=== PATIENT | male | born 1960 | race Caucasian/White ===

== ENCOUNTER 2018-04-10 01:23 | Outpatient (RCR) | payer MEDICAID, SELFPAY ==
[2018-04-10] MEDS: Heparin 500 UNITS/5 ML SYRINGE IV (12:33)
[2018-04-10] MEDS: Normal Saline Flush 10 ML SYR IVP (12:33)
[2018-04-10 12:54] LABS: Abs Immature Grans 0.03 k/cumm (0.0-0.09); Absolute Basophil Count 0.03 k/cumm (0.0-0.2); Absolute Lymphocyte Count 0.92 k/cumm (1.2-3.4); Absolute Monocyte Count 0.49 k/cumm (0.11-0.7); Absolute Neutrophil Count 5.11 k/cumm (1.2-6.7); Basophils % 0.4; Eosinophils % 4.4; HCT 47.3 % (40.0-50.0); HGB 15.9 g/dL (13.5-17.5); Immature Grans % 0.4; Lymphocytes % 13.4; Mean Corp. HGB Concentration 33.6 g/dL (32.0-36.0); Mean Corpuscular Hemoglobin 29.7 pg (27.0-33.0); Mean Corpuscular Volume 88.4 fL (80-95); Mean Platelet Volume 9.2 fL (8.0-11.0); Monocytes % 7.1; Neutrophils % 74.3; Platelet Count 246 x1000/uL (130-400); RBC 5.35 m/cumm (4.50-6.00); RBC Distribution Width 14.2 % (11.8-14.1); White Blood Cell Count 6.88 k/cumm (4.4-10.8)
[2018-04-10 13:03] LABS: ALT 24 U/L (12-78); AST 14 U/L (15-37); Albumin 3.7 g/dL (3.4-5.0); Alkaline Phosphatase 82 U/L (46-116); Anion Gap 8.8 mmol/L (3-11); BUN 8 mg/dL (7-18); Bilirubin, Total 0.5 mg/dL (0.2-1.0); CO2 27.2 mmol/L (21.0-32.0); CREATININE 0.94 mg/dL (0.70-1.30); Calcium 8.9 mg/dL (8.5-10.1); Chloride 103 mmol/L (98-107); Glucose 98 mg/dL (70-100); Potassium 3.9 mmol/L (3.5-5.1); Sodium 139 mmol/L (136-145); Total Protein 7.2 g/dL (6.4-8.2)
[2018-04-13 10:35] LABS: CEA 1.7 ng/ml
== END 2018-05-01 ==
LOC: INF 01:23
PROVIDERS: PCP Internal Medicine; Visit Provider Internal Medicine Hematology & Oncology
DX: C20 Malignant neoplasm of rectum (principal); Z45.2 Encounter for adjustment and management of vascular access device
CPT/HCPCS: 36591; 80053; 82378; 85025

== ENCOUNTER 2018-06-18 10:44 | Outpatient (REF) | payer MEDICAID, SELFPAY ==
[2018-06-22 02:17] LABS: 6-monoacetylmorphine Not Detected ng/mL (Cutoff: 25); Amphetamines Negative ng/mL (Cutoff: 500); Barbiturates Negative ng/mL (Cutoff: 200); Benzodiazepines Negative ng/mL (Cutoff: 100); Buprenorphine Not Detected ng/mL (Cutoff: 5); Cocaine Negative ng/mL (Cutoff: 150); Codeine Not Detected ng/mL (Cutoff: 25); Comment Normal; Creatinine, U 71.9 mg/dL; Dihydrocodeine Not Detected ng/mL (Cutoff: 25); EDDP Not Detected ng/mL (Cutoff: 25); Fentanyl Not Detected ng/mL (Cutoff: 2); Hydrocodone Not Detected ng/mL (Cutoff: 25); Hydromorphone Not Detected ng/mL (Cutoff: 25); Hydromorphone-3-beta-glucuroni Not Detected ng/mL (Cutoff: 100); Meperidine Not Detected ng/mL (Cutoff: 25); Methadone Not Detected ng/mL (Cutoff: 25); Morphine Not Detected ng/mL (Cutoff: 25); N-desmethyltapentadol Not Detected ng/mL (Cutoff: 50); Naloxone Not Detected ng/mL (Cutoff: 25); Norbuprenorphine Not Detected ng/mL (Cutoff: 5); Norfentanyl Not Detected ng/mL (Cutoff: 2); Norhydrocodone Not Detected ng/mL (Cutoff: 25); Normeperidine Not Detected ng/mL (Cutoff: 25); Noroxycodone Not Detected ng/mL (Cutoff: 25); Noroxymorphone Not Detected ng/mL (Cutoff: 25); O-desmethyltramadol Not Detected ng/mL (Cutoff: 25); Phencyclidine Negative ng/mL (Cutoff: 25); Propoxyphene Not Detected ng/mL (Cutoff: 25); Tapentadol Not Detected ng/mL (Cutoff: 25); Tetrahydrocannabinol Presumptive Positive ng/mL (Cutoff: 50); Tramadol Not Detected ng/mL (Cutoff: 25); pH 7.6
== END 2018-06-18 11:04 ==
LOC: LBN 10:44
PROVIDERS: PCP Internal Medicine; Visit Provider Nurse Practitioner Family
DX: Z79.891 Long term (current) use of opiate analgesic (principal); G89.29 Other chronic pain
CPT/HCPCS: 80307; 80364

== ENCOUNTER 2018-10-30 00:40 | Outpatient (RCR) | payer MEDICAID, SELFPAY ==
[2018-10-30] MEDS: Normal Saline Flush 10 ML SYR IVP (13:32)
[2018-10-30] MEDS: Heparin 500 UNITS/5 ML SYRINGE IV (13:32)
[2018-10-30 13:50] LABS: Abs Immature Grans 0.01 k/cumm (0.0-0.09); Absolute Basophil Count 0.03 k/cumm (0.0-0.2); Absolute Eosinophil Count 0.26 k/cumm (0.0-0.7); Absolute Lymphocyte Count 1.06 k/cumm (1.2-3.4); Absolute Monocyte Count 0.58 k/cumm (0.11-0.7); Absolute Neutrophil Count 6.73 k/cumm (1.2-6.7); Basophils % 0.3; HCT 47.8 % (40.0-50.0); HGB 16.1 g/dL (13.5-17.5); Immature Grans % 0.1; Lymphocytes % 12.2; Mean Corp. HGB Concentration 33.7 g/dL (32.0-36.0); Mean Corpuscular Hemoglobin 29.6 pg (27.0-33.0); Mean Corpuscular Volume 87.9 fL (80-95); Mean Platelet Volume 10.4 fL (8.0-11.0); Monocytes % 6.7; Neutrophils % 77.7; Platelet Count 253 x1000/uL (130-400); RBC 5.44 m/cumm (4.50-6.00); RBC Distribution Width 14.4 % (11.8-14.1); White Blood Cell Count 8.67 k/cumm (4.4-10.8)
[2018-10-30 14:02] LABS: ALT 24 U/L (12-78); AST 17 U/L (15-37); Albumin 3.8 g/dL (3.4-5.0); Alkaline Phosphatase 87 U/L (46-116); Anion Gap 5.5 mmol/L (3-11); BUN 13 mg/dL (7-18); Bilirubin, Total 0.4 mg/dL (0.2-1.0); CO2 31.5 mmol/L (21.0-32.0); CREATININE 0.93 mg/dL (0.70-1.30); Calcium 9.5 mg/dL (8.5-10.1); Chloride 102 mmol/L (98-107); Glucose 142 mg/dL (70-100); Potassium 3.9 mmol/L (3.5-5.1); Sodium 139 mmol/L (136-145); Total Protein 7.6 g/dL (6.4-8.2)
[2018-11-02 12:09] LABS: Lyme Ab w Rflx to Lyme Confirm Negative
[2018-11-02 12:14] LABS: CEA 1.6 ng/ml
== END 2018-11-29 23:59 | disposition home or self-care (01) ==
LOC: INF 00:40
PROVIDERS: PCP Internal Medicine; Visit Provider Internal Medicine Hematology & Oncology
DX: C20 Malignant neoplasm of rectum (principal); Z45.2 Encounter for adjustment and management of vascular access device
CPT/HCPCS: 36591; 80053; 82378; 85025; 86618

== ENCOUNTER 2019-01-11 09:36 | Outpatient (CLI) | payer MEDICAID, SELFPAY ==
--- NOTE | 2019-01-11 09:35 | DI.RAD_ITS ---
SYMPTOM/DIAGNOSIS: LT CHEST PAIN, COUGH, R00.2, R07.9 PA AND LATERAL CHEST: Comparison is made with 01/03/17. A Port is now seen over the right upper chest with the tip in the SVC. The cardiac and mediastinal contours have a normal appearance. The lungs appear clear. There are old right lower rib fractures. There is no evidence of pneumothorax, infiltrate or effusion. IMPRESSION: No acute abnormality.
[2019-01-11 11:18] LABS: TSH (W/Ref FT4) 2.39 uIU/mL (0.358-3.74)
[2019-01-12 12:43] LABS: Lyme Ab w Rflx to Lyme Confirm Negative
== END 2019-01-11 09:56 ==
PROVIDERS: PCP Internal Medicine; Visit Provider Internal Medicine
DX: R00.2 Palpitations (principal); R07.9 Chest pain, unspecified; S40.862A Insect bite (nonvenomous) of left upper arm, initial encounter; W57.XXXA Bitten or stung by nonvenomous insect and other nonvenomous arthropods, initial encounter; T14.8XXA Other injury of unspecified body region, initial encounter; R05 Cough
CPT/HCPCS: 36415; 71046; 84443; 86618

== ENCOUNTER 2019-02-25 09:39 | Outpatient (REF) | payer MEDICAID, SELFPAY ==
[2019-03-01 18:06] LABS: 6-monoacetylmorphine Not Detected ng/mL (Cutoff: 25); Amphetamines Negative ng/mL (Cutoff: 500); Barbiturates Negative ng/mL (Cutoff: 200); Benzodiazepines Negative ng/mL (Cutoff: 100); Buprenorphine Not Detected ng/mL (Cutoff: 5); Cocaine Negative ng/mL (Cutoff: 150); Codeine Not Detected ng/mL (Cutoff: 25); Comment Normal; Creatinine, U 120.1 mg/dL; Dihydrocodeine Not Detected ng/mL (Cutoff: 25); EDDP Not Detected ng/mL (Cutoff: 25); Fentanyl Not Detected ng/mL (Cutoff: 2); Hydrocodone Not Detected ng/mL (Cutoff: 25); Hydromorphone Not Detected ng/mL (Cutoff: 25); Hydromorphone-3-beta-glucuroni Not Detected ng/mL (Cutoff: 100); Meperidine Not Detected ng/mL (Cutoff: 25); Methadone Not Detected ng/mL (Cutoff: 25); Morphine Not Detected ng/mL (Cutoff: 25); N-desmethyltapentadol Not Detected ng/mL (Cutoff: 50); Naloxone Not Detected ng/mL (Cutoff: 25); Norbuprenorphine Not Detected ng/mL (Cutoff: 5); Norfentanyl Not Detected ng/mL (Cutoff: 2); Norhydrocodone Not Detected ng/mL (Cutoff: 25); Normeperidine Not Detected ng/mL (Cutoff: 25); Noroxycodone Present ng/mL (Cutoff: 25); Noroxymorphone Present ng/mL (Cutoff: 25); O-desmethyltramadol Not Detected ng/mL (Cutoff: 25); Phencyclidine Negative ng/mL (Cutoff: 25); Propoxyphene Not Detected ng/mL (Cutoff: 25); Specific Gravity 1.004; Tapentadol Not Detected ng/mL (Cutoff: 25); Tetrahydrocannabinol Presumptive Positive ng/mL (Cutoff: 50); Tramadol Not Detected ng/mL (Cutoff: 25); pH 8.3
[2019-03-03 10:51] LABS: Carboxy-THC Interpretation Positive.; Delta-9 CarboxyThc by LC-MS/MS >500.0 ng/mL (Cutoff:<3)
== END 2019-02-25 09:59 ==
LOC: NCHCN 09:39
PROVIDERS: PCP Internal Medicine; Visit Provider Nurse Practitioner Family
DX: Z79.891 Long term (current) use of opiate analgesic (principal)
CPT/HCPCS: 80307; 80349; 80364

== ENCOUNTER 2019-05-20 09:49 | Outpatient (REF) | payer MEDICAID, SELFPAY ==
[2019-05-23 19:28] LABS: 6-monoacetylmorphine Not Detected ng/mL (Cutoff: 25); Amphetamines Negative ng/mL (Cutoff: 500); Barbiturates Negative ng/mL (Cutoff: 200); Benzodiazepines Negative ng/mL (Cutoff: 100); Buprenorphine Not Detected ng/mL (Cutoff: 5); Cocaine Negative ng/mL (Cutoff: 150); Codeine Not Detected ng/mL (Cutoff: 25); Comment Normal; Creatinine, U 48.9 mg/dL; Dihydrocodeine Not Detected ng/mL (Cutoff: 25); EDDP Not Detected ng/mL (Cutoff: 25); Fentanyl Not Detected ng/mL (Cutoff: 2); Hydrocodone Not Detected ng/mL (Cutoff: 25); Hydromorphone Not Detected ng/mL (Cutoff: 25); Hydromorphone-3-beta-glucuroni Not Detected ng/mL (Cutoff: 100); Meperidine Not Detected ng/mL (Cutoff: 25); Methadone Not Detected ng/mL (Cutoff: 25); Morphine Not Detected ng/mL (Cutoff: 25); N-desmethyltapentadol Not Detected ng/mL (Cutoff: 50); Naloxone Not Detected ng/mL (Cutoff: 25); Norbuprenorphine Not Detected ng/mL (Cutoff: 5); Norhydrocodone Not Detected ng/mL (Cutoff: 25); Normeperidine Not Detected ng/mL (Cutoff: 25); Noroxycodone Present ng/mL (Cutoff: 25); Noroxymorphone Not Detected ng/mL (Cutoff: 25); O-desmethyltramadol Not Detected ng/mL (Cutoff: 25); Phencyclidine Negative ng/mL (Cutoff: 25); Propoxyphene Not Detected ng/mL (Cutoff: 25); Specific Gravity 1.002; Tapentadol Not Detected ng/mL (Cutoff: 25); Tetrahydrocannabinol Presumptive Positive ng/mL (Cutoff: 50); Tramadol Not Detected ng/mL (Cutoff: 25); pH 8.4
[2019-05-25 23:38] LABS: Carboxy-THC Interpretation Positive.; Delta-9 CarboxyThc by LC-MS/MS >500.0 ng/mL (Cutoff:<3)
== END 2019-05-20 10:09 ==
LOC: LBN 09:49
PROVIDERS: PCP Internal Medicine; Visit Provider Nurse Practitioner Family
DX: G89.29 Other chronic pain (principal); Z79.891 Long term (current) use of opiate analgesic
CPT/HCPCS: 80307; 80349; 80364

== ENCOUNTER 2019-05-28 13:05 | Outpatient (RCR) | payer MEDICAID, SELFPAY ==
[2019-05-28] MEDS: Normal Saline Flush 10 ML SYR 30 ML IVP (13:42)
[2019-05-28] MEDS: Heparin 500 UNITS/5 ML SYRINGE IVP (13:43)
[2019-05-28 13:45] LABS: Abs Immature Grans 0.01 k/cumm (0.0-0.09); Absolute Basophil Count 0.04 k/cumm (0.0-0.2); Absolute Eosinophil Count 0.25 k/cumm (0.0-0.7); Absolute Lymphocyte Count 1.29 k/cumm (1.2-3.4); Absolute Monocyte Count 0.47 k/cumm (0.11-0.7); Basophils % 0.5; Eosinophils % 3.1; HCT 48.3 % (40.0-50.0); HGB 16.3 g/dL (13.5-17.5); Immature Grans % 0.1; Mean Corp. HGB Concentration 33.7 g/dL (32.0-36.0); Mean Corpuscular Hemoglobin 29.8 pg (27.0-33.0); Mean Corpuscular Volume 88.3 fL (80-95); Mean Platelet Volume 9.6 fL (8.0-11.0); Monocytes % 5.8; Neutrophils % 74.5; Platelet Count 330 x1000/uL (130-400); RBC 5.47 m/cumm (4.50-6.00); RBC Distribution Width 14.3 % (11.8-14.1); White Blood Cell Count 8.06 k/cumm (4.4-10.8)
[2019-05-28 14:11] LABS: ALT 23 U/L (16-63); AST 17 U/L (15-37); Alkaline Phosphatase 73 U/L (46-116); Anion Gap 6.7 mmol/L (3-11); BUN 9 mg/dL (7-18); Bilirubin, Total 0.4 mg/dL (0.2-1.0); CO2 30.3 mmol/L (21.0-32.0); CREATININE 0.86 mg/dL (0.70-1.30); Calcium 9.6 mg/dL (8.5-10.1); Chloride 104 mmol/L (98-107); Glucose 100 mg/dL (70-100); Potassium 3.9 mmol/L (3.5-5.1); Sodium 141 mmol/L (136-145); Total Protein 7.6 g/dL (6.4-8.2)
[2019-05-31 15:32] LABS: CEA 2.1 ng/ml
== END 2019-05-31 23:59 | disposition home or self-care (01) ==
LOC: INF 13:05
PROVIDERS: PCP Internal Medicine; Visit Provider Internal Medicine Hematology & Oncology
DX: C20 Malignant neoplasm of rectum (principal); Z45.2 Encounter for adjustment and management of vascular access device
CPT/HCPCS: 36591; 80053; 82378; 85025

== ENCOUNTER 2019-06-25 11:58 | Outpatient (RCR) | payer MEDICAID, SELFPAY ==
[2019-06-25] MEDS: Heparin 500 UNITS/5 ML SYRINGE (13:15)
[2019-06-25] MEDS: Normal Saline Flush 10 ML SYR IVP (13:16)
== END 2019-07-01 23:59 | disposition home or self-care (01) ==
LOC: INF 11:58
PROVIDERS: PCP Internal Medicine; Visit Provider Internal Medicine Hematology & Oncology
DX: Z45.2 Encounter for adjustment and management of vascular access device (principal)
CPT/HCPCS: 96523

== ENCOUNTER 2019-07-28 01:03 | Outpatient (RCR) | payer MEDICAID, SELFPAY ==
[2019-07-28 12:25] LABS: Abs Immature Grans 0.01 k/cumm (0.0-0.09); Absolute Basophil Count 0.04 k/cumm (0.0-0.2); Absolute Eosinophil Count 0.12 k/cumm (0.0-0.7); Absolute Lymphocyte Count 1.16 k/cumm (1.2-3.4); Absolute Neutrophil Count 7.75 k/cumm (1.2-6.7); Basophils % 0.4; Eosinophils % 1.2; HCT 46.4 % (40.0-50.0); HGB 15.5 g/dL (13.5-17.5); Immature Grans % 0.1; Mean Corp. HGB Concentration 33.4 g/dL (32.0-36.0); Mean Corpuscular Hemoglobin 29.6 pg (27.0-33.0); Mean Corpuscular Volume 88.7 fL (80-95); Mean Platelet Volume 9.6 fL (8.0-11.0); Monocytes % 6.2; Neutrophils % 80.1; Platelet Count 324 x1000/uL (130-400); RBC 5.23 m/cumm (4.50-6.00); RBC Distribution Width 14.1 % (11.8-14.1); White Blood Cell Count 9.68 k/cumm (4.4-10.8)
[2019-07-28 12:40] LABS: ALT 27 U/L (16-63); AST 17 U/L (15-37); Albumin 4.1 g/dL (3.4-5.0); Alkaline Phosphatase 61 U/L (46-116); Anion Gap 10.2 mmol/L (3-11); BUN 10 mg/dL (7-18); Bilirubin, Total 0.3 mg/dL (0.2-1.0); CO2 27.8 mmol/L (21.0-32.0); CREATININE 0.89 mg/dL (0.70-1.30); Calcium 9.4 mg/dL (8.5-10.1); Chloride 102 mmol/L (98-107); Glucose 104 mg/dL (74-106); Sodium 140 mmol/L (136-145); Total Protein 7.5 g/dL (6.4-8.2)
[2019-07-28] MEDS: Heparin 500 UNITS/5 ML SYRINGE IV (12:48)
[2019-07-28] MEDS: Normal Saline Flush 10 ML SYR IVP (12:48)
== END 2019-07-31 23:59 | disposition home or self-care (01) ==
LOC: INF 01:03
PROVIDERS: PCP Internal Medicine; Visit Provider Internal Medicine Hematology & Oncology
DX: C20 Malignant neoplasm of rectum (principal); Z45.2 Encounter for adjustment and management of vascular access device
CPT/HCPCS: 36591; 80053; 82378; 85025

== ENCOUNTER 2019-08-18 09:27 | Outpatient (REF) | payer MEDICAID, SELFPAY ==
[2019-08-21 14:29] LABS: 2-Hydroxy Ethyl Flurazepam Not Detected ng/mL (Cutoff: 10); 6-monoacetylmorphine Not Detected ng/mL (Cutoff: 25); Alpha-Hydroxy Midazolam Not Detected ng/mL (Cutoff: 10); Alpha-Hydroxy Triazolam Not Detected ng/mL (Cutoff: 10); Alpha-Hydroxyalprazolam Not Detected ng/mL (Cutoff: 10); Alpha-OH-alprazolam Glucuronid Not Detected ng/mL (Cutoff: 50); Alprazolam Not Detected ng/mL (Cutoff: 10); Amphetamines Negative ng/mL (Cutoff: 500); Barbiturates Negative ng/mL (Cutoff: 200); Buprenorphine Not Detected ng/mL (Cutoff: 5); Chlordiazepoxide Not Detected ng/mL (Cutoff: 10); Clobazam Not Detected ng/mL (Cutoff: 10); Clonazepam Not Detected ng/mL (Cutoff: 10); Cocaine Negative ng/mL (Cutoff: 150); Codeine Not Detected ng/mL (Cutoff: 25); Comment Normal; Creatinine, U 77.3 mg/dL; Diazepam Not Detected ng/mL (Cutoff: 10); Dihydrocodeine Not Detected ng/mL (Cutoff: 25); EDDP Not Detected ng/mL (Cutoff: 25); Fentanyl Not Detected ng/mL (Cutoff: 2); Flurazepam Not Detected ng/mL (Cutoff: 10); Hydrocodone Not Detected ng/mL (Cutoff: 25); Hydromorphone Not Detected ng/mL (Cutoff: 25); Hydromorphone-3-beta-glucuroni Not Detected ng/mL (Cutoff: 100); List Patient's Current Meds URINE; Lorazepam Not Detected ng/mL (Cutoff: 10); Lorazepam Glucuronide Not Detected ng/mL (Cutoff: 50); Meperidine Not Detected ng/mL (Cutoff: 25); Methadone Not Detected ng/mL (Cutoff: 25); Midazolam Not Detected ng/mL (Cutoff: 10); Morphine Not Detected ng/mL (Cutoff: 25); N-Desmethylclobazam Not Detected ng/mL (Cutoff: 200); N-desmethyltapentadol Not Detected ng/mL (Cutoff: 50); Naloxone Not Detected ng/mL (Cutoff: 25); Norbuprenorphine Not Detected ng/mL (Cutoff: 5); Norfentanyl Not Detected ng/mL (Cutoff: 2); Norhydrocodone Not Detected ng/mL (Cutoff: 25); Normeperidine Not Detected ng/mL (Cutoff: 25); Noroxycodone Present ng/mL (Cutoff: 25); Noroxymorphone Not Detected ng/mL (Cutoff: 25); O-desmethyltramadol Not Detected ng/mL (Cutoff: 25); Oxazepam Glucuronide Not Detected ng/mL (Cutoff: 50); Phencyclidine Negative ng/mL (Cutoff: 25); Prazepam Not Detected ng/mL (Cutoff: 10); Propoxyphene Not Detected ng/mL (Cutoff: 25); Specific Gravity 1.012; Tapentadol Not Detected ng/mL (Cutoff: 25); Temazepam Not Detected ng/mL (Cutoff: 10); Temazepam Glucuronide Not Detected ng/mL (Cutoff: 50); Tetrahydrocannabinol Presumptive Positive ng/mL (Cutoff: 50); Tramadol Not Detected ng/mL (Cutoff: 25); Triazolam Not Detected ng/mL (Cutoff: 10); Zolpidem Phenyl-4-Carboxy acid Not Detected ng/mL (Cutoff: 10); pH 8.9
[2019-08-23 08:40] LABS: Carboxy-THC Interpretation Positive.; Delta-9 CarboxyThc by LC-MS/MS >500.0 ng/mL (Cutoff:<3)
== END 2019-08-18 09:47 ==
LOC: LBN 09:27
PROVIDERS: PCP Internal Medicine; Visit Provider Nurse Practitioner Family
DX: Z79.891 Long term (current) use of opiate analgesic (principal); G89.29 Other chronic pain
CPT/HCPCS: 80307; 80347; 80349; 80364

== ENCOUNTER 2019-08-27 04:53 | Outpatient (RCR) | payer MEDICARE, OTHER, MEDICAID, SELFPAY ==
[2019-08-27] MEDS: Normal Saline Flush 10 ML SYR IVP (09:36)
[2019-08-27] MEDS: Heparin 500 UNITS/5 ML SYRINGE IV (09:37)
[2019-08-27 09:42] LABS: Abs Immature Grans 0.03 k/cumm (0.0-0.09); Absolute Basophil Count 0.04 k/cumm (0.0-0.2); Absolute Eosinophil Count 0.26 k/cumm (0.0-0.7); Absolute Lymphocyte Count 1.43 k/cumm (1.2-3.4); Absolute Monocyte Count 0.65 k/cumm (0.11-0.7); Basophils % 0.3; Eosinophils % 2.1; HGB 16.1 g/dL (13.5-17.5); Immature Grans % 0.2; Lymphocytes % 11.6; Mean Corp. HGB Concentration 33.5 g/dL (32.0-36.0); Mean Corpuscular Hemoglobin 29.9 pg (27.0-33.0); Mean Corpuscular Volume 89.1 fL (80-95); Mean Platelet Volume 9.3 fL (8.0-11.0); Monocytes % 5.3; Neutrophils % 80.5; Platelet Count 328 x1000/uL (130-400); RBC 5.39 m/cumm (4.50-6.00); RBC Distribution Width 14.4 % (11.8-14.1); White Blood Cell Count 12.33 k/cumm (4.4-10.8)
[2019-08-27 09:46] LABS: Absolute Neutrophil Count 9.93 k/cumm (1.2-6.7)
[2019-08-27 10:03] LABS: ALT 23 U/L (16-63); AST 16 U/L (15-37); Albumin 3.9 g/dL (3.4-5.0); Alkaline Phosphatase 66 U/L (46-116); Anion Gap 6.3 mmol/L (3-11); BUN 10 mg/dL (7-18); Bilirubin, Total 0.5 mg/dL (0.2-1.0); CO2 30.7 mmol/L (21.0-32.0); CREATININE 0.91 mg/dL (0.70-1.30); Calcium 9.2 mg/dL (8.5-10.1); Chloride 104 mmol/L (98-107); Glucose 130 mg/dL (74-106); Potassium 4.1 mmol/L (3.5-5.1); Sodium 141 mmol/L (136-145); Total Protein 7.4 g/dL (6.4-8.2)
== END 2019-08-31 23:59 | disposition home or self-care (01) ==
LOC: INF 04:53
PROVIDERS: PCP Internal Medicine; Visit Provider Internal Medicine Hematology & Oncology
DX: C20 Malignant neoplasm of rectum (principal); Z45.2 Encounter for adjustment and management of vascular access device
CPT/HCPCS: 36591; 80053; 82378; 85025

== ENCOUNTER 2019-10-11 10:31 | Outpatient (RCR) | payer MEDICARE, OTHER, MEDICAID, SELFPAY ==
[2019-10-11 10:49] LABS: Abs Immature Grans 0.02 k/cumm (0.0-0.09); Absolute Basophil Count 0.04 k/cumm (0.0-0.2); Absolute Eosinophil Count 0.21 k/cumm (0.0-0.7); Absolute Lymphocyte Count 1.36 k/cumm (1.2-3.4); Absolute Neutrophil Count 10.83 k/cumm (1.2-6.7); Basophils % 0.3; Eosinophils % 1.6; HCT 47.4 % (40.0-50.0); HGB 15.9 g/dL (13.5-17.5); Immature Grans % 0.2 %; Lymphocytes % 10.4; Mean Corp. HGB Concentration 33.5 g/dL (32.0-36.0); Mean Corpuscular Hemoglobin 29.7 pg (27.0-33.0); Mean Corpuscular Volume 88.6 fL (80-95); Mean Platelet Volume 9.4 fL (8.0-11.0); Monocytes % 4.7; Neutrophils % 82.8; Platelet Count 305 x1000/uL (130-400); RBC 5.35 m/cumm (4.50-6.00); RBC Distribution Width 14.3 % (11.8-14.1); White Blood Cell Count 13.08 k/cumm (4.4-10.8)
[2019-10-11 10:53] LABS: Absolute Monocyte Count 0.61 k/cumm (0.11-0.7)
[2019-10-11 11:00] LABS: ALT 20 U/L (16-63); AST 16 U/L (15-37); Albumin 3.9 g/dL (3.4-5.0); Alkaline Phosphatase 62 U/L (46-116); BUN 9 mg/dL (7-18); Bilirubin, Total 0.3 mg/dL (0.2-1.0); CREATININE 0.83 mg/dL (0.70-1.30); Chloride 103 mmol/L (98-107); Glucose 124 mg/dL (74-106); Potassium 3.8 mmol/L (3.5-5.1); Sodium 140 mmol/L (136-145); Total Protein 7.1 g/dL (6.4-8.2)
[2019-10-11] MEDS: Heparin 500 UNITS/5 ML SYRINGE (11:37)
[2019-10-11] MEDS: Normal Saline Flush 10 ML SYR IVP (11:39)
[2019-10-12 12:12] LABS: CEA 1.9 ng/mL (See Note)
== END 2019-10-30 23:59 | disposition home or self-care (01) ==
LOC: INF 10:31
PROVIDERS: PCP Internal Medicine; Visit Provider Internal Medicine Hematology & Oncology
DX: C20 Malignant neoplasm of rectum (principal); Z45.2 Encounter for adjustment and management of vascular access device
CPT/HCPCS: 36591; 80053; 82378; 85025

== ENCOUNTER 2019-11-09 10:08 | Outpatient (REF) | payer MEDICARE, OTHER, MEDICAID, SELFPAY ==
[2019-11-12 13:00] LABS: 2-Hydroxy Ethyl Flurazepam Not Detected ng/mL (Cutoff: 10); 6-monoacetylmorphine Not Detected ng/mL (Cutoff: 25); Alpha-Hydroxy Midazolam Not Detected ng/mL (Cutoff: 10); Alpha-Hydroxy Triazolam Not Detected ng/mL (Cutoff: 10); Alpha-Hydroxyalprazolam Not Detected ng/mL (Cutoff: 10); Alpha-OH-alprazolam Glucuronid Not Detected ng/mL (Cutoff: 50); Alprazolam Not Detected ng/mL (Cutoff: 10); Amphetamines Negative ng/mL (Cutoff: 500); Barbiturates Negative ng/mL (Cutoff: 200); Buprenorphine Not Detected ng/mL (Cutoff: 5); Chlordiazepoxide Not Detected ng/mL (Cutoff: 10); Clobazam Not Detected ng/mL (Cutoff: 10); Clonazepam Not Detected ng/mL (Cutoff: 10); Cocaine Negative ng/mL (Cutoff: 150); Codeine Not Detected ng/mL (Cutoff: 25); Comment Normal; Creatinine, U 96.2 mg/dL; Diazepam Not Detected ng/mL (Cutoff: 10); Dihydrocodeine Not Detected ng/mL (Cutoff: 25); EDDP Not Detected ng/mL (Cutoff: 25); Fentanyl Not Detected ng/mL (Cutoff: 2); Flurazepam Not Detected ng/mL (Cutoff: 10); Hydrocodone Not Detected ng/mL (Cutoff: 25); Hydromorphone Not Detected ng/mL (Cutoff: 25); Hydromorphone-3-beta-glucuroni Not Detected ng/mL (Cutoff: 100); Lorazepam Not Detected ng/mL (Cutoff: 10); Lorazepam Glucuronide Not Detected ng/mL (Cutoff: 50); Meperidine Not Detected ng/mL (Cutoff: 25); Methadone Not Detected ng/mL (Cutoff: 25); Midazolam Not Detected ng/mL (Cutoff: 10); Morphine Not Detected ng/mL (Cutoff: 25); N-Desmethylclobazam Not Detected ng/mL (Cutoff: 200); N-desmethyltapentadol Not Detected ng/mL (Cutoff: 50); Naloxone Not Detected ng/mL (Cutoff: 25); Norbuprenorphine Not Detected ng/mL (Cutoff: 5); Norfentanyl Not Detected ng/mL (Cutoff: 2); Norhydrocodone Not Detected ng/mL (Cutoff: 25); Normeperidine Not Detected ng/mL (Cutoff: 25); Noroxycodone Present ng/mL (Cutoff: 25); Noroxymorphone Present ng/mL (Cutoff: 25); O-desmethyltramadol Not Detected ng/mL (Cutoff: 25); Oxazepam Glucuronide Not Detected ng/mL (Cutoff: 50); Phencyclidine Negative ng/mL (Cutoff: 25); Prazepam Not Detected ng/mL (Cutoff: 10); Propoxyphene Not Detected ng/mL (Cutoff: 25); Specific Gravity 1.012; Tapentadol Not Detected ng/mL (Cutoff: 25); Temazepam Not Detected ng/mL (Cutoff: 10); Temazepam Glucuronide Not Detected ng/mL (Cutoff: 50); Tetrahydrocannabinol Presumptive Positive ng/mL (Cutoff: 50); Tramadol Not Detected ng/mL (Cutoff: 25); Triazolam Not Detected ng/mL (Cutoff: 10); Zolpidem Phenyl-4-Carboxy acid Not Detected ng/mL (Cutoff: 10); pH 8.8
[2019-11-12 18:12] LABS: Carboxy-THC Interpretation Positive.; Delta-9 CarboxyThc by LC-MS/MS >500.0 ng/mL (Cutoff:<3)
== END 2019-11-09 10:28 ==
LOC: LBN 10:08
PROVIDERS: PCP Internal Medicine; Visit Provider Nurse Practitioner Family
DX: Z79.891 Long term (current) use of opiate analgesic (principal); Z79.899 Other long term (current) drug therapy
CPT/HCPCS: 80307; 80347; 80349; 80364

== ENCOUNTER 2019-11-19 11:22 | Outpatient (RCR) | payer MEDICARE, OTHER, MEDICAID, SELFPAY ==
[2019-11-19] MEDS: Normal Saline Flush 10 ML SYR IVP (11:34)
[2019-11-19] MEDS: Heparin 500 UNITS/5 ML SYRINGE (11:35)
== END 2019-11-30 23:59 | disposition home or self-care (01) ==
LOC: INF 11:22
PROVIDERS: PCP Internal Medicine; Visit Provider Internal Medicine Hematology & Oncology
DX: Z45.2 Encounter for adjustment and management of vascular access device (principal)
CPT/HCPCS: 96523

== ENCOUNTER 2019-12-31 03:18 | Outpatient (RCR) | payer MEDICARE, OTHER, MEDICAID, SELFPAY ==
[2019-12-31] MEDS: Normal Saline Flush 10 ML SYR IVP (11:07)
[2019-12-31] MEDS: Heparin 500 UNITS/5 ML SYRINGE IV (11:08)
== END 2020-01-30 23:59 | disposition home or self-care (01) ==
LOC: INF 03:18
PROVIDERS: PCP Nurse Practitioner; Visit Provider Internal Medicine Hematology & Oncology
DX: Z45.2 Encounter for adjustment and management of vascular access device (principal)
CPT/HCPCS: 96523

== ENCOUNTER 2020-01-20 21:13 | Outpatient (REF) | payer MEDICARE, OTHER, MEDICAID, SELFPAY ==
[2020-01-20 21:29] LABS: Calculated LDL 144 mg/dL (<100); Cholesterol 225 mg/dL (<200); HDL Cholesterol 39 mg/dL (40-60); Triglyceride 213 mg/dL (<150)
[2020-01-20 21:35] LABS: Hemoglobin A1C 5.7 % (3.8-5.6)
== END 2020-01-20 21:33 ==
LOC: LBN 21:13
PROVIDERS: PCP Nurse Practitioner; Visit Provider Nurse Practitioner
DX: R73.09 Other abnormal glucose (principal); E78.89 Other lipoprotein metabolism disorders
CPT/HCPCS: 80061; 83036

== ENCOUNTER 2020-01-26 08:53 | Outpatient (REF) | payer MEDICARE, OTHER, MEDICAID, SELFPAY ==
[2020-02-01 12:44] LABS: 2-Hydroxy Ethyl Flurazepam Not Detected ng/mL (Cutoff: 10); 6-monoacetylmorphine Not Detected ng/mL (Cutoff: 25); Alpha-Hydroxy Midazolam Not Detected ng/mL (Cutoff: 10); Alpha-Hydroxy Triazolam Not Detected ng/mL (Cutoff: 10); Alpha-Hydroxyalprazolam Not Detected ng/mL (Cutoff: 10); Alpha-OH-alprazolam Glucuronid Not Detected ng/mL (Cutoff: 50); Alprazolam Not Detected ng/mL (Cutoff: 10); Amphetamines Negative ng/mL (Cutoff: 500); Barbiturates Negative ng/mL (Cutoff: 200); Buprenorphine Not Detected ng/mL (Cutoff: 5); Chlordiazepoxide Not Detected ng/mL (Cutoff: 10); Clobazam Not Detected ng/mL (Cutoff: 10); Clonazepam Not Detected ng/mL (Cutoff: 10); Cocaine Negative ng/mL (Cutoff: 150); Codeine Not Detected ng/mL (Cutoff: 25); Comment Normal; Creatinine, U 60.8 mg/dL; Diazepam Not Detected ng/mL (Cutoff: 10); Dihydrocodeine Not Detected ng/mL (Cutoff: 25); EDDP Not Detected ng/mL (Cutoff: 25); Fentanyl Not Detected ng/mL (Cutoff: 2); Flurazepam Not Detected ng/mL (Cutoff: 10); Hydrocodone Not Detected ng/mL (Cutoff: 25); Hydromorphone Not Detected ng/mL (Cutoff: 25); Hydromorphone-3-beta-glucuroni Not Detected ng/mL (Cutoff: 100); Lorazepam Not Detected ng/mL (Cutoff: 10); Lorazepam Glucuronide Not Detected ng/mL (Cutoff: 50); Meperidine Not Detected ng/mL (Cutoff: 25); Methadone Not Detected ng/mL (Cutoff: 25); Midazolam Not Detected ng/mL (Cutoff: 10); Morphine Not Detected ng/mL (Cutoff: 25); N-Desmethylclobazam Not Detected ng/mL (Cutoff: 200); N-desmethyltapentadol Not Detected ng/mL (Cutoff: 50); Naloxone Not Detected ng/mL (Cutoff: 25); Norbuprenorphine Not Detected ng/mL (Cutoff: 5); Norfentanyl Not Detected ng/mL (Cutoff: 2); Norhydrocodone Not Detected ng/mL (Cutoff: 25); Normeperidine Not Detected ng/mL (Cutoff: 25); Noroxycodone Present ng/mL (Cutoff: 25); Noroxymorphone Present ng/mL (Cutoff: 25); O-desmethyltramadol Not Detected ng/mL (Cutoff: 25); Oxazepam Glucuronide Not Detected ng/mL (Cutoff: 50); Phencyclidine Negative ng/mL (Cutoff: 25); Prazepam Not Detected ng/mL (Cutoff: 10); Propoxyphene Not Detected ng/mL (Cutoff: 25); Specific Gravity 1.012; Tapentadol Not Detected ng/mL (Cutoff: 25); Temazepam Not Detected ng/mL (Cutoff: 10); Temazepam Glucuronide Not Detected ng/mL (Cutoff: 50); Tetrahydrocannabinol Presumptive Positive ng/mL (Cutoff: 50); Tramadol Not Detected ng/mL (Cutoff: 25); Triazolam Not Detected ng/mL (Cutoff: 10); Zolpidem Phenyl-4-Carboxy acid Not Detected ng/mL (Cutoff: 10)
[2020-02-03 08:26] LABS: Carboxy-THC Interpretation Positive.; Delta-9 CarboxyThc by LC-MS/MS >500.0 ng/mL (Cutoff:<3)
== END 2020-01-26 09:13 ==
LOC: LBN 08:53
PROVIDERS: PCP Nurse Practitioner; Visit Provider Nurse Practitioner Family
DX: G89.29 Other chronic pain (principal); Z79.891 Long term (current) use of opiate analgesic
CPT/HCPCS: 80307; 80347; 80349; 80364

== ENCOUNTER 2020-02-11 04:50 | Outpatient (RCR) | payer MEDICARE, OTHER, MEDICAID, SELFPAY ==
[2020-02-11] MEDS: Heparin 500 UNITS/5 ML SYRINGE IV (11:11)
[2020-02-11] MEDS: Normal Saline Flush 10 ML SYR IVP (11:12)
== END 2020-02-29 23:59 | disposition home or self-care (01) ==
LOC: INF 04:50
PROVIDERS: PCP Nurse Practitioner; Visit Provider Internal Medicine Hematology & Oncology
DX: Z45.2 Encounter for adjustment and management of vascular access device (principal)
CPT/HCPCS: 96523

== ENCOUNTER 2020-03-31 04:27 | Outpatient (RCR) | payer MEDICARE, OTHER, MEDICAID, SELFPAY | END 2020-03-31 23:59 | disposition home or self-care (01) | LOC: INF 04:27 | PROVIDERS: PCP Nurse Practitioner; Visit Provider Internal Medicine Hematology & Oncology | DX: R69 Illness, unspecified (principal) ==

== ENCOUNTER 2020-04-04 01:14 | Outpatient (RCR) | payer MEDICARE, OTHER, MEDICAID, SELFPAY ==
[2020-04-04] MEDS: Normal Saline Flush 10 ML SYR IVP (11:15)
[2020-04-04] MEDS: Heparin 500 UNITS/5 ML SYRINGE IV (11:16)
== END 2020-05-01 23:59 | disposition home or self-care (01) ==
LOC: INF 01:14
PROVIDERS: PCP Nurse Practitioner; Visit Provider Internal Medicine Hematology & Oncology
DX: Z45.2 Encounter for adjustment and management of vascular access device (principal)
CPT/HCPCS: 96523

== ENCOUNTER 2020-04-20 20:46 | Outpatient (REF) | payer MEDICARE, OTHER, MEDICAID, SELFPAY ==
[2020-04-20 19:33] LABS: Calculated LDL 104 mg/dL (<100); Cholesterol 184 mg/dL (<200); HDL Cholesterol 51 mg/dL (40-60); Triglyceride 147 mg/dL (<150)
[2020-04-20 19:53] LABS: Hemoglobin A1C 5.7 % (3.8-5.6)
== END 2020-04-20 21:06 ==
LOC: NCHCN 20:46
PROVIDERS: PCP Nurse Practitioner; Visit Provider Nurse Practitioner
DX: R73.03 Prediabetes (principal); E78.5 Hyperlipidemia, unspecified
CPT/HCPCS: 80061; 83036

== ENCOUNTER 2020-05-09 03:52 | Outpatient (RCR) | payer MEDICARE, OTHER, MEDICAID, SELFPAY ==
[2020-05-09] MEDS: Heparin 500 UNITS/5 ML SYRINGE IV (10:09)
[2020-05-09] MEDS: Normal Saline Flush 10 ML SYR IVP (10:09)
== END 2020-05-31 23:59 | disposition home or self-care (01) ==
LOC: INF 03:52
PROVIDERS: PCP Nurse Practitioner; Visit Provider Internal Medicine Hematology & Oncology
DX: Z45.2 Encounter for adjustment and management of vascular access device (principal)
CPT/HCPCS: 96523

== ENCOUNTER 2020-05-17 09:57 | Outpatient (REF) | payer MEDICARE, OTHER, MEDICAID, SELFPAY ==
[2020-05-21 14:18] LABS: 2-Hydroxy Ethyl Flurazepam Not Detected ng/mL (Cutoff: 10); 6-monoacetylmorphine Not Detected ng/mL (Cutoff: 25); Alpha-Hydroxy Midazolam Not Detected ng/mL (Cutoff: 10); Alpha-Hydroxy Triazolam Not Detected ng/mL (Cutoff: 10); Alpha-Hydroxyalprazolam Not Detected ng/mL (Cutoff: 10); Alpha-OH-alprazolam Glucuronid Not Detected ng/mL (Cutoff: 50); Alprazolam Not Detected ng/mL (Cutoff: 10); Amphetamines Negative ng/mL (Cutoff: 500); Barbiturates Negative ng/mL (Cutoff: 200); Buprenorphine Not Detected ng/mL (Cutoff: 5); Chlordiazepoxide Not Detected ng/mL (Cutoff: 10); Clobazam Not Detected ng/mL (Cutoff: 10); Clonazepam Not Detected ng/mL (Cutoff: 10); Cocaine Negative ng/mL (Cutoff: 150); Codeine Not Detected ng/mL (Cutoff: 25); Comment Normal; Creatinine, U 59.4 mg/dL; Diazepam Not Detected ng/mL (Cutoff: 10); Dihydrocodeine Not Detected ng/mL (Cutoff: 25); EDDP Not Detected ng/mL (Cutoff: 25); Fentanyl Not Detected ng/mL (Cutoff: 2); Flurazepam Not Detected ng/mL (Cutoff: 10); Hydrocodone Not Detected ng/mL (Cutoff: 25); Hydromorphone Not Detected ng/mL (Cutoff: 25); Hydromorphone-3-beta-glucuroni Not Detected ng/mL (Cutoff: 100); Lorazepam Not Detected ng/mL (Cutoff: 10); Lorazepam Glucuronide Not Detected ng/mL (Cutoff: 50); Meperidine Not Detected ng/mL (Cutoff: 25); Methadone Not Detected ng/mL (Cutoff: 25); Midazolam Not Detected ng/mL (Cutoff: 10); Morphine Not Detected ng/mL (Cutoff: 25); N-Desmethylclobazam Not Detected ng/mL (Cutoff: 200); N-desmethyltapentadol Not Detected ng/mL (Cutoff: 50); Naloxone Not Detected ng/mL (Cutoff: 25); Norbuprenorphine Not Detected ng/mL (Cutoff: 5); Norfentanyl Not Detected ng/mL (Cutoff: 2); Norhydrocodone Not Detected ng/mL (Cutoff: 25); Normeperidine Not Detected ng/mL (Cutoff: 25); Noroxycodone Present ng/mL (Cutoff: 25); Noroxymorphone Present ng/mL (Cutoff: 25); O-desmethyltramadol Not Detected ng/mL (Cutoff: 25); Oxazepam Glucuronide Not Detected ng/mL (Cutoff: 50); Phencyclidine Negative ng/mL (Cutoff: 25); Prazepam Not Detected ng/mL (Cutoff: 10); Propoxyphene Not Detected ng/mL (Cutoff: 25); Specific Gravity 1.011; Tapentadol Not Detected ng/mL (Cutoff: 25); Temazepam Not Detected ng/mL (Cutoff: 10); Temazepam Glucuronide Not Detected ng/mL (Cutoff: 50); Tetrahydrocannabinol Presumptive Positive ng/mL (Cutoff: 50); Tramadol Not Detected ng/mL (Cutoff: 25); Triazolam Not Detected ng/mL (Cutoff: 10); Zolpidem Phenyl-4-Carboxy acid Not Detected ng/mL (Cutoff: 10); pH 8.9
[2020-05-22 08:59] LABS: Carboxy-THC Interpretation Positive.; Delta-9 CarboxyThc by LC-MS/MS >500.0 ng/mL (Cutoff:<3)
== END 2020-05-17 10:17 ==
LOC: LBN 09:57
PROVIDERS: PCP Nurse Practitioner; Visit Provider Nurse Practitioner Family
DX: G89.29 Other chronic pain (principal); Z79.891 Long term (current) use of opiate analgesic
CPT/HCPCS: 80307; 80347; 80349; 80364

== ENCOUNTER 2020-06-20 00:58 | Outpatient (RCR) | payer MEDICARE, OTHER, MEDICAID, SELFPAY ==
[2020-06-20] MEDS: Normal Saline Flush 10 ML SYR IVP (10:02)
[2020-06-20] MEDS: Heparin 500 UNITS/5 ML SYRINGE IV (10:03)
== END 2020-07-01 23:59 | disposition home or self-care (01) ==
LOC: INF 00:58
PROVIDERS: PCP Nurse Practitioner; Visit Provider Internal Medicine Hematology & Oncology
DX: Z45.2 Encounter for adjustment and management of vascular access device (principal)
CPT/HCPCS: 96523

== ENCOUNTER 2020-07-12 10:22 | Outpatient (RCR) | payer MEDICARE, OTHER, MEDICAID, SELFPAY ==
[2020-07-12] MEDS: Normal Saline Flush 10 ML SYR 30 ML IVP (11:45)
[2020-07-12] MEDS: Heparin 500 UNITS/5 ML SYRINGE IVP (11:46)
== END 2020-07-31 23:59 | disposition home or self-care (01) ==
LOC: INF 10:22
PROVIDERS: PCP Nurse Practitioner; Visit Provider Internal Medicine Hematology & Oncology
DX: Z45.2 Encounter for adjustment and management of vascular access device (principal)
CPT/HCPCS: 96523

== ENCOUNTER 2020-08-09 09:30 | Outpatient (REF) | payer MEDICARE, OTHER, MEDICAID, SELFPAY ==
[2020-08-13 09:15] LABS: 2-Hydroxy Ethyl Flurazepam Not Detected ng/mL (Cutoff: 10); 6-monoacetylmorphine Not Detected ng/mL (Cutoff: 25); Alpha-Hydroxy Midazolam Not Detected ng/mL (Cutoff: 10); Alpha-Hydroxy Triazolam Not Detected ng/mL (Cutoff: 10); Alpha-Hydroxyalprazolam Not Detected ng/mL (Cutoff: 10); Alpha-OH-alprazolam Glucuronid Not Detected ng/mL (Cutoff: 50); Alprazolam Not Detected ng/mL (Cutoff: 10); Amphetamines Negative ng/mL (Cutoff: 500); Barbiturates Negative ng/mL (Cutoff: 200); Buprenorphine Not Detected ng/mL (Cutoff: 5); Chlordiazepoxide Not Detected ng/mL (Cutoff: 10); Clobazam Not Detected ng/mL (Cutoff: 10); Clonazepam Not Detected ng/mL (Cutoff: 10); Cocaine Negative ng/mL (Cutoff: 150); Codeine Not Detected ng/mL (Cutoff: 25); Comment Normal; Creatinine, U 64.6 mg/dL; Diazepam Not Detected ng/mL (Cutoff: 10); Dihydrocodeine Not Detected ng/mL (Cutoff: 25); EDDP Not Detected ng/mL (Cutoff: 25); Fentanyl Not Detected ng/mL (Cutoff: 2); Flurazepam Not Detected ng/mL (Cutoff: 10); Hydrocodone Not Detected ng/mL (Cutoff: 25); Hydromorphone Not Detected ng/mL (Cutoff: 25); Hydromorphone-3-beta-glucuroni Not Detected ng/mL (Cutoff: 100); Lorazepam Not Detected ng/mL (Cutoff: 10); Lorazepam Glucuronide Not Detected ng/mL (Cutoff: 50); Meperidine Not Detected ng/mL (Cutoff: 25); Methadone Not Detected ng/mL (Cutoff: 25); Midazolam Not Detected ng/mL (Cutoff: 10); Morphine Not Detected ng/mL (Cutoff: 25); N-Desmethylclobazam Not Detected ng/mL (Cutoff: 200); N-desmethyltapentadol Not Detected ng/mL (Cutoff: 50); Naloxone Not Detected ng/mL (Cutoff: 25); Norbuprenorphine Not Detected ng/mL (Cutoff: 5); Norfentanyl Not Detected ng/mL (Cutoff: 2); Norhydrocodone Not Detected ng/mL (Cutoff: 25); Normeperidine Not Detected ng/mL (Cutoff: 25); Noroxycodone Present ng/mL (Cutoff: 25); Noroxymorphone Not Detected ng/mL (Cutoff: 25); O-desmethyltramadol Not Detected ng/mL (Cutoff: 25); Oxazepam Glucuronide Not Detected ng/mL (Cutoff: 50); Phencyclidine Negative ng/mL (Cutoff: 25); Prazepam Not Detected ng/mL (Cutoff: 10); Propoxyphene Not Detected ng/mL (Cutoff: 25); Specific Gravity 1.008; Tapentadol Not Detected ng/mL (Cutoff: 25); Temazepam Not Detected ng/mL (Cutoff: 10); Temazepam Glucuronide Not Detected ng/mL (Cutoff: 50); Tetrahydrocannabinol Presumptive Positive ng/mL (Cutoff: 50); Tramadol Not Detected ng/mL (Cutoff: 25); Triazolam Not Detected ng/mL (Cutoff: 10); Zolpidem Phenyl-4-Carboxy acid Not Detected ng/mL (Cutoff: 10); pH 8.2
== END 2020-08-09 09:50 ==
LOC: LBN 09:30
PROVIDERS: PCP Nurse Practitioner; Visit Provider Nurse Practitioner Family
DX: G89.29 Other chronic pain (principal); Z79.899 Other long term (current) drug therapy
CPT/HCPCS: 80307; 80347; 80364

== ENCOUNTER 2020-08-22 01:39 | Outpatient (RCR) | payer MEDICARE, OTHER, MEDICAID, SELFPAY | END 2020-08-31 23:59 | disposition home or self-care (01) | LOC: INF 01:39 | PROVIDERS: PCP Nurse Practitioner; Visit Provider Internal Medicine Hematology & Oncology | DX: Z53.9 Procedure and treatment not carried out, unspecified reason (principal) ==

== ENCOUNTER 2020-09-06 07:56 | Outpatient (RCR) | payer MEDICARE, OTHER, MEDICAID, SELFPAY | END 2020-10-01 23:59 | disposition home or self-care (01) | LOC: INF 07:56 | PROVIDERS: PCP Nurse Practitioner; Visit Provider Internal Medicine Hematology & Oncology ==

== ENCOUNTER 2020-11-01 02:40 | Outpatient (RCR) | payer MEDICARE, OTHER, MEDICAID, SELFPAY ==
[2020-11-01] MEDS: Normal Saline Flush 10 ML SYR IVP (09:49)
[2020-11-01] MEDS: Heparin 500 UNITS/5 ML SYRINGE IV (09:49)
[2020-11-05 12:27] LABS: 2-Hydroxy Ethyl Flurazepam Not Detected ng/mL (Cutoff: 10); 3,4-methylenedioxyamphetamine Not Detected; 3,4-methylenedioxyethylampheta Not Detected; 3,4-methylenedioxymethamphetam Not Detected; 6-monoacetylmorphine Not Detected ng/mL (Cutoff: 25); Alpha-Hydroxy Midazolam Not Detected ng/mL (Cutoff: 10); Alpha-Hydroxy Triazolam Not Detected ng/mL (Cutoff: 10); Alpha-Hydroxyalprazolam Not Detected ng/mL (Cutoff: 10); Alpha-OH-alprazolam Glucuronid Not Detected ng/mL (Cutoff: 50); Alprazolam Not Detected ng/mL (Cutoff: 10); Amphetamine Not Detected; Barbiturates Negative ng/mL (Cutoff: 200); Buprenorphine Not Detected ng/mL (Cutoff: 5); Chlordiazepoxide Not Detected ng/mL (Cutoff: 10); Clobazam Not Detected ng/mL (Cutoff: 10); Clonazepam Not Detected ng/mL (Cutoff: 10); Cocaine Negative ng/mL (Cutoff: 150); Codeine Not Detected ng/mL (Cutoff: 25); Comment Normal; Creatinine, U 88.1 mg/dL; Diazepam Not Detected ng/mL (Cutoff: 10); Dihydrocodeine Not Detected ng/mL (Cutoff: 25); EDDP Not Detected ng/mL (Cutoff: 25); Ephedrine Not Detected; Fentanyl Not Detected ng/mL (Cutoff: 2); Flurazepam Not Detected ng/mL (Cutoff: 10); Hydrocodone Not Detected ng/mL (Cutoff: 25); Hydromorphone Not Detected ng/mL (Cutoff: 25); Hydromorphone-3-beta-glucuroni Not Detected ng/mL (Cutoff: 100); Lorazepam Not Detected ng/mL (Cutoff: 10); Lorazepam Glucuronide Not Detected ng/mL (Cutoff: 50); Meperidine Not Detected ng/mL (Cutoff: 25); Methadone Not Detected ng/mL (Cutoff: 25); Methamphetamine Not Detected; Methylphenidate Not Detected ng/mL (Cutoff: 20); Midazolam Not Detected ng/mL (Cutoff: 10); Morphine Not Detected ng/mL (Cutoff: 25); N-Desmethylclobazam Not Detected ng/mL (Cutoff: 200); N-desmethyltapentadol Not Detected ng/mL (Cutoff: 50); Naloxone Not Detected ng/mL (Cutoff: 25); Norbuprenorphine Not Detected ng/mL (Cutoff: 5); Norfentanyl Not Detected ng/mL (Cutoff: 2); Norhydrocodone Not Detected ng/mL (Cutoff: 25); Normeperidine Not Detected ng/mL (Cutoff: 25); Noroxycodone Present ng/mL (Cutoff: 25); Noroxymorphone Not Detected ng/mL (Cutoff: 25); O-desmethyltramadol Not Detected ng/mL (Cutoff: 25); Oxazepam Glucuronide Not Detected ng/mL (Cutoff: 50); Phencyclidine (PCP) Not Detected ng/mL (Cutoff: 20); Phentermine Not Detected; Prazepam Not Detected ng/mL (Cutoff: 10); Propoxyphene Not Detected ng/mL (Cutoff: 25); Pseudoephedrine Not Detected; Ritalinic Acid Not Detected; Specific Gravity 1.014; Tapentadol Not Detected ng/mL (Cutoff: 25); Temazepam Not Detected ng/mL (Cutoff: 10); Temazepam Glucuronide Not Detected ng/mL (Cutoff: 50); Tetrahydrocannabinol Presumptive Positive ng/mL (Cutoff: 50); Tramadol Not Detected ng/mL (Cutoff: 25); Triazolam Not Detected ng/mL (Cutoff: 10); Zolpidem Phenyl-4-Carboxy acid Not Detected ng/mL (Cutoff: 10); pH 6.8
[2020-11-06 08:03] LABS: Carboxy-THC Interpretation Positive.; Delta-9 CarboxyThc by LC-MS/MS >500.0 ng/mL (Cutoff:<3)
== END 2020-11-29 23:59 | disposition home or self-care (01) ==
LOC: INF 02:40
PROVIDERS: Nurse Practitioner Family; PCP Nurse Practitioner; Visit Provider Internal Medicine Hematology & Oncology
DX: Z79.891 Long term (current) use of opiate analgesic (principal); Z45.2 Encounter for adjustment and management of vascular access device
CPT/HCPCS: 80307; 80347; 80349; 80364; 96523

== ENCOUNTER 2020-12-27 10:16 | Outpatient (RCR) | payer MEDICARE, OTHER, MEDICAID, SELFPAY ==
[2020-12-27] MEDS: Normal Saline Flush 10 ML SYR IVP (10:39)
[2020-12-27] MEDS: Heparin 500 UNITS/5 ML SYRINGE IV (10:40)
== END 2020-12-29 23:59 | disposition home or self-care (01) ==
LOC: INF 10:16
PROVIDERS: PCP Nurse Practitioner; Visit Provider Nurse Practitioner Family
DX: Z45.2 Encounter for adjustment and management of vascular access device (principal)
CPT/HCPCS: 96523

== ENCOUNTER 2021-01-23 10:34 | Outpatient (CLI) | payer MEDICARE, OTHER, MEDICAID, SELFPAY ==
[2021-01-23 12:52] LABS: CREATININE 0.9 mg/dL (0.70-1.30); Calculated LDL 93 mg/dL (<100); Cholesterol 212 mg/dL (<200); HDL Cholesterol 66 mg/dL (40-60); Potassium 4.4 mmol/L (3.5-5.1); Triglyceride 267 mg/dL (<150)
[2021-01-23 12:55] LABS: Hemoglobin A1C 5.4 % (<5.7)
== END 2021-01-23 10:35 | disposition home or self-care (01) ==
LOC: LOS 10:35
PROVIDERS: PCP Nurse Practitioner; Visit Provider Nurse Practitioner
DX: I10 Essential (primary) hypertension (principal); R73.03 Prediabetes; E78.5 Hyperlipidemia, unspecified
CPT/HCPCS: 36415; 80061; 82565; 83036; 84132

== ENCOUNTER 2021-01-24 09:59 | Outpatient (RCR) | payer MEDICARE, OTHER, MEDICAID, SELFPAY ==
[2021-01-24] MEDS: Heparin 500 UNITS/5 ML SYRINGE IVP (10:06)
[2021-01-24] MEDS: Normal Saline Flush 10 ML SYR IVP (10:07)
== END 2021-01-29 23:59 | disposition home or self-care (01) ==
LOC: INF 09:59
PROVIDERS: PCP Nurse Practitioner; Visit Provider Internal Medicine Hematology & Oncology
DX: Z45.2 Encounter for adjustment and management of vascular access device (principal)
CPT/HCPCS: 96523

== ENCOUNTER 2021-02-21 15:56 | Outpatient (REF) | payer MEDICARE, OTHER, MEDICAID, SELFPAY ==
[2021-02-26 13:14] LABS: 2-Hydroxy Ethyl Flurazepam Not Detected ng/mL (Cutoff: 10); 3,4-methylenedioxyamphetamine Not Detected ng/mL (Cutoff: 100); 3,4-methylenedioxyethylampheta Not Detected ng/mL (Cutoff: 100); 3,4-methylenedioxymethamphetam Not Detected ng/mL (Cutoff: 100); 6-monoacetylmorphine Not Detected ng/mL (Cutoff: 25); Alpha-Hydroxy Midazolam Not Detected ng/mL (Cutoff: 10); Alpha-Hydroxy Triazolam Not Detected ng/mL (Cutoff: 10); Alpha-Hydroxyalprazolam Not Detected ng/mL (Cutoff: 10); Alpha-OH-alprazolam Glucuronid Not Detected ng/mL (Cutoff: 50); Alprazolam Not Detected ng/mL (Cutoff: 10); Amphetamine Not Detected ng/mL (Cutoff: 100); Barbiturates Negative ng/mL (Cutoff: 200); Buprenorphine Not Detected ng/mL (Cutoff: 5); Chlordiazepoxide Not Detected ng/mL (Cutoff: 10); Clobazam Not Detected ng/mL (Cutoff: 10); Clonazepam Not Detected ng/mL (Cutoff: 10); Cocaine Negative ng/mL (Cutoff: 150); Codeine Not Detected ng/mL (Cutoff: 25); Comment Normal; Creatinine, U 57.7 mg/dL; Diazepam Not Detected ng/mL (Cutoff: 10); Dihydrocodeine Not Detected ng/mL (Cutoff: 25); EDDP Not Detected ng/mL (Cutoff: 25); Ephedrine Not Detected ng/mL (Cutoff: 100); Fentanyl Not Detected ng/mL (Cutoff: 2); Flurazepam Not Detected ng/mL (Cutoff: 10); Hydrocodone Not Detected ng/mL (Cutoff: 25); Hydromorphone Not Detected ng/mL (Cutoff: 25); Hydromorphone-3-beta-glucuroni Not Detected ng/mL (Cutoff: 100); Lorazepam Not Detected ng/mL (Cutoff: 10); Lorazepam Glucuronide Not Detected ng/mL (Cutoff: 50); Meperidine Not Detected ng/mL (Cutoff: 25); Methadone Not Detected ng/mL (Cutoff: 25); Methamphetamine Not Detected ng/mL (Cutoff:100); Methylphenidate Not Detected ng/mL (Cutoff: 20); Midazolam Not Detected ng/mL (Cutoff: 10); Morphine Not Detected ng/mL (Cutoff: 25); N-Desmethylclobazam Not Detected ng/mL (Cutoff: 200); N-desmethyltapentadol Not Detected ng/mL (Cutoff: 50); Naloxone Not Detected ng/mL (Cutoff: 25); Norbuprenorphine Not Detected ng/mL (Cutoff: 5); Norfentanyl Not Detected ng/mL (Cutoff: 2); Norhydrocodone Not Detected ng/mL (Cutoff: 25); Normeperidine Not Detected ng/mL (Cutoff: 25); Noroxycodone Present ng/mL (Cutoff: 25); Noroxymorphone Not Detected ng/mL (Cutoff: 25); O-desmethyltramadol Not Detected ng/mL (Cutoff: 25); Oxazepam Glucuronide Not Detected ng/mL (Cutoff: 50); Phencyclidine (PCP) Not Detected ng/mL (Cutoff: 20); Phentermine Not Detected ng/mL (Cutoff: 100); Prazepam Not Detected ng/mL (Cutoff: 10); Propoxyphene Not Detected ng/mL (Cutoff: 25); Pseudoephedrine Not Detected ng/mL (Cutoff: 100); Ritalinic Acid Not Detected ng/mL (Cutoff: 100); Specific Gravity 1.008; Tapentadol Not Detected ng/mL (Cutoff: 25); Temazepam Not Detected ng/mL (Cutoff: 10); Temazepam Glucuronide Not Detected ng/mL (Cutoff: 50); Tetrahydrocannabinol Presumptive Positive ng/mL (Cutoff: 50); Tramadol Not Detected ng/mL (Cutoff: 25); Triazolam Not Detected ng/mL (Cutoff: 10); Zolpidem Phenyl-4-Carboxy acid Not Detected ng/mL (Cutoff: 10); pH 8.1
[2021-02-26 14:51] LABS: Carboxy-THC Interpretation Positive.; Delta-9 CarboxyThc by LC-MS/MS 383 ng/mL (Cutoff:<3)
== END 2021-02-21 15:57 | disposition home or self-care (01) ==
LOC: LBN 15:56
PROVIDERS: PCP Nurse Practitioner; Visit Provider Nurse Practitioner Family
DX: R10.2 Pelvic and perineal pain (principal); G89.29 Other chronic pain; Z79.891 Long term (current) use of opiate analgesic
CPT/HCPCS: 80307; 80347; 80349; 80364

== ENCOUNTER 2021-02-27 02:35 | Outpatient (RCR) | payer MEDICARE, OTHER, MEDICAID, SELFPAY ==
[2021-02-27] MEDS: Normal Saline Flush 10 ML SYR IVP (06:59)
[2021-02-27 07:07] LABS: Abs Immature Grans 0.07 10^3/uL (0.0-0.06); Absolute Basophil Count 0.06 10^3/uL (0.0-0.2); Absolute Eosinophil Count 0.27 10^3/uL (0.0-0.7); Absolute Monocyte Count 0.92 10^3/uL (0.1-0.8); Basophils % 0.5; Eosinophils % 2.1; HCT 48.8 % (40.0-50.0); HGB 16.1 g/dL (13.5-17.5); Immature Grans % 0.5; Lymphocytes % 6.9; MCH 29.8 pg (27.0-33.0); MCV 90.4 fL (80-95); MPV 9.4 fL (8.0-11.0); Monocytes % 7.1; Neutrophils % 82.9; Nucleated RBC 0 %; Platelet Count 304 10^3/uL (130-400); RDW-SD 43.2 fL; WBC 12.98 10^3/uL (4.4-10.8)
[2021-02-27 07:09] LABS: Absolute Neutrophil Count 10.76 10^3/uL (1.2-6.7)
[2021-02-27 07:18] LABS: ALT 81 U/L (16-63); AST 57 U/L (15-37); Albumin 3.8 g/dL (3.4-5.0); Alkaline Phosphatase 92 U/L (46-116); Anion Gap 8.3 mmol/L (3-11); BUN 12 mg/dL (7-18); Bilirubin, Total 0.5 mg/dL (0.2-1.0); CO2 26.7 mmol/L (21.0-32.0); Calcium 9.3 mg/dL (8.5-10.1); Chloride 103 mmol/L (98-107); Glucose 111 mg/dL (74-106); Potassium 4.7 mmol/L (3.5-5.1); Sodium 138 mmol/L (136-145); Total Protein 7.5 g/dL (6.4-8.2)
[2021-02-27 16:59] LABS: CEA 3.9 ng/mL (See Note)
== END 2021-02-28 23:59 | disposition home or self-care (01) ==
LOC: INF 02:35
PROVIDERS: PCP Nurse Practitioner; Visit Provider Internal Medicine Hematology & Oncology
DX: C20 Malignant neoplasm of rectum (principal); Z45.2 Encounter for adjustment and management of vascular access device; C78.00 Secondary malignant neoplasm of unspecified lung
CPT/HCPCS: 36591; 80053; 82378; 85025

== ENCOUNTER 2021-03-30 09:30 | Outpatient (RCR) | payer MEDICARE, OTHER, MEDICAID, SELFPAY ==
[2021-03-14] MEDS: Normal Saline Flush 10 ML SYR IVP (11:51)
[2021-03-14 12:15] LABS: Abs Immature Grans 0.05 10^3/uL (0.0-0.06); Absolute Basophil Count 0.04 10^3/uL (0.0-0.2); Absolute Eosinophil Count 0.14 10^3/uL (0.0-0.7); Absolute Monocyte Count 0.72 10^3/uL (0.1-0.8); Absolute Neutrophil Count 4.85 10^3/uL (1.2-6.7); Basophils % 0.6; Eosinophils % 2.1; HCT 43.6 % (40.0-50.0); HGB 14.8 g/dL (13.5-17.5); Immature Grans % 0.7; Lymphocytes % 13.4; MCHC 33.9 % (32.0-36.0); MCV 88.4 fL (80-95); MPV 8.9 fL (8.0-11.0); Monocytes % 10.7; Neutrophils % 72.5; Nucleated RBC 0 %; Platelet Count 383 10^3/uL (130-400); RBC 4.93 10^6/uL (4.36-5.78); RDW 13.1 % (11.8-14.1); RDW-SD 42.1 fL
[2021-03-14 12:27] LABS: ALT 41 U/L (16-63); AST 19 U/L (15-37); Albumin 3.4 g/dL (3.4-5.0); Alkaline Phosphatase 100 U/L (46-116); Anion Gap 7.6 mmol/L (3-11); BUN 8 mg/dL (7-18); Bilirubin, Total 0.3 mg/dL (0.2-1.0); CO2 30.4 mmol/L (21.0-32.0); CREATININE 0.9 mg/dL (0.70-1.30); Calcium 9.3 mg/dL (8.5-10.1); Chloride 100 mmol/L (98-107); Glucose 138 mg/dL (74-106); Potassium 3.7 mmol/L (3.5-5.1); Sodium 138 mmol/L (136-145); Total Protein 7.4 g/dL (6.4-8.2)
[2021-03-14 22:08] LABS: CEA 3.2 ng/mL (See Note)
[2021-03-30 10:04] LABS: Abs Immature Grans 0.03 10^3/uL (0.0-0.06); Absolute Basophil Count 0.04 10^3/uL (0.0-0.2); Absolute Eosinophil Count 0.17 10^3/uL (0.0-0.7); Absolute Lymphocyte Count 0.65 10^3/uL (1.2-3.4); Absolute Monocyte Count 0.49 10^3/uL (0.1-0.8); Absolute Neutrophil Count 4.26 10^3/uL (1.2-6.7); Basophils % 0.7; HCT 44.6 % (40.0-50.0); HGB 14.8 g/dL (13.5-17.5); Immature Grans % 0.5; Lymphocytes % 11.5; MCHC 33.2 % (32.0-36.0); MCV 90.3 fL (80-95); MPV 8.7 fL (8.0-11.0); Monocytes % 8.7; Neutrophils % 75.6; Nucleated RBC 0 %; Platelet Count 319 10^3/uL (130-400); RBC 4.94 10^6/uL (4.36-5.78); RDW 14.3 % (11.8-14.1); RDW-SD 46.6 fL; WBC 5.64 10^3/uL (4.4-10.8)
[2021-03-30] MEDS: Normal Saline Flush 10 ML SYR IVP (10:05)
[2021-03-30 10:25] LABS: ALT 34 U/L (16-63); AST 18 U/L (15-37); Albumin 3.6 g/dL (3.4-5.0); Alkaline Phosphatase 91 U/L (46-116); Anion Gap 6.1 mmol/L (3-11); BUN 7 mg/dL (7-18); Bilirubin, Total 0.5 mg/dL (0.2-1.0); CO2 29.9 mmol/L (21.0-32.0); Calcium 8.9 mg/dL (8.5-10.1); Chloride 104 mmol/L (98-107); Glucose 140 mg/dL (74-106); Potassium 4.1 mmol/L (3.5-5.1); Sodium 140 mmol/L (136-145); Total Protein 6.8 g/dL (6.4-8.2)
== END 2021-03-31 23:59 | disposition home or self-care (01) ==
LOC: INF 09:30
PROVIDERS: PCP Nurse Practitioner; Visit Provider Internal Medicine Hematology & Oncology
DX: C20 Malignant neoplasm of rectum (principal); C78.00 Secondary malignant neoplasm of unspecified lung; Z45.2 Encounter for adjustment and management of vascular access device
CPT/HCPCS: 36591; 80053; 82378; 85025

== ENCOUNTER 2021-04-26 02:28 | Outpatient (RCR) | payer MEDICARE, OTHER, MEDICAID, SELFPAY ==
[2021-04-13] MEDS: Normal Saline Flush 10 ML SYR IVP (08:02)
[2021-04-13 08:21] LABS: Abs Immature Grans 0.06 10^3/uL (0.0-0.06); Absolute Basophil Count 0.06 10^3/uL (0.0-0.2); Absolute Eosinophil Count 0.23 10^3/uL (0.0-0.7); Absolute Lymphocyte Count 0.94 10^3/uL (1.2-3.4); Absolute Monocyte Count 0.53 10^3/uL (0.1-0.8); Absolute Neutrophil Count 4.84 10^3/uL (1.2-6.7); Basophils % 0.9; Eosinophils % 3.5; HCT 46.1 % (40.0-50.0); HGB 15.1 g/dL (13.5-17.5); Immature Grans % 0.9; Lymphocytes % 14.1; MCH 29.6 pg (27.0-33.0); MCHC 32.8 % (32.0-36.0); MCV 90.4 fL (80-95); Neutrophils % 72.6; Nucleated RBC 0 %; Platelet Count 394 10^3/uL (130-400); WBC 6.66 10^3/uL (4.4-10.8)
[2021-04-13 08:34] LABS: ALT 38 U/L (16-63); AST 21 U/L (15-37); Albumin 3.6 g/dL (3.4-5.0); Alkaline Phosphatase 92 U/L (46-116); Anion Gap 7.3 mmol/L (3-11); BUN 7 mg/dL (7-18); Bilirubin, Total 0.4 mg/dL (0.2-1.0); CO2 29.7 mmol/L (21.0-32.0); CREATININE 1.1 mg/dL (0.70-1.30); Calcium 9.3 mg/dL (8.5-10.1); Chloride 102 mmol/L (98-107); Glucose 165 mg/dL (74-106); Potassium 3.8 mmol/L (3.5-5.1); Sodium 139 mmol/L (136-145); Total Protein 7.3 g/dL (6.4-8.2)
[2021-04-13 17:23] LABS: CEA 2.9 ng/mL (See Note)
[2021-04-26 13:13] LABS: Abs Immature Grans 0.03 10^3/uL (0.0-0.06); Absolute Basophil Count 0.05 10^3/uL (0.0-0.2); Absolute Eosinophil Count 0.25 10^3/uL (0.0-0.7); Absolute Lymphocyte Count 1.01 10^3/uL (1.2-3.4); Absolute Monocyte Count 0.61 10^3/uL (0.1-0.8); Absolute Neutrophil Count 4.47 10^3/uL (1.2-6.7); Basophils % 0.8; Eosinophils % 3.9; HCT 45.5 % (40.0-50.0); HGB 14.8 g/dL (13.5-17.5); Immature Grans % 0.5; Lymphocytes % 15.7; MCH 29.6 pg (27.0-33.0); MCHC 32.5 % (32.0-36.0); MPV 8.8 fL (8.0-11.0); Monocytes % 9.5; Neutrophils % 69.6; Nucleated RBC 0 %; Platelet Count 367 10^3/uL (130-400); RDW 15.8 % (11.8-14.1); RDW-SD 51.8 fL; WBC 6.42 10^3/uL (4.4-10.8)
[2021-04-26 13:34] LABS: ALT 24 U/L (16-63); AST 12 U/L (15-37); Albumin 3.6 g/dL (3.4-5.0); Alkaline Phosphatase 93 U/L (46-116); Anion Gap 10.1 mmol/L (3-11); BUN 5 mg/dL (7-18); Bilirubin, Total 0.4 mg/dL (0.2-1.0); CO2 24.9 mmol/L (21.0-32.0); CREATININE 0.9 mg/dL (0.70-1.30); Calcium 9.5 mg/dL (8.5-10.1); Chloride 102 mmol/L (98-107); Glucose 125 mg/dL (74-106); Potassium 3.8 mmol/L (3.5-5.1); Sodium 137 mmol/L (136-145); Total Protein 7.6 g/dL (6.4-8.2)
[2021-04-26 21:38] LABS: CEA 2.7 ng/mL (See Note)
== END 2021-05-01 23:59 | disposition home or self-care (01) ==
LOC: INF 02:28
PROVIDERS: PCP Nurse Practitioner; Visit Provider Internal Medicine Hematology & Oncology
DX: C20 Malignant neoplasm of rectum (principal); C78.00 Secondary malignant neoplasm of unspecified lung; Z45.2 Encounter for adjustment and management of vascular access device
CPT/HCPCS: 36415; 36591; 80053; 82378; 85025

== ENCOUNTER 2021-05-11 05:28 | Outpatient (RCR) | payer MEDICARE, OTHER, MEDICAID, SELFPAY ==
[2021-05-11] MEDS: Normal Saline Flush 10 ML SYR IVP (08:13)
[2021-05-11 08:20] LABS: Abs Immature Grans 0.03 10^3/uL (0.0-0.06); Absolute Basophil Count 0.05 10^3/uL (0.0-0.2); Absolute Eosinophil Count 0.29 10^3/uL (0.0-0.7); Absolute Lymphocyte Count 1.02 10^3/uL (1.2-3.4); Absolute Monocyte Count 0.61 10^3/uL (0.1-0.8); Absolute Neutrophil Count 4.21 10^3/uL (1.2-6.7); Basophils % 0.8; Eosinophils % 4.7; HCT 47.9 % (40.0-50.0); HGB 15.4 g/dL (13.5-17.5); Immature Grans % 0.5; Lymphocytes % 16.4; MCH 29.6 pg (27.0-33.0); MCHC 32.2 % (32.0-36.0); MCV 92.1 fL (80-95); MPV 8.9 fL (8.0-11.0); Monocytes % 9.8; Neutrophils % 67.8; Nucleated RBC 0 %; Platelet Count 361 10^3/uL (130-400); RDW 16.1 % (11.8-14.1); WBC 6.21 10^3/uL (4.4-10.8)
[2021-05-11 08:32] LABS: ALT 28 U/L (16-63); AST 17 U/L (15-37); Albumin 3.8 g/dL (3.4-5.0); Alkaline Phosphatase 91 U/L (46-116); Anion Gap 9.5 mmol/L (3-11); BUN 7 mg/dL (7-18); Bilirubin, Total 0.8 mg/dL (0.2-1.0); CO2 26.5 mmol/L (21.0-32.0); Calcium 9.4 mg/dL (8.5-10.1); Chloride 103 mmol/L (98-107); Glucose 147 mg/dL (74-106); Potassium 3.9 mmol/L (3.5-5.1); Sodium 139 mmol/L (136-145); Total Protein 7.4 g/dL (6.4-8.2)
[2021-05-11 08:48] LABS: Bilirubin Negative (Negative); Blood Negative (Negative); Clarity Sl Cloudy (Clear); Glucose Negative (Negative); Ketones Negative (Negative); Leukocyte Esterase Small (Negative); Nitrite Positive (Negative); Specific Gravity 1.015 (1.005-1.025); Urobilinogen 0.2 EU/dL (Up TO 0.2)
[2021-05-11 09:04] LABS: Bacteria Many HPF (Negative); C & S Indicated? Yes; Casts Negative LPF (Negative); Crystals Few Amorphous HPF (Negative); Epithelial Cells Rare HPF (Negative); Mucus Negative (Negative); Other Cells Negative (Negative); RBC 0-2 HPF (0-2)
[2021-05-11 19:18] LABS: CEA 2.5 ng/mL (See Note)
== END 2021-05-31 23:59 | disposition home or self-care (01) ==
LOC: INF 05:28
PROVIDERS: PCP Nurse Practitioner; Visit Provider Internal Medicine Hematology & Oncology
DX: C20 Malignant neoplasm of rectum (principal); C78.00 Secondary malignant neoplasm of unspecified lung; Z45.2 Encounter for adjustment and management of vascular access device; Z79.899 Other long term (current) drug therapy
CPT/HCPCS: 36591; 80053; 87077; 81003; 81015; 82378; 85025; 87086; 87186

== ENCOUNTER 2021-06-12 11:30 | Outpatient (REF) | payer MEDICARE, MEDICAID, OTHER, SELFPAY ==
[2021-06-12 18:13] LABS: *AMPHETAMINES SCREEN URINE Negative (Negative); *BARBITURATES SCREEN URINE Negative (Negative); *BENZODIAZEPINES SCREEN URINE Negative (Negative); Cannabinoids THC Positive (Negative); Cocaine Screen,Urine Negative (Negative); METHADONE URINE SCREEN Negative (Negative); OPIATES URINE SCREEN Negative (Negative); Tricyclic Antidepressants Negative (Negative)
== END 2021-06-12 11:31 | disposition home or self-care (01) ==
LOC: LBN 11:30
PROVIDERS: PCP Nurse Practitioner; Visit Provider Nurse Practitioner
DX: G89.29 Other chronic pain (principal)
CPT/HCPCS: 80307

== ENCOUNTER 2021-06-22 01:30 | Outpatient (RCR) | payer MEDICARE, OTHER, MEDICAID, SELFPAY ==
[2021-06-01] MEDS: Normal Saline Flush 10 ML SYR IVP (09:41)
[2021-06-01 09:50] LABS: Abs Immature Grans 0.04 10^3/uL (0.0-0.06); Absolute Basophil Count 0.05 10^3/uL (0.0-0.2); Absolute Eosinophil Count 0.15 10^3/uL (0.0-0.7); Absolute Lymphocyte Count 0.91 10^3/uL (1.2-3.4); Absolute Monocyte Count 0.81 10^3/uL (0.1-0.8); Absolute Neutrophil Count 4.81 10^3/uL (1.2-6.7); Basophils % 0.7; Eosinophils % 2.2; HCT 46.4 % (40.0-50.0); HGB 15.2 g/dL (13.5-17.5); Immature Grans % 0.6; Lymphocytes % 13.4; MCHC 32.8 % (32.0-36.0); MCV 91.5 fL (80-95); MPV 8.8 fL (8.0-11.0); Neutrophils % 71.1; Nucleated RBC 0 %; Platelet Count 337 10^3/uL (130-400); RBC 5.07 10^6/uL (4.36-5.78); RDW 15.6 % (11.8-14.1); RDW-SD 52.2 fL; WBC 6.77 10^3/uL (4.4-10.8)
[2021-06-01 10:01] LABS: ALT 29 U/L (16-63); AST 19 U/L (15-37); Albumin 3.7 g/dL (3.4-5.0); Alkaline Phosphatase 98 U/L (46-116); Anion Gap 5.3 mmol/L (3-11); BUN 6 mg/dL (7-18); Bilirubin, Total 0.4 mg/dL (0.2-1.0); CO2 31.7 mmol/L (21.0-32.0); Calcium 9.3 mg/dL (8.5-10.1); Chloride 98 mmol/L (98-107); Glucose 140 mg/dL (74-106); Potassium 4.6 mmol/L (3.5-5.1); Sodium 135 mmol/L (136-145); Total Protein 7.3 g/dL (6.4-8.2)
[2021-06-01 17:47] LABS: CEA 2.9 ng/mL (See Note)
[2021-06-22 09:18] LABS: Abs Immature Grans 0.01 10^3/uL (0.0-0.06); Absolute Basophil Count 0.04 10^3/uL (0.0-0.2); Absolute Eosinophil Count 0.22 10^3/uL (0.0-0.7); Absolute Lymphocyte Count 0.61 10^3/uL (1.2-3.4); Absolute Monocyte Count 0.64 10^3/uL (0.1-0.8); Absolute Neutrophil Count 2.99 10^3/uL (1.2-6.7); Basophils % 0.9; Eosinophils % 4.9; HCT 47.3 % (40.0-50.0); HGB 15.5 g/dL (13.5-17.5); Immature Grans % 0.2; Lymphocytes % 13.5; MCH 29.5 pg (27.0-33.0); MCHC 32.8 % (32.0-36.0); MCV 90.1 fL (80-95); MPV 9.3 fL (8.0-11.0); Monocytes % 14.2; Neutrophils % 66.3; Nucleated RBC 0 %; Platelet Count 333 10^3/uL (130-400); RBC 5.25 10^6/uL (4.36-5.78); RDW 15.6 % (11.8-14.1); RDW-SD 51.2 fL; WBC 4.51 10^3/uL (4.4-10.8)
[2021-06-22 09:31] LABS: ALT 27 U/L (16-63); AST 18 U/L (15-37); Albumin 3.7 g/dL (3.4-5.0); Alkaline Phosphatase 95 U/L (46-116); Anion Gap 10.4 mmol/L (3-11); BUN 7 mg/dL (7-18); Bilirubin, Total 0.6 mg/dL (0.2-1.0); CO2 25.6 mmol/L (21.0-32.0); CREATININE 0.9 mg/dL (0.70-1.30); Calcium 9.2 mg/dL (8.5-10.1); Chloride 101 mmol/L (98-107); Glucose 141 mg/dL (74-106); Potassium 4.3 mmol/L (3.5-5.1); Sodium 137 mmol/L (136-145)
[2021-06-22 17:11] LABS: CEA 2.6 ng/mL (See Note)
== END 2021-07-01 23:59 | disposition home or self-care (01) ==
LOC: INF 01:30
PROVIDERS: PCP Nurse Practitioner; Visit Provider Internal Medicine Hematology & Oncology
DX: C20 Malignant neoplasm of rectum (principal); C78.00 Secondary malignant neoplasm of unspecified lung; Z45.2 Encounter for adjustment and management of vascular access device
CPT/HCPCS: 36415; 36591; 80053; 96523; 82378; 85025

== ENCOUNTER 2021-08-17 02:28 | Outpatient (RCR) | payer MEDICARE, OTHER, MEDICAID, SELFPAY ==
[2021-08-03] MEDS: Normal Saline Flush 10 ML SYR IVP (12:35)
[2021-08-03 12:54] LABS: Abs Immature Grans 0.03 10^3/uL (0.0-0.06); Absolute Basophil Count 0.04 10^3/uL (0.0-0.2); Absolute Eosinophil Count 0.24 10^3/uL (0.0-0.7); Absolute Lymphocyte Count 1.27 10^3/uL (1.2-3.4); Absolute Neutrophil Count 5.88 10^3/uL (1.2-6.7); Basophils % 0.5; Eosinophils % 2.9; HCT 48.9 % (40.0-50.0); HGB 15.5 g/dL (13.5-17.5); Immature Grans % 0.4; Lymphocytes % 15.2; MCHC 31.7 % (32.0-36.0); MCV 91.6 fL (80-95); MPV 9.4 fL (8.0-11.0); Monocytes % 10.8; Neutrophils % 70.2; Nucleated RBC 0 %; Platelet Count 347 10^3/uL (130-400); RBC 5.34 10^6/uL (4.36-5.78); RDW 15.9 % (11.8-14.1); RDW-SD 53.6 fL; WBC 8.36 10^3/uL (4.4-10.8)
[2021-08-03 13:28] LABS: ALT 28 U/L (16-63); AST 18 U/L (15-37); Albumin 3.7 g/dL (3.4-5.0); Alkaline Phosphatase 83 U/L (46-116); Anion Gap 5.9 mmol/L (3-11); BUN 8 mg/dL (7-18); Bilirubin, Total 0.4 mg/dL (0.2-1.0); CO2 30.1 mmol/L (21.0-32.0); Calcium 9.4 mg/dL (8.5-10.1); Chloride 99 mmol/L (98-107); Glucose 133 mg/dL (74-106); Potassium 4.1 mmol/L (3.5-5.1); Sodium 135 mmol/L (136-145); Total Protein 7.2 g/dL (6.4-8.2)
[2021-08-03 22:43] LABS: CEA 2.3 ng/mL (See Note)
[2021-08-17] MEDS: Normal Saline Flush 10 ML SYR IVP (08:57)
[2021-08-17 09:08] LABS: Abs Immature Grans 0.05 10^3/uL (0.0-0.06); Absolute Basophil Count 0.05 10^3/uL (0.0-0.2); Absolute Lymphocyte Count 1.14 10^3/uL (1.2-3.4); Absolute Monocyte Count 0.94 10^3/uL (0.1-0.8); Absolute Neutrophil Count 8.13 10^3/uL (1.2-6.7); Basophils % 0.5; Eosinophils % 2.8; HCT 49.9 % (40.0-50.0); HGB 16.1 g/dL (13.5-17.5); Immature Grans % 0.5; Lymphocytes % 10.7; MCH 29.4 pg (27.0-33.0); MCHC 32.3 % (32.0-36.0); MCV 91.1 fL (80-95); MPV 8.9 fL (8.0-11.0); Monocytes % 8.9; Neutrophils % 76.6; Nucleated RBC 0 %; Platelet Count 351 10^3/uL (130-400); RBC 5.48 10^6/uL (4.36-5.78); RDW 15.9 % (11.8-14.1); WBC 10.61 10^3/uL (4.4-10.8)
[2021-08-17 09:17] LABS: Hemoglobin A1C 5.7 % (<5.7)
[2021-08-17 09:22] LABS: ALT 29 U/L (16-63); AST 17 U/L (15-37); Albumin 3.8 g/dL (3.4-5.0); Alkaline Phosphatase 91 U/L (46-116); Anion Gap 7.3 mmol/L (3-11); BUN 11 mg/dL (7-18); Bilirubin, Total 0.5 mg/dL (0.2-1.0); CO2 26.7 mmol/L (21.0-32.0); Calcium 9.3 mg/dL (8.5-10.1); Chloride 97 mmol/L (98-107); Glucose 142 mg/dL (74-106); Potassium 4.3 mmol/L (3.5-5.1); Sodium 131 mmol/L (136-145); Total Protein 7.6 g/dL (6.4-8.2)
[2021-08-17 18:01] LABS: CEA 2.4 ng/mL (See Note)
== END 2021-08-31 23:59 | disposition home or self-care (01) ==
LOC: INF 02:28
PROVIDERS: PCP Nurse Practitioner; Visit Provider Internal Medicine Hematology & Oncology
DX: C20 Malignant neoplasm of rectum (principal); C78.00 Secondary malignant neoplasm of unspecified lung; Z79.891 Long term (current) use of opiate analgesic; Z45.2 Encounter for adjustment and management of vascular access device
CPT/HCPCS: 36591; 80053; 82378; 83036; 85025

== ENCOUNTER 2021-09-21 01:19 | Outpatient (RCR) | payer MEDICARE, OTHER, MEDICAID, SELFPAY ==
[2021-09-07] MEDS: Normal Saline Flush 10 ML SYR IVP (10:14)
[2021-09-07 10:29] LABS: Abs Immature Grans 0.05 10^3/uL (0.0-0.06); Absolute Basophil Count 0.04 10^3/uL (0.0-0.2); Absolute Eosinophil Count 0.17 10^3/uL (0.0-0.7); Absolute Lymphocyte Count 0.95 10^3/uL (1.2-3.4); Absolute Monocyte Count 0.88 10^3/uL (0.1-0.8); Basophils % 0.5; Eosinophils % 2.3; HCT 49.2 % (40.0-50.0); HGB 16.1 g/dL (13.5-17.5); Immature Grans % 0.7; Lymphocytes % 12.9; MCH 29.5 pg (27.0-33.0); MCHC 32.7 % (32.0-36.0); MCV 90.1 fL (80-95); MPV 9.3 fL (8.0-11.0); Monocytes % 11.9; Neutrophils % 71.7; Nucleated RBC 0 %; Platelet Count 334 10^3/uL (130-400); RBC 5.46 10^6/uL (4.36-5.78); RDW 16.5 % (11.8-14.1); RDW-SD 53.7 fL; WBC 7.39 10^3/uL (4.4-10.8)
[2021-09-07 10:41] LABS: Hemoglobin A1C 5.6 % (<5.7)
[2021-09-07 10:42] LABS: ALT 33 U/L (16-63); AST 24 U/L (15-37); Albumin 3.7 g/dL (3.4-5.0); Alkaline Phosphatase 86 U/L (46-116); Anion Gap 9.1 mmol/L (3-11); BUN 6 mg/dL (7-18); Bilirubin, Total 0.5 mg/dL (0.2-1.0); CO2 25.9 mmol/L (21.0-32.0); CREATININE 0.7 mg/dL (0.70-1.30); Calcium 9.3 mg/dL (8.5-10.1); Chloride 99 mmol/L (98-107); Glucose 125 mg/dL (74-106); Potassium 4.2 mmol/L (3.5-5.1); Sodium 134 mmol/L (136-145); Total Protein 7.3 g/dL (6.4-8.2)
[2021-09-07 10:43] LABS: Calculated LDL 83 mg/dL (<100); Cholesterol 170 mg/dL (<200); HDL Cholesterol 60 mg/dL (40-60); Triglyceride 137 mg/dL (<150)
[2021-09-07 17:25] LABS: CEA 2.5 ng/mL (See Note)
[2021-09-21] MEDS: Normal Saline Flush 10 ML SYR IVP (10:25)
[2021-09-21 10:36] LABS: Abs Immature Grans 0.06 10^3/uL (0.0-0.06); Absolute Basophil Count 0.06 10^3/uL (0.0-0.2); Absolute Eosinophil Count 0.22 10^3/uL (0.0-0.7); Absolute Lymphocyte Count 0.94 10^3/uL (1.2-3.4); Absolute Monocyte Count 1.16 10^3/uL (0.1-0.8); Absolute Neutrophil Count 9.74 10^3/uL (1.2-6.7); Basophils % 0.5; Eosinophils % 1.8; HCT 50.6 % (40.0-50.0); Immature Grans % 0.5; Lymphocytes % 7.7; MCH 29.7 pg (27.0-33.0); MCHC 31.6 % (32.0-36.0); MCV 94.1 fL (80-95); MPV 9.3 fL (8.0-11.0); Monocytes % 9.5; Nucleated RBC 0 %; Platelet Count 340 10^3/uL (130-400); RBC 5.38 10^6/uL (4.36-5.78); RDW 17.1 % (11.8-14.1); WBC 12.18 10^3/uL (4.4-10.8)
[2021-09-21 11:07] LABS: ALT 19 U/L (16-63); AST 16 U/L (15-37); Albumin 3.8 g/dL (3.4-5.0); Alkaline Phosphatase 95 U/L (46-116); BUN 7 mg/dL (7-18); Bilirubin, Total 0.8 mg/dL (0.2-1.0); Calcium 9.3 mg/dL (8.5-10.1); Chloride 100 mmol/L (98-107); Glucose 146 mg/dL (74-106); Potassium 3.6 mmol/L (3.5-5.1); Sodium 136 mmol/L (136-145); Total Protein 7.5 g/dL (6.4-8.2)
[2021-09-21 17:55] LABS: CEA 2.4 ng/mL (See Note)
== END 2021-10-01 23:59 | disposition home or self-care (01) ==
LOC: INF 01:19
PROVIDERS: PCP Nurse Practitioner; Visit Provider Internal Medicine Hematology & Oncology
DX: C20 Malignant neoplasm of rectum (principal); E78.5 Hyperlipidemia, unspecified; Z79.891 Long term (current) use of opiate analgesic; C78.00 Secondary malignant neoplasm of unspecified lung; Z45.2 Encounter for adjustment and management of vascular access device
CPT/HCPCS: 36591; 80053; 80061; 82378; 83036; 85025

== ENCOUNTER 2021-10-02 20:31 | Outpatient (REF) | payer MEDICARE, OTHER, MEDICAID, SELFPAY ==
[2021-10-02 18:47] LABS: *AMPHETAMINES SCREEN URINE Negative (Negative); *BARBITURATES SCREEN URINE Negative (Negative); *BENZODIAZEPINES SCREEN URINE Negative (Negative); Cannabinoids THC Positive (Negative); Cocaine Screen,Urine Negative (Negative); METHADONE URINE SCREEN Negative (Negative); OPIATES URINE SCREEN Positive (Negative)
[2021-10-02 19:13] LABS: Tricyclic Antidepressants Negative (Negative)
== END 2021-10-02 20:32 | disposition home or self-care (01) ==
LOC: LBN 20:31
PROVIDERS: PCP Nurse Practitioner; Visit Provider Nurse Practitioner
DX: G89.29 Other chronic pain (principal); Z79.891 Long term (current) use of opiate analgesic; R82.5 Elevated urine levels of drugs, medicaments and biological substances
CPT/HCPCS: 80307

== ENCOUNTER 2021-10-09 01:43 | Outpatient (RCR) | payer MEDICARE, OTHER, MEDICAID, SELFPAY ==
[2021-10-09] MEDS: Normal Saline Flush 10 ML SYR IVP (07:59)
[2021-10-09 08:31] LABS: Abs Immature Grans 0.05 10^3/uL (0.0-0.06); Absolute Basophil Count 0.07 10^3/uL (0.0-0.2); Absolute Lymphocyte Count 1.09 10^3/uL (1.2-3.4); Absolute Monocyte Count 0.75 10^3/uL (0.1-0.8); Basophils % 0.7; Eosinophils % 4.1; HCT 49.5 % (40.0-50.0); HGB 16.2 g/dL (13.5-17.5); Immature Grans % 0.5; Lymphocytes % 11.3; MCH 30.3 pg (27.0-33.0); MCHC 32.7 % (32.0-36.0); MCV 92.7 fL (80-95); MPV 9.6 fL (8.0-11.0); Monocytes % 7.8; Neutrophils % 75.6; Nucleated RBC 0 %; Platelet Count 340 10^3/uL (130-400); RBC 5.34 10^6/uL (4.36-5.78); RDW 17.2 % (11.8-14.1); RDW-SD 57.7 fL; WBC 9.66 10^3/uL (4.4-10.8)
[2021-10-09 08:47] LABS: ALT 30 U/L (16-63); AST 19 U/L (15-37); Albumin 3.7 g/dL (3.4-5.0); Alkaline Phosphatase 89 U/L (46-116); Anion Gap 8.1 mmol/L (3-11); BUN 8 mg/dL (7-18); Bilirubin, Total 0.7 mg/dL (0.2-1.0); CO2 27.9 mmol/L (21.0-32.0); CREATININE 0.9 mg/dL (0.70-1.30); Chloride 101 mmol/L (98-107); Glucose 110 mg/dL (74-106); Potassium 4.1 mmol/L (3.5-5.1); Sodium 137 mmol/L (136-145); Total Protein 7.2 g/dL (6.4-8.2)
[2021-10-09 08:51] LABS: Calcium 9.4 mg/dL (8.5-10.1)
[2021-10-09 18:53] LABS: CEA 2.8 ng/mL (See Note)
[2021-10-10 11:51] LABS: Erythropoietin 7.2 mIU/mL (2.6 - 18.5)
== END 2021-10-29 23:59 | disposition home or self-care (01) ==
LOC: INF 01:43
PROVIDERS: PCP Nurse Practitioner; Visit Provider Internal Medicine Hematology & Oncology
DX: C20 Malignant neoplasm of rectum (principal); C78.00 Secondary malignant neoplasm of unspecified lung; Z45.2 Encounter for adjustment and management of vascular access device
CPT/HCPCS: 36591; 80053; 82375; 82668; 82378; 85025

== ENCOUNTER 2021-11-16 01:01 | Outpatient (RCR) | payer MEDICARE, OTHER, MEDICAID, SELFPAY ==
[2021-11-16] MEDS: Normal Saline Flush 10 ML SYR IVP (10:42)
[2021-11-16 11:22] LABS: Abs Immature Grans 0.04 10^3/uL (0.0-0.06); Absolute Basophil Count 0.05 10^3/uL (0.0-0.2); Absolute Lymphocyte Count 0.95 10^3/uL (1.2-3.4); Absolute Monocyte Count 0.67 10^3/uL (0.1-0.8); Absolute Neutrophil Count 5.79 10^3/uL (1.2-6.7); Basophils % 0.6; Eosinophils % 2.6; HCT 50.5 % (40.0-50.0); HGB 16.4 g/dL (13.5-17.5); Immature Grans % 0.5; Lymphocytes % 12.3; MCH 30.4 pg (27.0-33.0); MCHC 32.5 % (32.0-36.0); MCV 93.7 fL (80-95); MPV 9.4 fL (8.0-11.0); Monocytes % 8.7; Neutrophils % 75.3; Nucleated RBC 0 %; Platelet Count 322 10^3/uL (130-400); RBC 5.39 10^6/uL (4.36-5.78); RDW 16.6 % (11.8-14.1); RDW-SD 56.8 fL
[2021-11-16 11:34] LABS: ALT 31 U/L (16-63); AST 20 U/L (15-37); Albumin 3.9 g/dL (3.4-5.0); Alkaline Phosphatase 91 U/L (46-116); Anion Gap 8.2 mmol/L (3-11); BUN 10 mg/dL (7-18); Bilirubin, Total 0.4 mg/dL (0.2-1.0); CO2 29.8 mmol/L (21.0-32.0); CREATININE 0.9 mg/dL (0.70-1.30); Calcium 9.5 mg/dL (8.5-10.1); Chloride 100 mmol/L (98-107); Glucose 162 mg/dL (74-106); Potassium 3.9 mmol/L (3.5-5.1); Sodium 138 mmol/L (136-145); Total Protein 7.7 g/dL (6.4-8.2)
[2021-11-16 18:58] LABS: CEA 2.5 ng/mL (See Note)
== END 2021-11-29 23:59 | disposition home or self-care (01) ==
LOC: INF 01:01
PROVIDERS: PCP Nurse Practitioner; Visit Provider Internal Medicine Hematology & Oncology
DX: C20 Malignant neoplasm of rectum (principal); C78.00 Secondary malignant neoplasm of unspecified lung; Z45.2 Encounter for adjustment and management of vascular access device
CPT/HCPCS: 36591; 80053; 82378; 85025

== ENCOUNTER 2021-12-28 01:11 | Outpatient (RCR) | payer MEDICARE, OTHER, MEDICAID, SELFPAY ==
[2021-11-30 13:00] LABS: Abs Immature Grans 0.05 10^3/uL (0.0-0.06); Absolute Basophil Count 0.06 10^3/uL (0.0-0.2); Absolute Eosinophil Count 0.19 10^3/uL (0.0-0.7); Absolute Lymphocyte Count 0.78 10^3/uL (1.2-3.4); Absolute Monocyte Count 1.03 10^3/uL (0.1-0.8); Absolute Neutrophil Count 9.76 10^3/uL (1.2-6.7); Basophils % 0.5; Eosinophils % 1.6; HCT 44.9 % (40.0-50.0); Immature Grans % 0.4; Lymphocytes % 6.6; MCH 30.9 pg (27.0-33.0); MCHC 33.4 % (32.0-36.0); MCV 92.6 fL (80-95); MPV 8.6 fL (8.0-11.0); Monocytes % 8.7; Neutrophils % 82.2; Nucleated RBC 0 %; Platelet Count 325 10^3/uL (130-400); RBC 4.85 10^6/uL (4.36-5.78); RDW 16.1 % (11.8-14.1); WBC 11.87 10^3/uL (4.4-10.8)
[2021-11-30] MEDS: Normal Saline Flush 10 ML SYR IVP (13:02)
[2021-11-30 13:14] LABS: ALT 62 U/L (16-63); AST 29 U/L (15-37); Albumin 3.6 g/dL (3.4-5.0); Alkaline Phosphatase 85 U/L (46-116); Anion Gap 6.8 mmol/L (3-11); BUN 12 mg/dL (7-18); Bilirubin, Total 0.4 mg/dL (0.2-1.0); CO2 29.2 mmol/L (21.0-32.0); Calcium 9.1 mg/dL (8.5-10.1); Chloride 94 mmol/L (98-107); Glucose 130 mg/dL (74-106); Potassium 4.1 mmol/L (3.5-5.1); Sodium 130 mmol/L (136-145)
[2021-11-30 22:33] LABS: CEA 2.2 ng/mL (See Note)
[2021-12-07] MEDS: Normal Saline Flush 10 ML SYR IVP (10:56)
[2021-12-07 11:03] LABS: Abs Immature Grans 0.09 10^3/uL (0.0-0.06); Absolute Basophil Count 0.06 10^3/uL (0.0-0.2); Absolute Eosinophil Count 0.34 10^3/uL (0.0-0.7); Absolute Lymphocyte Count 1.36 10^3/uL (1.2-3.4); Absolute Monocyte Count 0.97 10^3/uL (0.1-0.8); Absolute Neutrophil Count 6.02 10^3/uL (1.2-6.7); Basophils % 0.7; Eosinophils % 3.8; HCT 49.6 % (40.0-50.0); HGB 16.2 g/dL (13.5-17.5); Lymphocytes % 15.4; MCH 30.7 pg (27.0-33.0); MCHC 32.7 % (32.0-36.0); MCV 93.9 fL (80-95); MPV 8.8 fL (8.0-11.0); Neutrophils % 68.1; Nucleated RBC 0 %; Platelet Count 421 10^3/uL (130-400); RBC 5.28 10^6/uL (4.36-5.78); RDW 15.9 % (11.8-14.1); RDW-SD 54.3 fL; WBC 8.84 10^3/uL (4.4-10.8)
[2021-12-07 11:14] LABS: Albumin 3.8 g/dL (3.4-5.0); Anion Gap 6.1 mmol/L (3-11); BUN 8 mg/dL (7-18); CO2 29.9 mmol/L (21.0-32.0); CREATININE 1.1 mg/dL (0.70-1.30); Calcium 9.7 mg/dL (8.5-10.1); Chloride 99 mmol/L (98-107); Glucose 140 mg/dL (74-106); Potassium 4.2 mmol/L (3.5-5.1); Sodium 135 mmol/L (136-145)
[2021-12-07 11:29] LABS: ALT 31 U/L (16-63); AST 19 U/L (15-37); Alkaline Phosphatase 98 U/L (46-116); Bilirubin, Total 0.5 mg/dL (0.2-1.0); Total Protein 7.8 g/dL (6.4-8.2)
[2021-12-07 18:35] LABS: CEA 2.5 ng/mL (See Note)
[2021-12-28] MEDS: Normal Saline Flush 10 ML SYR IVP (12:16)
[2021-12-28 12:26] LABS: Abs Immature Grans 0.04 10^3/uL (0.0-0.06); Absolute Basophil Count 0.08 10^3/uL (0.0-0.2); Absolute Eosinophil Count 0.41 10^3/uL (0.0-0.7); Basophils % 0.6; Eosinophils % 3.1; HCT 49.6 % (40.0-50.0); HGB 16.1 g/dL (13.5-17.5); Immature Grans % 0.3; Lymphocytes % 6.9; MCH 30.6 pg (27.0-33.0); MCHC 32.5 % (32.0-36.0); MCV 94 fL (80-95); MPV 9.5 fL (8.0-11.0); Monocytes % 10.8; Neutrophils % 78.3; Platelet Count 365 10^3/uL (130-400); RBC 5.27 10^6/uL (4.36-5.78); RDW 16.3 % (11.8-14.1); RDW-SD 55.9 fL; WBC 13.11 10^3/uL (4.4-10.8)
[2021-12-28 12:29] LABS: Absolute Monocyte Count 1.42 10^3/uL (0.1-0.8); Absolute Neutrophil Count 10.27 10^3/uL (1.2-6.7)
[2021-12-28 12:36] LABS: ALT 37 U/L (16-63); AST 21 U/L (15-37); Albumin 3.9 g/dL (3.4-5.0); Alkaline Phosphatase 103 U/L (46-116); Anion Gap 9.3 mmol/L (3-11); BUN 12 mg/dL (7-18); Bilirubin, Total 0.6 mg/dL (0.2-1.0); CO2 29.7 mmol/L (21.0-32.0); CREATININE 1.2 mg/dL (0.70-1.30); Calcium 9.8 mg/dL (8.5-10.1); Chloride 97 mmol/L (98-107); Glucose 155 mg/dL (74-106); Potassium 3.9 mmol/L (3.5-5.1); Sodium 136 mmol/L (136-145); Total Protein 7.8 g/dL (6.4-8.2)
[2021-12-28 22:31] LABS: CEA 2.7 ng/mL (See Note)
== END 2021-12-29 23:59 | disposition home or self-care (01) ==
LOC: INF 01:11
PROVIDERS: PCP Nurse Practitioner; Visit Provider Internal Medicine Hematology & Oncology
DX: C20 Malignant neoplasm of rectum (principal); Z45.2 Encounter for adjustment and management of vascular access device
CPT/HCPCS: 36591; 80053; 82378; 85025

== ENCOUNTER 2022-01-03 20:21 | Outpatient (REF) | payer MEDICARE, OTHER, MEDICAID, SELFPAY ==
[2022-01-03 13:20] LABS: Bilirubin Negative (Negative); Blood Negative (Negative); Clarity Clear (Clear); Glucose Negative (Negative); Ketones Negative (Negative); Leukocyte Esterase Negative (Negative); Nitrite Negative (Negative); Specific Gravity >= 1.030 (1.005-1.025); Urobilinogen 0.2 EU/dL (Up TO 0.2); pH 6.5 (5-8)
== END 2022-01-03 20:22 | disposition home or self-care (01) ==
LOC: LBN 20:21
PROVIDERS: PCP Nurse Practitioner; Visit Provider Internal Medicine Hematology & Oncology
DX: R30.0 Dysuria (principal)
CPT/HCPCS: 81003

== ENCOUNTER 2022-01-18 01:53 | Outpatient (RCR) | payer MEDICARE, OTHER, MEDICAID, SELFPAY ==
[2022-01-03] MEDS: Normal Saline Flush 10 ML SYR IVP (08:56)
[2022-01-03 09:52] LABS: Abs Immature Grans 0.11 10^3/uL (0.0-0.06); Absolute Basophil Count 0.08 10^3/uL (0.0-0.2); Absolute Eosinophil Count 0.23 10^3/uL (0.0-0.7); Absolute Lymphocyte Count 1.14 10^3/uL (1.2-3.4); Absolute Monocyte Count 0.82 10^3/uL (0.1-0.8); Absolute Neutrophil Count 6.51 10^3/uL (1.2-6.7); Basophils % 0.9; Eosinophils % 2.6; HCT 50.7 % (40.0-50.0); HGB 16.9 g/dL (13.5-17.5); Immature Grans % 1.2; Lymphocytes % 12.8; MCHC 33.3 % (32.0-36.0); MCV 93 fL (80-95); MPV 9.3 fL (8.0-11.0); Monocytes % 9.2; Neutrophils % 73.3; Platelet Count 428 10^3/uL (130-400); RBC 5.45 10^6/uL (4.36-5.78); RDW 15.9 % (11.8-14.1); RDW-SD 53.7 fL; WBC 8.89 10^3/uL (4.4-10.8)
[2022-01-03 10:08] LABS: ALT 31 U/L (16-63); AST 24 U/L (15-37); Albumin 4.1 g/dL (3.4-5.0); Alkaline Phosphatase 96 U/L (46-116); Anion Gap 7.6 mmol/L (3-11); BUN 5 mg/dL (7-18); Bilirubin, Total 0.5 mg/dL (0.2-1.0); CO2 28.4 mmol/L (21.0-32.0); Calcium 9.5 mg/dL (8.5-10.1); Chloride 98 mmol/L (98-107); Glucose 160 mg/dL (74-106); Potassium 4.3 mmol/L (3.5-5.1); Sodium 134 mmol/L (136-145); Total Protein 7.8 g/dL (6.4-8.2)
[2022-01-18] MEDS: Normal Saline Flush 10 ML SYR IVP (12:22)
[2022-01-18 12:27] LABS: Abs Immature Grans 0.04 10^3/uL (0.0-0.06); Absolute Eosinophil Count 0.15 10^3/uL (0.0-0.7); Absolute Monocyte Count 0.73 10^3/uL (0.1-0.8); Basophils % 0.5; Eosinophils % 1.4; HCT 47.8 % (40.0-50.0); Immature Grans % 0.4; Lymphocytes % 8.1; MCH 31.1 pg (27.0-33.0); MCHC 33.5 % (32.0-36.0); MCV 93 fL (80-95); Monocytes % 6.6; Platelet Count 322 10^3/uL (130-400); RBC 5.14 10^6/uL (4.36-5.78); RDW 15.8 % (11.8-14.1); RDW-SD 53.7 fL; WBC 11.05 10^3/uL (4.4-10.8)
[2022-01-18 12:29] LABS: Absolute Basophil Count 0.06 10^3/uL (0.0-0.2); Absolute Neutrophil Count 9.17 10^3/uL (1.2-6.7)
[2022-01-18 12:40] LABS: ALT 63 U/L (16-63); AST 37 U/L (15-37); Albumin 3.8 g/dL (3.4-5.0); Alkaline Phosphatase 85 U/L (46-116); Anion Gap 7.2 mmol/L (3-11); BUN 11 mg/dL (7-18); Bilirubin, Total 0.6 mg/dL (0.2-1.0); CO2 26.8 mmol/L (21.0-32.0); CREATININE 0.9 mg/dL (0.70-1.30); Calcium 9.2 mg/dL (8.5-10.1); Chloride 99 mmol/L (98-107); Glucose 134 mg/dL (74-106); Sodium 133 mmol/L (136-145); Total Protein 7.2 g/dL (6.4-8.2)
[2022-01-18 22:47] LABS: CEA 2.8 ng/mL (See Note)
== END 2022-01-29 23:59 | disposition home or self-care (01) ==
LOC: INF 01:53
PROVIDERS: PCP Nurse Practitioner; Visit Provider Internal Medicine Hematology & Oncology
DX: C20 Malignant neoplasm of rectum (principal); Z45.2 Encounter for adjustment and management of vascular access device
CPT/HCPCS: 36415; 36591; 80053; 96523; 82378; 85025

== ENCOUNTER 2022-02-08 01:04 | Outpatient (RCR) | payer MEDICARE, OTHER, MEDICAID, SELFPAY ==
[2022-02-08] MEDS: Normal Saline Flush 10 ML SYR IVP (08:21)
[2022-02-08 08:40] LABS: Abs Immature Grans 0.07 10^3/uL (0.0-0.06); Absolute Eosinophil Count 0.24 10^3/uL (0.0-0.7); Absolute Lymphocyte Count 1.03 10^3/uL (1.2-3.4); Absolute Monocyte Count 1.16 10^3/uL (0.1-0.8); Basophils % 0.7; HCT 50.2 % (40.0-50.0); HGB 16.9 g/dL (13.5-17.5); Immature Grans % 0.6; Lymphocytes % 8.4; MCH 31.5 pg (27.0-33.0); MCHC 33.7 % (32.0-36.0); MCV 94 fL (80-95); MPV 9.3 fL (8.0-11.0); Monocytes % 9.5; Neutrophils % 78.8; Platelet Count 341 10^3/uL (130-400); RBC 5.37 10^6/uL (4.36-5.78); RDW-SD 54.8 fL; WBC 12.21 10^3/uL (4.4-10.8)
[2022-02-08 08:48] LABS: Absolute Basophil Count 0.09 10^3/uL (0.0-0.2); Absolute Neutrophil Count 9.62 10^3/uL (1.2-6.7)
[2022-02-08 09:00] LABS: ALT 24 U/L (16-63); AST 21 U/L (15-37); Albumin 3.9 g/dL (3.4-5.0); Alkaline Phosphatase 94 U/L (46-116); Anion Gap 9.5 mmol/L (3-11); BUN 6 mg/dL (7-18); Bilirubin, Total 0.5 mg/dL (0.2-1.0); CO2 27.5 mmol/L (21.0-32.0); CREATININE 0.9 mg/dL (0.70-1.30); Calcium 9.5 mg/dL (8.5-10.1); Chloride 97 mmol/L (98-107); Glucose 164 mg/dL (74-106); Potassium 4.2 mmol/L (3.5-5.1); Sodium 134 mmol/L (136-145); Total Protein 7.6 g/dL (6.4-8.2)
== END 2022-02-28 23:59 | disposition home or self-care (01) ==
LOC: INF 01:04
PROVIDERS: PCP Nurse Practitioner; Visit Provider Internal Medicine Hematology & Oncology
DX: C20 Malignant neoplasm of rectum (principal); Z45.2 Encounter for adjustment and management of vascular access device
CPT/HCPCS: 36591; 80053; 85025

== ENCOUNTER → 2022-02-20 01:22 | Outpatient (CLI) | payer MEDICARE, OTHER, MEDICAID, SELFPAY ==
--- NOTE | 2022-02-20 | DI.CT_ITS ---
Exam(s) CT CHEST WO EXAM: CT CHEST WO CLINICAL HISTORY: RECTAL CA METASTASIZED TO LUNG, C20,C78.00,COMPARE TO 10/25,LUNG NODULES. TECHNIQUE: Multi planar reconstructions were performed. CONTRAST MATERIAL: None COMPARISON: CT CT CHEST ABDOMEN PELVIS W CONTRAST (GENERIC) from 09/26/2016 FINDINGS: Study performed 02/20/2022, submitted to nd for interpretation on 02/23/2022. Compared to prior outs blanca study of 09/26/2016. CHEST: LUNGS: There are now multiple bilateral nodular infiltrates, ranging up to 1.2 x 1.2 centimeters and suspicious for metastatic disease, given the history here. The previously described small nodule in the left lower lobe appears relatively stable. There are no pleural effusions. No new significant f ocal findings in the trachea and mainstem bronchi. MEDIASTINUM: There is no obvious hilar nor mediastinal adenopathy. No obvious axillary adenopathy CARDIAC: Heart size is normal. There is no pericardial effusion.The ascending thoracic aorta is dila ashish, measuring 4 cm. This, however, slightly more prominent on the prior study. The descending thor acic aorta exhibits upper normal diameter. VISUALIZED UPPER ABDOMEN:No significant adrenal masses. Somewhat malrotated left kidney again noted. Cholelithiasis again noted. OSSEOUS: No significant osseous lesions.No fractures.. IMPRESSION: 1. Compared to the outside study of 2017 there are now small nodular infiltrates in both lung gurrola range up to 12 x 12 millimeters and suspicious for metastatic disease given history here. Previously described left lower lobe 3 millimeter nodules unchanged from 2017 and therefore benign. There are no pleural effusions. No intrathoracic adenopathy. 2. Ascending thoracic aorta is dilated measuring 4 cm. Slightly more so than prior study. 3. No obvious osseous lesions. RADIATION DOSE DELIVERED: 419.95mGy.cm Total DLP DATA REPOSITORY: All CT scans at this facility are submitted to the National Radiology Data Registry (NRDR) Dose Index Registry (DIR) with the [employer] (ACR). RADIATION OPTIMIZATION: All CT scans at this facility use at least one of these dose optimization te chniques: automated exposure control; mA and/or kV adjustment per patient size (includes targeted exa ms where dose is matched to clinical indication); or iterative reconstruction.
== END ==
PROVIDERS: PCP Nurse Practitioner; Visit Provider Nurse Practitioner Adult Health
DX: C78.00 Secondary malignant neoplasm of unspecified lung (principal); C20 Malignant neoplasm of rectum; R91.8 Other nonspecific abnormal finding of lung field
CPT/HCPCS: 71250

== ENCOUNTER 2022-03-29 08:30 | Outpatient (RCR) | payer MEDICARE, OTHER, MEDICAID, SELFPAY ==
[2022-03-01] MEDS: Normal Saline Flush 10 ML SYR IVP (09:40)
[2022-03-01 09:52] LABS: Abs Immature Grans 0.03 10^3/uL (0.0-0.06); Absolute Basophil Count 0.06 10^3/uL (0.0-0.2); Absolute Eosinophil Count 0.29 10^3/uL (0.0-0.7); Absolute Lymphocyte Count 0.88 10^3/uL (1.2-3.4); Absolute Monocyte Count 0.66 10^3/uL (0.1-0.8); Absolute Neutrophil Count 5.75 10^3/uL (1.2-6.7); Basophils % 0.8; Eosinophils % 3.8; HGB 16.3 g/dL (13.5-17.5); Immature Grans % 0.4; Lymphocytes % 11.5; MCH 31.2 pg (27.0-33.0); MCHC 33.3 % (32.0-36.0); MCV 94 fL (80-95); MPV 8.9 fL (8.0-11.0); Monocytes % 8.6; Neutrophils % 74.9; Platelet Count 310 10^3/uL (130-400); RBC 5.23 10^6/uL (4.36-5.78); RDW 16.1 % (11.8-14.1); RDW-SD 55.9 fL; WBC 7.67 10^3/uL (4.4-10.8)
[2022-03-01 10:07] LABS: ALT 28 U/L (16-63); AST 25 U/L (15-37); Albumin 3.7 g/dL (3.4-5.0); Alkaline Phosphatase 79 U/L (46-116); Anion Gap 9.8 mmol/L (3-11); BUN 7 mg/dL (7-18); Bilirubin, Total 0.6 mg/dL (0.2-1.0); CO2 24.2 mmol/L (21.0-32.0); CREATININE 0.8 mg/dL (0.70-1.30); Calcium 9.5 mg/dL (8.5-10.1); Chloride 98 mmol/L (98-107); Glucose 171 mg/dL (74-106); Sodium 132 mmol/L (136-145); Total Protein 7.2 g/dL (6.4-8.2)
[2022-03-29] MEDS: Normal Saline Flush 10 ML SYR IVP (08:41)
[2022-03-29 09:26] LABS: HCT 48.3 % (40.0-50.0); HGB 15.8 g/dL (13.5-17.5); MCH 30.8 pg (27.0-33.0); MCHC 32.7 % (32.0-36.0); MCV 94 fL (80-95); MPV 9.4 fL (8.0-11.0); Platelet Count 436 10^3/uL (130-400); RBC 5.13 10^6/uL (4.36-5.78); RDW 15.6 % (11.8-14.1); RDW-SD 53.6 fL; WBC 18.98 10^3/uL (4.4-10.8)
[2022-03-29 09:37] LABS: ALT 31 U/L (16-63); AST 19 U/L (15-37); Alkaline Phosphatase 97 U/L (46-116); Anion Gap 6.6 mmol/L (3-11); BUN 8 mg/dL (7-18); Bilirubin, Total 0.4 mg/dL (0.2-1.0); CO2 31.4 mmol/L (21.0-32.0); CREATININE 0.8 mg/dL (0.70-1.30); Calcium 9.6 mg/dL (8.5-10.1); Chloride 97 mmol/L (98-107); Glucose 144 mg/dL (74-106); Potassium 3.8 mmol/L (3.5-5.1); Sodium 135 mmol/L (136-145); Total Protein 7.6 g/dL (6.4-8.2)
[2022-03-29 09:47] LABS: Absolute Eosinophil Count 0.19 10^3/uL (0.0-0.7); Absolute Lymphocyte Count 0.95 10^3/uL (1.2-3.4); Absolute Monocyte Count 1.52 10^3/uL (0.1-0.8); Absolute Neutrophil Count 16.32 10^3/uL (1.2-6.7); Bands % 3; Diff Comment Manual Differential; RBC Morphology Normal
[2022-03-29 12:50] LABS: Bilirubin Negative (Negative); Blood Negative (Negative); Clarity Sl Cloudy (Clear); Glucose Negative (Negative); Ketones Negative (Negative); Leukocyte Esterase Trace (Negative); Nitrite Positive (Negative); Urobilinogen 0.2 EU/dL (Up TO 0.2); pH 6.5 (5-8)
[2022-03-29 13:05] LABS: Bacteria Moderate HPF (Negative); C & S Indicated? Yes; Casts Negative LPF (Negative); Crystals Negative HPF (Negative); Epithelial Cells Negative HPF (Negative); Mucus Negative (Negative); Other Cells Negative (Negative); RBC Negative HPF (0-2)
[2022-03-29 18:27] LABS: CEA 2.2 ng/mL (See Note)
== END 2022-03-31 23:59 | disposition home or self-care (01) ==
LOC: INF 08:30
PROVIDERS: PCP Nurse Practitioner; Visit Provider Internal Medicine Hematology & Oncology
DX: C78.00 Secondary malignant neoplasm of unspecified lung (principal); Z45.2 Encounter for adjustment and management of vascular access device; C20 Malignant neoplasm of rectum
CPT/HCPCS: 36415; 36591; 80053; 87077; 81003; 81015; 82378; 85025; 87086; 87186

== ENCOUNTER 2022-04-19 00:51 | Outpatient (RCR) | payer MEDICARE, OTHER, MEDICAID, SELFPAY ==
[2022-04-19] MEDS: Normal Saline Flush 10 ML SYR IVP (09:49)
[2022-04-19 09:53] LABS: Abs Immature Grans 0.02 10^3/uL (0.0-0.06); Absolute Basophil Count 0.07 10^3/uL (0.0-0.2); Absolute Eosinophil Count 0.56 10^3/uL (0.0-0.7); Absolute Lymphocyte Count 1.11 10^3/uL (1.2-3.4); Absolute Neutrophil Count 6.15 10^3/uL (1.2-6.7); Basophils % 0.8; Eosinophils % 6.3; HCT 48.3 % (40.0-50.0); HGB 15.9 g/dL (13.5-17.5); Immature Grans % 0.2; Lymphocytes % 12.5; MCH 31.2 pg (27.0-33.0); MCHC 32.9 % (32.0-36.0); MCV 95 fL (80-95); MPV 9.5 fL (8.0-11.0); Monocytes % 11.2; Platelet Count 351 10^3/uL (130-400); RDW 15.7 % (11.8-14.1); RDW-SD 54.4 fL; WBC 8.91 10^3/uL (4.4-10.8)
[2022-04-19 10:13] LABS: ALT 29 U/L (16-63); AST 20 U/L (15-37); Albumin 3.7 g/dL (3.4-5.0); Alkaline Phosphatase 78 U/L (46-116); Anion Gap 7.2 mmol/L (3-11); BUN 9 mg/dL (7-18); Bilirubin, Total 0.8 mg/dL (0.2-1.0); CO2 30.8 mmol/L (21.0-32.0); CREATININE 0.8 mg/dL (0.70-1.30); Calcium 9.3 mg/dL (8.5-10.1); Chloride 101 mmol/L (98-107); Glucose 140 mg/dL (74-106); Sodium 139 mmol/L (136-145); Total Protein 7.4 g/dL (6.4-8.2)
== END 2022-05-01 23:59 | disposition home or self-care (01) ==
LOC: INF 00:51
PROVIDERS: PCP Nurse Practitioner; Visit Provider Internal Medicine Hematology & Oncology
DX: C20 Malignant neoplasm of rectum (principal); Z45.2 Encounter for adjustment and management of vascular access device
CPT/HCPCS: 36591; 80053; 85025

== ENCOUNTER → 2022-05-30 03:11 | Outpatient (CLI) | payer MEDICARE, OTHER, MEDICAID, SELFPAY ==
--- NOTE | 2022-05-30 08:30 | DI.CT_ITS ---
Exam(s) CT CHEST/ABD/PEL W EXAM: CT CHEST/ABD/PEL W CLINICAL HISTORY: RECTAL CANCER METS TO LUNG C20, C78.00 TECHNIQUE: Imaging Protocol: Axial computed tomography images with coronal and sagittal reformatted images were created and reviewed CONTRAST MATERIAL: Intravenous: Omnipaque 350 contrast volume:100 mL Oral: Yes COMPARISON: CT CHEST ABD PELVIS WITH CONTRAST from 12/18/[address] CHEST WO from 02/20/2022 FINDINGS: CHEST: Tracheobronchial tree: Patent where visualized. Pulmonary parenchyma: No focal consolidation. There has been no significant change in size or number of the pulmonary metastases since the prior examination from 02/20/2022. No architectural distortion. Visualized thyroid gland: Unremarkable. Mediastinum and Cynthia: Stable mildly enlarged mediastinal lymph nodes. The esophagus is unremarkable. Pleura: No effusion or pneumothorax. Heart: The heart is not dilated. Mild coronary artery calcification is present. No pericardial effus ion. Pulmonary arteries: No pulmonary emboli are identified. Aorta: Thoracic aorta non-dilated. Atherosclerosis is present. Lymph nodes: No axillary or supraclavicular adenopathy. Tubes, Catheters, and Lines: Port-A-Cath is in good position. Soft tissues: Unremarkable. Bones:Within normal limits for the patient's age. There are old healed right rib fractures. ABDOMEN: Liver: Normal density. No measurable mass. Portal, Superior Mesenteric, and Splenic Veins: Unremarkable. Gallbladder and Biliary Tract: Cholelithiasis. No biliary ductal dilatation. Pancreas: Normal density, no abnormal calcifications or inflammatory process. Spleen: Normal. Adrenals: No masses seen. Kidneys: Normal size, contour and axis. No radiodense stones or obstructive uropathy. No masses seen. Abdominal Aorta: Abdominal portion non-dilated. Atherosclerosis is present. Bowel: The patient is status post resection of the rectal sigmoid colon. There is a left lower quadra nt colostomy. There is no evidence of bowel obstruction. There is a right inguinal hernia containing an unremarkable nonobstructive loop of small bowel. Appendix is unremarkable. Peritoneal Cavity: No ascites, collection or mesenteric inflammatory response. No free air. Lymph Nodes: Within normal limits. Bones: Within normal limits for the patient's age. L4 spondylolysis with grade 1 spondylolisthesis o f L4 on L5. Soft Tissues: Unremarkable. PELVIS: Bladder: Status post cystectomy. There is an ileal conduit in the right lower quadrant. Reproductive Organs: Status post prostatectomy. Lymph Nodes: Within normal limits. Bones: Within normal limits. IMPRESSION: 1. Stable pulmonary metastatic disease. 2. No evidence of abdominal metastatic disease in the abdomen or pelvis. RADIATION DOSE DELIVERED: 1,482.48mGy.cm Total DLP DATA REPOSITORY: All CT scans at this facility are submitted to the National Radiology Data Registry (NRDR) Dose Index Registry (DIR) with the [employer] (ACR). RADIATION OPTIMIZATION: All CT scans at this facility use at least one of these dose optimization te chniques: automated exposure control; mA and/or kV adjustment per patient size (includes targeted exa ms where dose is matched to clinical indication); or iterative reconstruction.
[2022-05-30] MEDS: Barium Sulfate 2% W/V-Berry Smoothie 450 ML BTL 900 ML PO (09:36)
[2022-05-30] MEDS: Omnipaque 350 MG/ML 100 ML BTL IJ (09:37)
== END ==
PROVIDERS: PCP Nurse Practitioner; Visit Provider Nurse Practitioner Adult Health
DX: C78.00 Secondary malignant neoplasm of unspecified lung (principal)
CPT/HCPCS: 36591; 74177; 80053; 71260; 85025; J3490

== ENCOUNTER 2022-05-30 03:51 | Outpatient (RCR) | payer MEDICARE, OTHER, MEDICAID, SELFPAY ==
[2022-05-10] MEDS: Normal Saline Flush 10 ML SYR IVP (12:32)
[2022-05-10 12:37] LABS: Abs Immature Grans 0.04 10^3/uL (0.0-0.06); Absolute Basophil Count 0.08 10^3/uL (0.0-0.2); Absolute Eosinophil Count 0.19 10^3/uL (0.0-0.7); Absolute Lymphocyte Count 1.14 10^3/uL (1.2-3.4); Absolute Monocyte Count 0.84 10^3/uL (0.1-0.8); Absolute Neutrophil Count 8.05 10^3/uL (1.2-6.7); Basophils % 0.8; Eosinophils % 1.8; HCT 49.3 % (40.0-50.0); HGB 16.4 g/dL (13.5-17.5); Immature Grans % 0.4; MCH 31.2 pg (27.0-33.0); MCHC 33.3 % (32.0-36.0); MCV 94 fL (80-95); MPV 9.2 fL (8.0-11.0); Monocytes % 8.1; Neutrophils % 77.9; Platelet Count 352 10^3/uL (130-400); RBC 5.25 10^6/uL (4.36-5.78); RDW 15.7 % (11.8-14.1); RDW-SD 53.5 fL; WBC 10.34 10^3/uL (4.4-10.8)
[2022-05-10 12:54] LABS: ALT 28 U/L (16-63); AST 21 U/L (15-37); Albumin 3.7 g/dL (3.4-5.0); Alkaline Phosphatase 83 U/L (46-116); Anion Gap 8.6 mmol/L (3-11); BUN 5 mg/dL (7-18); Bilirubin, Total 0.6 mg/dL (0.2-1.0); CO2 31.4 mmol/L (21.0-32.0); CREATININE 0.9 mg/dL (0.70-1.30); Calcium 9.7 mg/dL (8.5-10.1); Chloride 98 mmol/L (98-107); Estimated GFR 97.17 (mL/min/1.73m2); Glucose 159 mg/dL (74-106); Potassium 3.9 mmol/L (3.5-5.1); Sodium 138 mmol/L (136-145); Total Protein 7.4 g/dL (6.4-8.2)
[2022-05-30] MEDS: Heparin 500 UNITS/5 ML SYRINGE IV (08:36)
[2022-05-30] MEDS: Normal Saline Flush 10 ML SYR IVP (08:36)
[2022-05-30 08:46] LABS: Abs Immature Grans 0.06 10^3/uL (0.0-0.06); Absolute Basophil Count 0.08 10^3/uL (0.0-0.2); Absolute Eosinophil Count 0.32 10^3/uL (0.0-0.7); Absolute Lymphocyte Count 1.24 10^3/uL (1.2-3.4); Absolute Monocyte Count 1.22 10^3/uL (0.1-0.8); Absolute Neutrophil Count 7.86 10^3/uL (1.2-6.7); Basophils % 0.7; HCT 49.2 % (40.0-50.0); Immature Grans % 0.6; Lymphocytes % 11.5; MCH 30.9 pg (27.0-33.0); MCHC 32.5 % (32.0-36.0); MCV 95 fL (80-95); MPV 9.5 fL (8.0-11.0); Monocytes % 11.3; Neutrophils % 72.9; Platelet Count 410 10^3/uL (130-400); RBC 5.17 10^6/uL (4.36-5.78); RDW 15.9 % (11.8-14.1); RDW-SD 55.8 fL; WBC 10.78 10^3/uL (4.4-10.8)
[2022-05-30 09:09] LABS: ALT 21 U/L (16-63); AST 17 U/L (15-37); Albumin 3.3 g/dL (3.4-5.0); Alkaline Phosphatase 87 U/L (46-116); Anion Gap 6.4 mmol/L (3-11); BUN 6 mg/dL (7-18); Bilirubin, Total 0.4 mg/dL (0.2-1.0); CO2 32.6 mmol/L (21.0-32.0); CREATININE 0.8 mg/dL (0.70-1.30); Calcium 9.7 mg/dL (8.5-10.1); Chloride 98 mmol/L (98-107); Estimated GFR 100.69 (mL/min/1.73m2); Glucose 156 mg/dL (74-106); Potassium 3.9 mmol/L (3.5-5.1); Sodium 137 mmol/L (136-145); Total Protein 7.6 g/dL (6.4-8.2)
== END 2022-05-31 23:59 | disposition home or self-care (01) ==
LOC: INF 03:51
PROVIDERS: PCP Nurse Practitioner; Visit Provider Internal Medicine Hematology & Oncology
DX: C20 Malignant neoplasm of rectum (principal); Z45.2 Encounter for adjustment and management of vascular access device
CPT/HCPCS: 36591; 80053; 85025

== ENCOUNTER 2022-06-21 01:22 | Outpatient (RCR) | payer MEDICARE, OTHER, MEDICAID, SELFPAY ==
[2022-06-21] MEDS: Normal Saline Flush 10 ML SYR IVP (10:45)
[2022-06-21 10:51] LABS: Abs Immature Grans 0.03 10^3/uL (0.0-0.06); Absolute Basophil Count 0.04 10^3/uL (0.0-0.2); Absolute Eosinophil Count 0.29 10^3/uL (0.0-0.7); Absolute Lymphocyte Count 0.73 10^3/uL (1.2-3.4); Absolute Monocyte Count 0.72 10^3/uL (0.1-0.8); Absolute Neutrophil Count 6.29 10^3/uL (1.2-6.7); Basophils % 0.5; Eosinophils % 3.6; HCT 50.5 % (40.0-50.0); HGB 16.9 g/dL (13.5-17.5); Immature Grans % 0.4; MCHC 33.5 % (32.0-36.0); MCV 93 fL (80-95); MPV 9.6 fL (8.0-11.0); Monocytes % 8.9; Neutrophils % 77.6; Platelet Count 327 10^3/uL (130-400); RBC 5.46 10^6/uL (4.36-5.78); RDW 15.9 % (11.8-14.1); RDW-SD 52.7 fL
[2022-06-21 11:08] LABS: ALT 25 U/L (16-63); AST 26 U/L (15-37); Albumin 3.9 g/dL (3.4-5.0); Alkaline Phosphatase 92 U/L (46-116); Anion Gap 6.7 mmol/L (3-11); BUN 8 mg/dL (7-18); Bilirubin, Total 0.7 mg/dL (0.2-1.0); CO2 30.3 mmol/L (21.0-32.0); CREATININE 0.9 mg/dL (0.70-1.30); Calcium 9.7 mg/dL (8.5-10.1); Chloride 96 mmol/L (98-107); Estimated GFR 97.17 (mL/min/1.73m2); Glucose 158 mg/dL (74-106); Potassium 4.3 mmol/L (3.5-5.1); Sodium 133 mmol/L (136-145); Total Protein 7.6 g/dL (6.4-8.2)
[2022-06-21 18:53] LABS: CEA 5.2 ng/mL (See Note)
== END 2022-07-01 23:59 | disposition home or self-care (01) ==
LOC: INF 01:22
PROVIDERS: PCP Nurse Practitioner; Visit Provider Internal Medicine Hematology & Oncology
DX: C20 Malignant neoplasm of rectum (principal); Z45.2 Encounter for adjustment and management of vascular access device
CPT/HCPCS: 36591; 80053; 82378; 85025

== ENCOUNTER 2022-07-08 18:24 | Outpatient (REF) | payer MEDICARE, OTHER, MEDICAID, SELFPAY ==
[2022-07-08 12:46] LABS: Bilirubin Negative (Negative); Blood Negative (Negative); Clarity Cloudy (Clear); Glucose Negative (Negative); Ketones Negative (Negative); Leukocyte Esterase Small (Negative); Nitrite Positive (Negative); Urobilinogen 0.2 EU/dL (Up TO 0.2)
[2022-07-08 12:55] LABS: Bacteria Many HPF (Negative); C & S Indicated? Yes; Casts Negative LPF (Negative); Crystals Negative HPF (Negative); Epithelial Cells Rare HPF (Negative); Mucus Moderate (Negative); RBC Negative HPF (0-2); WBC 20-50 HPF (0-5)
== END 2022-07-08 18:25 | disposition home or self-care (01) ==
LOC: LBN 18:24
PROVIDERS: PCP Nurse Practitioner Family; Visit Provider Nurse Practitioner Family
DX: R30.0 Dysuria (principal)
CPT/HCPCS: 87077; 81003; 81015; 87086; 87186

== ENCOUNTER 2022-07-12 01:00 | Outpatient (RCR) | payer MEDICARE, OTHER, MEDICAID, SELFPAY ==
[2022-07-12] MEDS: Normal Saline Flush 10 ML SYR IVP (08:45)
[2022-07-12 08:56] LABS: Abs Immature Grans 0.08 10^3/uL (0.0-0.06); Absolute Basophil Count 0.07 10^3/uL (0.0-0.2); Absolute Eosinophil Count 0.49 10^3/uL (0.0-0.7); Absolute Lymphocyte Count 1.01 10^3/uL (1.2-3.4); Absolute Monocyte Count 0.92 10^3/uL (0.1-0.8); Absolute Neutrophil Count 6.37 10^3/uL (1.2-6.7); Basophils % 0.8; Eosinophils % 5.5; HCT 50.1 % (40.0-50.0); HGB 16.7 g/dL (13.5-17.5); Immature Grans % 0.9; Lymphocytes % 11.3; MCH 30.6 pg (27.0-33.0); MCHC 33.3 % (32.0-36.0); MCV 92 fL (80-95); MPV 9.3 fL (8.0-11.0); Monocytes % 10.3; Neutrophils % 71.2; Platelet Count 365 10^3/uL (130-400); RBC 5.45 10^6/uL (4.36-5.78); RDW 15.2 % (11.8-14.1); RDW-SD 50.4 fL; WBC 8.94 10^3/uL (4.4-10.8)
[2022-07-12 08:57] LABS: Bilirubin Negative (Negative); Blood Trace-intact (Negative); Clarity Sl Cloudy (Clear); Glucose Negative (Negative); Ketones Negative (Negative); Leukocyte Esterase Small (Negative); Nitrite Negative (Negative); Specific Gravity 1.015 (1.005-1.025); Urobilinogen 0.2 EU/dL (Up TO 0.2)
[2022-07-12 09:03] LABS: Bacteria Few HPF (Negative); C & S Indicated? Yes; Casts Negative LPF (Negative); Crystals Negative HPF (Negative); Epithelial Cells Few HPF (Negative); Mucus Moderate (Negative); RBC 0-2 HPF (0-2)
[2022-07-12 09:14] LABS: ALT 26 U/L (16-63); AST 23 U/L (15-37); Albumin 3.8 g/dL (3.4-5.0); Alkaline Phosphatase 102 U/L (46-116); Anion Gap 5.4 mmol/L (3-11); BUN 16 mg/dL (7-18); Bilirubin, Total 0.4 mg/dL (0.2-1.0); CO2 31.6 mmol/L (21.0-32.0); CREATININE 0.9 mg/dL (0.70-1.30); Calcium 9.6 mg/dL (8.5-10.1); Chloride 94 mmol/L (98-107); Estimated GFR 97.17 (mL/min/1.73m2); Glucose 122 mg/dL (74-106); Potassium 4.5 mmol/L (3.5-5.1); Sodium 131 mmol/L (136-145); Total Protein 7.6 g/dL (6.4-8.2)
[2022-07-12 19:56] LABS: CEA 4.8 ng/mL (See Note)
== END 2022-07-31 23:59 | disposition home or self-care (01) ==
LOC: INF 01:00
PROVIDERS: Nurse Practitioner Family; PCP Nurse Practitioner Family; Visit Provider Internal Medicine Hematology & Oncology
DX: C20 Malignant neoplasm of rectum (principal); Z45.2 Encounter for adjustment and management of vascular access device; C78.00 Secondary malignant neoplasm of unspecified lung
CPT/HCPCS: 36591; 80053; 81003; 81015; 82378; 85025; 87086

== ENCOUNTER 2022-08-24 12:31 | Emergency (ER) | payer MEDICARE, OTHER, MEDICAID, SELFPAY ==
[2022-08-24] VITALS (86 sets, daily range): BP systolic 123–183; BP diastolic 87–120; PULSE 104–117; RESP 4–39; TEMP 36–36.6; O2SAT 81–97
--- NOTE | 2022-08-24 12:30 | RT.EKG_ITS ---
APPROVED REPORT Exam: Resting ECG Reason for Exam: SOB Patient Location: E HR:113 bpm ECG Measurements Heart Rate 113 AXIS NM 161 P 80 QRSd 81 QRS 78 QT 328 T 70 QTc 450 Conclusion Sinus tachycardia...rate> 99 Nonspecific T abnrm, anterolateral leads...T <-0.10mV, I aVL V2-V6
--- NOTE | 2022-08-24 13:15 | DI.RAD_ITS ---
Exam(s) XR PORTABLE CHEST AP EXAM: XR PORTABLE CHEST AP CLINICAL HISTORY: cough. TECHNIQUE: 2D digital imaging was performed. COMPARISON: CR XR CHEST 2V PA LATERAL from 01/11/2019 FINDINGS: Single AP portable view. Heart size is upper normal. The mediastinum is not widened. There increased interstitial markings and suggestion of patchy infiltrates bilaterally. No pleural e ffusions. Distal tip of the Port-A-Cath is in the SVC in good position. IMPRESSION: Bilateral subtle infiltrate. No obvious pleural effusions. Close follow-up recommended. DATA REPOSITORY: RADIATION DOSE DELIVERED:
[2022-08-24 13:36] LABS: Abs Immature Grans 0.03 10^3/uL (0.0-0.06); Absolute Basophil Count 0.04 10^3/uL (0.0-0.2); Absolute Eosinophil Count 0.01 10^3/uL (0.0-0.7); Absolute Monocyte Count 1.31 10^3/uL (0.1-0.8); Basophils % 0.4; Eosinophils % 0.1; HCT 51.2 % (40.0-50.0); HGB 16.8 g/dL (13.5-17.5); Immature Grans % 0.3; MCH 30.5 pg (27.0-33.0); MCHC 32.8 % (32.0-36.0); MCV 93 fL (80-95); MPV 10.3 fL (8.0-11.0); Monocytes % 12.1; Neutrophils % 84.1; Platelet Count 290 10^3/uL (130-400); RDW 15.9 % (11.8-14.1); WBC 10.84 10^3/uL (4.4-10.8)
--- NOTE | 2022-08-24 13:36 | W.ED.GENAD ---
Discharge Plan Disposition Patient Disposition: Against Medical Advise Condition: Serious Discharge Details Clinical Impression: Lung cancer, Hypoxia, Acute bronchitis Primary Care Provider: Shanti Son ED Provider: Caleb James Home Meds and New Rx's Prescriptions: New doxycycline hyclate 100 mg tablet 100 mg PO BID Qty: 14 0RF prednisone 20 mg tablet 40 mg PO DAILY Qty: 8 0RF Continued aspirin 81 mg tablet,chewable 81 mg PO DAILY Boost High Protein 0.06 gram- 1 kcal/mL liquid 237 ml PO BID Qty: 5688 12RF ondansetron 8 mg tablet,disintegrating 8 mg PO Q8H PRN (Reason: nausea and vomiting) Qty: 30 3RF lisinopril 40 mg tablet 40 mg PO DAILY Qty: 90 4RF atorvastatin 40 mg tablet 40 mg PO QHS Qty: 90 4RF ibuprofen 600 mg tablet 600 mg PO QID PRN (Reason: pain) Qty: 60 3RF gabapentin 300 mg capsule 300 mg PO BID Qty: 180 1RF No Action oxycodone 5 mg tablet 5 - 10 mg PO Q4H MDD 60mg PRN (Reason: pain) Qty: 180 0RF oxycodone [OxyContin] 15 mg tablet,oral only,ext.rel.12 hr 15 mg PO TID MDD 45mg Qty: 90 0RF Rx Instructions: Long acting opioid prochlorperazine maleate [Compazine] 10 mg tablet 10 mg PO Q6H PRN (Reason: nausea and vomiting) Qty: 30 3RF Discharge Instructions Instructions: Doxycycline (By mouth), Albuterol (By breathing), Prednisone (By mouth), Acute Bronchitis (ED), Against Medical Advice (ED) Additional Instructions: You are leaving AGAINST MEDICAL ADVICE. You may have life-threatening or lifestyle modifying disease that would go untreated and/or undiagnosed. Please return to the Emergency Department at any time for further diagnostic work-up and treatment as recommended. Please be sure to follow-up with your doctors as possible. Referrals: Darcy Ventura MD [ [facility] STAFF PHYSICIAN] - Shanti Son NP [Primary Care Provider] - Medical Decision Making 1343 --62-year-old male with history of metastatic rectal cancer, adenocarcinoma of the lung, here with shortness of breath that started yesterday. Patient has diminished breath sounds bilateral. Concern for effusion. Consider pulmonary embolism. Plan to obtain CT of the chest. Also consider infectious etiologies we will check COVID/flu. Patient is hypoxic in the low 80s on room air and tachypneic as well tachycardic. Patient on nasal cannula oxygen and notes feeling less shortness of breath. Oxygenation improved to mid 90s. -- CT of the chest was interpreted by radiology: IMPRESSION: 1. Negative for acute pulmonary embolism. 2. Spiculated nodules bilaterally, largest on the right measures 1 cm and largest on the left measures 1.3 x 1.4 cm. These are essentially stable in size and configuration since previous examination. No new nodule identified. 3. No focal consolidation. 4. Stable bronchial wall thickening in the lower lobes. -- Patient was reassessed and remains hypoxic off oxygen. Patient was given Solu-Medrol 125 mg IV. He was given DuoNeb breathing treatment. He was started on doxycycline for potential bronchitis. Patient was reassessed and continued to have hypoxia in the upper 80s on room air. This was not a significant improvement from pretreatment lower 80s. Plan will be for admission for treatment of hypoxia and further diagnostics. I had a discussion with the patient about my diagnostic/treatment plan. He declines plan and wishes to leave against medical advise. I reiterated my concerns to him and explained the risks of leaving prior to completion of workup and treatment. I specifically emphasized the possibility of life-threatening or lifestyle modifying disease that would not be appropriately treated if they leave. Patient verbalized understanding of my concerns and the potential for life threatening or lifestyle modifying disease. Patient has capacity to make informed decision. I again explained my concerns and urged him to stay for treatment as outlined. He continued to refuse. I recommended that he follow-up with primary care physician CRUZITO or return to the Emergency Department at any time for further treatment. Patient was provided albuterol inhaler with spacer. He was given a short course of doxycycline and prednisone to bridge to pharmacies with [facility] Friday. He was encouraged to follow-up with his primary care physician and return at anytime should he wish to pursue treatment as recommended. -- I consulted respiratory therapy and was able to order outpatient oxygen for the patient. He requires 3 L nasal cannula at rest and 3 to 4 L with ambulation to maintain saturations in the low 90s. Lab Data Lab results reviewed: Yes I reviewed the patient's lab results. Labs: Laboratory Tests Range/Units 08/24/22 08/24/22 08/24/22 13:10 13:10 13:10 WBC (4.4-10.8) 10^3/uL 10.84 H RBC (4.36-5.78) 10^6/uL 5.50 Hgb (13.5-17.5) g/dL 16.8 Hct (40.0-50.0) % 51.2 H MCV (80-95) fL 93 MCH (27.0-33.0) pg 30.5 MCHC (32.0-36.0) % 32.8 RDW (11.8-14.1) % 15.9 H Plt Count (130-400) 10^3/uL 290 MPV (8.0-11.0) fL 10.3 Immature Gran % 0.3 Neutrophils % 84.1 Lymphocytes % 3.0 Monocytes % 12.1 Eosinophils % 0.1 Basophils % 0.4 Nucleated RBC % (0.0-0.3) % 0.0 Absolute Neutrophils (1.2-6.7) 10^3/uL 9.12 H Absolute Lymphocytes (1.2-3.4) 10^3/uL 0.33 L Absolute Monocytes (0.1-0.8) 10^3/uL 1.31 H Absolute Eosinophils (0.0-0.7) 10^3/uL 0.01 Absolute Basophils (0.0-0.2) 10^3/uL 0.04 Sodium (136-145) mmol/L 136 Potassium (3.5-5.1) mmol/L 3.9 Chloride (98-107) mmol/L 99 Carbon Dioxide (21.0-32.0) mmol/L 33.3 H Anion Gap (3-11) mmol/L 3.7 BUN (7-18) mg/dL 15 Creatinine (0.70-1.30) mg/dL 0.7 Est GFR (CKD-EPI 2020) (mL/min/1.73m2) 104.83 Glucose (74-106) mg/dL 167 H Calcium (8.5-10.1) mg/dL 10.1 Total Bilirubin (0.2-1.0) mg/dL 0.5 AST (15-37) U/L 29 ALT (16-63) U/L 24 Alkaline Phosphatase (46-116) U/L 102 Troponin I (<or=60) ng/L NT-Pro-B Natriuret Pep (<300) pg/mL 991 H Total Protein (6.4-8.2) g/dL 8.0 Albumin (3.4-5.0) g/dL 3.4 COVID-19 Source SARS-CoV-2 (PCR) (Negative) Influenza Type A (PCR) (Negative) Influenza Type B (PCR) (Negative) RSV (PCR) (Negative) Range/Units 08/24/22 08/24/22 13:21 13:34 WBC (4.4-10.8) 10^3/uL RBC (4.36-5.78) 10^6/uL Hgb (13.5-17.5) g/dL Hct (40.0-50.0) % MCV (80-95) fL MCH (27.0-33.0) pg MCHC (32.0-36.0) % RDW (11.8-14.1) % Plt Count (130-400) 10^3/uL MPV (8.0-11.0) fL Immature Gran % Neutrophils % Lymphocytes % Monocytes % Eosinophils % Basophils % Nucleated RBC % (0.0-0.3) % Absolute Neutrophils (1.2-6.7) 10^3/uL Absolute Lymphocytes (1.2-3.4) 10^3/uL Absolute Monocytes (0.1-0.8) 10^3/uL Absolute Eosinophils (0.0-0.7) 10^3/uL Absolute Basophils (0.0-0.2) 10^3/uL Sodium (136-145) mmol/L Potassium (3.5-5.1) mmol/L Chloride (98-107) mmol/L Carbon Dioxide (21.0-32.0) mmol/L Anion Gap (3-11) mmol/L BUN (7-18) mg/dL Creatinine (0.70-1.30) mg/dL Est GFR (CKD-EPI 2020) (mL/min/1.73m2) Glucose (74-106) mg/dL Calcium (8.5-10.1) mg/dL Total Bilirubin (0.2-1.0) mg/dL AST (15-37) U/L ALT (16-63) U/L Alkaline Phosphatase (46-116) U/L Troponin I (<or=60) ng/L < 50 NT-Pro-B Natriuret Pep (<300) pg/mL Total Protein (6.4-8.2) g/dL Albumin (3.4-5.0) g/dL COVID-19 Source Nasopharynx SARS-CoV-2 (PCR) (Negative) Negative Influenza Type A (PCR) (Negative) Negative Influenza Type B (PCR) (Negative) Negative RSV (PCR) (Negative) Negative HPI General Mode of arrival: ambulatory. Date/Time Provider Initiated Documentation: 08/24/22 12:33. Limitations to Documentation: no limitations. Information obtained by: patient. HPI Narrative: 62-year-old male with history of rectal cancer with mets to the lung, on chemotherapy, here with chief complaint of shortness of breath. Patient notes shortness of breath that started yesterday and has persisted. Symptoms are moderate to severe and worse with exertion. He has no associated chest pain or leg swelling. He has associated mild cough. No fever. Related Data Home Medications Medication Instructions Recorded Confirmed atorvastatin 40 mg tablet 40 mg PO QHS #90 tabs 05/16/21 08/24/22 lisinopril 40 mg tablet 40 mg PO DAILY #90 tabs 05/16/21 08/24/22 aspirin 81 mg chewable tablet 81 mg PO DAILY 11/05/21 08/24/22 ondansetron 8 mg disintegrating 8 mg PO Q8H PRN nausea and 03/20/22 08/24/22 tablet vomiting #30 tabs prochlorperazine maleate 10 mg 10 mg PO Q6H PRN nausea and 03/20/22 08/24/22 tablet (Compazine) vomiting #30 tabs food supplemt, lactose-reduced 237 ml PO BID #5,688 mL 06/19/22 08/24/22 0.06 gram-1 kcal/mL oral liquid (Boost High Protein) gabapentin 300 mg capsule 300 mg PO BID #180 caps 08/20/22 08/24/22 ibuprofen 600 mg tablet 600 mg PO QID PRN pain #60 tabs 08/20/22 08/24/22 oxycodone 15 mg tablet,crush 15 mg PO TID #90 tabs 08/21/22 08/24/22 resistant,extended release 12 hr (OxyContin) oxycodone 5 mg tablet 5 - 10 mg PO Q4H PRN pain #180 tabs 08/21/22 08/24/22 doxycycline hyclate 100 mg tablet 100 mg PO BID #14 tabs 08/24/22 prednisone 20 mg tablet 40 mg PO DAILY #8 tabs 08/24/22 Previous Rx's Medication Instructions Recorded atorvastatin 40 mg tablet 40 mg PO QHS #90 tabs 05/16/21 lisinopril 40 mg tablet 40 mg PO DAILY #90 tabs 05/16/21 ondansetron 8 mg disintegrating 8 mg PO Q8H PRN nausea and 03/20/22 tablet vomiting #30 tabs prochlorperazine maleate 10 mg 10 mg PO Q6H PRN nausea and 03/20/22 tablet (Compazine) vomiting #30 tabs food supplemt, lactose-reduced 237 ml PO BID #5,688 mL 06/19/22 0.06 gram-1 kcal/mL oral liquid (Boost High Protein) gabapentin 300 mg capsule 300 mg PO BID #180 caps 08/20/22 ibuprofen 600 mg tablet 600 mg PO QID PRN pain #60 tabs 08/20/22 oxycodone 15 mg tablet,crush 15 mg PO TID #90 tabs 08/21/22 resistant,extended release 12 hr (OxyContin) oxycodone 5 mg tablet 5 - 10 mg PO Q4H PRN pain #180 tabs 08/21/22 doxycycline hyclate 100 mg tablet 100 mg PO BID #14 tabs 08/24/22 prednisone 20 mg tablet 40 mg PO DAILY #8 tabs 08/24/22 Allergies Allergy/AdvReac Type Severity Reaction Status Date / Time pregabalin AdvReac Severe depression, Verified 08/24/22 12:44 SI duloxetine AdvReac Intermediate nausea Verified 08/24/22 12:44 General Stated Complaint: RespSymp DARIAN: 3 Review of Systems All systems reviewed & are unremarkable except as noted in HPI and below Constitutional Constitutional: Denies fever(s) Respiratory Respiratory: Reports cough PFSH All Active Problems (Updated 08/24/22 @ 17:16 by Caleb James MD) Lung cancer (Chronic) Hypoxia (Acute) Acute bronchitis (Acute) Cancer related pain (Acute) Advanced directives, counseling/discussion (Acute) Palliative care patient (Acute) Tobacco dependence (Acute) Durable power of deputy prosecuting attorney for healthcare (Acute) Goals of care, counseling/discussion (Acute) Fatigue (Acute) Bladder cancer (Acute) Myocutaneous flap necrosis (Acute) Neuropathic pain (Acute) Hypertension (Chronic) Presence of urostomy (Acute) Colostomy in place (Chronic) Adenocarcinoma, lung (Acute) METS from rectal ca noted on lung bx07/13/2020. Chronic prescription opiate use (Acute) Pre-diabetes (Acute) Hyperlipidemia (Acute) Pulmonary nodule (Acute) followed at [facility], 06/20 CT nodues larger PET ordered, if mets, bx adenocarcinoma Chronic pain (Chronic) GERD (gastroesophageal reflux disease) (Chronic) Trial of omeprazole at bedtime. Rectal cancer (Chronic 10/22/16) 09/26/16- Large rectal cancer - adenocarcinoma- low grade, with perianal abscess (T3N0) This is the [facility]. Dr. Will Hays, no genetic mutation. Normal colo in 2019 Medical History Lumbago Ibuprofen 600 mg as needed 4 times a day. Rectal cancer Rectal perforation Surgical History Colectomy WITH COLOSTOMY History of lung biopsy Family History Mother Diabetes Hypertension Hyperlipidemia Father Hyperlipidemia Heart disease Brother No problems noted. Brother Cancer rectal Diabetes Hypertension Sister Hypertension Depression Sister No problems noted. Social History Smoking/Tobacco Use Status: Current-Occasional Tobacco Type: cigarettes Tobacco: How many years used: 15 Quit status: quit date established Smoking risk assessment performed?: Yes Alcohol Intake: current Alcohol Intake frequency: a few times a month Alcohol type: beer Counseling provided: none Drug use: Daily Substance use type: marijuana Caregiver/Support person: Yes Household members: children and friend(s) Housing: house Do you need help understanding health information?: Rarely Pets and animals: Yes Pets and animals: dog(s) Sexually active: No Do you think of yourself as: straight/heterosexual Current gender identity: male What is your relationship status?: How often do you talk on the phone with friends or family?: three or more times per week How often do you get together with friends or relatives?: three or more times per week Do you belong to any clubs or organized social groups?: no Panel score (0-1 are the most socially isolated patients): 1 What type of physical activity do you participate in: other Details: Side by side and 4 lassiter Agueda/Yarsanism: No preference Special agueda needs: No Seatbelt use: always Helmet use: Yes Helmet use: always Drive intox or ride w/intox power truck driver: No Do you feel safe at home: Yes Do you feel safe in your relationship?: Yes Exam Const General: cooperative and no acute distress HENMT Mouth: moist mucous membranes Eyes Conjunctivae: normal conjunctivae Sclera: normal sclerae Neck Neck: trachea midline Resp Effort & Inspection: tachypneic and other (Diminished breath sounds at bases bilaterally) Auscultation: no rales and no rhonchi Cardio Rate: tachycardic Rhythm: regular rhythm GI Palpation: soft, not firm, no guarding, no masses, not rigid and nontender Skin General skin exam: no rashes or lesions noted Neuro General: patient alert, patient awake, patient oriented x3 and tone normal Extrem General: no calf tenderness and no edema Psych Appearance: grossly normal Mental Status: mental status grossly normal Speech and Movement: speech and movement normal Course Vital Signs Vital signs: Vital Signs Temperature 36 C L 08/24/22 12:40 Pulse 117 H 08/24/22 12:40 Blood Pressure 172/93 H 08/24/22 12:40 Pulse Oximetry 81 L 08/24/22 12:40 Temperature 36 C L 08/24/22 12:40 Temperature Source Temporal Artery Scan 08/24/22 12:40 Pulse 117 H 08/24/22 12:40 Respiratory Effort 08/24/22 12:46 Respiratory Depth Shallow 08/24/22 12:46 Blood Pressure 172/93 H 08/24/22 12:40 Blood Pressure Position Sitting 08/24/22 12:40 Pulse Oximetry 81 L 08/24/22 12:40 Oxygen Delivery Method Room Air 08/24/22 12:40 Oxygen Flow Rate 0 08/24/22 12:40 Comment 12/24/22 12:40 PAWSS Have you Been Recently Intoxicated or Drunk Within the Last 30 days?: No Have you Ever Experienced Previous Episodes of Alcohol Withdrawal?: No Have you ever Experienced Withdrawal Seizures?: No Have you ever Experienced Delirium Tremens(DT)s?: No Have you ever undergone Alcohol Rehabilitation Treatment (i.e, inpt ot outpatient treatment programs)?: No Have you ever Experienced Blackouts?: No Have you ever Combined Alcohol with other Downers within the last 90 days?: No Have you ever Combined Alcohol with any other Substance of Abuse during the last 90 days?: No Positive Blood Alcohol level on Presentation? [PCS.BAL]: No Evidence of Increased Autonomic Activity (i.e. HR>120, tremor, sweating, agitation, nausea)?: No Result: 0
[2022-08-24 13:38] LABS: Absolute Lymphocyte Count 0.33 10^3/uL (1.2-3.4); Absolute Neutrophil Count 9.12 10^3/uL (1.2-6.7)
[2022-08-24 13:56] LABS: ALT 24 U/L (16-63); AST 29 U/L (15-37); Albumin 3.4 g/dL (3.4-5.0); Alkaline Phosphatase 102 U/L (46-116); Anion Gap 3.7 mmol/L (3-11); BUN 15 mg/dL (7-18); Bilirubin, Total 0.5 mg/dL (0.2-1.0); CO2 33.3 mmol/L (21.0-32.0); CREATININE 0.7 mg/dL (0.70-1.30); Calcium 10.1 mg/dL (8.5-10.1); Chloride 99 mmol/L (98-107); Estimated GFR 104.83 (mL/min/1.73m2); Glucose 167 mg/dL (74-106); Potassium 3.9 mmol/L (3.5-5.1); Sodium 136 mmol/L (136-145)
--- NOTE | 2022-08-24 13:59 | DI.VRAD_ITS ---
PROCEDURE INFORMATION: Exam: XR Chest Exam date and time: 08/24/2022 1:20 PM Age: 62 years old Clinical indication: Cough TECHNIQUE: Imaging protocol: Radiologic exam of the chest. Views: 1 view. COMPARISON: CT CHEST/ABD/PEL W 05/30/2022 10:20 AM FINDINGS: Tubes, catheters and devices: Port catheter terminates in the SVC. Lungs: Faint patchy airspace opacities in the mid and lower lung zones bilaterally. May be infectious or inflammatory process, although given history of metastatic disease, pulmonary nodules can not be excluded. Pleural spaces: Unremarkable. No pleural effusion. No pneumothorax. Heart/Mediastinum: Unremarkable. No cardiomegaly. Bones/joints: Unremarkable. IMPRESSION: Faint patchy airspace opacities in the mid and lower lung zones bilaterally. May be infectious or inflammatory process, although given history of metastatic disease, pulmonary nodules can not be excluded. Dictated and Authenticated by: Dorina Minaya MD. Ordering:RAUL Ellis MD
[2022-08-24] MEDS: Normal Saline 1,000 ML 1000 ML IV (14:00)
[2022-08-24 14:17] LABS: NT-proBNP 991 pg/mL (<300)
[2022-08-24 14:18] LABS: COVID-19 PCR Negative (Negative); Influenza A PCR Negative (Negative); Influenza B PCR Negative (Negative); RSV PCR Negative (Negative)
[2022-08-24 14:26] LABS: Source Nasopharynx
--- NOTE | 2022-08-24 14:30 | DI.CT_ITS ---
Exam(s) CT CHEST PE CTA EXAM: CT CHEST PE CTA CLINICAL HISTORY: shortness of breath. TECHNIQUE: Imaging Protocol: CT angiography of the chest was performed using pulmonary embolus boris col. Multi planar reconstructions were performed. CONTRAST MATERIAL: Intravenous: Omnipaque 350 Contrast volume: 100 cc COMPARISON: CT CT CHEST/ABD/PEL W from 05/30/2022 FINDINGS: CHEST: PULMONARY ARTERIES: There are no intraluminal filling defects to suggest acute pulmonary emboli. LUNGS: There are multiple nodular infiltrates in both lung gurrola again noted but these are centrally unchanged in size and number from the prior CT scan of 05/30/2022. There are no new additional nodu les nor infiltrates and there are no new significant focal findings in the trachea and mainstem bronc hi. There are no pleural effusions. MEDIASTINUM: Slightly enlarged hilar lymph nodes bilaterally noted, slightly more so than previous. No new subcarinal adenopathy. Minimally prominent mediastinal lymph nodes are unchanged. No supracl avicular adenopathy. No visualized thyroid unremarkable. Distal tip of Port-A-Cath is at the SVC RA junction. CARDIAC: Heart size is upper normal. There is no pericardial effusion.Caliber of the thoracic aorta is within normal limits. No dissection. There is no significant shift of the interventricular septum . PARTIALLY VISUALIZED UPPERMOST ABDOMEN: Cholelithiasis noted. Visualized adrenals unremarkable. No splenomegaly. OSSEOUS: No significant osseous lesions.. IMPRESSION: 1. No evidence of acute pulmonary emboli. No evidence of pulmonary infarction.No pleural effusions. No evidence of right heart strain. 2. The previously described bilateral spiculated pulmonary nodular infiltrates remain stable in size and number both lungs, unchanged from 05/30/2022. There are no new nodules, new infiltrates nor pleu ral effusions and no evidence of pulmonary infarction. 3. Hilar lymph nodes have slightly decreased in size from the prior study. 4. No evidence of aortic dissection. RADIATION DOSE DELIVERED: 306.48mGy.cm Total DLP DATA REPOSITORY: All CT scans at this facility are submitted to the National Radiology Data Registry (NRDR) Dose Index Registry (DIR) with the [employer] (ACR). RADIATION OPTIMIZATION: All CT scans at this facility use at least one of these dose optimization te chniques: automated exposure control; mA and/or kV adjustment per patient size (includes targeted exa ms where dose is matched to clinical indication); or iterative reconstruction.
[2022-08-24 15:21] LABS: Troponin I < 50 ng/L (<or=60)
[2022-08-24] MEDS: oxyCODONE 5 MG TAB PO (15:48)
--- NOTE | 2022-08-24 16:01 | DI.VRAD_ITS ---
PROCEDURE INFORMATION: Exam: CTA Chest With Contrast Exam date and time: 08/24/2022 3:32 PM Age: 62 years old Clinical indication: Shortness of breath TECHNIQUE: Imaging protocol: Computed tomographic angiography of the chest with contrast. 3D rendering (Not supervised by radiologist): MIP and/or 3D reconstructed images were created by the technologist. Contrast material: OMNIPAQUE 350; Contrast volume: 100 ml; Contrast route: INTRAVENOUS (IV); COMPARISON: CT CHEST/ABD/PEL W 05/30/2022 10:20 AM FINDINGS: Pulmonary arteries: Negative for acute pulmonary embolism. Aorta: Unremarkable. No aortic aneurysm. No aortic dissection. Lungs: No focal consolidation. Stable bronchial wall thickening in the lower lobes. Pleural spaces: Unremarkable. No pneumothorax. No pleural effusion. Heart: Unremarkable. No cardiomegaly. No pericardial effusion. Lymph nodes: Stable mediastinal and hilar lymphadenopathy. Subcarinal lymph node measures 1.1 cm. Bones/joints: Unremarkable. No acute fracture. Soft tissues: Unremarkable. Other findings: Spiculated nodules bilaterally, largest on the right measures 1 cm and largest on the left measures 1.3 x 1.4 cm. These are essentially stable in size and configuration since previous examination. No new nodule identified. IMPRESSION: 1. Negative for acute pulmonary embolism. 2. Spiculated nodules bilaterally, largest on the right measures 1 cm and largest on the left measures 1.3 x 1.4 cm. These are essentially stable in size and configuration since previous examination. No new nodule identified. 3. No focal consolidation. 4. Stable bronchial wall thickening in the lower lobes. Dictated and Authenticated by: Dorina Minaya MD. Ordering:RAUL Ellis MD
[2022-08-24] MEDS: methylPREDNISolone SUCC 125 MG VIAL IVP (16:43)
[2022-08-24] MEDS: Doxycycline Hyclate 100 MG CAP PO (16:43)
[2022-08-24] MEDS: Albuterol/Ipratropium 3 ML UPD VIAL UPD (16:44)
[2022-08-24] MEDS: Doxycycline Hyclate 100 MG, 2 CAPS/BTL PO (17:27)
[2022-08-24] MEDS: Albuterol HFA 8 GM 60 PUFF INH IH (17:28)
[2022-08-24] MEDS: predniSONE 20 MG TAB 40 MG PO (17:28)
--- NOTE | 2022-08-24 17:44 | NUR.NOTE ---
Addendum entered by Christine Cabrera 08/24/22 17:45: Referral faxed to PCP for lung cancer, hypoxia, needs oxygen; next week. Original Note: Nursing Note: Referral faxed to [facility] Pulmonology for lung cancer, hypoxia, needs oxygen; next week.
== END 2022-08-24 18:21 | disposition left against medical advice (07) ==
PROVIDERS: Emergency Provider Student in an Organized Health Care Education/Training Program; PCP Nurse Practitioner Family
DX: J20.9 Acute bronchitis, unspecified (principal); C20 Malignant neoplasm of rectum; C78.00 Secondary malignant neoplasm of unspecified lung; Z53.29 Procedure and treatment not carried out because of patient's decision for other reasons; Z79.82 Long term (current) use of aspirin; Z20.822 Contact with and (suspected) exposure to COVID-19
CPT/HCPCS: 71275; 80053; 87637; 93005; 96361; 96374; 99285; 71045; 83880; 84484; 85025; 93010; J2930; J7512; J7620

== ENCOUNTER 2022-08-28 02:09 | Outpatient (RCR) | payer MEDICARE, OTHER, MEDICAID, SELFPAY ==
[2022-08-02] MEDS: Normal Saline Flush 10 ML SYR IVP (12:16)
[2022-08-02 12:27] LABS: Abs Immature Grans 0.04 10^3/uL (0.0-0.06); Absolute Basophil Count 0.06 10^3/uL (0.0-0.2); Absolute Eosinophil Count 0.36 10^3/uL (0.0-0.7); Absolute Lymphocyte Count 1.01 10^3/uL (1.2-3.4); Absolute Monocyte Count 0.77 10^3/uL (0.1-0.8); Absolute Neutrophil Count 6.63 10^3/uL (1.2-6.7); Basophils % 0.7; Eosinophils % 4.1; HCT 50.2 % (40.0-50.0); HGB 16.4 g/dL (13.5-17.5); Immature Grans % 0.5; Lymphocytes % 11.4; MCH 30.6 pg (27.0-33.0); MCHC 32.7 % (32.0-36.0); MCV 94 fL (80-95); MPV 9.2 fL (8.0-11.0); Monocytes % 8.7; Neutrophils % 74.6; Platelet Count 373 10^3/uL (130-400); RBC 5.36 10^6/uL (4.36-5.78); RDW 15.4 % (11.8-14.1); RDW-SD 51.9 fL; WBC 8.87 10^3/uL (4.4-10.8)
[2022-08-02 12:42] LABS: ALT 22 U/L (16-63); AST 19 U/L (15-37); Albumin 3.6 g/dL (3.4-5.0); Alkaline Phosphatase 95 U/L (46-116); Anion Gap 4.4 mmol/L (3-11); BUN 7 mg/dL (7-18); Bilirubin, Total 0.4 mg/dL (0.2-1.0); CO2 32.6 mmol/L (21.0-32.0); CREATININE 0.9 mg/dL (0.70-1.30); Calcium 9.4 mg/dL (8.5-10.1); Chloride 99 mmol/L (98-107); Estimated GFR 97.17 (mL/min/1.73m2); Glucose 156 mg/dL (74-106); Potassium 3.8 mmol/L (3.5-5.1); Sodium 136 mmol/L (136-145); Total Protein 7.2 g/dL (6.4-8.2)
[2022-08-05 08:40] LABS: CEA 4.8 ng/mL (See Note)
[2022-08-28] MEDS: Normal Saline Flush 10 ML SYR IVP (12:49)
[2022-08-28] MEDS: Heparin 500 UNITS/5 ML SYRINGE IV (12:50)
[2022-08-28 13:01] LABS: Abs Immature Grans 0.52 10^3/uL (0.0-0.06); HCT 53.2 % (40.0-50.0); HGB 17.2 g/dL (13.5-17.5); MCH 30.1 pg (27.0-33.0); MCHC 32.3 % (32.0-36.0); MCV 93 fL (80-95); MPV 9.7 fL (8.0-11.0); Platelet Count 374 10^3/uL (130-400); RBC 5.71 10^6/uL (4.36-5.78); RDW 15.9 % (11.8-14.1); RDW-SD 53.2 fL; WBC 11.59 10^3/uL (4.4-10.8)
[2022-08-28 13:10] LABS: ALT 58 U/L (16-63); AST 34 U/L (15-37); Albumin 3.7 g/dL (3.4-5.0); Alkaline Phosphatase 91 U/L (46-116); Anion Gap 4.1 mmol/L (3-11); BUN 14 mg/dL (7-18); Bilirubin, Total 0.4 mg/dL (0.2-1.0); CO2 34.9 mmol/L (21.0-32.0); CREATININE 0.9 mg/dL (0.70-1.30); Calcium 9.7 mg/dL (8.5-10.1); Chloride 97 mmol/L (98-107); Estimated GFR 97.17 (mL/min/1.73m2); Glucose 162 mg/dL (74-106); Potassium 4.3 mmol/L (3.5-5.1); Sodium 136 mmol/L (136-145); Total Protein 7.6 g/dL (6.4-8.2)
[2022-08-28 13:12] LABS: Absolute Lymphocyte Count 1.39 10^3/uL (1.2-3.4); Absolute Monocyte Count 0.58 10^3/uL (0.1-0.8); Bands % 1
[2022-08-28 13:13] LABS: Diff Comment Manual Differential; Metamyelocytes % 1; RBC Morphology Normal
[2022-08-29 09:39] LABS: CEA 4.2 ng/mL (See Note)
== END 2022-08-31 23:59 | disposition home or self-care (01) ==
LOC: INF 02:09
PROVIDERS: PCP Nurse Practitioner Family; Visit Provider Internal Medicine Hematology & Oncology
DX: C78.00 Secondary malignant neoplasm of unspecified lung (principal); Z45.2 Encounter for adjustment and management of vascular access device
CPT/HCPCS: 36591; 80053; 82378; 85025

== ENCOUNTER 2022-09-27 00:56 | Outpatient (RCR) | payer MEDICARE, OTHER, MEDICAID, SELFPAY ==
[2022-09-06] MEDS: Normal Saline Flush 10 ML SYR IVP (09:07)
[2022-09-06 09:51] LABS: Abs Immature Grans 0.07 10^3/uL (0.0-0.06); Absolute Basophil Count 0.06 10^3/uL (0.0-0.2); Absolute Eosinophil Count 0.56 10^3/uL (0.0-0.7); Absolute Lymphocyte Count 0.92 10^3/uL (1.2-3.4); Absolute Neutrophil Count 11.49 10^3/uL (1.2-6.7); Basophils % 0.4; Eosinophils % 3.9; HGB 16.1 g/dL (13.5-17.5); Immature Grans % 0.5; Lymphocytes % 6.4; MCH 30.6 pg (27.0-33.0); MCHC 32.2 % (32.0-36.0); MCV 95 fL (80-95); MPV 9.8 fL (8.0-11.0); Monocytes % 8.5; Neutrophils % 80.3; Platelet Count 260 10^3/uL (130-400); RBC 5.27 10^6/uL (4.36-5.78); RDW 16.6 % (11.8-14.1); RDW-SD 57.8 fL; WBC 14.31 10^3/uL (4.4-10.8)
[2022-09-06 09:53] LABS: Absolute Monocyte Count 1.22 10^3/uL (0.1-0.8)
[2022-09-06 09:56] LABS: Bilirubin Negative (Negative); Blood Small (Negative); Clarity Sl Cloudy (Clear); Glucose Negative (Negative); Ketones Negative (Negative); Leukocyte Esterase Small (Negative); Nitrite Positive (Negative); Specific Gravity 1.015 (1.005-1.025); Urobilinogen 0.2 EU/dL (Up TO 0.2)
[2022-09-06 10:13] LABS: ALT 26 U/L (16-63); AST 21 U/L (15-37); Albumin 3.4 g/dL (3.4-5.0); Alkaline Phosphatase 85 U/L (46-116); Anion Gap 5.6 mmol/L (3-11); BUN 9 mg/dL (7-18); Bilirubin, Total 1.1 mg/dL (0.2-1.0); CO2 30.4 mmol/L (21.0-32.0); CREATININE 0.8 mg/dL (0.70-1.30); Calcium 9.1 mg/dL (8.5-10.1); Chloride 99 mmol/L (98-107); Estimated GFR 100.69 (mL/min/1.73m2); Glucose 109 mg/dL (74-106); Potassium 4.4 mmol/L (3.5-5.1); Sodium 135 mmol/L (136-145)
[2022-09-06 21:16] LABS: CEA 4.9 ng/mL (See Note)
[2022-09-27] MEDS: Normal Saline Flush 10 ML SYR IVP (12:23)
[2022-09-27 12:46] LABS: Abs Immature Grans 0.06 10^3/uL (0.0-0.06); Absolute Basophil Count 0.03 10^3/uL (0.0-0.2); Absolute Lymphocyte Count 1.21 10^3/uL (1.2-3.4); Absolute Neutrophil Count 5.16 10^3/uL (1.2-6.7); Basophils % 0.4; Eosinophils % 2.7; HCT 51.5 % (40.0-50.0); HGB 16.7 g/dL (13.5-17.5); Immature Grans % 0.8; Lymphocytes % 16.2; MCH 30.2 pg (27.0-33.0); MCHC 32.4 % (32.0-36.0); MCV 93 fL (80-95); MPV 9.9 fL (8.0-11.0); Monocytes % 10.7; Neutrophils % 69.2; Platelet Count 318 10^3/uL (130-400); RBC 5.53 10^6/uL (4.36-5.78); RDW 16.1 % (11.8-14.1); RDW-SD 55.2 fL; WBC 7.46 10^3/uL (4.4-10.8)
[2022-09-27 13:00] LABS: ALT 27 U/L (16-63); AST 21 U/L (15-37); Albumin 3.7 g/dL (3.4-5.0); Alkaline Phosphatase 96 U/L (46-116); Anion Gap 6.5 mmol/L (3-11); BUN 11 mg/dL (7-18); Bilirubin, Total 0.5 mg/dL (0.2-1.0); CO2 31.5 mmol/L (21.0-32.0); CREATININE 0.7 mg/dL (0.70-1.30); Calcium 9.7 mg/dL (8.5-10.1); Chloride 102 mmol/L (98-107); Estimated GFR 104.83 (mL/min/1.73m2); Glucose 110 mg/dL (74-106); Potassium 3.7 mmol/L (3.5-5.1); Sodium 140 mmol/L (136-145); Total Protein 7.3 g/dL (6.4-8.2)
[2022-09-27 13:16] LABS: Bilirubin Negative (Negative); Blood Negative (Negative); Clarity Cloudy (Clear); Glucose Negative (Negative); Ketones Negative (Negative); Leukocyte Esterase Trace (Negative); Nitrite Positive (Negative); Specific Gravity 1.015 (1.005-1.025); Urobilinogen 0.2 EU/dL (Up TO 0.2); pH 6.5 (5-8)
[2022-09-30 09:52] LABS: CEA 5.5 ng/mL (See Note)
== END 2022-10-01 23:59 | disposition home or self-care (01) ==
LOC: INF 00:56
PROVIDERS: PCP Nurse Practitioner Family; Visit Provider Internal Medicine Hematology & Oncology
DX: C20 Malignant neoplasm of rectum (principal); Z45.2 Encounter for adjustment and management of vascular access device
CPT/HCPCS: 36591; 80053; 81003; 82378; 85025

== ENCOUNTER 2022-10-18 11:32 | Observation (INO) | payer MEDICARE, OTHER, MEDICAID, SELFPAY ==
[2022-10-18] VITALS (104 sets, daily range): BP systolic 80–121; BP diastolic 46–81; PULSE 68–179; RESP 9–28; TEMP 36.6–37; O2SAT 92–97
--- NOTE | 2022-10-18 11:30 | RT.EKG_ITS ---
APPROVED REPORT Exam: Resting ECG Reason for Exam: N/V Patient Location: E HR:81 bpm ECG Measurements Heart Rate 81 AXIS AK 157 P 82 QRSd 78 QRS 84 QT 366 T 80 QTc 424 Conclusion Sinus rhythm...normal P axis, V-rate 60- 99 Anteroseptal infarct, age indeterminate...Q >35mS, T neg, V1-V2
--- NOTE | 2022-10-18 11:48 | ED.GENADUL_ITS ---
Discharge Plan Disposition Patient Disposition: Admit to [facility] Discharge Details Chief Complaint: GenMedical Clinical Impression: Acute kidney injury, Hypotension Primary Care Provider: Shanti Son ED Provider: Raúl Francois Home Meds and New Rx's Prescriptions: No Action aspirin 81 mg tablet,chewable 81 mg PO DAILY Boost High Protein 0.06 gram- 1 kcal/mL liquid 237 ml PO BID Qty: 5688 12RF oxycodone 5 mg tablet 5 - 10 mg PO Q4H MDD 60mg PRN (Reason: pain) Qty: 180 0RF ondansetron 8 mg tablet,disintegrating 8 mg PO Q8H PRN (Reason: nausea and vomiting) Qty: 30 3RF prochlorperazine maleate [Compazine] 10 mg tablet 10 mg PO Q6H PRN (Reason: nausea and vomiting) Qty: 30 3RF lisinopril 40 mg tablet 40 mg PO DAILY Qty: 90 4RF atorvastatin 40 mg tablet 40 mg PO QHS Qty: 90 4RF ibuprofen 600 mg tablet 600 mg PO QID PRN (Reason: pain) Qty: 60 3RF gabapentin 300 mg capsule 300 mg PO BID Qty: 180 1RF diphenhydramine HCl [M-Dryl] 12.5 mg/5 mL liquid 12.5 mg PO PRN prednisone 20 mg Tablet 40 mg PO DAILY omeprazole 40 mg Capsule,Delayed Release(Dr/Ec) 40 mg PO DAILY PRN lidocaine HCl [Lidocaine Viscous] 2 % solution PO PRN alum-mag hydroxide-simeth [Almacone-2] 400-400-40 mg/5 mL Suspension 5 ml PO QID PRN oxycodone [OxyContin] 15 mg Tablet,Oral Only,Ext.Rel.12 Hr 15 mg PO BID Medical Decision Making 62-year-old presents to the emergency department with an acute renal injury secondary to some nausea vomiting that occurred 2 nights ago. He has been oliguric for the past 2 days. Although his blood pressure was 85/62 and was essentially asymptomatic from a hypertension perspective. His baseline creatinine 0.9 he presented with a creatinine 3.9 done by his oncologist. His sodium was also noted to be 128. The patient was treated with IV fluids and I contacted the hospitalist for admission. During my initial conversation with my colleague, admission was refused. The patient was hypotensive and considered to be unstable. He truly was not unstable. At the request of the hospitalist a repeat BMP was ordered after some IV fluids. Ultrasound the kidneys was obtained that did not reveal any obstruction. The patient was not an uric so I did not expect him to have an obstruction. Urine output increased in the emergency department requiring emptying of his ileostomy bag. 15:30Repeat CMP following 2 L IV fluid demonstrates that the creatinine went fro m 3.9-3. The patient is having adequate urine output with IV fluids. He will require more IV fluids to recover his renal function. Hypotension. His hypotension has responded to fluids. He is now 99/64. Continues to have good mentation refill. Pain control. Given his acute renal injury, and after discussion with pharmacy, his extended release opiates will need to be held and his pain will be managed with short acting opiates. This was discussed with the patient. case d/w hospitalist - admission being placed HPI General Date/Time Provider Initiated Documentation: 10/18/22 11:48 . HPI Narrative: 62-year-old gentleman undergoing chemotherapy for recurrent colon cancer, has a urostomy as well as a colostomy. He sent to the emergency department after labs revealed that he had a hyponatremia of 128, BUN of 42 and a creatinine of 3.9. His baseline creatinine is 0.9. The patient states that he has some nausea vomiting on the night of Friday into . Since then he has p.o. intake has been decreased food as well as fluids. He has also noticed that since Friday his urostomy bag has been significantly decreased. He states that his appetite has come back but he has not eaten much. He denies any fevers or chills. Related Data Home Medications Medication Instructions Recorded Confirmed atorvastatin 40 mg tablet 40 mg PO QHS #90 tabs 05/16/21 10/18/22 lisinopril 40 mg tablet 40 mg PO DAILY #90 tabs 05/16/21 10/18/22 aspirin 81 mg chewable tablet 81 mg PO DAILY 11/05/21 09/18/22 ondansetron 8 mg disintegrating 8 mg PO Q8H PRN nausea and 03/20/22 10/18/22 tablet vomiting #30 tabs prochlorperazine maleate 10 mg 10 mg PO Q6H PRN nausea and 03/20/22 10/18/22 tablet (Compazine) vomiting #30 tabs gabapentin 300 mg capsule 300 mg PO BID #180 caps 08/20/22 10/18/22 ibuprofen 600 mg tablet 600 mg PO QID PRN pain #60 tabs 08/20/22 10/18/22 food supplemt, lactose-reduced 237 ml PO BID #5,688 mL 09/18/22 10/18/22 0.06 gram-1 kcal/mL oral liquid (Boost High Protein) oxycodone 5 mg tablet 5 - 10 mg PO Q4H PRN pain #180 tabs 09/18/22 10/18/22 aluminum-mag hydroxide-simethicone 5 ml PO QID PRN 10/18/22 10/18/22 400 mg-400 mg-40 mg/5 mL oral susp (Almacone-2) diphenhydramine HCl 12.5 mg/5 mL 12.5 mg PO PRN 10/18/22 oral liquid (M-Dryl) lidocaine HCl 2 % mucosal solution PO PRN 10/18/22 (Lidocaine Viscous) omeprazole 40 mg capsule,delayed 40 mg PO DAILY PRN 10/18/22 10/18/22 release oxycodone 15 mg tablet,crush 15 mg PO BID 10/18/22 10/18/22 resistant,extended release 12 hr (OxyContin) prednisone 20 mg tablet 40 mg PO DAILY 10/18/22 10/18/22 Previous Rx's Medication Instructions Recorded atorvastatin 40 mg tablet 40 mg PO QHS #90 tabs 05/16/21 lisinopril 40 mg tablet 40 mg PO DAILY #90 tabs 05/16/21 ondansetron 8 mg disintegrating 8 mg PO Q8H PRN nausea and 03/20/22 tablet vomiting #30 tabs prochlorperazine maleate 10 mg 10 mg PO Q6H PRN nausea and 03/20/22 tablet (Compazine) vomiting #30 tabs gabapentin 300 mg capsule 300 mg PO BID #180 caps 08/20/22 ibuprofen 600 mg tablet 600 mg PO QID PRN pain #60 tabs 08/20/22 food supplemt, lactose-reduced 237 ml PO BID #5,688 mL 09/18/22 0.06 gram-1 kcal/mL oral liquid (Boost High Protein) oxycodone 5 mg tablet 5 - 10 mg PO Q4H PRN pain #180 tabs 09/18/22 Allergies Allergy/AdvReac Type Severity Reaction Status Date / Time pregabalin AdvReac Severe depression, Verified 10/18/22 11:52 SI duloxetine AdvReac Intermediate nausea Verified 10/18/22 11:52 General DARIAN: 3 Review of Systems Narrative: Constitutional negative for fevers and chills. Resolved malaise and fatigue HEENT negative Cardiovascular no chest pain Respiratory no shortness of breath GI no abdominal pain. Decrease colostomy output. Resolved nausea vomiting. see HPI MSK no myalgias no arthralgias Skin no rashes Neuro no headaches Psych negative Endocrine no unexplained weight gain weight loss Hematological not on blood thinners no easy bleeding PFSH All Active Problems (Updated 10/18/22 @ 16:06 by Raúl Francois MD) Acute kidney injury (Acute) Hypotension (Acute) Renal failure, acute (Acute) Cancer related pain (Acute) Advanced directives, counseling/discussion (Acute) Palliative care patient (Acute) Tobacco dependence (Acute) Durable power of attorney lawyer for healthcare (Acute) Goals of care, counseling/discussion (Acute) Fatigue (Acute) Bladder cancer (Acute) Myocutaneous flap necrosis (Acute) Neuropathic pain (Acute) Hypertension (Chronic) Presence of urostomy (Acute) Colostomy in place (Chronic) Adenocarcinoma, lung (Acute) METS from rectal ca noted on lung bx07/13/2020. Chronic prescription opiate use (Acute) Pre-diabetes (Acute) Hyperlipidemia (Acute) Pulmonary nodule (Acute) [place] at [facility] [place], 06/20 CT nodues larger PET ordered, if mets, bx adenocarcinoma Chronic pain (Chronic) GERD (gastroesophageal reflux disease) (Chronic) Trial of omeprazole at bedtime. Rectal cancer (Chronic 10/22/16) 09/26/16- Large rectal cancer - adenocarcinoma- low grade, with perianal abscess (T3N0) This is the [facility] [place] Dr. Will Hays, no genetic mutation. Normal colo in 2019 Medical History Lumbago Ibuprofen 600 mg as needed 4 times a day. Rectal cancer Rectal perforation Surgical History Colectomy WITH COLOSTOMY History of lung biopsy Family History Mother Diabetes Hypertension Hyperlipidemia Father Hyperlipidemia Heart disease Brother No problems noted. Brother Cancer rectal Diabetes Hypertension Sister Hypertension Depression Sister No problems noted. Social History Smoking/Tobacco Use Status: Current-Occasional Tobacco Type: cigarettes Tobacco: How many years used: 15 Quit status: quit date established Smoking risk assessment performed?: Yes Alcohol Intake: current Alcohol Intake frequency: a few times a month Alcohol type: beer Counseling provided: none Drug use: Daily Substance use type: marijuana Caregiver/Support person: Yes Household members: children and friend(s) Housing: house Do you need help understanding health information?: Rarely Pets and animals: Yes Pets and animals: dog(s) Sexually active: No Do you think of yourself as: straight/heterosexual Current gender identity: male What is your relationship status?: How often do you talk on the phone with friends or family?: three or more times per week How often do you get together with friends or relatives?: three or more times per week Do you belong to any clubs or organized social groups?: no Panel score (0-1 are the most socially isolated patients): 1 What type of physical activity do you participate in: other Details: Side by side and 4 lassiter Agueda/Samaritan: No preference Special agueda needs: No Seatbelt use: always Helmet use: Yes Helmet use: always Drive intox or ride w/intox test driver: No Do you feel safe at home: Yes Do you feel safe in your relationship?: Yes Exam Narrative Exam Narrative: Awake alert [place] x3 calm and in good spirits no acute distress pleasant cooperative Normocephalic atraumatic PERRLA EOMI MMM anicteric Chest is clear to auscultation bilaterally Heart regular rhythm and rate no murmurs Abdomen soft no distention. Ileostomy bag with very little urine yellow dark colostomy bag empty Neuro grossly intact Skin no rashes Extremities no edema Psych normal mood and affect. Critical Care Time Critical Care Time Critical Care Time: Yes Total Critical Care Time: 35 Attestation: Patient required volume resuscitation as well as repeat blood work for acute renal injury. Patient response to therapy.
[2022-10-18] MEDS: Normal Saline 1,000 ML 1000 ML IV ×3 (12:07→15:00)
--- NOTE | 2022-10-18 12:45 | DI.US_ITS ---
Exam(s) US RENAL EXAM: US RENAL CLINICAL HISTORY: CUCO. TECHNIQUE: Amaral scale, color and spectral Doppler were used. COMPARISON: CT CT CHEST/ABD/PEL W from 05/30/[address] CHEST PE CTA from 08/24/2022 FINDINGS: Renal size in cm: Right: 12.8 left: 13.8 Echogenicity: Normal Hydronephrosis: No Cyst or mass: No Nephrolithiasis: No Bladder:Status post cystectomy. IMPRESSION: Negative renal ultrasound. Status post cystectomy. DATA REPOSITORY:
[2022-10-18 13:43] LABS: COVID-19 PCR Negative (Negative); Influenza A PCR Negative (Negative); Influenza B PCR Negative (Negative); RSV PCR Negative (Negative)
[2022-10-18 13:44] LABS: Source Nasopharynx
[2022-10-18 14:51] LABS: Anion Gap 7.8 mmol/L (3-11); BUN 39 mg/dL (7-18); CO2 28.2 mmol/L (21.0-32.0); Calcium 7.9 mg/dL (8.5-10.1); Chloride 93 mmol/L (98-107); Estimated GFR 22.91 (mL/min/1.73m2); Glucose 93 mg/dL (74-106); Potassium 3.9 mmol/L (3.5-5.1); Sodium 129 mmol/L (136-145)
[2022-10-18] MEDS: oxyCODONE 5 MG TAB PO ×2 (15:26→17:45)
--- NOTE | 2022-10-18 15:57 | W.PM.HP.N ---
Date of service: 10/18/22 Time of Service: 15:57 Assessment and Plan Assessment and plan (1) Renal failure, acute: Status: Acute Assessment and plan: improving with IV fluids hold nephrotoxic drugs, renal dose as needed hold lisinopril closely follow. (2) Cancer related pain: Status: Acute Assessment and plan: will continue with immediate release oxycodone with close monitoring. with improvement in kidney function should be safe to resume his extended release soon. monitor and adjust as needed. \ discussed with DR Coronado History of Present Illness History of Present Illness Chief Complaint: weakness Narrative: sent for evaluation of acute renal failure following a GI illness for 2 days, now having weakness. outpatient lab shows creatinine of 3.9 with a baseline of 0.9. He received IV fluids in the ED with improvement of creatinine to 3.0. A renal ultrasound was negative for pathology . He is to be admitted observation overnight for IV fluids and monitoring. Review of Systems All systems reviewed & are unremarkable except as noted in HPI and below PFSH All Active Problems (Updated 10/18/22 @ 16:06 by Raúl Francois MD) Acute kidney injury (Acute) Hypotension (Acute) Renal failure, acute (Acute) Cancer related pain (Acute) Advanced directives, counseling/discussion (Acute) Palliative care patient (Acute) Tobacco dependence (Acute) Durable power of it service delivery manager for healthcare (Acute) Goals of care, counseling/discussion (Acute) Fatigue (Acute) Bladder cancer (Acute) Myocutaneous flap necrosis (Acute) Neuropathic pain (Acute) Hypertension (Chronic) Presence of urostomy (Acute) Colostomy in place (Chronic) Adenocarcinoma, lung (Acute) METS from rectal ca noted on lung bx07/13/2020. Chronic prescription opiate use (Acute) Pre-diabetes (Acute) Hyperlipidemia (Acute) Pulmonary nodule (Acute) followed at [facility] [place], 06/20 CT nodues larger PET ordered, if mets, bx adenocarcinoma Chronic pain (Chronic) GERD (gastroesophageal reflux disease) (Chronic) Trial of omeprazole at bedtime. Rectal cancer (Chronic 10/22/16) 09/26/16- Large rectal cancer - adenocarcinoma- low grade, with perianal abscess (T3N0) This is the [facility] [place]. Dr. Will Hays, no genetic mutation. Normal colo in 2019 Medical History Lumbago Ibuprofen 600 mg as needed 4 times a day. Rectal cancer Rectal perforation Surgical History Colectomy WITH COLOSTOMY History of lung biopsy Family History Mother Diabetes Hypertension Hyperlipidemia Father Hyperlipidemia Heart disease Brother No problems noted. Brother Cancer rectal Diabetes Hypertension Sister Hypertension Depression Sister No problems noted. Social History Smoking/Tobacco Use Status: Current-Occasional Tobacco Type: cigarettes Tobacco: How many years used: 15 Quit status: quit date established Smoking risk assessment performed?: Yes Alcohol Intake: current Alcohol Intake frequency: a few times a month Alcohol type: beer Counseling provided: none Drug use: Daily Substance use type: marijuana Caregiver/Support person: Yes Household members: children and friend(s) Housing: house Do you need help understanding health information?: Rarely Pets and animals: Yes Pets and animals: dog(s) Sexually active: No Do you think of yourself as: straight/heterosexual Current gender identity: male What is your relationship status?: How often do you talk on the phone with friends or family?: three or more times per week How often do you get together with friends or relatives?: three or more times per week Do you belong to any clubs or organized social groups?: no Panel score (0-1 are the most socially isolated patients): 1 What type of physical activity do you participate in: other Details: Side by side and 4 lassiter Agueda/Mandaeism: No preference Special agueda needs: No Seatbelt use: always Helmet use: Yes Helmet use: always Drive intox or ride w/intox transit mixer driver: No Do you feel safe at home: Yes Do you feel safe in your relationship?: Yes Meds Allergies and Home Medications Allergies Allergy/AdvReac Type Severity Reaction Status Date / Time pregabalin AdvReac Severe depression, Verified 10/18/22 11:52 SI duloxetine AdvReac Intermediate nausea Verified 10/18/22 11:52 Home Medications Medication Instructions Recorded Confirmed Type atorvastatin 40 mg tablet 40 mg PO QHS #90 tabs 05/16/21 10/18/22 Rx lisinopril 40 mg tablet 40 mg PO DAILY #90 tabs 05/16/21 10/18/22 Rx aspirin 81 mg chewable tablet 81 mg PO DAILY 11/05/21 09/18/22 History ondansetron 8 mg disintegrating 8 mg PO Q8H PRN nausea and 03/20/22 10/18/22 Rx tablet vomiting #30 tabs prochlorperazine maleate 10 mg 10 mg PO Q6H PRN nausea and 03/20/22 10/18/22 Rx tablet (Compazine) vomiting #30 tabs gabapentin 300 mg capsule 300 mg PO BID #180 caps 08/20/22 10/18/22 Rx ibuprofen 600 mg tablet 600 mg PO QID PRN pain #60 tabs 08/20/22 10/18/22 Rx food supplemt, lactose-reduced 237 ml PO BID #5,688 mL 09/18/22 10/18/22 Rx 0.06 gram-1 kcal/mL oral liquid (Boost High Protein) oxycodone 5 mg tablet 5 - 10 mg PO Q4H PRN pain #180 tabs 09/18/22 10/18/22 Rx aluminum-mag hydroxide-simethicone 5 ml PO QID PRN 10/18/22 10/18/22 History 400 mg-400 mg-40 mg/5 mL oral susp (Almacone-2) diphenhydramine HCl 12.5 mg/5 mL 12.5 mg PO PRN 10/18/22 History oral liquid (M-Dryl) lidocaine HCl 2 % mucosal solution PO PRN 10/18/22 History (Lidocaine Viscous) omeprazole 40 mg capsule,delayed 40 mg PO DAILY PRN 10/18/22 10/18/22 History release oxycodone 15 mg tablet,crush 15 mg PO BID 10/18/22 10/18/22 History resistant,extended release 12 hr (OxyContin) prednisone 20 mg tablet 40 mg PO DAILY 10/18/22 10/18/22 History Exam Const General: cooperative, comfortable and no acute distress Nutritional Appearance: thin Orientation: alert, awake and oriented x3 HENMT Head: normal to inspection and normocephalic Mouth: oral mucosa abnormal (dry, ) Resp Effort & Inspection: normal respiratory effort Cardio Rate: regular rate Rhythm: regular rhythm GI Inspection: normal to inspection Palpation: soft and nontender Auscultation: normal bowel sounds Back/Spine/Pelvis Back: no CVA tenderness Skin General skin exam: no rashes or lesions noted Neuro General: patient alert, patient awake, patient oriented x3 and no focal motor deficits Extrem General: normal to inspection and full ROM Results Labs 10/18/22 14:18 Labs: Laboratory Results - last 24 hr 10/18/22 10/18/22 13:00 14:18 Sodium 129 L Potassium 3.9 Chloride 93 L Carbon Dioxide 28.2 Anion Gap 7.8 BUN 39 H Creatinine 3.0 H Est GFR (CKD-EPI 2020) 22.91 Glucose 93 Calcium 7.9 L COVID-19 Source Nasopharynx SARS-CoV-2 (PCR) Negative Influenza Type A (PCR) Negative Influenza Type B (PCR) Negative RSV (PCR) Negative Last Vital Signs Temp 36.6 C 10/18/22 11:36 Pulse 79 10/18/22 15:16 Resp 18 10/18/22 15:27 BP 99/64 L 10/18/22 15:27 Pulse Ox 92 10/18/22 15:27 Time Spent Time spent with Patient: 40-54 minutes Time was spent: preparing to see the patient(eg.review tests), obtaining and/or reviewing separately otained hiistory, ordering medications,tests, procedures, indepentently interpreting results and counseling the patient
[2022-10-18] MEDS: Normal Saline 1,000 ML 100 ML IV (17:46)
[2022-10-18] MEDS: cefTRIAXone 2 GM/50 ML BAG IVPB (17:46)
[2022-10-18] MEDS: Normal Saline Flush 10 ML SYR (17:47)
[2022-10-18] MEDS: Atorvastatin 40 MG TAB PO (19:22)
[2022-10-18] MEDS: Gabapentin 300 MG CAP PO (19:22)
[2022-10-19 03:26] VITALS: BP 113/68; PULSE 87; RESP 16; TEMP 37; O2SAT 92
[2022-10-19] MEDS: Normal Saline 1,000 ML 100 ML IV (04:09)
[2022-10-19 06:16] LABS: Anion Gap 4.9 mmol/L (3-11); BUN 22 mg/dL (7-18); CO2 27.1 mmol/L (21.0-32.0); Calcium 8.6 mg/dL (8.5-10.1); Chloride 105 mmol/L (98-107); Estimated GFR 85.63 (mL/min/1.73m2); Glucose 100 mg/dL (74-106); Potassium 4.5 mmol/L (3.5-5.1); Sodium 137 mmol/L (136-145)
[2022-10-19 07:53] VITALS: BP 166/67; PULSE 92; RESP 18; TEMP 36.3; O2SAT 95
[2022-10-19] MEDS: predniSONE 20 MG TAB 40 MG PO (08:11)
[2022-10-19] MEDS: oxyCODONE 5 MG TAB PO ×2 (08:11→12:20)
[2022-10-19] MEDS: Gabapentin 300 MG CAP PO (08:12)
[2022-10-19] MEDS: Aspirin 81 MG CHEW PO (08:12)
[2022-10-19] MEDS: Normal Saline Flush 10 ML SYR (08:12)
--- NOTE | 2022-10-19 09:45 | PDOC.CMIN ---
- If Service Date Differs Date of service: 10/19/22 Time of Service: 09:45 Care Management Initial Assess REASON FOR HOSPITALIZATION:: Acute Renal Failure PAST MEDICAL HISTORY/PAST SURGICAL HISTORY:: All Active Problems. Acute kidney injury (Acute). Hypotension (Acute). Renal failure, acute (Acute). Cancer related pain (Acute). Advanced directives, counseling/discussion (Acute). Palliative care patient (Acute). Tobacco dependence (Acute). Durable power of mergers and acquisitions attorney for healthcare (Acute). Goals of care, counseling/discussion (Acute). Fatigue (Acute). Bladder cancer (Acute). Myocutaneous flap necrosis (Acute). Neuropathic pain (Acute). Hypertension (Chronic). Presence of urostomy (Acute). Colostomy in place (Chronic). Adenocarcinoma, lung (Acute). METS from rectal ca noted on lung bx07/13/2020. Chronic prescription opiate use (Acute). Pre-diabetes (Acute). Hyperlipidemia (Acute). Pulmonary nodule (Acute). followed at [facility], 06/20 CT nodues larger PET ordered, if mets, bx adenocarcinoma. Chronic pain (Chronic). GERD (gastroesophageal reflux disease) (Chronic). Trial of omeprazole at bedtime. Rectal cancer (Chronic 10/22/16). 09/26/16- Large rectal cancer - adenocarcinoma- low grade, with perianal abscess (T3N0) This is the [facility]. Dr. Will Hays, no genetic mutation. Normal colo in 2019. Medical History. Lumbago. Ibuprofen 600 mg as needed 4 times a day. Rectal cancer. Rectal perforation. Surgical History. Colectomy. WITH COLOSTOMY. History of lung biopsy PREVIOUS FUNCTIONAL STATUS/SOCIAL/FAMILY SUPPORTS:: Trey lives in [facility] with his daughter, Katty, and her two children. His son, Hua lives nearby. Both children are supportive. Trey has stage 4 rectal cancer, metastatic to his lungs, but maintains his independence. His goals are to see his grandchildren, Char and Mita, grow up. CURRENT FUNCTIONAL STATUS:: Trey was lying in bed when CM met with him. He reported that he is feeling much better today, and is expecting to be able to go home today. He stated that he received fluids which has made him feel better. He reported that he drinks a lot of fluids at home such as juice, milk and water, and isn't sure how he became dehydrated. He stated that his son will drive him home when he is ready for discharge, although his vehicle is in the parking lot. He talked about how fortunate he feels that he is able to watch his grandchildren grow up, as his daughter and her children live with him. CM will continue to follow. ADVANCE DIRECTIVES:: [facility] appointment on file, Katty listed as [facility]. Idris listed as alternate agent. Has patient been provided with info about the portal/API?: Yes Did the patient sign up for the portal?: No CODE STATUS:: Full Code INSURANCE COVERAGE / FINANCIAL ISSUES:: MCR/ IVAN/ MCR supplement CURRENT HOME/COMMUNITY SERVICES/EQUIPMENT:: Trey is followed by Dr. Hays at [facility], as well as Palliative Care. PRIMARY CARE PHYSICIAN:: Shanti Son NP POTENTIAL DISCHARGE NEEDS:: Follow up appointments. PATIENT/FAMILY EDUCATION NEEDS:: Review discharge instructions and limitations, discussion of self care needs including ask me three and goals of care. ANTICIPATED BARRIERS TO DISCHARGE:: None identified at this time. TRANSPORTATION:: Via private vehicle by family. PLAN:: Anticipate Trey will return home once medically cleared. His son, Hua will drive him home via private vehicle. He will follow up with his PCP and discharge plan of care. CM will continue to follow.
[2022-10-19] MEDS: oxyCODONE-CR 10 MG TABCR PO (09:48)
--- NOTE | 2022-10-19 11:28 | W.PM.DS.N ---
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 He received 2 L of IV fluid repeat creatinine was trending downward. He had no fever no complaints of abdominal pain his nausea and vomiting had resolved. Electrolytes remained within normal range. He was eating and drinking well referred to observation overnight for additional IV fluids. In the morning his creatinine had normalized to 1 which was his baseline. His symptoms completely resolved he feels at baseline and is stable and ready for discharge to home. Hospital course also revealed a urinary tract infection he received 2 g of IV ceftriaxone and will be discharged home on cefpodoxime to complete 7-day course. He is being discharged to home with no new services no additional changes to his medication regimen. Discharge discussed with Dr. Coronado Home Meds and New Rx's Prescriptions: New cefpodoxime 200 mg tablet 200 mg PO BID Qty: 14 0RF Rx Instructions: must administer with a meal/food Continued aspirin 81 mg tablet,chewable 81 mg PO DAILY Boost High Protein 0.06 gram- 1 kcal/mL liquid 237 ml PO BID Qty: 5688 12RF oxycodone 5 mg tablet 5 - 10 mg PO Q4H MDD 60mg PRN (Reason: pain) Qty: 180 0RF ondansetron 8 mg tablet,disintegrating 8 mg PO Q8H PRN (Reason: nausea and vomiting) Qty: 30 3RF prochlorperazine maleate [Compazine] 10 mg tablet 10 mg PO Q6H PRN (Reason: nausea and vomiting) Qty: 30 3RF lisinopril 40 mg tablet 40 mg PO DAILY Qty: 90 4RF atorvastatin 40 mg tablet 40 mg PO QHS Qty: 90 4RF ibuprofen 600 mg tablet 600 mg PO QID PRN (Reason: pain) Qty: 60 3RF gabapentin 300 mg capsule 300 mg PO BID Qty: 180 1RF diphenhydramine HCl [M-Dryl] 12.5 mg/5 mL liquid 12.5 mg PO PRN prednisone 20 mg Tablet 40 mg PO DAILY omeprazole 40 mg Capsule,Delayed Release(Dr/Ec) 40 mg PO DAILY PRN lidocaine HCl [Lidocaine Viscous] 2 % solution PO PRN alum-mag hydroxide-simeth [Almacone-2] 400-400-40 mg/5 mL Suspension 5 ml PO QID PRN oxycodone [OxyContin] 15 mg Tablet,Oral Only,Ext.Rel.12 Hr 15 mg PO BID Discharge Instructions Instructions: Dehydration (DC), Urinary Tract Infection in Men (DC) Additional Instructions: drink at least 6-8 glasses of water daily to stay well hydrated take medication as directed Stand Alone Forms: Nursing Discharge Form Referrals: Shanti Son NP [Primary Care Provider] - (Please call Friday to make a follow up appointment for 1-2 weeks) Will Hays MD [ CONSULTING PHYSICIAN] - (Please call Friday to make a follow up appointment.) Activity:: Activity as Tolerated Equipment/Supplies:: No Equipment Needed Diet:: As Tolerated Discharge Orders Discharge Orders: Discharge Order (Routine); Ordered 10/19/22 Ordered By: Dione Sinha Discharge Data Discharge Date/Time-TO BE ENTERED AT DEPARTURE: 10/19/22 12:46 DS: Summary Time Spent with Patient providing and/or coordinating discharge services: Less than 30 minutes Status at Discharge Functional status at discharge: independent ambulation Overall status at discharge: patient is back to baseline Mental Status: mental status grossly normal Speech and Movement: speech and movement normal Mood: congruent mood Affect: normal affect Exam Const General: cooperative, comfortable and no acute distress Nutritional Appearance: thin Orientation: alert, awake and oriented x3 HENMT Head: normal to inspection and normocephalic Resp Effort & Inspection: normal respiratory effort Cardio Rate: regular rate Rhythm: regular rhythm GI Inspection: normal to inspection Palpation: soft and nontender Auscultation: normal bowel sounds Back/Spine/Pelvis Back: no CVA tenderness Skin General skin exam: no rashes or lesions noted Neuro General: patient alert, patient awake, patient oriented x3 and no focal motor deficits Extrem General: normal to inspection and full ROM Psych Mental Status: mental status grossly normal Speech and Movement: speech and movement normal Mood: congruent mood Affect: normal affect DS: Data Vitals/I&O Vitals and I&O: Vital Signs Temperature 36.3 C L 10/19/22 07:53 Temperature Source Tympanic 10/19/22 07:53 Pulse 92 H 10/19/22 07:53 Pulse Rhythm Regular 10/18/22 17:58 Pulse 99 H 10/18/22 16:01 Respiratory Rate 18 10/19/22 07:53 Respiratory Effort Normal, Non-Labored 10/18/22 17:58 Respiratory Depth Normal 10/18/22 17:58 Respiratory Pattern Normal 10/18/22 17:58 Blood Pressure 166/67 H 10/19/22 07:53 Blood Pressure Mean 81 10/18/22 16:01 Blood Pressure Position Sitting 10/18/22 11:36 Pulse Oximetry 95 10/19/22 07:53 Oxygen Delivery Method Room Air 10/19/22 07:53 Oxygen Flow Rate 0 10/19/22 07:53 Pain Level 8 10/19/22 10:48 Comment 10 burning rectal pain. 10/19/22 08:09 Intake & Output 10/18/22 10/18/22 10/19/22 11:59 23:59 11:59 Intake Total 3000 / 3000 1970 / 1970 Output Total 2525 / 2525 800 / 800 Balance 475 / 475 1170 / 1170 Weight 66.224 kg 66.224 kg Intake: IV 3000 / 3000 1610 / 1610 Oral 360 / 360 Output: Urine 2525 / 2525 800 / 800 Other: Urine Color Yellow Straw Urine Appearance Clear Clear Urine Odor None Comment Pt. states he emptied his urostomy bag in to the toilet and performed independent urostomy care. Voiding Methods Urostomy Urostomy Data Completed and Pending Labs on day of discharge: Labs from last 24 hours 10/19/22 10/18/22 10/18/22 05:55 14:18 13:00 Sodium 137 129 L Potassium 4.5 3.9 Chloride 105 93 L Carbon Dioxide 27.1 28.2 Anion Gap 4.9 7.8 BUN 22 H 39 H Creatinine 1.0 D 3.0 H Est GFR (CKD-EPI 2020) 85.63 22.91 Glucose 100 93 Calcium 8.6 7.9 L COVID-19 Source Nasopharynx SARS-CoV-2 (PCR) Negative Influenza Type A (PCR) Negative Influenza Type B (PCR) Negative RSV (PCR) Negative 10/18/22 17:05 Blood Blood Culture - Pending 10/18/22 17:00 Blood Blood Culture - Pending Preliminary micro results at discharge 10/18/22 17:05 Blood Culture - Pending Blood 10/18/22 17:00 Blood Culture - Pending Blood PFSH All Active Problems (Updated 10/18/22 @ 16:06 by Raúl Francois MD) Acute kidney injury (Acute) Hypotension (Acute) Renal failure, acute (Acute) Cancer related pain (Acute) Advanced directives, counseling/discussion (Acute) Palliative care patient (Acute) Tobacco dependence (Acute) Durable power of trademark attorney for healthcare (Acute) Goals of care, counseling/discussion (Acute) Fatigue (Acute) Bladder cancer (Acute) Myocutaneous flap necrosis (Acute) Neuropathic pain (Acute) Hypertension (Chronic) Presence of urostomy (Acute) Colostomy in place (Chronic) Adenocarcinoma, lung (Acute) METS from rectal ca noted on lung bx07/13/2020. Chronic prescription opiate use (Acute) Pre-diabetes (Acute) Hyperlipidemia (Acute) Pulmonary nodule (Acute) followed at [facility], 06/20 CT nodues larger PET ordered, if mets, bx adenocarcinoma Chronic pain (Chronic) GERD (gastroesophageal reflux disease) (Chronic) Trial of omeprazole at bedtime. Rectal cancer (Chronic 10/22/16) 09/26/16- Large rectal cancer - adenocarcinoma- low grade, with perianal abscess (T3N0) This is the [facility]. Dr. Will Hays, no genetic mutation. Normal colo in 2019 Medical History Lumbago Ibuprofen 600 mg as needed 4 times a day. Rectal cancer Rectal perforation Surgical History Colectomy WITH COLOSTOMY History of lung biopsy Family History Mother Diabetes Hypertension Hyperlipidemia Father Hyperlipidemia Heart disease Brother No problems noted. Brother Cancer rectal Diabetes Hypertension Sister Hypertension Depression Sister No problems noted. Social History Smoking/Tobacco Use Status: Current-Occasional Tobacco Type: cigarettes Tobacco: How many years used: 15 Quit status: quit date established Smoking risk assessment performed?: Yes Alcohol Intake: current Alcohol Intake frequency: a few times a month Alcohol type: beer Counseling provided: none Drug use: Daily Substance use type: marijuana Caregiver/Support person: Yes Household members: children and friend(s) Housing: house Do you need help understanding health information?: Rarely Pets and animals: Yes Pets and animals: dog(s) Sexually active: No Do you think of yourself as: straight/heterosexual Current gender identity: male What is your relationship status?: How often do you talk on the phone with friends or family?: three or more times per week How often do you get together with friends or relatives?: three or more times per week Do you belong to any clubs or organized social groups?: no Panel score (0-1 are the most socially isolated patients): 1 What type of physical activity do you participate in: other Details: Side by side and 4 lassiter Agueda/Yarsanism: No preference Special agueda needs: No Seatbelt use: always Helmet use: Yes Helmet use: always Drive intox or ride w/intox armor reconnaissance vehicle driver: No Do you feel safe at home: Yes Do you feel safe in your relationship?: Yes Time Spent with Patient Time Spent with Patient: <45 minutes Time was spent: preparing to see the patient(eg.review tests), obtaining and/or reviewing separately otained hiistory, ordering medications,tests, procedures, indepentently interpreting results and counseling the patient
[2022-10-19 11:35] VITALS: BP 160/92; PULSE 80; RESP 22; TEMP 37.1; O2SAT 95
[2022-10-19] MEDS: Normal Saline Flush 10 ML SYR IVP (12:21)
[2022-10-19] MEDS: Heparin 500 UNITS/5 ML SYRINGE IVP (12:21)
--- NOTE | 2022-10-19 16:35 | PDOC.CMDIS ---
- If Service Date Differs Date of service: 10/19/22 Time of Service: 16:36 LACE Index Scoring Tool - Questions: Length of Stay (in days): 1 Acuity (Admit via E.D.?): Yes Comorbidities: Metastatic Solid Tumor E.D. Visits: 2 - Answers: Total Score: 11 Risk of Readmission: High Risk Care Management Discharge Reason for Hospitalization: Acute Renal Failure Discharge Plan: Trey returned home today with no new services. His son drove him home via private vehicle. He will follow up with his PCP and discharge plan of care. He is happy to be going home. Patient/Family Education Needs: Review discharge instructions and limitations, discussion of self care needs including ask me three.
== END 2022-10-19 12:46 | disposition home or self-care (01) ==
LOC: ER 16:06 → MS 17:09
PROVIDERS: Nurse Practitioner Acute Care; Admitting Provider Internal Medicine; Emergency Provider Emergency Medicine; PCP Nurse Practitioner Family; Visit Provider Internal Medicine
DX: N17.9 Acute kidney failure, unspecified (principal); G89.3 Neoplasm related pain (acute) (chronic); C78.00 Secondary malignant neoplasm of unspecified lung; N18.9 Chronic kidney disease, unspecified; N39.0 Urinary tract infection, site not specified; I25.2 Old myocardial infarction; I95.9 Hypotension, unspecified; Z79.899 Other long term (current) drug therapy; Z85.048 Personal history of other malignant neoplasm of rectum, rectosigmoid junction, and anus; F17.210 Nicotine dependence, cigarettes, uncomplicated; Z79.891 Long term (current) use of opiate analgesic; K21.9 Gastro-esophageal reflux disease without esophagitis; R73.03 Prediabetes; E78.5 Hyperlipidemia, unspecified; Z93.6 Other artificial openings of urinary tract status; Z93.3 Colostomy status; C67.9 Malignant neoplasm of bladder, unspecified; Z90.6 Acquired absence of other parts of urinary tract; Z20.822 Contact with and (suspected) exposure to COVID-19; I12.9 Hypertensive chronic kidney disease with stage 1 through stage 4 chronic kidney disease, or unspecified chronic kidney disease
CPT/HCPCS: 36415; 36591; 76770; 80048; 80053; 87040; 87077; 87637; 93005; 96360; 96361; 96365; 99291; 81003; 81015; 82378; 85025; 87086; 87186; 93010; 99222; 99238; G0378; J7512

== ENCOUNTER 2022-10-25 01:21 | Outpatient (RCR) | payer MEDICARE, OTHER, MEDICAID, SELFPAY ==
[2022-10-18] MEDS: Normal Saline Flush 10 ML SYR IVP (10:01)
[2022-10-18 10:19] LABS: Abs Immature Grans 0.05 10^3/uL (0.0-0.06); Absolute Basophil Count 0.03 10^3/uL (0.0-0.2); Absolute Eosinophil Count 0.37 10^3/uL (0.0-0.7); Absolute Lymphocyte Count 1.18 10^3/uL (1.2-3.4); Absolute Neutrophil Count 7.52 10^3/uL (1.2-6.7); Basophils % 0.3; Eosinophils % 3.6; HCT 48.6 % (40.0-50.0); HGB 16.3 g/dL (13.5-17.5); Immature Grans % 0.5; Lymphocytes % 11.4; MCH 30.4 pg (27.0-33.0); MCHC 33.5 % (32.0-36.0); MCV 91 fL (80-95); MPV 10.4 fL (8.0-11.0); Monocytes % 11.6; Neutrophils % 72.6; Platelet Count 258 10^3/uL (130-400); RBC 5.36 10^6/uL (4.36-5.78); RDW 16.2 % (11.8-14.1); RDW-SD 53.6 fL; WBC 10.35 10^3/uL (4.4-10.8)
[2022-10-18 10:25] LABS: Bilirubin Negative (Negative); Blood Negative (Negative); Clarity Cloudy (Clear); Glucose Negative (Negative); Ketones Negative (Negative); Leukocyte Esterase Small (Negative); Nitrite Negative (Negative); Urobilinogen 0.2 EU/dL (Up TO 0.2)
[2022-10-18 10:52] LABS: Bacteria Moderate HPF (Negative); C & S Indicated? Yes; Casts 3-5 Fine Granular LPF (Negative); Crystals Rare Calcium Oxalate HPF (Negative); Epithelial Cells Few HPF (Negative); Mucus Moderate (Negative); RBC Negative HPF (0-2)
[2022-10-18 10:55] LABS: ALT 29 U/L (16-63); AST 23 U/L (15-37); Albumin 3.9 g/dL (3.4-5.0); Alkaline Phosphatase 83 U/L (46-116); Bilirubin, Total 0.7 mg/dL (0.2-1.0); Calcium 9.1 mg/dL (8.5-10.1); Glucose 121 mg/dL (74-106); Total Protein 7.1 g/dL (6.4-8.2)
[2022-10-18 11:10] LABS: Anion Gap 11.8 mmol/L (3-11); BUN 42 mg/dL (7-18); CO2 29.2 mmol/L (21.0-32.0); Chloride 87 mmol/L (98-107); Estimated GFR 16.72 (mL/min/1.73m2); Sodium 128 mmol/L (136-145)
[2022-10-18 11:14] LABS: CREATININE 3.9 mg/dL (0.70-1.30)
[2022-10-18 20:19] LABS: CEA 5.2 ng/mL (See Note)
[2022-10-25] MEDS: Normal Saline Flush 10 ML SYR IVP (08:10)
[2022-10-25 08:27] LABS: Abs Immature Grans 0.07 10^3/uL (0.0-0.06); Absolute Basophil Count 0.07 10^3/uL (0.0-0.2); Absolute Lymphocyte Count 1.38 10^3/uL (1.2-3.4); Absolute Monocyte Count 0.88 10^3/uL (0.1-0.8); Absolute Neutrophil Count 5.95 10^3/uL (1.2-6.7); Basophils % 0.8; Bilirubin Negative (Negative); Blood Negative (Negative); Clarity Clear (Clear); Eosinophils % 6.7; Glucose Negative (Negative); HCT 51.5 % (40.0-50.0); Immature Grans % 0.8; Ketones Negative (Negative); Leukocyte Esterase Negative (Negative); Lymphocytes % 15.4; MCH 31.2 pg (27.0-33.0); MCV 95 fL (80-95); MPV 10.3 fL (8.0-11.0); Monocytes % 9.8; Neutrophils % 66.5; Nitrite Negative (Negative); Platelet Count 283 10^3/uL (130-400); RBC 5.45 10^6/uL (4.36-5.78); RDW 15.6 % (11.8-14.1); RDW-SD 54.1 fL; Specific Gravity 1.015 (1.005-1.025); Urobilinogen 0.2 mg/dL (Up to 0.2); WBC 8.95 10^3/uL (4.4-10.8)
[2022-10-25 08:46] LABS: ALT 50 U/L (16-63); AST 26 U/L (15-37); Alkaline Phosphatase 82 U/L (46-116); Anion Gap 6.8 mmol/L (3-11); BUN 12 mg/dL (7-18); Bilirubin, Total 0.6 mg/dL (0.2-1.0); CO2 30.2 mmol/L (21.0-32.0); CREATININE 0.9 mg/dL (0.70-1.30); Calcium 9.7 mg/dL (8.5-10.1); Chloride 101 mmol/L (98-107); Estimated GFR 97.17 (mL/min/1.73m2); Glucose 139 mg/dL (74-106); Potassium 4.2 mmol/L (3.5-5.1); Sodium 138 mmol/L (136-145); Total Protein 7.2 g/dL (6.4-8.2)
[2022-10-28 11:10] LABS: CEA 5.4 ng/mL (See Note)
== END 2022-10-29 23:59 | disposition home or self-care (01) ==
LOC: INF 01:21
PROVIDERS: PCP Nurse Practitioner Family; Visit Provider Internal Medicine Hematology & Oncology
DX: C20 Malignant neoplasm of rectum (principal); Z45.2 Encounter for adjustment and management of vascular access device
CPT/HCPCS: 36591; 80053; 81003; 81015; 82378; 85025; 87086

== ENCOUNTER 2022-11-11 01:55 | Outpatient (CLI) | payer MEDICARE, OTHER, MEDICAID, SELFPAY ==
[2022-11-11] MEDS: Barium Sulfate 2% W/V-Berry Smoothie 450 ML BTL 950 ML PO (08:40)
[2022-11-11] MEDS: Normal Saline - Diluent 50 ML VIAL IJ (09:10)
[2022-11-11] MEDS: Normal Saline Flush 10 ML SYR IVP (09:10)
[2022-11-11] MEDS: Omnipaque 350 MG/ML 500 ML BTL-Imaging package IJ (09:10)
--- NOTE | 2022-11-11 10:00 | DI.CT_ITS ---
Exam(s) CT CHEST/ABD/PEL W EXAM: CT CHEST/ABD/PEL W CLINICAL HISTORY: RECTAL CA, METS TO LUNG, C20, C78.00 TECHNIQUE: Imaging Protocol: Axial computed tomography images with coronal and sagittal reformatted images were created and reviewed CONTRAST MATERIAL: Intravenous: Omnipaque 350 contrast volume:100 mL Oral: Yes COMPARISON: CT CT CHEST PE CTA from 08/24/2022 FINDINGS: CHEST: Tracheobronchial tree: Patent where visualized. Pulmonary parenchyma: There are multiple stable pulmonary nodules present. No new nodules are seen. No focal consolidating infiltrates are seen. Visualized thyroid gland: Unremarkable. Mediastinum and Cynthia: Stable mediastinal lymph nodes are seen. The esophagus is unremarkable. Pleura: No effusion or pneumothorax. Heart: The heart is not dilated. Coronary artery calcifications are present. No pericardial effusion . Pulmonary arteries: No pulmonary emboli are identified. Aorta: Thoracic aorta non-dilated. Atherosclerosis is present. No evidence of dissection. Lymph nodes: Within normal limits. Tubes, Catheters, and Lines: A Port-A-Cath is in place. Soft tissues: Unremarkable. Bones:Within normal limits for the patient's age. There are old healed right rib fractures. No aggr essive osseous lesions are identified. ABDOMEN: Liver: Normal density. No measurable mass. Portal, Superior Mesenteric, and Splenic Veins: Unremarkable. Gallbladder and Biliary Tract: Gallstones are present. There is no biliary ductal dilatation. Pancreas: Normal density, no abnormal calcifications or inflammatory process. Spleen: Normal. Adrenals: No masses seen. Kidneys: Normal size, contour and axis. No radiodense stones or obstructive uropathy. No masses seen. Abdominal Aorta: Abdominal portion non-dilated. Atherosclerosis. Bowel: The patient has a left lower quadrant colostomy. There has been resection of the rectum. The bowel shows no evidence of obstruction or inflammation. Note is again made of a right inguinal malika ia containing an unremarkable loop of small bowel and the distal appendix. Appendix is unremarkable. Peritoneal Cavity: No ascites, collection or mesenteric inflammatory response. No free air. Lymph Nodes: Within normal limits. Bones: Within normal limits for the patient's age. There is L4 spondylolysis and grade 1 spondylolis thesis of L5 on S1. There is now mild compression deformity of the superior aspect of T12. This is new compared to the examinations from August 2022. Soft Tissues: Unremarkable. PELVIS: Bladder: The patient is status post cystectomy. There is a right-sided ileostomy. Reproductive Organs: There appears to have been a prior prostatectomy. Lymph Nodes: Within normal limits. Bones: Within normal limits. No aggressive osseous lesions are seen. IMPRESSION: 1. No evidence of abdominal or pelvic metastatic disease. 2. There has been an interval superior compression deformity of T12 since August 2022. Please sarah elate clinically. 3. Stable pulmonary nodules. RADIATION DOSE DELIVERED: 1,573.65mGy.cm Total DLP DATA REPOSITORY: All CT scans at this facility are submitted to the National Radiology Data Registry (NRDR) Dose Index Registry (DIR) with the [employer] (ACR). RADIATION OPTIMIZATION: All CT scans at this facility use at least one of these dose optimization te chniques: automated exposure control; mA and/or kV adjustment per patient size (includes targeted exa ms where dose is matched to clinical indication); or iterative reconstruction.
== END 2022-11-11 02:15 ==
LOC: DI 01:56
PROVIDERS: PCP Nurse Practitioner Family; Visit Provider Internal Medicine Hematology & Oncology
DX: C20 Malignant neoplasm of rectum (principal); C78.00 Secondary malignant neoplasm of unspecified lung; R91.8 Other nonspecific abnormal finding of lung field; K80.20 Calculus of gallbladder without cholecystitis without obstruction; K40.90 Unilateral inguinal hernia, without obstruction or gangrene, not specified as recurrent; Z92.21 Personal history of antineoplastic chemotherapy; Z93.3 Colostomy status; Z93.2 Ileostomy status
CPT/HCPCS: 74177; 96523; 71260

== ENCOUNTER 2022-11-15 01:12 | Outpatient (RCR) | payer MEDICARE, OTHER, MEDICAID, SELFPAY ==
[2022-11-11] MEDS: Normal Saline Flush 10 ML SYR IVP (07:51)
[2022-11-11] MEDS: Heparin 500 UNITS/5 ML SYRINGE IV (07:52)
[2022-11-15] MEDS: Normal Saline Flush 10 ML SYR IVP (08:11)
[2022-11-15 08:28] LABS: Bilirubin Negative (Negative); Blood Trace-intact (Negative); Clarity Clear (Clear); Glucose Negative (Negative); Ketones Negative (Negative); Leukocyte Esterase Small (Negative); Nitrite Negative (Negative); Specific Gravity 1.015 (1.005-1.025); Urobilinogen 0.2 mg/dL (Up to 0.2)
[2022-11-15 08:36] LABS: Abs Immature Grans 0.06 10^3/uL (0.0-0.06); Absolute Basophil Count 0.06 10^3/uL (0.0-0.2); Absolute Eosinophil Count 0.44 10^3/uL (0.0-0.7); Absolute Neutrophil Count 5.33 10^3/uL (1.2-6.7); Basophils % 0.8; Eosinophils % 5.6; HCT 51.2 % (40.0-50.0); HGB 16.9 g/dL (13.5-17.5); Immature Grans % 0.8; Lymphocytes % 12.7; MCH 30.6 pg (27.0-33.0); MCV 93 fL (80-95); Monocytes % 12.7; Neutrophils % 67.4; Platelet Count 311 10^3/uL (130-400); RBC 5.53 10^6/uL (4.36-5.78); RDW 14.8 % (11.8-14.1); RDW-SD 50.4 fL; WBC 7.89 10^3/uL (4.4-10.8)
[2022-11-15 08:53] LABS: ALT 29 U/L (16-63); AST 18 U/L (15-37); Albumin 3.6 g/dL (3.4-5.0); Alkaline Phosphatase 81 U/L (46-116); BUN 14 mg/dL (7-18); Bilirubin, Total 0.2 mg/dL (0.2-1.0); CREATININE 0.7 mg/dL (0.70-1.30); Calcium 10.1 mg/dL (8.5-10.1); Chloride 100 mmol/L (98-107); Estimated GFR 104.83 (mL/min/1.73m2); Glucose 129 mg/dL (74-106); Potassium 4.2 mmol/L (3.5-5.1); Sodium 136 mmol/L (136-145); Total Protein 7.5 g/dL (6.4-8.2)
[2022-11-15 20:41] LABS: CEA 5.2 ng/mL (See Note)
== END 2022-11-29 23:59 | disposition home or self-care (01) ==
LOC: INF 01:12
PROVIDERS: PCP Nurse Practitioner Family; Visit Provider Internal Medicine Hematology & Oncology
DX: C20 Malignant neoplasm of rectum (principal); Z45.2 Encounter for adjustment and management of vascular access device
CPT/HCPCS: 36591; 80053; 96523; 81003; 82378; 85025

== ENCOUNTER 2022-11-25 16:49 | Outpatient (REF) | payer MEDICARE, OTHER, MEDICAID, SELFPAY ==
[2022-11-25 19:44] LABS: Bilirubin Negative (Negative); Blood Negative (Negative); Clarity Sl Cloudy (Clear); Glucose Negative (Negative); Ketones Negative (Negative); Leukocyte Esterase Trace (Negative); Nitrite Positive (Negative); Specific Gravity 1.015 (1.005-1.025); Urobilinogen 0.2 mg/dL (Up to 0.2)
[2022-11-25 20:12] LABS: Bacteria Many HPF (Negative); C & S Indicated? Yes; Casts Negative LPF (Negative); Crystals Negative HPF (Negative); Epithelial Cells Rare HPF (Negative); Mucus Negative (Negative); RBC 0-2 HPF (0-2)
== END 2022-11-25 16:50 | disposition home or self-care (01) ==
LOC: LBN 16:49
PROVIDERS: PCP Nurse Practitioner Family; Visit Provider Nurse Practitioner Family
DX: R35.0 Frequency of micturition (principal)
CPT/HCPCS: 87077; 81003; 81015; 87086; 87186

== ENCOUNTER 2022-12-27 00:55 | Outpatient (RCR) | payer MEDICARE, OTHER, MEDICAID, SELFPAY ==
[2022-12-06] MEDS: Normal Saline Flush 10 ML SYR IVP (08:55)
[2022-12-06 09:04] LABS: Absolute Basophil Count 0.08 10^3/uL (0.0-0.2); Absolute Eosinophil Count 0.76 10^3/uL (0.0-0.7); Absolute Lymphocyte Count 1.24 10^3/uL (1.2-3.4); Absolute Monocyte Count 0.86 10^3/uL (0.1-0.8); Absolute Neutrophil Count 5.46 10^3/uL (1.2-6.7); Basophils % 0.9; Bilirubin Negative (Negative); Blood Negative (Negative); Clarity Sl Cloudy (Clear); Eosinophils % 8.9; Glucose Negative (Negative); HCT 50.9 % (40.0-50.0); Immature Grans % 1.2; Ketones Negative (Negative); Leukocyte Esterase Negative (Negative); Lymphocytes % 14.6; MCH 30.1 pg (27.0-33.0); MCHC 33.4 % (32.0-36.0); MCV 90 fL (80-95); MPV 8.9 fL (8.0-11.0); Monocytes % 10.1; Neutrophils % 64.3; Nitrite Negative (Negative); Platelet Count 425 10^3/uL (130-400); RBC 5.64 10^6/uL (4.36-5.78); RDW 15.3 % (11.8-14.1); RDW-SD 49.3 fL; Specific Gravity 1.015 (1.005-1.025); Urobilinogen 0.2 mg/dL (Up to 0.2)
[2022-12-06 09:20] LABS: ALT 33 U/L (16-63); AST 29 U/L (15-37); Albumin 3.8 g/dL (3.4-5.0); Alkaline Phosphatase 92 U/L (46-116); Anion Gap 6.4 mmol/L (3-11); BUN 12 mg/dL (7-18); Bilirubin, Total 0.4 mg/dL (0.2-1.0); CO2 29.6 mmol/L (21.0-32.0); Calcium 9.7 mg/dL (8.5-10.1); Chloride 91 mmol/L (98-107); Estimated GFR 85.63 (mL/min/1.73m2); Glucose 122 mg/dL (74-106); Potassium 4.9 mmol/L (3.5-5.1); Sodium 127 mmol/L (136-145); Total Protein 7.6 g/dL (6.4-8.2)
[2022-12-06 20:53] LABS: CEA 4.8 ng/mL (See Note)
[2022-12-27] MEDS: Normal Saline Flush 10 ML SYR IVP (08:19)
[2022-12-27 08:33] LABS: Abs Immature Grans 0.02 10^3/uL (0.0-0.06); Absolute Basophil Count 0.06 10^3/uL (0.0-0.2); Absolute Eosinophil Count 0.32 10^3/uL (0.0-0.7); Absolute Lymphocyte Count 0.36 10^3/uL (1.2-3.4); Absolute Monocyte Count 0.74 10^3/uL (0.1-0.8); Absolute Neutrophil Count 5.13 10^3/uL (1.2-6.7); Basophils % 0.9; Eosinophils % 4.8; HCT 45.5 % (40.0-50.0); HGB 15.6 g/dL (13.5-17.5); Immature Grans % 0.3; Lymphocytes % 5.4; MCH 31.3 pg (27.0-33.0); MCHC 34.3 % (32.0-36.0); MCV 91 fL (80-95); Monocytes % 11.2; Neutrophils % 77.4; Platelet Count 263 10^3/uL (130-400); RBC 4.99 10^6/uL (4.36-5.78); RDW-SD 51.6 fL; WBC 6.63 10^3/uL (4.4-10.8)
[2022-12-27 08:38] LABS: Bilirubin Negative (Negative); Blood Negative (Negative); Clarity Sl Cloudy (Clear); Glucose Negative (Negative); Ketones Negative (Negative); Leukocyte Esterase Small (Negative); Nitrite Positive (Negative); Urobilinogen 0.2 mg/dL (Up to 0.2); pH 6.5 (5-8)
[2022-12-27 08:48] LABS: ALT 23 U/L (16-63); AST 16 U/L (15-37); Albumin 3.5 g/dL (3.4-5.0); Alkaline Phosphatase 77 U/L (46-116); BUN 13 mg/dL (7-18); Bilirubin, Total 0.6 mg/dL (0.2-1.0); CREATININE 0.8 mg/dL (0.70-1.30); Calcium 9.5 mg/dL (8.5-10.1); Chloride 97 mmol/L (98-107); Estimated GFR 100.69 (mL/min/1.73m2); Glucose 147 mg/dL (74-106); Sodium 134 mmol/L (136-145); Total Protein 7.2 g/dL (6.4-8.2)
[2022-12-27 21:56] LABS: CEA 3.2 ng/mL (See Note)
== END 2022-12-29 23:59 | disposition home or self-care (01) ==
LOC: INF 00:55
PROVIDERS: PCP Nurse Practitioner Family; Visit Provider Internal Medicine Hematology & Oncology
DX: C20 Malignant neoplasm of rectum (principal); Z45.2 Encounter for adjustment and management of vascular access device
CPT/HCPCS: 36415; 36591; 80053; 96523; 81003; 82378; 85025

== ENCOUNTER 2023-01-05 13:38 | Outpatient (REF) | payer MEDICARE, OTHER, MEDICAID, SELFPAY ==
[2023-01-05 13:53] LABS: Bilirubin Negative (Negative); Blood Negative (Negative); Clarity Cloudy (Clear); Glucose Negative (Negative); Ketones Negative (Negative); Leukocyte Esterase Negative (Negative); Nitrite Negative (Negative); Urobilinogen 0.2 mg/dL (Up to 0.2); pH >= 9.0 (5-8)
[2023-01-05 14:03] LABS: Bacteria Moderate HPF (Negative); C & S Indicated? Yes; Casts 5-10 Hyaline LPF (Negative); Crystals Moderate Triple Phos HPF (Negative); Epithelial Cells Rare HPF (Negative); Mucus Moderate (Negative); RBC 0-2 HPF (0-2)
== END 2023-01-05 13:39 | disposition home or self-care (01) ==
LOC: LBN 13:38
PROVIDERS: PCP Nurse Practitioner Family; Visit Provider Family Medicine
DX: R30.0 Dysuria (principal)
CPT/HCPCS: 81003; 81015; 87086

== ENCOUNTER 2023-01-07 18:17 | Outpatient (REF) | payer MEDICARE, OTHER, MEDICAID, SELFPAY | END 2023-01-07 18:18 | disposition home or self-care (01) | LOC: LBN 18:17 | PROVIDERS: PCP Nurse Practitioner Family; Visit Provider Nurse Practitioner Family | DX: N39.0 Urinary tract infection, site not specified (principal) | CPT/HCPCS: 87086 ==

== ENCOUNTER 2023-01-17 01:44 | Outpatient (RCR) | payer MEDICARE, OTHER, MEDICAID, SELFPAY ==
[2023-01-17 12:52] LABS: Bilirubin Negative (Negative); Blood Negative (Negative); Glucose Negative (Negative); Ketones Negative (Negative); Leukocyte Esterase Negative (Negative); Nitrite Negative (Negative); Urobilinogen 0.2 mg/dL (Up to 0.2); pH 8.5 (5-8)
[2023-01-17 12:53] LABS: Abs Immature Grans 0.08 10^3/uL (0.0-0.06); Absolute Basophil Count 0.11 10^3/uL (0.0-0.2); Absolute Eosinophil Count 0.26 10^3/uL (0.0-0.7); Absolute Lymphocyte Count 1.15 10^3/uL (1.2-3.4); Absolute Monocyte Count 0.59 10^3/uL (0.1-0.8); Absolute Neutrophil Count 5.28 10^3/uL (1.2-6.7); Basophils % 1.5; Eosinophils % 3.5; HCT 51.2 % (40.0-50.0); HGB 16.8 g/dL (13.5-17.5); Immature Grans % 1.1; Lymphocytes % 15.4; MCH 29.9 pg (27.0-33.0); MCHC 32.8 % (32.0-36.0); MCV 91 fL (80-95); MPV 9.2 fL (8.0-11.0); Monocytes % 7.9; Neutrophils % 70.6; Platelet Count 488 10^3/uL (130-400); RBC 5.61 10^6/uL (4.36-5.78); RDW 16.2 % (11.8-14.1); RDW-SD 52.9 fL; WBC 7.47 10^3/uL (4.4-10.8)
[2023-01-17] MEDS: Normal Saline Flush 10 ML SYR IVP (13:04)
[2023-01-17 13:08] LABS: ALT 41 U/L (16-63); AST 21 U/L (15-37); Albumin 3.5 g/dL (3.4-5.0); Alkaline Phosphatase 105 U/L (46-116); Anion Gap 5.7 mmol/L (3-11); BUN 28 mg/dL (7-18); Bilirubin, Total 0.4 mg/dL (0.2-1.0); CO2 29.3 mmol/L (21.0-32.0); CREATININE 1.2 mg/dL (0.70-1.30); Calcium 9.9 mg/dL (8.5-10.1); Chloride 99 mmol/L (98-107); Glucose 116 mg/dL (74-106); Potassium 5.2 mmol/L (3.5-5.1); Sodium 134 mmol/L (136-145); Total Protein 8.1 g/dL (6.4-8.2)
[2023-01-17 13:38] LABS: Bacteria Rare HPF (Negative); C & S Indicated? No; Casts 0-2 Hyaline LPF (Negative); Crystals Many Triple Phos HPF (Negative); Epithelial Cells Few HPF (Negative); Mucus Negative (Negative); RBC Negative HPF (0-2); WBC Negative HPF (0-5)
[2023-01-17 14:40] LABS: Clarity Cloudy (Clear)
[2023-01-17 22:40] LABS: CEA 4.6 ng/mL (See Note)
== END 2023-01-29 23:59 | disposition home or self-care (01) ==
LOC: INF 01:44
PROVIDERS: PCP Nurse Practitioner Family; Visit Provider Internal Medicine Hematology & Oncology
DX: C20 Malignant neoplasm of rectum (principal); Z45.2 Encounter for adjustment and management of vascular access device
CPT/HCPCS: 36415; 36591; 80053; 81003; 81015; 82378; 85025

== ENCOUNTER 2023-02-13 00:48 | Outpatient (CLI) | payer MEDICARE, OTHER, MEDICAID, SELFPAY ==
[2023-02-13] MEDS: Barium Sulfate 2% W/V-Creamy Vanilla Smoothie 450 ML BTL 900 ML PO (09:48)
[2023-02-13] MEDS: Normal Saline Flush 10 ML SYR IVP (10:16)
[2023-02-13] MEDS: Normal Saline - Diluent 50 ML VIAL IJ (10:16)
[2023-02-13] MEDS: Omnipaque 350 MG/ML 500 ML BTL-Imaging package 100 ML IJ (10:21)
--- NOTE | 2023-02-13 10:23 | DI.CT_ITS ---
Exam(s) CT CHEST/ABD/PEL W EXAM: CT CHEST/ABD/PEL W CLINICAL HISTORY: RECTAL CANCER METS TO LUNG C20 C78.00. TECHNIQUE: Imaging Protocol: Axial computed tomography images with coronal and sagittal reformatted images were created and reviewed CONTRAST MATERIAL: Intravenous: Omnipaque 350 Contrast volume:100 ml Oral: Yes. Oral contrast was also administered for bowel opacification COMPARISON: CT CT CHEST/ABD/PEL W from 11/11/2022 FINDINGS: CHEST: LUNGS: Bilateral nodular infiltrates are again noted.. Few of the nodules in the right lung of ivan tly increased in size by approximately 1-2 mm. There are no new right lung nodules nor pleural effus ion. In the opposite-left lung a nodule in the superior segment of the left lower lobe has increased, this somewhat spiculated nodule now measuring 1.4 by 1.3 cm and exhibiting some internal cavitation. At the same level just anterior to the major fissure there is an unchanged 6-7 mm nodule in the apical p osterior segment of the left upper lobe. There is an unchanged 4 millimeter nodule in the anterior a spect of the left upper lobe. Other nodular density in the superior segment of the left lower lobe r emains relatively stable. There is, however, some increasing left lower lobe infrahilar infiltrate. In the lingular segment of the left lung there is a 1.4 by 1 point 4 cm nodular density adjacent to the anterior aspect of the major fissure at this level. There are no pleural effusions. No significant secretions nor nodular densities in the trachea and m ainstem bronchi. No bronchiectasis. MEDIASTINUM: No new hilar nor mediastinal adenopathy. No axillary adenopathy. No supraclavicular ad enopathy. CARDIAC: Heart size is normal. There is no pericardial effusion.Caliber of the thoracic aorta is wit hin normal limits. OSSEOUS: No significant new osseous lesions.Slight loss of height of superior endplate of T12 is agai n noted. This appears unchanged from 11/11/2022. No other compression fractures identified. Arcenio listhesis of L4 upon L5 is noted. Benign bony excrescence off the anterior cortex of L3 is unchanged . No obvious lytic osseous lesions and no blastic lesions identified. ABDOMEN: There is no ascites. LIVER: There are no focal hepatic lesions nor dilatation of intrahepatic ducts. GALLBLADDER/BILIARY: Gallstones are noted. Gallbladder wall exhibits some enhancement but no distens ion nor obvious a pericholecystic fluid. PANCREAS: No evidence of pancreatic mass nor dilatation of the pancreatic duct. SPLEEN: Spleen is not enlarged. There are no intrasplenic lesions. Splenic and portal veins are danielle nt. ADRENALS: Slight thickening of the adrenal gland is unchanged. No true discernible mass in either ad renal. KIDNEYS: No calculi nor hydronephrosis. No solid renal masses. No cysts evident. ABDOMINAL AORTA: Abdominal aorta is atherosclerotic. Maximum diameter 1.9 cm. There is mild dilatat ion of the lumen of the left common iliac artery which exhibits a diameter of 1.2 cm. No dilatation of the right common iliac artery. No aneurysms of the external and internal iliac arteries. LYMPH NODES: There is no retroperitoneal nor paraaortic adenopathy. ABDOMINAL WALL: There are bilateral anterior abdominal wall ostomy sites.. There has been resection of the rectum. Multiple opacified nondilated small bowel loops are in this region. GI: There is no evidence of bowel obstruction.No free air. No abscess. PELVIS: LYMPH NODES: There is no obvious new intrapelvic nor inguinal adenopathy. GI: As above. URINARY BLADDER: Prior cystectomy again noted. Right-sided neobladder noted. This drains into the r ight side ostomy. REPRODUCTIVE: Prostate and seminal vesicles are surgically absent. OSSEOUS: No lytic nor blastic lesions. No new fractures. IMPRESSION: 1. Compared to prior CT scan of 11/11/2022 there is slight increase in size and number of lung nodule s, the largest measuring approximately 1.5 x 1.3 cm and exhibiting some internal cavitation. No pleu ral effusions. No increasing intrathoracic adenopathy. 2. Again noted is evidence of rectal resection with left lower quadrant colostomy, cystectomy, right pelvic neobladder formation and right ileostomy, and prostatectomy. 3. No evidence of new wgdyn-corkcsewr-txocqljvdls metastatic disease nor ascites. 4. No new significant osseous lesions. Mild superior endplate compression deformity of T12 is unchan ged from the October 2022 study. RADIATION DOSE DELIVERED: 1,349.8mGy.cm Total DLP DATA REPOSITORY: All CT scans at this facility are submitted to the National Radiology Data Registry (NRDR) Dose Index Registry (DIR) with the [employer] (ACR). RADIATION OPTIMIZATION: All CT scans at this facility use at least one of these dose optimization te chniques: automated exposure control; mA and/or kV adjustment per patient size (includes targeted exa ms where dose is matched to clinical indication); or iterative reconstruction.
== END 2023-02-13 01:08 ==
LOC: DI 00:48
PROVIDERS: PCP Nurse Practitioner Family; Visit Provider Nurse Practitioner Family
DX: C20 Malignant neoplasm of rectum (principal); C78.00 Secondary malignant neoplasm of unspecified lung
CPT/HCPCS: 36591; 74177; 80053; 71260; 81003; 82378; 85025

== ENCOUNTER 2023-02-28 00:41 | Outpatient (RCR) | payer MEDICARE, OTHER, MEDICAID, SELFPAY ==
[2023-02-13] MEDS: Normal Saline Flush 10 ML SYR IVP (08:46)
[2023-02-13] MEDS: Heparin 500 UNITS/5 ML SYRINGE IV (08:47)
[2023-02-13 08:53] LABS: Abs Immature Grans 0.05 10^3/uL (0.0-0.06); Absolute Basophil Count 0.05 10^3/uL (0.0-0.2); Absolute Eosinophil Count 0.33 10^3/uL (0.0-0.7); Absolute Lymphocyte Count 0.97 10^3/uL (1.2-3.4); Absolute Monocyte Count 0.69 10^3/uL (0.1-0.8); Absolute Neutrophil Count 6.99 10^3/uL (1.2-6.7); Basophils % 0.6; Eosinophils % 3.6; HCT 47.4 % (40.0-50.0); HGB 16.1 g/dL (13.5-17.5); Immature Grans % 0.6; Lymphocytes % 10.7; MCH 29.7 pg (27.0-33.0); MCV 88 fL (80-95); MPV 9.2 fL (8.0-11.0); Monocytes % 7.6; Neutrophils % 76.9; Platelet Count 330 10^3/uL (130-400); RBC 5.42 10^6/uL (4.36-5.78); RDW 15.1 % (11.8-14.1); RDW-SD 47.9 fL; WBC 9.08 10^3/uL (4.4-10.8)
[2023-02-13 08:59] LABS: AST 20 U/L (15-37); Albumin 3.4 g/dL (3.4-5.0); Alkaline Phosphatase 89 U/L (46-116); Anion Gap 8.9 mmol/L (3-11); BUN 7 mg/dL (7-18); Bilirubin, Total 0.8 mg/dL (0.2-1.0); CO2 26.1 mmol/L (21.0-32.0); CREATININE 0.6 mg/dL (0.70-1.30); Calcium 8.7 mg/dL (8.5-10.1); Chloride 97 mmol/L (98-107); Estimated GFR 109.83 (mL/min/1.73m2); Glucose 106 mg/dL (74-106); Potassium 4.2 mmol/L (3.5-5.1); Sodium 132 mmol/L (136-145); Total Protein 7.1 g/dL (6.4-8.2)
[2023-02-13 09:00] LABS: ALT 21 U/L (16-63)
[2023-02-13 09:06] LABS: Bilirubin Negative (Negative); Clarity Clear (Clear); Glucose Negative (Negative); Ketones Negative (Negative); Leukocyte Esterase Small (Negative); Nitrite Negative (Negative); Specific Gravity <= 1.005 (1.005-1.025); Urobilinogen 0.2 mg/dL (Up to 0.2)
[2023-02-13 09:07] LABS: Blood Trace-lysed (Negative)
[2023-02-13 19:11] LABS: CEA 5.6 ng/mL (See Note)
[2023-02-28] MEDS: Normal Saline Flush 10 ML SYR IVP (08:08)
[2023-02-28 08:28] LABS: Abs Immature Grans 0.04 10^3/uL (0.0-0.06); Absolute Basophil Count 0.04 10^3/uL (0.0-0.2); Absolute Eosinophil Count 0.23 10^3/uL (0.0-0.7); Absolute Lymphocyte Count 0.94 10^3/uL (1.2-3.4); Absolute Neutrophil Count 8.34 10^3/uL (1.2-6.7); Basophils % 0.4; Eosinophils % 2.2; HCT 43.5 % (40.0-50.0); HGB 14.7 g/dL (13.5-17.5); Immature Grans % 0.4; MCHC 33.8 % (32.0-36.0); MCV 89 fL (80-95); MPV 8.9 fL (8.0-11.0); Monocytes % 8.6; Neutrophils % 79.4; Platelet Count 358 10^3/uL (130-400); WBC 10.49 10^3/uL (4.4-10.8)
[2023-02-28 08:44] LABS: ALT 28 U/L (16-63); AST 21 U/L (15-37); Albumin 3.6 g/dL (3.4-5.0); Alkaline Phosphatase 80 U/L (46-116); Anion Gap 3.1 mmol/L (3-11); BUN 17 mg/dL (7-18); Bilirubin, Total 0.5 mg/dL (0.2-1.0); CO2 33.9 mmol/L (21.0-32.0); CREATININE 1.1 mg/dL (0.70-1.30); Calcium 9.6 mg/dL (8.5-10.1); Chloride 85 mmol/L (98-107); Estimated GFR 76.37 (mL/min/1.73m2); Glucose 130 mg/dL (74-106); Potassium 4.7 mmol/L (3.5-5.1); Total Protein 7.1 g/dL (6.4-8.2)
[2023-02-28 09:03] LABS: Sodium 122 mmol/L (136-145)
[2023-02-28 11:28] LABS: Bilirubin Negative (Negative); Blood Trace-intact (Negative); Clarity Clear (Clear); Glucose Negative (Negative); Ketones Negative (Negative); Leukocyte Esterase Small (Negative); Nitrite Negative (Negative); Specific Gravity 1.015 (1.005-1.025); Urobilinogen 0.2 mg/dL (Up to 0.2); pH 7.5 (5-8)
[2023-02-28 11:45] LABS: Bacteria Moderate HPF (Negative); C & S Indicated? Yes; Crystals Negative HPF (Negative); Epithelial Cells Negative HPF (Negative); Mucus Negative (Negative); WBC 20-50 HPF (0-5)
[2023-02-28 20:13] LABS: CEA 5.8 ng/mL (See Note)
== END 2023-02-28 23:59 | disposition home or self-care (01) ==
LOC: INF 00:41
PROVIDERS: PCP Nurse Practitioner Family; Visit Provider Internal Medicine Hematology & Oncology
DX: C20 Malignant neoplasm of rectum (principal); Z45.2 Encounter for adjustment and management of vascular access device
CPT/HCPCS: 36591; 80053; 81003; 81015; 82378; 85025; 87086

== ENCOUNTER 2023-03-27 02:55 | Outpatient (CLI) | payer MEDICARE, OTHER, MEDICAID, SELFPAY ==
--- NOTE | 2023-03-27 | DI.MRI_ITS ---
Exam(s) MR BRAIN WO/W EXAM: MR BRAIN WO/W CLINICAL HISTORY: RECTAL CA METS TO LUNG,C20,C78.00,TRANSIENT CONFUSION,R41.0,? METS TECHNIQUE: Multiplanar multisequence MRI of the brain was performed. Both noninfused and contrast i nfused sequences were performed. IV Contrast injected was 13 cc Dotarem. COMPARISON: No exams were available for comparison FINDINGS: CEREBRAL PARENCHYMA: No evidence of intracranial hemorrhage, mass effect nor shift of midline structu re. No extraaxial fluid collections. Ventricles are not enlarged nor shifted. There is no significant focal signal abnormality in the cerebellar hemispheres nor within the brittni, m idbrain, and thalami. There are multiple foci of sub cm signal abnormality in the periventricular white matter, largest of these measuring 7 x 5 mm. These are not associated with hemorrhage, surrounding edema, nor enhanceme nt. There are no ring enhancing lesions in the brain. No abnormal meningeal enhancement. DWI: No areas of restricted diffusion to suggest acute ischemic event. SWI: No microhemorrhages evident. There are no ring enhancing lesions in the brain. There is no abnormal meningeal enhancement. PITUITARY GLAND: No mass nor parasellar abnormality. No obvious abnormality in the cavernous sinuses. FLOW VOIDS: The expected flow void are noted. No evidence of obvious aneurysm nor obvious vascular ma lformation. PARANASAL SINUSES: The visualized paranasal sinuses appear unremarkable. ORBITS: No obvious abnormal findings. IMPRESSION: 1. There are multiple foci of white matter signal abnormality measuring up to 7 x 5 mm. These are no t associated with surrounding edema nor enhancement and most probably represent chronic ischemic whit e matter changes, as opposed to metastatic lesions. There are no ring enhancing lesions in the brain . 2. No evidence of acute infarct. DATA REPOSITORY:
[2023-03-27] MEDS: Gadoterate meglumine 20 ML VIAL IVP (15:23)
[2023-03-27] MEDS: Normal Saline Flush 10 ML SYR IJ (15:24)
== END 2023-03-27 03:15 ==
LOC: DI 02:56
PROVIDERS: PCP Nurse Practitioner Family; Visit Provider Internal Medicine Hematology & Oncology
DX: C20 Malignant neoplasm of rectum (principal); C78.00 Secondary malignant neoplasm of unspecified lung; R41.0 Disorientation, unspecified; R94.02 Abnormal brain scan
CPT/HCPCS: 36591; 70553; 80053; 81003; 82378; 85025

== ENCOUNTER 2023-03-28 01:06 | Outpatient (RCR) | payer MEDICARE, OTHER, MEDICAID, SELFPAY ==
[2023-03-14 08:41] LABS: Abs Immature Grans 0.04 10^3/uL (0.0-0.06); Absolute Basophil Count 0.06 10^3/uL (0.0-0.2); Absolute Eosinophil Count 0.32 10^3/uL (0.0-0.7); Absolute Lymphocyte Count 0.74 10^3/uL (1.2-3.4); Absolute Monocyte Count 0.56 10^3/uL (0.1-0.8); Absolute Neutrophil Count 6.23 10^3/uL (1.2-6.7); Basophils % 0.8; HCT 44.2 % (40.0-50.0); HGB 14.4 g/dL (13.5-17.5); Immature Grans % 0.5; Lymphocytes % 9.3; MCH 30.3 pg (27.0-33.0); MCHC 32.6 % (32.0-36.0); MCV 93 fL (80-95); MPV 9.1 fL (8.0-11.0); Neutrophils % 78.4; Platelet Count 336 10^3/uL (130-400); RBC 4.76 10^6/uL (4.36-5.78); RDW 17.2 % (11.8-14.1); RDW-SD 53.5 fL; WBC 7.95 10^3/uL (4.4-10.8)
[2023-03-14 08:44] LABS: Bilirubin Negative (Negative); Blood Small (Negative); Clarity Sl Cloudy (Clear); Glucose Negative (Negative); Ketones Negative (Negative); Leukocyte Esterase Moderate (Negative); Nitrite Negative (Negative); Specific Gravity 1.015 (1.005-1.025); Urobilinogen 0.2 mg/dL (Up to 0.2); pH 8.5 (5-8)
[2023-03-14] MEDS: Normal Saline Flush 10 ML SYR IVP (08:59)
[2023-03-14 09:07] LABS: ALT 23 U/L (16-63); AST 18 U/L (15-37); Albumin 3.9 g/dL (3.4-5.0); Alkaline Phosphatase 77 U/L (46-116); Anion Gap 7.2 mmol/L (3-11); BUN 16 mg/dL (7-18); Bilirubin, Total 0.6 mg/dL (0.2-1.0); CO2 29.8 mmol/L (21.0-32.0); Calcium 9.4 mg/dL (8.5-10.1); Chloride 95 mmol/L (98-107); Estimated GFR 85.63 (mL/min/1.73m2); Glucose 126 mg/dL (74-106); Potassium 4.8 mmol/L (3.5-5.1); Sodium 132 mmol/L (136-145); Total Protein 7.5 g/dL (6.4-8.2)
[2023-03-14 09:11] LABS: Bacteria Few HPF (Negative); C & S Indicated? Yes; Casts 0-2 Hyaline LPF (Negative); Crystals Negative HPF (Negative); Epithelial Cells Few HPF (Negative); Mucus Trace (Negative); WBC 20-50 HPF (0-5)
[2023-03-14 20:11] LABS: CEA 5.5 ng/mL (See Note)
[2023-03-20] MEDS: Normal Saline Flush 10 ML SYR IVP (09:01)
[2023-03-20 09:07] LABS: Abs Immature Grans 0.03 10^3/uL (0.0-0.06); Absolute Basophil Count 0.04 10^3/uL (0.0-0.2); Absolute Eosinophil Count 0.39 10^3/uL (0.0-0.7); Absolute Lymphocyte Count 0.93 10^3/uL (1.2-3.4); Absolute Monocyte Count 0.71 10^3/uL (0.1-0.8); Absolute Neutrophil Count 6.04 10^3/uL (1.2-6.7); Basophils % 0.5; Eosinophils % 4.8; HGB 15.1 g/dL (13.5-17.5); Immature Grans % 0.4; Lymphocytes % 11.4; MCH 30.4 pg (27.0-33.0); MCHC 32.1 % (32.0-36.0); MCV 95 fL (80-95); MPV 9.2 fL (8.0-11.0); Monocytes % 8.7; Neutrophils % 74.2; Platelet Count 323 10^3/uL (130-400); RBC 4.96 10^6/uL (4.36-5.78); RDW 18.3 % (11.8-14.1); RDW-SD 59.9 fL; WBC 8.14 10^3/uL (4.4-10.8)
[2023-03-20 09:11] LABS: Bilirubin Negative (Negative); Blood Negative (Negative); Clarity Clear (Clear); Glucose Negative (Negative); Ketones Negative (Negative); Leukocyte Esterase Negative (Negative); Nitrite Negative (Negative); Urobilinogen 0.2 mg/dL (Up to 0.2); pH 7.5 (5-8)
[2023-03-20 09:22] LABS: ALT 17 U/L (16-63); AST 15 U/L (15-37); Albumin 3.6 g/dL (3.4-5.0); Alkaline Phosphatase 71 U/L (46-116); Anion Gap 6.5 mmol/L (3-11); BUN 14 mg/dL (7-18); Bilirubin, Total 0.5 mg/dL (0.2-1.0); CO2 29.5 mmol/L (21.0-32.0); CREATININE 0.9 mg/dL (0.70-1.30); Calcium 9.1 mg/dL (8.5-10.1); Chloride 105 mmol/L (98-107); Estimated GFR 97.17 (mL/min/1.73m2); Glucose 123 mg/dL (74-106); Potassium 4.3 mmol/L (3.5-5.1); Sodium 141 mmol/L (136-145)
[2023-03-20 20:48] LABS: CEA 6.5 ng/mL (See Note)
[2023-03-27] MEDS: Normal Saline Flush 10 ML SYR IVP (13:30)
[2023-03-27] MEDS: Heparin 500 UNITS/5 ML SYRINGE IV (14:45)
[2023-03-27 15:53] LABS: Abs Immature Grans 0.02 10^3/uL (0.0-0.06); Absolute Basophil Count 0.04 10^3/uL (0.0-0.2); Absolute Eosinophil Count 0.29 10^3/uL (0.0-0.7); Absolute Lymphocyte Count 0.94 10^3/uL (1.2-3.4); Absolute Neutrophil Count 3.64 10^3/uL (1.2-6.7); Basophils % 0.7; Eosinophils % 5.2; HCT 44.1 % (40.0-50.0); HGB 14.3 g/dL (13.5-17.5); Immature Grans % 0.4; MCH 30.8 pg (27.0-33.0); MCHC 32.4 % (32.0-36.0); MCV 95 fL (80-95); MPV 9.6 fL (8.0-11.0); Monocytes % 10.8; Neutrophils % 65.9; Platelet Count 313 10^3/uL (130-400); RBC 4.65 10^6/uL (4.36-5.78); RDW 17.2 % (11.8-14.1); RDW-SD 58.5 fL; WBC 5.53 10^3/uL (4.4-10.8)
[2023-03-27 15:55] LABS: Albumin 3.5 g/dL (3.4-5.0); Alkaline Phosphatase 73 U/L (46-116); Anion Gap 4.8 mmol/L (3-11); BUN 15 mg/dL (7-18); Bilirubin, Total 0.3 mg/dL (0.2-1.0); CO2 31.2 mmol/L (21.0-32.0); CREATININE 0.9 mg/dL (0.70-1.30); Calcium 8.9 mg/dL (8.5-10.1); Chloride 101 mmol/L (98-107); Estimated GFR 97.17 (mL/min/1.73m2); Glucose 124 mg/dL (74-106); Potassium 4.3 mmol/L (3.5-5.1); Sodium 137 mmol/L (136-145); Total Protein 6.8 g/dL (6.4-8.2)
[2023-03-27 15:56] LABS: ALT 20 U/L (16-63); AST 14 U/L (15-37)
[2023-03-27 16:00] LABS: Bilirubin Negative (Negative); Blood Negative (Negative); Clarity Clear (Clear); Glucose Negative (Negative); Ketones Negative (Negative); Leukocyte Esterase Negative (Negative); Nitrite Negative (Negative); Specific Gravity 1.015 (1.005-1.025); Urobilinogen 0.2 mg/dL (Up to 0.2)
[2023-03-28 19:37] LABS: CEA 4.6 ng/mL (See Note)
== END 2023-03-31 23:59 | disposition home or self-care (01) ==
LOC: INF 01:06
PROVIDERS: PCP Nurse Practitioner Family; Visit Provider Internal Medicine Hematology & Oncology
DX: C20 Malignant neoplasm of rectum (principal); Z45.2 Encounter for adjustment and management of vascular access device
CPT/HCPCS: 36591; 80053; 87077; 81003; 81015; 82378; 85025; 87086; 87186

== ENCOUNTER 2023-04-23 14:45 | Outpatient (RCR) | payer MEDICARE, OTHER, SELFPAY ==
[2023-04-10] MEDS: Normal Saline Flush 10 ML SYR IVP (13:49)
[2023-04-10 14:44] LABS: Clarity Clear (Clear); Leukocyte Esterase Negative (Negative); Nitrite Negative (Negative); Specific Gravity 1.015 (1.005-1.025)
[2023-04-10 14:45] LABS: Bilirubin Negative (Negative); Blood Negative (Negative); Glucose Negative (Negative); Ketones Negative (Negative); Urobilinogen 0.2 mg/dL (Up to 0.2)
[2023-04-10 14:48] LABS: BUN 15 mg/dL (7-18); Glucose 134 mg/dL (74-106)
[2023-04-10 14:49] LABS: Albumin 3.6 g/dL (3.4-5.0); Alkaline Phosphatase 80 U/L (46-116); Anion Gap 5.7 mmol/L (3-11); Bilirubin, Total 0.5 mg/dL (0.2-1.0); CO2 28.3 mmol/L (21.0-32.0); CREATININE 0.9 mg/dL (0.70-1.30); Chloride 97 mmol/L (98-107); Estimated GFR 97.17 (mL/min/1.73m2); Potassium 4.5 mmol/L (3.5-5.1); Sodium 131 mmol/L (136-145); Total Protein 6.9 g/dL (6.4-8.2)
[2023-04-10 14:50] LABS: ALT 19 U/L (16-63); AST 14 U/L (15-37)
[2023-04-10 15:04] LABS: HCT 43.8 % (40.0-50.0); HGB 14.7 g/dL (13.5-17.5); MCH 31.1 pg (27.0-33.0); MCHC 33.6 % (32.0-36.0); MCV 93 fL (80-95); RBC 4.72 10^6/uL (4.36-5.78); RDW 17.2 % (11.8-14.1); RDW-SD 56.5 fL; WBC 8.93 10^3/uL (4.4-10.8)
[2023-04-10 15:05] LABS: Absolute Basophil Count 0.05 10^3/uL (0.0-0.2); Absolute Eosinophil Count 0.29 10^3/uL (0.0-0.7); Absolute Lymphocyte Count 1.16 10^3/uL (1.2-3.4); Absolute Monocyte Count 0.64 10^3/uL (0.1-0.8); Absolute Neutrophil Count 6.65 10^3/uL (1.2-6.7); Basophils % 0.6; Eosinophils % 3.2; Immature Grans % 1.5; Monocytes % 7.2; Neutrophils % 74.5; Platelet Count 277 10^3/uL (130-400)
[2023-04-10 22:55] LABS: CEA 3.8 ng/mL (See Note)
[2023-04-23 15:20] LABS: Abs Immature Grans 0.05 10^3/uL (0.0-0.06); Absolute Basophil Count 0.03 10^3/uL (0.0-0.2); Absolute Eosinophil Count 0.32 10^3/uL (0.0-0.7); Absolute Lymphocyte Count 1.05 10^3/uL (1.2-3.4); Absolute Monocyte Count 0.71 10^3/uL (0.1-0.8); Absolute Neutrophil Count 7.66 10^3/uL (1.2-6.7); Basophils % 0.3; Eosinophils % 3.3; HGB 15.1 g/dL (13.5-17.5); Immature Grans % 0.5; Lymphocytes % 10.7; MCH 30.9 pg (27.0-33.0); MCHC 33.6 % (32.0-36.0); MCV 92 fL (80-95); MPV 8.8 fL (8.0-11.0); Monocytes % 7.2; Platelet Count 309 10^3/uL (130-400); RBC 4.89 10^6/uL (4.36-5.78); RDW 17.4 % (11.8-14.1); RDW-SD 56.4 fL; WBC 9.82 10^3/uL (4.4-10.8)
[2023-04-23 15:37] LABS: ALT 21 U/L (16-63); AST 15 U/L (15-37); Albumin 3.8 g/dL (3.4-5.0); Alkaline Phosphatase 82 U/L (46-116); Anion Gap 6.2 mmol/L (3-11); BUN 10 mg/dL (7-18); Bilirubin, Total 0.5 mg/dL (0.2-1.0); CO2 28.8 mmol/L (21.0-32.0); CREATININE 0.8 mg/dL (0.70-1.30); Calcium 9.5 mg/dL (8.5-10.1); Chloride 97 mmol/L (98-107); Estimated GFR 100.06 (mL/min/1.73m2); Glucose 136 mg/dL (74-106); Potassium 3.9 mmol/L (3.5-5.1); Sodium 132 mmol/L (136-145); Total Protein 7.2 g/dL (6.4-8.2)
[2023-04-23 22:51] LABS: CEA 3.4 ng/mL (See Note)
== END 2023-05-01 23:59 | disposition home or self-care (01) ==
LOC: INF 14:45
PROVIDERS: PCP Nurse Practitioner Family; Visit Provider Internal Medicine Hematology & Oncology
DX: C20 Malignant neoplasm of rectum (principal); C78.00 Secondary malignant neoplasm of unspecified lung; Z79.899 Other long term (current) drug therapy
CPT/HCPCS: 36415; 36591; 80053; 81003; 82378; 85025

== ENCOUNTER → 2023-05-15 01:36 | Outpatient (CLI) | payer MEDICARE, OTHER, SELFPAY ==
--- NOTE | 2023-05-15 | DI.CT_ITS ---
Exam(s) CT CHEST/ABD/PEL W EXAM: CT CHEST/ABD/PEL W CLINICAL HISTORY: RECTAL CA METASTASIZED TO LUNG, C20,C78.00. TECHNIQUE: Imaging Protocol: Axial computed tomography images with coronal and sagittal reformatted images were created and reviewed CONTRAST MATERIAL: Intravenous: Omnipaque 350 Contrast volume:100 ml Oral: yes / COMPARISON: CT CT CHEST/ABD/PEL W from 02/13/2023 FINDINGS: CHEST: Tracheobronchial tree: Patent where visualized. Pulmonary parenchyma: Underlying emphysematous changes. Left lung: Stable 14 millimeter nodule in the lingula. Decreased prominence of area nodular scarring posterior left lung base. Decreased prominence of cavitary lesion seen superior segment left lower lobe, now 11 millimeters com pared to 14 on the previous exam.. Stable appearance of remaining nodules in superior segment left l ower lobe. Stable tiny nodule anterior left upper lobe. No new nodules. Right lung: Mild interval decrease in size of right upper lobe nodules. Decreased prominence of posterior basilar nodule. Stable size superior segment nodules. Pleura: No effusion or pneumothorax. Lymph nodes: Within normal limits. Aorta: Thoracic portion non-dilated. Atherosclerotic changes. Heart: Normal size. Pulmonary arteries: No evidence of emboli. Bones: No lytic or blastic lesions. Stable mild compression of the superior endplate T12. ABDOMEN: Liver: Normal density. No measurable mass. Gallbladder and biliary tract: A few gallstones are present. No biliary dilation. Pancreas: Normal density, no abnormal calcifications or inflammatory process. Spleen: Normal. Kidneys: Normal size, contour and axis. No radiodense stones or obstructive uropathy. No suspicious m asses seen. Adrenal glands: No masses seen. Aorta: Abdominal portion non-dilated. Throw sclerotic changes. Lymph nodes: Within normal limits. Soft tissues: Bilateral ostomies are unremarkable. PELVIS: Bladder: Surgically absent. Right-sided neobladder unchanged. Bowel: Resection of the rectum. No bowel dilatation. Peritoneal cavity: No ascites, collection or mesenteric inflammatory response. Bones: Degenerative changes. 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 The lytic or blastic lesions. Reproductive organs: Resection of prostate and seminal vesicles again noted. IMPRESSION: Stable or slight decrease size of multiple pulmonary metastases. No new abnormalities. No evidence recurrence or metastatic disease in the abdomen or pelvis. Postsurgical changes. No richard dence of hydronephrosis or bowel obstruction. RADIATION DOSE DELIVERED: 1,081.08mGy.cm Total DLP DATA REPOSITORY: All CT scans at this facility are submitted to the National Radiology Data Registry (NRDR) Dose Index Registry (DIR) with the [employer] (ACR). RADIATION OPTIMIZATION: All CT scans at this facility use at least one of these dose optimization te chniques: automated exposure control; mA and/or kV adjustment per patient size (includes targeted exa ms where dose is matched to clinical indication); or iterative reconstruction.
[2023-05-15] MEDS: Barium Sulfate 2% W/V-Creamy Vanilla Smoothie 450 ML BTL 900 ML PO (09:51)
[2023-05-15] MEDS: Normal Saline - Diluent 50 ML VIAL IJ (09:52)
[2023-05-15] MEDS: Omnipaque 350 MG/ML 500 ML BTL-Imaging package 100 ML IJ (09:54)
== END ==
PROVIDERS: PCP Nurse Practitioner Family; Visit Provider Nurse Practitioner Family
DX: C20 Malignant neoplasm of rectum (principal); C78.00 Secondary malignant neoplasm of unspecified lung
CPT/HCPCS: 36591; 74177; 80053; 87077; 71260; 81003; 81015; 82378; 85025; 87086; 87186

== ENCOUNTER 2023-05-30 02:53 | Outpatient (RCR) | payer MEDICARE, OTHER, SELFPAY ==
[2023-05-02 14:33] LABS: Abs Immature Grans 0.05 10^3/uL (0.0-0.06); Absolute Basophil Count 0.05 10^3/uL (0.0-0.2); Absolute Eosinophil Count 0.21 10^3/uL (0.0-0.7); Absolute Lymphocyte Count 1.09 10^3/uL (1.2-3.4); Absolute Neutrophil Count 8.28 10^3/uL (1.2-6.7); Basophils % 0.5; HCT 47.5 % (40.0-50.0); Immature Grans % 0.5; Lymphocytes % 10.4; MCH 30.9 pg (27.0-33.0); MCHC 33.7 % (32.0-36.0); MCV 92 fL (80-95); MPV 9.2 fL (8.0-11.0); Monocytes % 7.6; Platelet Count 326 10^3/uL (130-400); RBC 5.17 10^6/uL (4.36-5.78); RDW 18.2 % (11.8-14.1); RDW-SD 60.3 fL; WBC 10.48 10^3/uL (4.4-10.8)
[2023-05-02 14:38] LABS: Bilirubin Negative (Negative); Blood Negative (Negative); Clarity Clear (Clear); Glucose Negative (Negative); Ketones Negative (Negative); Leukocyte Esterase Small (Negative); Nitrite Positive (Negative); Specific Gravity 1.015 (1.005-1.025); Urobilinogen 0.2 mg/dL (Up to 0.2)
[2023-05-02 14:52] LABS: Bacteria Many HPF (Negative); C & S Indicated? Yes; Casts Negative LPF (Negative); Crystals Negative HPF (Negative); Epithelial Cells Rare HPF (Negative); Mucus Negative (Negative); RBC 0-2 HPF (0-2)
[2023-05-02 14:54] LABS: ALT 22 U/L (16-63); AST 18 U/L (15-37); Albumin 3.9 g/dL (3.4-5.0); Alkaline Phosphatase 86 U/L (46-116); BUN 11 mg/dL (7-18); Bilirubin, Total 0.4 mg/dL (0.2-1.0); CREATININE 0.7 mg/dL (0.70-1.30); Calcium 9.4 mg/dL (8.5-10.1); Chloride 97 mmol/L (98-107); Estimated GFR 104.18 (mL/min/1.73m2); Glucose 133 mg/dL (74-106); Potassium 3.7 mmol/L (3.5-5.1); Sodium 134 mmol/L (136-145); Total Protein 7.6 g/dL (6.4-8.2)
[2023-05-05 10:34] LABS: CEA 3.1 ng/mL (See Note)
[2023-05-15] MEDS: Normal Saline Flush 10 ML SYR IVP (09:21)
[2023-05-15 10:39] LABS: ALT 16 U/L (16-63); AST 15 U/L (15-37); Albumin 3.9 g/dL (3.4-5.0); Alkaline Phosphatase 112 U/L (46-116); Anion Gap 8.2 mmol/L (3-11); BUN 7 mg/dL (7-18); Bilirubin, Total 1.1 mg/dL (0.2-1.0); CO2 28.8 mmol/L (21.0-32.0); CREATININE 0.9 mg/dL (0.70-1.30); Calcium 9.5 mg/dL (8.5-10.1); Chloride 98 mmol/L (98-107); Estimated GFR 96.57 (mL/min/1.73m2); Glucose 115 mg/dL (74-106); Potassium 4.1 mmol/L (3.5-5.1); Sodium 135 mmol/L (136-145); Total Protein 7.8 g/dL (6.4-8.2)
[2023-05-15 10:41] LABS: HGB 16.6 g/dL (13.5-17.5); RBC 5.19 10^6/uL (4.36-5.78); WBC 11.54 10^3/uL (4.4-10.8)
[2023-05-15 10:42] LABS: Absolute Basophil Count 0.06 10^3/uL (0.0-0.2); Absolute Eosinophil Count 0.14 10^3/uL (0.0-0.7); Absolute Lymphocyte Count 0.72 10^3/uL (1.2-3.4); Absolute Monocyte Count 1.25 10^3/uL (0.1-0.8); Absolute Neutrophil Count 9.31 10^3/uL (1.2-6.7); Basophils % 0.5; Eosinophils % 1.2; HCT 48.3 % (40.0-50.0); Immature Grans % 0.5; Lymphocytes % 6.2; MCHC 34.4 % (32.0-36.0); MCV 93 fL (80-95); MPV 9.3 fL (8.0-11.0); Monocytes % 10.8; Neutrophils % 80.8; Platelet Count 347 10^3/uL (130-400); RDW 18.7 % (11.8-14.1); RDW-SD 62.1 fL
[2023-05-15 10:43] LABS: Abs Immature Grans 0.06 10^3/uL (0.0-0.06)
[2023-05-15 10:44] LABS: Bilirubin Negative (Negative); Blood Trace-intact (Negative); Clarity Sl Cloudy (Clear); Glucose Negative (Negative); Ketones Negative (Negative); Leukocyte Esterase Trace (Negative); Nitrite Positive (Negative); Specific Gravity 1.015 (1.005-1.025); Urobilinogen 0.2 mg/dL (Up to 0.2)
[2023-05-15 10:46] LABS: Bacteria Moderate HPF (Negative); C & S Indicated? Yes; Epithelial Cells Rare HPF (Negative); Mucus Trace (Negative)
[2023-05-15 19:37] LABS: CEA 3.4 ng/mL (See Note)
[2023-05-30] MEDS: Normal Saline Flush 10 ML SYR IVP (13:48)
[2023-05-30 14:16] LABS: Abs Immature Grans 0.09 10^3/uL (0.0-0.06); Absolute Basophil Count 0.04 10^3/uL (0.0-0.2); Absolute Eosinophil Count 0.16 10^3/uL (0.0-0.7); Absolute Lymphocyte Count 0.78 10^3/uL (1.2-3.4); Absolute Monocyte Count 0.65 10^3/uL (0.1-0.8); Absolute Neutrophil Count 6.95 10^3/uL (1.2-6.7); Basophils % 0.5; Eosinophils % 1.8; HCT 46.1 % (40.0-50.0); HGB 15.6 g/dL (13.5-17.5); MCH 32.2 pg (27.0-33.0); MCHC 33.8 % (32.0-36.0); MCV 95 fL (80-95); MPV 9.8 fL (8.0-11.0); Monocytes % 7.5; Neutrophils % 80.2; Platelet Count 265 10^3/uL (130-400); RBC 4.84 10^6/uL (4.36-5.78); RDW 18.6 % (11.8-14.1); RDW-SD 62.9 fL; WBC 8.67 10^3/uL (4.4-10.8)
[2023-05-30 14:18] LABS: Bilirubin Negative (Negative); Blood Trace-intact (Negative); Clarity Clear (Clear); Glucose Negative (Negative); Ketones Negative (Negative); Leukocyte Esterase Trace (Negative); Nitrite Negative (Negative); Specific Gravity 1.015 (1.005-1.025); Urobilinogen 0.2 mg/dL (Up to 0.2)
[2023-05-30 14:25] LABS: RBC 0-2 HPF (0-2)
[2023-05-30 14:26] LABS: Bacteria Rare HPF (Negative); C & S Indicated? Yes; Casts Negative LPF (Negative); Crystals Negative HPF (Negative); Epithelial Cells Rare HPF (Negative); Mucus Negative (Negative)
[2023-05-30 14:30] LABS: ALT 21 U/L (16-63); AST 16 U/L (15-37); Albumin 3.8 g/dL (3.4-5.0); Alkaline Phosphatase 97 U/L (46-116); Anion Gap 7.1 mmol/L (3-11); BUN 13 mg/dL (7-18); Bilirubin, Total 0.6 mg/dL (0.2-1.0); CO2 30.9 mmol/L (21.0-32.0); CREATININE 0.8 mg/dL (0.70-1.30); Calcium 9.6 mg/dL (8.5-10.1); Chloride 95 mmol/L (98-107); Estimated GFR 100.06 (mL/min/1.73m2); Glucose 115 mg/dL (74-106); Sodium 133 mmol/L (136-145); Total Protein 7.3 g/dL (6.4-8.2)
[2023-05-30 22:52] LABS: CEA 3.7 ng/mL (See Note)
== END 2023-05-31 23:59 | disposition home or self-care (01) ==
LOC: INF 02:53
PROVIDERS: PCP Nurse Practitioner Family; Visit Provider Internal Medicine Hematology & Oncology
DX: C20 Malignant neoplasm of rectum (principal); C78.00 Secondary malignant neoplasm of unspecified lung; Z79.899 Other long term (current) drug therapy
CPT/HCPCS: 36415; 36591; 80053; 87077; 81003; 81015; 82378; 85025; 87086; 87186

== ENCOUNTER 2023-06-27 00:57 | Outpatient (RCR) | payer MEDICARE, OTHER, SELFPAY ==
[2023-06-13 11:04] LABS: Abs Immature Grans 0.08 10^3/uL (0.0-0.06); Absolute Basophil Count 0.06 10^3/uL (0.0-0.2); Absolute Eosinophil Count 0.12 10^3/uL (0.0-0.7); Absolute Lymphocyte Count 0.77 10^3/uL (1.2-3.4); Absolute Monocyte Count 0.71 10^3/uL (0.1-0.8); Absolute Neutrophil Count 6.34 10^3/uL (1.2-6.7); Basophils % 0.7; Eosinophils % 1.5; HCT 49.5 % (40.0-50.0); HGB 16.4 g/dL (13.5-17.5); Lymphocytes % 9.5; MCH 32.7 pg (27.0-33.0); MCHC 33.1 % (32.0-36.0); MCV 99 fL (80-95); MPV 9.5 fL (8.0-11.0); Monocytes % 8.8; Neutrophils % 78.5; Platelet Count 301 10^3/uL (130-400); RBC 5.02 10^6/uL (4.36-5.78); RDW 17.7 % (11.8-14.1); WBC 8.08 10^3/uL (4.4-10.8)
[2023-06-13 11:30] LABS: ALT 18 U/L (16-63); AST 14 U/L (15-37); Albumin 3.7 g/dL (3.4-5.0); Alkaline Phosphatase 81 U/L (46-116); Anion Gap 5.1 mmol/L (3-11); BUN 10 mg/dL (7-18); Bilirubin, Total 0.6 mg/dL (0.2-1.0); CO2 31.9 mmol/L (21.0-32.0); CREATININE 0.8 mg/dL (0.70-1.30); Calcium 9.8 mg/dL (8.5-10.1); Chloride 99 mmol/L (98-107); Estimated GFR 100.06 (mL/min/1.73m2); Glucose 142 mg/dL (74-106); Sodium 136 mmol/L (136-145); Total Protein 7.4 g/dL (6.4-8.2)
[2023-06-27] MEDS: Normal Saline Flush 10 ML SYR IVP (08:16)
[2023-06-27] MEDS: Heparin 500 UNITS/5 ML SYRINGE IV (08:16)
[2023-06-27 08:46] LABS: Abs Immature Grans 0.08 10^3/uL (0.0-0.06); Absolute Basophil Count 0.05 10^3/uL (0.0-0.2); Absolute Eosinophil Count 0.27 10^3/uL (0.0-0.7); Absolute Lymphocyte Count 1.15 10^3/uL (1.2-3.4); Absolute Monocyte Count 0.73 10^3/uL (0.1-0.8); Absolute Neutrophil Count 5.69 10^3/uL (1.2-6.7); Basophils % 0.6; Eosinophils % 3.4; HCT 49.4 % (40.0-50.0); HGB 16.3 g/dL (13.5-17.5); Lymphocytes % 14.4; MCH 33.2 pg (27.0-33.0); MCV 101 fL (80-95); MPV 9.3 fL (8.0-11.0); Monocytes % 9.2; Neutrophils % 71.4; Platelet Count 360 10^3/uL (130-400); RBC 4.91 10^6/uL (4.36-5.78); RDW 17.5 % (11.8-14.1); RDW-SD 63.7 fL; WBC 7.97 10^3/uL (4.4-10.8)
[2023-06-27 09:10] LABS: ALT 20 U/L (16-63); AST 16 U/L (15-37); Albumin 3.6 g/dL (3.4-5.0); Alkaline Phosphatase 85 U/L (46-116); Anion Gap 8.1 mmol/L (3-11); BUN 8 mg/dL (7-18); Bilirubin, Total 0.5 mg/dL (0.2-1.0); CO2 28.9 mmol/L (21.0-32.0); CREATININE 0.8 mg/dL (0.70-1.30); Calcium 9.5 mg/dL (8.5-10.1); Chloride 101 mmol/L (98-107); Estimated GFR 100.06 (mL/min/1.73m2); Glucose 131 mg/dL (74-106); Sodium 138 mmol/L (136-145); Total Protein 7.1 g/dL (6.4-8.2)
[2023-06-27 20:44] LABS: CEA 3.1 ng/mL (See Note)
== END 2023-07-01 23:59 | disposition home or self-care (01) ==
LOC: INF 00:57
PROVIDERS: PCP Nurse Practitioner Family; Visit Provider Internal Medicine Hematology & Oncology
DX: C20 Malignant neoplasm of rectum (principal); C78.00 Secondary malignant neoplasm of unspecified lung; C67.9 Malignant neoplasm of bladder, unspecified; C34.90 Malignant neoplasm of unspecified part of unspecified bronchus or lung
CPT/HCPCS: 36415; 36591; 80053; 82378; 85025

== ENCOUNTER → 2023-07-10 01:03 | Outpatient (CLI) | payer MEDICARE, OTHER, SELFPAY ==
--- NOTE | 2023-07-10 | DI.CT_ITS ---
Exam(s) CT CHEST/ABD/PEL W EXAM: CT CHEST/ABD/PEL W CLINICAL HISTORY: RECTAL CANCER METS TO LUNG C20 C78.00 ASSESS TREATMENT RESPONSE. TECHNIQUE: Imaging Protocol: Axial computed tomography images with coronal and sagittal reformatted images were created and reviewed CONTRAST MATERIAL: Intravenous: Omnipaque 350 Contrast volume:100 ml Oral: Yes. Oral contrast was also administered for bowel opacification. COMPARISON: CT CHEST ABD PELVIS WITH CONTRAST from 08/19/2017 CT CHEST ABD PELVIS WITH CONTRAST from 12/18/[address] CHEST/ABD/PEL W from 05/15/2023 FINDINGS: CHEST: LUNGS: All of the previously described spiculated nodules in the right upper lobe are unchanged. The previously described spiculated nodules in the superior segment of the right lower lobe are also unc hanged, as is a smaller spiculated nodule in the lateral basal segment of the right lower lobe. Ther e are no new right lung nodules, new infiltrates, nor pleural effusion. In the opposite-left lung the previously present small spiculated nodule in the anterior segment of t he left upper lobe is unchanged. Also unchanged is a smaller anterior segment nodule also in the lef t upper lobe. The larger nodule in the lingular segment of the left lung is also unchanged, this heraclio ng the largest nodule in either lung field and measuring approximately 1.2 by 1.2 cm. Small nodular density in the posterior basal segment of the left lower lobe is also unchanged. There are no new le ft lung nodules and no left pleural effusion. No new findings in the trachea and mainstem bronchi. MEDIASTINUM: There is no hilar nor mediastinal adenopathy. Partially visualized thyroid unremarkable. CARDIAC: Heart size is normal. There is no pericardial effusion.Of the ascending thoracic aorta is u pper normal. OSSEOUS: No significant osseous lesions.No fractures.. ABDOMEN: There is no ascites. LIVER: There are no focal hepatic lesions nor dilatation of intrahepatic ducts. GALLBLADDER/BILIARY: Gallstones are again noted in the gallbladder lumen . No gallbladder wall edema to suggest acute cholecystitis. No pericholecystic fluid. The CBD is not dilated. No calculi seen in the nondilated CBD. PANCREAS: No evidence of new pancreatic mass nor dilatation of the pancreatic duct. At the pancreati c neck level there is the anterior hypodensity measuring 4 x 4 mm which is unchanged from CT scans da ting back to at least 2017 and therefore benign process. It may represent invagination of adjacent f at into the pancreatic parenchyma. SPLEEN: Spleen is not enlarged. There are no intrasplenic lesions. Splenic and portal veins are danielle nt. ADRENALS: There are no significant adrenal masses. KIDNEYS: No calculi nor hydronephrosis. No solid renal masses. Tiny benign 3 millimeter cyst is noted in the left kidney and does not require follow-up. ABDOMINAL AORTA: Atherosclerotic but not significantly enlarged. However, there is mild asymmetric p rominence of the left common iliac artery diameter of 1.2 cm but this is unchanged. LYMPH NODES: There is no retroperitoneal nor paraaortic adenopathy. ABDOMINAL WALL: Left-sided colostomy again noted. No bowel obstruction. There is also a right-sided ostomy site which is ileal conduit serving. However, on the present study part of the ileo conduit appears to be with in this peer aspect right inguinal hernia canal, not previously present. GI: There is no evidence of bowel obstruction.Absence of rectum. Opacified small bowel loops are aga in noted to occupy the rectal fossa region. PELVIS: LYMPH NODES: There is no intrapelvic nor inguinal adenopathy. GI: No evidence of appendicitis.No evidence of sigmoid diverticulitis. URINARY BLADDER: Surgically absent REPRODUCTIVE: Prostate surgically absent. OSSEOUS: No significant osseous lesions. No fractures. Anterolisthesis of L4 upon L5 is again noted and this is related to bilateral pars defects at L4 level. IMPRESSION: 1. Compared to the prior CT scan of 05/15/2023 there is no significant change in the size and number of bilateral pulmonary metastatic nodules. There are no new nodules, pleural effusions, nor intratho racic adenopathy. 2. Cholelithiasis again noted without evidence of acute cholecystitis nor dilatation of the biliary t ree. 3. No evidence of metastatic disease in the abdomen and pelvis and there is no ascites. 4. However, right ileal conduit loop now appears to be partly within an inguinal hernia sac, not prev iously present. RADIATION DOSE DELIVERED: Total DLP DATA REPOSITORY: All CT scans at this facility are submitted to the National Radiology Data Registry (NRDR) Dose Index Registry (DIR) with the [employer] (ACR). RADIATION OPTIMIZATION: All CT scans at this facility use at least one of these dose optimization te chniques: automated exposure control; mA and/or kV adjustment per patient size (includes targeted exa ms where dose is matched to clinical indication); or iterative reconstruction.
[2023-07-10] MEDS: Omnipaque 350 MG/ML 500 ML BTL-Imaging package IJ (10:52)
[2023-07-10] MEDS: Normal Saline - Diluent 50 ML VIAL IJ (10:52)
[2023-07-10] MEDS: Barium Sulfate 2% W/V-Creamy Vanilla Smoothie 450 ML BTL PO (10:54)
== END ==
PROVIDERS: PCP Nurse Practitioner Family; Visit Provider Nurse Practitioner Family
DX: C20 Malignant neoplasm of rectum (principal); C78.01 Secondary malignant neoplasm of right lung
CPT/HCPCS: 36591; 74177; 80053; 71260; 82378; 85025; J1642

== ENCOUNTER 2023-07-10 02:09 | Outpatient (RCR) | payer MEDICARE, OTHER, SELFPAY ==
[2023-07-10] MEDS: Normal Saline Flush 10 ML SYR IVP (08:48)
[2023-07-10] MEDS: Heparin 500 UNITS/5 ML SYRINGE IV (08:48)
[2023-07-10 09:18] LABS: Abs Immature Grans 0.05 10^3/uL (0.0-0.06); Absolute Basophil Count 0.04 10^3/uL (0.0-0.2); Absolute Eosinophil Count 0.19 10^3/uL (0.0-0.7); Absolute Lymphocyte Count 0.77 10^3/uL (1.2-3.4); Absolute Monocyte Count 0.62 10^3/uL (0.1-0.8); Absolute Neutrophil Count 5.61 10^3/uL (1.2-6.7); Basophils % 0.5; Eosinophils % 2.6; HCT 49.4 % (40.0-50.0); HGB 16.8 g/dL (13.5-17.5); Immature Grans % 0.7; Lymphocytes % 10.6; MCH 33.6 pg (27.0-33.0); MCV 99 fL (80-95); MPV 9.5 fL (8.0-11.0); Monocytes % 8.5; Neutrophils % 77.1; Platelet Count 329 10^3/uL (130-400); RDW 17.3 % (11.8-14.1); RDW-SD 61.8 fL; WBC 7.28 10^3/uL (4.4-10.8)
[2023-07-10 09:51] LABS: ALT 21 U/L (16-63); AST 20 U/L (15-37); Albumin 3.7 g/dL (3.4-5.0); Alkaline Phosphatase 82 U/L (46-116); Anion Gap 6.5 mmol/L (3-11); BUN 10 mg/dL (7-18); Bilirubin, Total 0.7 mg/dL (0.2-1.0); CO2 28.5 mmol/L (21.0-32.0); CREATININE 0.7 mg/dL (0.70-1.30); Calcium 9.6 mg/dL (8.5-10.1); Chloride 103 mmol/L (98-107); Estimated GFR 104.18 (mL/min/1.73m2); Glucose 112 mg/dL (74-106); Potassium 3.8 mmol/L (3.5-5.1); Sodium 138 mmol/L (136-145); Total Protein 7.3 g/dL (6.4-8.2)
[2023-07-10 20:40] LABS: CEA 3.2 ng/mL (See Note)
== END 2023-07-31 23:59 | disposition home or self-care (01) ==
LOC: INF 02:09
PROVIDERS: PCP Nurse Practitioner Family; Visit Provider Internal Medicine Hematology & Oncology
DX: C20 Malignant neoplasm of rectum (principal); C78.00 Secondary malignant neoplasm of unspecified lung; Z79.899 Other long term (current) drug therapy; C67.9 Malignant neoplasm of bladder, unspecified; Z45.2 Encounter for adjustment and management of vascular access device
CPT/HCPCS: 36591; 80053; 82378; 85025; J1642

== ENCOUNTER 2023-08-04 13:54 | Outpatient (REF) | payer MEDICARE, OTHER, SELFPAY ==
[2023-08-04 13:02] LABS: Bilirubin Negative (Negative); Blood Trace-intact (Negative); Clarity Sl Cloudy (Clear); Glucose Negative (Negative); Ketones Negative (Negative); Leukocyte Esterase Negative (Negative); Nitrite Negative (Negative); Specific Gravity 1.015 (1.005-1.025); Urobilinogen 0.2 mg/dL (Up to 0.2)
[2023-08-04 13:09] LABS: Bacteria Many HPF (Negative); C & S Indicated? C&S Done As Ordered; Casts Negative LPF (Negative); Crystals Negative HPF (Negative); Epithelial Cells Few HPF (Negative); Mucus Moderate (Negative); WBC 0-2 HPF (0-5)
== END 2023-08-04 13:55 | disposition home or self-care (01) ==
LOC: LBN 13:54
PROVIDERS: PCP Nurse Practitioner Family; Visit Provider Internal Medicine Hematology & Oncology
DX: N39.0 Urinary tract infection, site not specified (principal)
CPT/HCPCS: 87077; 81003; 81015; 87086; 87186

== ENCOUNTER 2023-08-15 01:01 | Outpatient (RCR) | payer MEDICARE, OTHER, SELFPAY ==
[2023-08-01 12:53] LABS: Abs Immature Grans 0.09 10^3/uL (0.0-0.06); Absolute Basophil Count 0.08 10^3/uL (0.0-0.2); Absolute Eosinophil Count 0.08 10^3/uL (0.0-0.7); Absolute Lymphocyte Count 0.74 10^3/uL (1.2-3.4); Absolute Monocyte Count 0.79 10^3/uL (0.1-0.8); Absolute Neutrophil Count 11.39 10^3/uL (1.2-6.7); Basophils % 0.6; Eosinophils % 0.6; HGB 17.1 g/dL (13.5-17.5); Immature Grans % 0.7; Lymphocytes % 5.6; MCH 33.4 pg (27.0-33.0); MCHC 34.2 % (32.0-36.0); MCV 98 fL (80-95); MPV 8.8 fL (8.0-11.0); Neutrophils % 86.5; Platelet Count 348 10^3/uL (130-400); RBC 5.12 10^6/uL (4.36-5.78); RDW 15.7 % (11.8-14.1); WBC 13.17 10^3/uL (4.4-10.8)
[2023-08-01 13:08] LABS: ALT 20 U/L (16-63); AST 14 U/L (15-37); Albumin 3.7 g/dL (3.4-5.0); Alkaline Phosphatase 108 U/L (46-116); Anion Gap 6.4 mmol/L (3-11); BUN 10 mg/dL (7-18); Bilirubin, Total 0.5 mg/dL (0.2-1.0); CO2 32.6 mmol/L (21.0-32.0); CREATININE 0.9 mg/dL (0.70-1.30); Chloride 98 mmol/L (98-107); Estimated GFR 96.57 (mL/min/1.73m2); Glucose 150 mg/dL (74-106); Potassium 4.1 mmol/L (3.5-5.1); Sodium 137 mmol/L (136-145); Total Protein 7.9 g/dL (6.4-8.2)
[2023-08-15] MEDS: Heparin 500 UNITS/5 ML SYRINGE IV (13:50)
[2023-08-15] MEDS: Normal Saline Flush 10 ML SYR IVP (13:50)
[2023-08-15 14:22] LABS: Abs Immature Grans 0.02 10^3/uL (0.0-0.06); Absolute Basophil Count 0.03 10^3/uL (0.0-0.2); Absolute Eosinophil Count 0.14 10^3/uL (0.0-0.7); Absolute Lymphocyte Count 0.72 10^3/uL (1.2-3.4); Absolute Monocyte Count 0.75 10^3/uL (0.1-0.8); Basophils % 0.5; Eosinophils % 2.4; HCT 44.2 % (40.0-50.0); Immature Grans % 0.3; Lymphocytes % 12.3; MCH 33.3 pg (27.0-33.0); MCHC 33.9 % (32.0-36.0); MCV 98 fL (80-95); MPV 8.9 fL (8.0-11.0); Monocytes % 12.8; Neutrophils % 71.7; Platelet Count 360 10^3/uL (130-400); RDW 15.6 % (11.8-14.1); RDW-SD 55.6 fL; WBC 5.86 10^3/uL (4.4-10.8)
[2023-08-15 14:37] LABS: ALT 22 U/L (16-63); AST 14 U/L (15-37); Albumin 3.4 g/dL (3.4-5.0); Alkaline Phosphatase 89 U/L (46-116); Anion Gap 5.7 mmol/L (3-11); BUN 21 mg/dL (7-18); Bilirubin, Total 0.3 mg/dL (0.2-1.0); CO2 30.3 mmol/L (21.0-32.0); CREATININE 0.7 mg/dL (0.70-1.30); Calcium 9.4 mg/dL (8.5-10.1); Chloride 97 mmol/L (98-107); Estimated GFR 104.18 (mL/min/1.73m2); Glucose 143 mg/dL (74-106); Potassium 4.2 mmol/L (3.5-5.1); Sodium 133 mmol/L (136-145); Total Protein 7.5 g/dL (6.4-8.2)
[2023-08-18 10:35] LABS: CEA 3.3 ng/mL (See Note)
== END 2023-08-31 23:59 | disposition home or self-care (01) ==
LOC: INF 01:01
PROVIDERS: PCP Nurse Practitioner Family; Visit Provider Internal Medicine Hematology & Oncology
DX: C20 Malignant neoplasm of rectum (principal); C78.00 Secondary malignant neoplasm of unspecified lung; Z79.899 Other long term (current) drug therapy
CPT/HCPCS: 36415; 36591; 80053; 82378; 85025

== ENCOUNTER → 2023-09-26 00:28 | Outpatient (CLI) | payer MEDICARE, SELFPAY ==
--- NOTE | 2023-09-26 | DI.CT_ITS ---
Exam(s) CT CHEST/ABD/PEL W EXAM: CT CHEST/ABD/PEL W CLINICAL HISTORY: RECTAL CANCER METS TO LUNG C20 C78.00RESTAGING. TECHNIQUE: Imaging Protocol: Axial computed tomography images with coronal and sagittal reformatted images were created and reviewed CONTRAST MATERIAL: Intravenous: Omnipaque 350 Contrast volume:100 ml Oral: yes / COMPARISON: CT CT CHEST/ABD/PEL W from 07/10/2023 FINDINGS: CHEST: Tracheobronchial tree: None bronchial wall thickening greater in lower lobes. Pulmonary parenchyma: Significant increase in size of previously noted left lower lobe metastasis, me asuring 3 x 4.3 cm. Approximate measurements were 1.2 x 2.0 on the prior exam. Increase in size of no dule seen at superior segment left lower lobe now measuring 17 millimeters compared with 8 millimeter s on the prior. Other smaller nodules on the right side also slightly increased in size. Pleura: No effusion or pneumothorax. Lymph nodes: Mild interval increase in size of hilar and mediastinal adenopathy. Precarinal lymph no de 14 millimeters long-axis compared with 10 millimeter on the previous exam. Left hilar node 2.1 cm compared with 1.3 cm on prior. Right hilar node 2.1 cm. minimally visible on prior. Aorta: Ascendi ng aorta measures 3.6 cm, unchanged from prior. Atherosclerotic changes. Heart: No pericardial effusion. Bones: No lytic or blastic lesions.Stable mild compression of mid thoracic vertebral bodies and T12. Soft tissues: Port over right upper chest. ABDOMEN and PELVIS: Liver: Normal density. No measurable mass. Gallbladder and biliary tract: Cholelithiasis. No gallbladder wall thickening. No biliary dilatatio n. Pancreas: Normal density, no abnormal calcifications or inflammatory process. Spleen: Normal. Kidneys: Normal size, contour and axis. No radiodense stones. No obstructive uropathy. No suspicious masses seen. Adrenal glands: No masses seen. Aorta: Abdominal portion non-dilated. Atherosclerotic changes. Lymph nodes: Within normal limits. Soft tissues: Left-sided colostomy is unremarkable. Right-sided ileal conduit is again seen to extend ext slightly into the right inguinal canal. Bladder: Surgically resected. Bowel: Rectum resected. No obstruction or bowel wall thickening. Large quantity of stool through ab out the colon. Peritoneal cavity: No ascites. No focal collection. No mesenteric inflammatory response. Bones: Unremarkable for age. Reproductive organs: Surgically resected. IMPRESSION: Significant interval increase in size of pulmonary metastases, particularly in the left lobe. Increas ed hilar and mediastinal adenopathy. No evidence of metastatic disease in the abdomen or pelvis. RADIATION DOSE DELIVERED: 1,476.45mGy.cm Total DLP DATA REPOSITORY: All CT scans at this facility are submitted to the National Radiology Data Registry (NRDR) Dose Index Registry (DIR) with the [employer] ([employer]). RADIATION OPTIMIZATION: All CT scans at this facility use at least one of these dose optimization te chniques: automated exposure control; mA and/or kV adjustment per patient size (includes targeted exa ms where dose is matched to clinical indication); or iterative reconstruction.
[2023-09-26] MEDS: Barium Sulfate 2% W/V-Berry Smoothie 450 ML BTL 900 ML PO (08:06)
[2023-09-26 08:18] LABS: Abs Immature Grans 0.08 10^3/uL (0.0-0.06); Absolute Basophil Count 0.03 10^3/uL (0.0-0.2); Absolute Eosinophil Count 0.04 10^3/uL (0.0-0.7); Absolute Lymphocyte Count 0.62 10^3/uL (1.2-3.4); Absolute Monocyte Count 1.14 10^3/uL (0.1-0.8); Absolute Neutrophil Count 7.99 10^3/uL (1.2-6.7); Basophils % 0.3; Eosinophils % 0.4; HCT 49.5 % (40.0-50.0); HGB 16.3 g/dL (13.5-17.5); Immature Grans % 0.8; Lymphocytes % 6.3; MCH 32.5 pg (27.0-33.0); MCHC 32.9 % (32.0-36.0); MCV 99 fL (80-95); MPV 9.3 fL (8.0-11.0); Monocytes % 11.5; Neutrophils % 80.7; Platelet Count 262 10^3/uL (130-400); RBC 5.01 10^6/uL (4.36-5.78); RDW 17.1 % (11.8-14.1); RDW-SD 60.9 fL
[2023-09-26 08:41] LABS: ALT 20 U/L (16-63); AST 17 U/L (15-37); Albumin 3.3 g/dL (3.4-5.0); Alkaline Phosphatase 92 U/L (46-116); Anion Gap 6.2 mmol/L (3-11); BUN 7 mg/dL (7-18); Bilirubin, Total 0.6 mg/dL (0.2-1.0); CO2 31.8 mmol/L (21.0-32.0); CREATININE 0.7 mg/dL (0.70-1.30); Calcium 9.6 mg/dL (8.5-10.1); Chloride 100 mmol/L (98-107); Estimated GFR 104.18 (mL/min/1.73m2); Glucose 115 mg/dL (74-106); Potassium 4.1 mmol/L (3.5-5.1); Sodium 138 mmol/L (136-145); Total Protein 7.5 g/dL (6.4-8.2)
[2023-09-26] MEDS: Normal Saline - Diluent 50 ML VIAL IJ (10:41)
[2023-09-26] MEDS: Omnipaque 350 MG/ML 500 ML BTL-Imaging package IJ (10:43)
[2023-09-26 18:20] LABS: CEA 3.1 ng/mL (See Note)
== END ==
PROVIDERS: PCP Nurse Practitioner Family; Visit Provider Internal Medicine Hematology & Oncology
DX: C78.02 Secondary malignant neoplasm of left lung (principal); C20 Malignant neoplasm of rectum
CPT/HCPCS: 36591; 74177; 80053; 71260; 82378; 85025

== ENCOUNTER 2023-09-26 01:09 | Outpatient (RCR) | payer MEDICARE, OTHER, SELFPAY ==
[2023-09-05] MEDS: Normal Saline Flush 10 ML SYR IVP (09:33)
[2023-09-05 10:06] LABS: Abs Immature Grans 0.05 10^3/uL (0.0-0.06); Absolute Basophil Count 0.04 10^3/uL (0.0-0.2); Absolute Eosinophil Count 0.12 10^3/uL (0.0-0.7); Absolute Lymphocyte Count 0.61 10^3/uL (1.2-3.4); Absolute Monocyte Count 0.64 10^3/uL (0.1-0.8); Basophils % 0.6; Eosinophils % 1.7; HCT 47.6 % (40.0-50.0); Immature Grans % 0.7; Lymphocytes % 8.6; MCH 33.6 pg (27.0-33.0); MCHC 33.6 % (32.0-36.0); MCV 100 fL (80-95); MPV 8.9 fL (8.0-11.0); Monocytes % 9.1; Neutrophils % 79.3; Platelet Count 452 10^3/uL (130-400); RBC 4.76 10^6/uL (4.36-5.78); RDW 16.5 % (11.8-14.1); WBC 7.06 10^3/uL (4.4-10.8)
[2023-09-05 10:22] LABS: ALT 19 U/L (16-63); AST 15 U/L (15-37); Albumin 3.5 g/dL (3.4-5.0); Alkaline Phosphatase 100 U/L (46-116); Anion Gap 5.4 mmol/L (3-11); BUN 12 mg/dL (7-18); Bilirubin, Total 0.4 mg/dL (0.2-1.0); CO2 30.6 mmol/L (21.0-32.0); CREATININE 0.8 mg/dL (0.70-1.30); Calcium 9.6 mg/dL (8.5-10.1); Chloride 97 mmol/L (98-107); Estimated GFR 100.06 (mL/min/1.73m2); Glucose 146 mg/dL (74-106); Potassium 4.1 mmol/L (3.5-5.1); Sodium 133 mmol/L (136-145); Total Protein 7.6 g/dL (6.4-8.2)
[2023-09-05 19:10] LABS: CEA 3.7 ng/mL (See Note)
[2023-09-26] MEDS: Normal Saline Flush 10 ML SYR IVP (08:05)
== END 2023-10-01 23:59 | disposition home or self-care (01) ==
LOC: INF 01:09
PROVIDERS: PCP Nurse Practitioner Family; Visit Provider Internal Medicine Hematology & Oncology
DX: C20 Malignant neoplasm of rectum (principal); C78.00 Secondary malignant neoplasm of unspecified lung; Z79.899 Other long term (current) drug therapy; Z45.2 Encounter for adjustment and management of vascular access device
CPT/HCPCS: 36591; 80053; 82378; 85025

== ENCOUNTER 2023-10-23 10:25 | Outpatient (RCR) | payer MEDICARE, OTHER, SELFPAY ==
[2023-10-09] MEDS: Normal Saline Flush 10 ML SYR IVP (10:18)
[2023-10-09 10:22] LABS: Abs Immature Grans 0.08 10^3/uL (0.0-0.06); Absolute Basophil Count 0.06 10^3/uL (0.0-0.2); Absolute Lymphocyte Count 0.54 10^3/uL (1.2-3.4); Absolute Neutrophil Count 13.72 10^3/uL (1.2-6.7); Basophils % 0.4; Eosinophils % 0.5; HCT 51.2 % (40.0-50.0); Immature Grans % 0.5; Lymphocytes % 3.5; MCH 32.6 pg (27.0-33.0); MCHC 33.2 % (32.0-36.0); MCV 98 fL (80-95); MPV 9.5 fL (8.0-11.0); Monocytes % 6.3; Neutrophils % 88.8; Platelet Count 272 10^3/uL (130-400); RBC 5.22 10^6/uL (4.36-5.78); RDW 16.7 % (11.8-14.1); RDW-SD 59.6 fL; WBC 15.45 10^3/uL (4.4-10.8)
[2023-10-09 10:27] LABS: Absolute Eosinophil Count 0.08 10^3/uL (0.0-0.7); Absolute Monocyte Count 0.97 10^3/uL (0.1-0.8)
[2023-10-09 10:37] LABS: ALT 23 U/L (16-63); AST 20 U/L (15-37); Albumin 3.3 g/dL (3.4-5.0); Alkaline Phosphatase 91 U/L (46-116); Anion Gap 8.4 mmol/L (3-11); BUN 11 mg/dL (7-18); Bilirubin, Total 0.9 mg/dL (0.2-1.0); CO2 30.6 mmol/L (21.0-32.0); CREATININE 0.8 mg/dL (0.70-1.30); Calcium 9.3 mg/dL (8.5-10.1); Chloride 98 mmol/L (98-107); Estimated GFR 100.06 (mL/min/1.73m2); Glucose 129 mg/dL (74-106); Potassium 3.9 mmol/L (3.5-5.1); Sodium 137 mmol/L (136-145); Total Protein 7.6 g/dL (6.4-8.2)
[2023-10-23] MEDS: Normal Saline Flush 10 ML SYR IVP (10:25)
[2023-10-23 10:44] LABS: Abs Immature Grans 0.04 10^3/uL (0.0-0.06); Absolute Basophil Count 0.03 10^3/uL (0.0-0.2); Absolute Eosinophil Count 0.08 10^3/uL (0.0-0.7); Absolute Lymphocyte Count 0.45 10^3/uL (1.2-3.4); Absolute Monocyte Count 0.67 10^3/uL (0.1-0.8); Absolute Neutrophil Count 4.79 10^3/uL (1.2-6.7); Basophils % 0.5; Eosinophils % 1.3; HCT 49.7 % (40.0-50.0); HGB 16.5 g/dL (13.5-17.5); Immature Grans % 0.7; Lymphocytes % 7.4; MCH 31.9 pg (27.0-33.0); MCHC 33.2 % (32.0-36.0); MCV 96 fL (80-95); MPV 9.3 fL (8.0-11.0); Monocytes % 11.1; Platelet Count 282 10^3/uL (130-400); RBC 5.18 10^6/uL (4.36-5.78); RDW 15.6 % (11.8-14.1); RDW-SD 55.7 fL; WBC 6.06 10^3/uL (4.4-10.8)
[2023-10-23 11:00] LABS: ALT 22 U/L (16-63); AST 16 U/L (15-37); Albumin 3.2 g/dL (3.4-5.0); Alkaline Phosphatase 101 U/L (46-116); Anion Gap 7.5 mmol/L (3-11); BUN 10 mg/dL (7-18); Bilirubin, Total 0.3 mg/dL (0.2-1.0); CO2 29.5 mmol/L (21.0-32.0); CREATININE 0.9 mg/dL (0.70-1.30); Calcium 9.3 mg/dL (8.5-10.1); Chloride 96 mmol/L (98-107); Estimated GFR 96.57 (mL/min/1.73m2); Glucose 147 mg/dL (74-106); Potassium 3.9 mmol/L (3.5-5.1); Sodium 133 mmol/L (136-145); Total Protein 7.6 g/dL (6.4-8.2)
[2023-10-23 18:58] LABS: CEA 3.6 ng/mL (See Note)
== END 2023-10-30 23:59 | disposition home or self-care (01) ==
LOC: INF 10:25
PROVIDERS: PCP Nurse Practitioner Family; Visit Provider Internal Medicine Hematology & Oncology
DX: C20 Malignant neoplasm of rectum (principal); C78.00 Secondary malignant neoplasm of unspecified lung; Z79.899 Other long term (current) drug therapy; Z45.2 Encounter for adjustment and management of vascular access device
CPT/HCPCS: 36591; 80053; 82378; 85025

== ENCOUNTER 2023-11-21 01:04 | Outpatient (RCR) | payer MEDICARE, OTHER, SELFPAY ==
[2023-11-06 14:30] LABS: Abs Immature Grans 0.08 10^3/uL (0.0-0.06); Absolute Basophil Count 0.04 10^3/uL (0.0-0.2); Absolute Lymphocyte Count 0.69 10^3/uL (1.2-3.4); Absolute Monocyte Count 0.89 10^3/uL (0.1-0.8); Basophils % 0.3; Eosinophils % 0.8; HCT 46.6 % (40.0-50.0); HGB 15.2 g/dL (13.5-17.5); Immature Grans % 0.6; Lymphocytes % 5.6; MCH 30.5 pg (27.0-33.0); MCHC 32.6 % (32.0-36.0); MCV 94 fL (80-95); MPV 9.5 fL (8.0-11.0); Monocytes % 7.2; Neutrophils % 85.5; Platelet Count 337 10^3/uL (130-400); RBC 4.98 10^6/uL (4.36-5.78); RDW 15.3 % (11.8-14.1); RDW-SD 52.3 fL; WBC 12.31 10^3/uL (4.4-10.8)
[2023-11-06 14:32] LABS: Absolute Neutrophil Count 10.53 10^3/uL (1.2-6.7)
[2023-11-06 14:48] LABS: ALT 22 U/L (16-63); AST 15 U/L (15-37); Albumin 3.1 g/dL (3.4-5.0); Alkaline Phosphatase 100 U/L (46-116); BUN 13 mg/dL (7-18); Bilirubin, Total 0.6 mg/dL (0.2-1.0); CREATININE 0.8 mg/dL (0.70-1.30); Calcium 9.8 mg/dL (8.5-10.1); Chloride 95 mmol/L (98-107); Estimated GFR 100.06 (mL/min/1.73m2); Glucose 166 mg/dL (74-106); Potassium 4.4 mmol/L (3.5-5.1); Sodium 133 mmol/L (136-145); Total Protein 7.7 g/dL (6.4-8.2)
[2023-11-06 22:39] LABS: CEA 3.3 ng/mL (See Note)
[2023-11-21] MEDS: Normal Saline Flush 10 ML SYR IVP (08:13)
[2023-11-21 08:32] LABS: Abs Immature Grans 0.03 10^3/uL (0.0-0.06); Absolute Basophil Count 0.07 10^3/uL (0.0-0.2); Absolute Eosinophil Count 0.24 10^3/uL (0.0-0.7); Absolute Lymphocyte Count 0.61 10^3/uL (1.2-3.4); Absolute Monocyte Count 0.91 10^3/uL (0.1-0.8); Absolute Neutrophil Count 6.61 10^3/uL (1.2-6.7); Basophils % 0.8; Eosinophils % 2.8; HCT 47.9 % (40.0-50.0); HGB 15.2 g/dL (13.5-17.5); Immature Grans % 0.4; Lymphocytes % 7.2; MCH 30.3 pg (27.0-33.0); MCHC 31.7 % (32.0-36.0); MCV 95 fL (80-95); MPV 9.2 fL (8.0-11.0); Monocytes % 10.7; Neutrophils % 78.1; Platelet Count 361 10^3/uL (130-400); RBC 5.02 10^6/uL (4.36-5.78); RDW 15.4 % (11.8-14.1); RDW-SD 53.1 fL; WBC 8.47 10^3/uL (4.4-10.8)
[2023-11-21 08:49] LABS: ALT 20 U/L (16-63); AST 13 U/L (15-37); Alkaline Phosphatase 92 U/L (46-116); Anion Gap 4.7 mmol/L (3-11); BUN 10 mg/dL (7-18); Bilirubin, Total 0.3 mg/dL (0.2-1.0); CO2 32.3 mmol/L (21.0-32.0); CREATININE 0.7 mg/dL (0.70-1.30); Calcium 9.4 mg/dL (8.5-10.1); Chloride 102 mmol/L (98-107); Estimated GFR 104.18 (mL/min/1.73m2); Glucose 121 mg/dL (74-106); Sodium 139 mmol/L (136-145)
[2023-11-21 17:21] LABS: CEA 4.1 ng/mL (See Note)
== END 2023-11-30 23:59 | disposition home or self-care (01) ==
LOC: INF 01:04
PROVIDERS: PCP Nurse Practitioner Family; Visit Provider Internal Medicine Hematology & Oncology
DX: C20 Malignant neoplasm of rectum (principal); Z79.899 Other long term (current) drug therapy; Z45.2 Encounter for adjustment and management of vascular access device
CPT/HCPCS: 36591; 80053; 82378; 85025

== ENCOUNTER 2023-11-29 16:24 | Inpatient (IN) | payer MEDICARE, OTHER, SELFPAY ==
[2023-11-29] VITALS (115 sets, daily range): BP systolic 75–156; BP diastolic 26–108; PULSE 89–115; RESP 0–30; TEMP 36.9–38; O2SAT 84–93
--- NOTE | 2023-11-29 16:30 | RT.EKG_ITS ---
APPROVED REPORT Exam: Resting ECG Reason for Exam: SOB Patient Location: E HR:113 bpm ECG Measurements Heart Rate 113 AXIS SC 148 P 81 QRSd 76 QRS 75 QT 308 T 72 QTc 422 Conclusion Sinus tachycardia...rate> 99 I have reviewed and interpreted ECG and agree with software generated interpretation.
--- NOTE | 2023-11-29 16:45 | DI.RAD_ITS ---
Exam(s) XR PORTABLE CHEST AP EXAM: XR PORTABLE CHEST AP CLINICAL HISTORY: Altered mental status TECHNIQUE: 2D digital imaging was performed of the chest. One image was obtained. An AP view was ob tained. COMPARISON: CR,XR XR PORTABLE CHEST AP from 08/24/2022 FINDINGS: There is decreased inspiration. MEDIASTINUM: Normal. HEART: Normal. PULMONARY VASCULATURE: Normal. LUNGS: No focal consolidating infiltrates are present. PLEURAL SPACE: No pleural effusion or pneumothorax. BONE:Within normal limits for the patient's age. OTHER FINDINGS:Indwelling right-sided central venous catheter is stable in location. IMPRESSION: No acute pulmonary findings. DATA REPOSITORY: RADIATION DOSE DELIVERED:
--- NOTE | 2023-11-29 16:53 | ED.GENADUL_ITS ---
Discharge Plan Disposition Patient Disposition: Admit to [facility] Condition: Stable Discharge Details Clinical Impression: Acute UTI, Altered mental status, Acute hyponatremia Primary Care Provider: Shanti Son ED Provider: Camryn Lopez [place] Meds and New Rx's Prescriptions: No Action aspirin 81 mg tablet,chewable 81 mg PO DAILY ibuprofen 600 mg tablet 600 mg PO QID PRN (Reason: pain) Qty: 60 3RF diphenhydramine HCl [M-Dryl] 12.5 mg/5 mL liquid 12.5 mg PO Q6H PRN (Reason: allergic reaction) Qty: 118 0RF methylphenidate HCl 5 mg tablet 5 mg PO BID MDD 10mg PRN (Reason: Cancer related fatigue) Qty: 60 0RF Rx Instructions: take one or two times daily as needed for energy stimulation, avoid use after 2pm gabapentin 300 mg capsule 300 mg PO BID Qty: 180 1RF lidocaine HCl [Lidocaine Viscous] 2 % solution 1 applic mucous membrane TID PRN (Reason: pain) Qty: 100 3RF fentanyl 75 mcg/hr patch 72 hour 1 patch transdermal Q72H MDD 75mcg/hr Qty: 10 0RF Rx Instructions: to be used w/12/mcg patch for total dose of 87mcg/hr fentanyl 12 mcg/hr patch 72 hour 1 patch transdermal Q72H MDD 87mcg/hr Qty: 10 0RF Rx Instructions: to be used w/75mcg patch for total dose to 87mcg/hr oxycodone 5 mg tablet 5 - 10 mg PO Q3H PRN MDD 60mg PRN (Reason: pain) Qty: 180 0RF Rx Instructions: no more than 8 tablets per day; track daily use palliative care patient, stage 4 rectal cancer prochlorperazine maleate [Compazine] 10 mg tablet 10 mg PO Q6H PRN (Reason: nausea and vomiting) Qty: 30 3RF ondansetron 8 mg tablet,disintegrating 8 mg PO Q8H PRN (Reason: nausea and vomiting) Qty: 30 3RF albuterol sulfate 90 mcg/actuation HFA aerosol inhaler 2 inh inhalation Q6H PRN (Reason: shortness of breath or wheezing) Qty: 18 4RF lisinopril 40 mg tablet 40 mg PO DAILY Qty: 90 4RF atorvastatin 40 mg tablet 40 mg PO QHS Qty: 90 4RF Boost High Protein 0.06 gram- 1 kcal/mL liquid 237 ml PO BID Qty: 5688 12RF Rx Instructions: chocolate if available naloxone [Narcan] 4 mg/actuation spray,non-aerosol 4 mg intranasal Q2M PRN (Reason: opioid overdose) Qty: 2 0RF Rx Instructions: For accidental drug poisoning use ONLY, please review w/pharmacist purpose of prescription spray 1 dose into ONE nostril; alternate nostrils w each dose until help arrives prednisone 20 mg Tablet 40 mg PO DAILY omeprazole 40 mg Capsule,Delayed Release(Dr/Ec) 40 mg PO DAILY PRN alum-mag hydroxide-simeth [Almacone-2] 400-400-40 mg/5 mL Suspension 5 ml PO QID PRN HPI General Mode of arrival: wheelchair . Date/Time Provider Initiated Documentation: 11/29/23 16:29 . Limitations to Documentation: altered mental status . Information obtained by: patient, family (Daughter), RN notes reviewed and old records reviewed . HPI Narrative: 63-year-old male presents to the ER with chief complaint of altered mental status present accompanied by his daughter who is also his sole caregiver who also happens to be a hospice nurse. She reports that over the last few days any confusion has been increasing. They deny any recent falls. Patient does wake to verbal stimulus, he does appear very somnolent and sleepy, he does not know why he is here, he is also on 2 L nasal cannula satting 84% will and falls asleep easily. O2 sat comes up with instructions to deep breathe. Patient is wearing a 75 mcg and a 12 mcg fentanyl patch which was placed yesterday. He also took oxycodone around 430pm he states today. The daughter states that she does not know when his last oxycodone was because she was not at the house. He does have a history of colorectal cancer with mets to adenocarcinoma of the lung. He does see palliative care and is a full code. They are following him closely. Other past medical history include high cholesterol,, GERD. Patient is also tachycardic with a rate of 110 and febrile upon arrival with a temperature of 38.0. Related Data Home Medications Medication Instructions Recorded Confirmed aspirin 81 mg chewable tablet 81 mg PO DAILY 11/05/21 11/29/23 aluminum-mag hydroxide-simethicone 5 ml PO QID PRN 10/18/22 11/29/23 400 mg-400 mg-40 mg/5 mL oral susp (Almacone-2) omeprazole 40 mg capsule,delayed 40 mg PO DAILY PRN 10/18/22 11/29/23 release prednisone 20 mg tablet 40 mg PO DAILY 10/18/22 11/29/23 atorvastatin 40 mg tablet 40 mg PO QHS #90 tabs 10/22/22 11/29/23 lisinopril 40 mg tablet 40 mg PO DAILY #90 tabs 10/22/22 11/29/23 ibuprofen 600 mg tablet 600 mg PO QID PRN pain #60 tabs 11/18/22 11/29/23 diphenhydramine HCl 12.5 mg/5 mL 12.5 mg (5 mL) PO Q6H PRN allergic 01/07/23 11/29/23 oral liquid (M-Dryl) reaction #118 mL naloxone 4 mg/actuation nasal 4 mg intranasal Q2M PRN opioid 03/05/23 11/29/23 spray (Narcan) overdose #2 ea gabapentin 300 mg capsule 300 mg PO BID #180 caps 03/24/23 11/29/23 methylphenidate HCl 5 mg tablet 5 mg PO BID PRN Cancer related 03/24/23 11/29/23 fatigue #60 tabs food supplemt, lactose-reduced 237 ml PO BID #5,688 mL 07/21/23 11/29/23 0.06 gram-1 kcal/mL oral liquid (Boost High Protein) fentanyl 12 mcg/hr transdermal 1 patch transdermal Q72H #10 ea 11/10/23 11/29/23 patch fentanyl 75 mcg/hr transdermal 1 patch transdermal Q72H #10 ea 11/10/23 11/29/23 patch lidocaine HCl 2 % mucosal solution 1 applic mucous membrane TID PRN 11/10/23 11/29/23 (Lidocaine Viscous) pain #100 mL ondansetron 8 mg disintegrating 8 mg PO Q8H PRN nausea and 11/10/23 11/29/23 tablet vomiting #30 tabs oxycodone 5 mg tablet 5 - 10 mg (1 - 2 x 5 mg) PO Q3H 11/10/23 11/29/23 PRN PRN pain #180 tabs prochlorperazine maleate 10 mg 10 mg PO Q6H PRN nausea and 11/10/23 11/29/23 tablet (Compazine) vomiting #30 tabs albuterol sulfate 90 mcg/actuation 2 inh inhalation Q6H PRN shortness 11/24/23 11/29/23 aerosol inhaler of breath or wheezing #18 grams Previous Rx's Medication Instructions Recorded atorvastatin 40 mg tablet 40 mg PO QHS #90 tabs 10/22/22 lisinopril 40 mg tablet 40 mg PO DAILY #90 tabs 10/22/22 ibuprofen 600 mg tablet 600 mg PO QID PRN pain #60 tabs 11/18/22 diphenhydramine HCl 12.5 mg/5 mL 12.5 mg (5 mL) PO Q6H PRN allergic 01/07/23 oral liquid (M-Dryl) reaction #118 mL naloxone 4 mg/actuation nasal 4 mg intranasal Q2M PRN opioid 03/05/23 spray (Narcan) overdose #2 ea gabapentin 300 mg capsule 300 mg PO BID #180 caps 03/24/23 methylphenidate HCl 5 mg tablet 5 mg PO BID PRN Cancer related 03/24/23 fatigue #60 tabs food supplemt, lactose-reduced 237 ml PO BID #5,688 mL 07/21/23 0.06 gram-1 kcal/mL oral liquid (Boost High Protein) fentanyl 12 mcg/hr transdermal 1 patch transdermal Q72H #10 ea 11/10/23 patch fentanyl 75 mcg/hr transdermal 1 patch transdermal Q72H #10 ea 11/10/23 patch lidocaine HCl 2 % mucosal solution 1 applic mucous membrane TID PRN 11/10/23 (Lidocaine Viscous) pain #100 mL ondansetron 8 mg disintegrating 8 mg PO Q8H PRN nausea and 11/10/23 tablet vomiting #30 tabs oxycodone 5 mg tablet 5 - 10 mg (1 - 2 x 5 mg) PO Q3H 11/10/23 PRN PRN pain #180 tabs prochlorperazine maleate 10 mg 10 mg PO Q6H PRN nausea and 11/10/23 tablet (Compazine) vomiting #30 tabs albuterol sulfate 90 mcg/actuation 2 inh inhalation Q6H PRN shortness 11/24/23 aerosol inhaler of breath or wheezing #18 grams Allergies Allergy/AdvReac Type Severity Reaction Status Date / Time pregabalin AdvReac Severe depression, Verified 11/24/23 09:43 SI duloxetine AdvReac Intermediate nausea Verified 11/24/23 09:43 General Stated Complaint: Fever DARIAN: 2 Review of Systems All systems reviewed & are unremarkable except as noted in HPI and below Constitutional Constitutional: Reports as per HPI, Reports daytime sleepiness, Reports fatigue, Reports lethargy, Reports poor appetite and Reports weakness Neurologic Neurologic: Reports confusion and Reports weakness Psychiatric Psychiatric: Reports confusion Endocrine Endocrine: Reports fatigue Exam Narrative Exam Narrative: Constitutional: Presents somnolent Appears older thanstated age. Thin body habitus. Appers chronically ill, Head: Normocephalic, no trauma. Eyes: Pupils 2mm bilateral and sluggish Red reflex noted, EOM's intact. Eyelids symmetrical without lesions, discharge, or swelling. ENT: Bilateral TM's WNL, External ear normal to inspection, no mastoid TTP, swelling, or erythema, Nasal turbinates WNL, no nasal discharge. Normal dentition, Posterior pharynx WNL, no exudate. Chest: RRR, Normal S1, S2, distal pulses intact. Port noted to Right upper anterior chest Resp: Lungs diminished to auscultation bilaterally. Abdomen: Soft, non-distended, Ileostomy to RLQ and Colostomy noted to left lower quad Musculoskeletal: Unable to assess gait, trace edema to bilateral lower extremities Skin: No suspicious rashes or lesions. Capillary refill less than 2 sec. Neurologic: No focal neuro defecits, Somnolent with slurred speech, suspected Fentanyl and opioid accidental overdose, Hematologic/Lymphatic: No ecchymosis, no lymphadenopathy. Course Vital Signs Vital signs: Vital Signs Temperature 38.0 C H 11/29/23 16:40 Pulse 110 H 11/29/23 16:40 Respiratory Rate 30 H 11/29/23 16:40 Temperature 38.0 C H 11/29/23 16:40 Temperature Source Oral 11/29/23 16:40 Pulse 110 H 11/29/23 16:40 Respiratory Rate 30 H 11/29/23 16:40 Blood Pressure Position Sitting 11/29/23 16:40 Lab/Test Results Lab/Test Results: 11/29/23 16:50 Blood Blood Culture - Pending 11/29/23 16:50 Blood Blood Culture - Pending Medical Decision Making 63-year-old male presents to the ER with chief complaint of altered mental status present accompanied by his daughter who is also his sole caregiver who also happens to be a hospice nurse. She reports that over the last few days any confusion has been increasing. They deny any recent falls. Patient does wake to verbal stimulus, he does appear very somnolent and sleepy, he does not know why he is here, he is also on 2 L nasal cannula satting 84% will and falls asleep easily. O2 sat comes up with instructions to deep breathe. Patient is wearing a 75 mcg and a 12 mcg fentanyl patch which was placed yesterday. He also took oxycodone around 430pm he states today. The daughter states that she does not know when his last oxycodone was because she was not at the house. He does have a history of colorectal cancer with mets to adenocarcinoma of the lung. He does see palliative care and is a full code. They are following him closely. Other past medical history include high cholesterol,, GERD. Patient is also tachycardic with a rate of 110 and febrile upon arrival with a temperature of 38.0. Workup ordered including CBC CMP, lactate blood cultures x 2, urinalysis EKG, troponin instructed air liaison and special staff to remove the fentanyl patches. Differential diagnosis includes but not limited to sepsis, UTI, oversedation from fentanyl Critically low sodium received from lab, sodium is 123, liter of normal saline ordered. Fluvid is negative, CBC shows white blood cell count 13.46, lactate within normal limits at 1.3, sodium 123 chloride 89 BUN 41 glucose 120, initial troponin within normal limits albumin is 2.4, ethyl alcohol less than 3.0. Patient much more awake now, he is requesting pain meds, sat 84% 4L, nc, VBG ordered, 1953: Hospitalist italo. O2 sat is 84% on 5 L nasal cannula, DuoNeb ordered, VBG, Spoke with Dr. Foss who recommends CTA chest to rule out PE vs,CXR, CT head which was ordered and to call back when workup finished. 2154: Spoke with Vrad to update on further info regarding hx of colorectal CA, with mets tolunds and Aracely-cath. Patient is requesting PO fluids, ok'd po. O2 sat after neb 93 %. 2214 CT chest shows no evidence for PE, there is multiple nodules that are slightly larger than previous study from August 2022, some bronchial thickening, possible left lower lobe aspiration, or acute infectious process please see report. Will re-page Hospitalist. 2229: Spoke with Dr. Villafuerte regarding patient CT results he agrees to accept patient for admission. He recommends Unasyn IV piggyback which was ordered. He will place orders. This text was generated using [employer] dictation system, please disregard any oddities of phrase or misspellings. Imaging Data Radiologic Study: Imaging: X-Ray Radiologist's impression: Age: 63 years old Clinical indication: Other: Altered mental status TECHNIQUE: Imaging protocol: Radiologic exam of the chest. Views: 1 view. COMPARISON: CT CHEST/ABD/PEL W 09/26/2023 10:46 AM FINDINGS: Lungs: No new focal consolidation. Pleural spaces: No pleural effusion. No pneumothorax. Heart/Mediastinum: No cardiomegaly. Bones/joints: No acute findings. IMPRESSION: No acute findings. Thank you for allowing us to participate in the care of your patient. Dictated and Authenticated by: Rachid Blood MD Radiologic Study #2: Imaging: CT Scan Radiologist's impression: IMPRESSION: 1. Subacute fracture through the anterolateral aspect of the left 3rd rib with bony callus formation but incomplete bony union, new since the prior exam from August 24, 2022. 2. No pulmonary embolism identified. 3. Scattered spiculated pulmonary nodules in keeping with a known history of pulmonary metastatic disease. The not significantly increased in number, these lesions overall appear slightly larger and more dense compared with the prior study from August 24, 2022. 4. Extensive bronchial wall thickening, most concentrated through the lower lung zones. Although nonspecific, bronchial wall thickening is often seen in the setting of acute, chronic, or recurrent bronchitis or aspiration and is commonly seen in smokers. Opacification of clustered left lower lobe bronchioles. Aspirated material or inflammatory exudate would be suspected primarily given bronchial wall thickening. 5. Patchy opacity with a somewhat nodular appearance in the left lower lobe. An acute infectious process, confluent metastatic disease, or aspiration could have this appearance. Thank you for allowing us to participate in the care of your patient. Dictated and Authenticated by: Rodney Phoenix MD Lab Data Lab results reviewed: Yes I reviewed the patient's lab results. Labs: 11/29/23 19:33 Urine - Reflex from Ua Urine Culture - Pending 11/29/23 17:40 Blood Blood Culture - Pending 11/29/23 16:50 Blood Blood Culture - Pending Laboratory Tests Range/Units 11/29/23 11/29/23 11/29/23 17:02 17:40 19:33 WBC (4.4-10.8) 10^3/uL 13.46 H RBC (4.36-5.78) 10^6/uL 4.67 Hgb (13.5-17.5) g/dL 13.8 Hct (40.0-50.0) % 41.6 MCV (80-95) fL 89 MCH (27.0-33.0) pg 29.6 MCHC (32.0-36.0) % 33.2 RDW (11.8-14.1) % 15.9 H Plt Count (130-400) 10^3/uL 215 MPV (8.0-11.0) fL 10.0 Immature Gran % 0.6 Neutrophils % 89.0 Lymphocytes % 1.0 Monocytes % 8.8 Eosinophils % 0.1 Basophils % 0.5 Nucleated RBC % (0.0-0.3) % 0.0 Absolute Neutrophils (1.2-6.7) 10^3/uL 11.98 H Absolute Lymphocytes (1.2-3.4) 10^3/uL 0.13 L Absolute Monocytes (0.1-0.8) 10^3/uL 1.18 H Absolute Eosinophils (0.0-0.7) 10^3/uL 0.01 Absolute Basophils (0.0-0.2) 10^3/uL 0.07 VBG Lactate (0.6-1.4) mmol/L 1.3 Sodium (136-145) mmol/L 123 L* Potassium (3.5-5.1) mmol/L 4.4 Chloride (98-107) mmol/L 89 L Carbon Dioxide (21.0-32.0) mmol/L 27.8 Anion Gap (3-11) mmol/L 6.2 BUN (7-18) mg/dL 41 H Creatinine (0.70-1.30) mg/dL 1.3 Est GFR (CKD-EPI 2020) (mL/min/1.73m2) 62.11 Glucose (74-106) mg/dL 120 H Calcium (8.5-10.1) mg/dL 8.7 Magnesium (1.8-2.4) mg/dL 1.9 Total Bilirubin (0.2-1.0) mg/dL 0.5 AST (15-37) U/L 23 ALT (16-63) U/L 19 Alkaline Phosphatase (46-116) U/L 98 Troponin I (< or =60) ng/L < 50 Total Protein (6.4-8.2) g/dL 6.8 Albumin (3.4-5.0) g/dL 2.4 L Urine Color (Yellow) Yellow Urine Clarity (Clear) Clear Urine pH (5-8) 6.5 Ur Specific [place] (1.005-1.025) 1.015 Urine Protein (Neg-Trace) mg/dL 100 H Urine Ketones (Negative) mg/dL Negative Urine Blood (Negative) Trace-intact H Urine Nitrite (Negative) Negative Urine Bilirubin (Negative) Negative Urine Urobilinogen (Up to 0.2) mg/dL 0.2 Ur Leukocyte Esterase (Negative) Trace H Urine RBC (0-2) HPF 0-2 Urine WBC (0-5) HPF 10-20 H Ur Epithelial Cells (Negative) HPF Few Urine Crystals (Negative) HPF Negative Urine Bacteria (Negative) HPF Moderate Urine Casts (Negative) LPF Negative Urine Mucus (Negative) Negative Ur Culture Indicated? Yes Urine Glucose (Negative) mg/dL Negative Ethyl Alcohol (<10) mg/dL < 3.0 COVID-19 Source Nasopharynx SARS-CoV-2 (PCR) (Negative) Negative Influenza Type A (PCR) (Negative) Negative Influenza Type B (PCR) (Negative) Negative RSV (PCR) (Negative) Negative Quality:SDOH Health Related Social Needs: No Data to Display Critical Care Time Critical Care Time Critical Care Time: Yes Total Critical Care Time: 35 Attestation: I spent greater than 35 minutes addressing this patient's acute life threatening illness. This time was spent engaged in actions directly related to the patient's care. Failure to initiate these interventions would have likely resulted in clinically significant or life threatening deterioration in the patients condition. PFSH All Active Problems (Updated 11/29/23 @ 19:56 by Camryn Lopez NP) Acute hyponatremia (Acute) Altered mental status (Acute) Acute UTI (Acute) Shortness of breath (Acute) Hernia of abdominal wall (Acute) Low oxygen saturation (Acute) Insurance coverage problems (Acute) Unintentional weight loss (Acute) Nausea & vomiting (Acute) Nausea (Acute) Recurrent UTI (urinary tract infection) (Acute) Acute kidney injury (Acute) Hypotension (Acute) Renal failure, acute (Acute) Cancer related pain (Acute) Advanced directives, counseling/discussion (Acute) Palliative care patient (Acute) Tobacco dependence (Acute) Durable power of assistant attorney general for healthcare (Acute) Goals of care, counseling/discussion (Acute) Fatigue (Acute) Bladder cancer (Acute) Myocutaneous flap necrosis (Acute) Neuropathic pain (Acute) Hypertension (Chronic) Presence of urostomy (Acute) Colostomy in place (Chronic) Adenocarcinoma, lung (Acute) METS from rectal ca noted on lung bx07/13/2020. Chronic prescription opiate use (Acute) Pre-diabetes (Acute) Hyperlipidemia (Acute) Pulmonary nodule (Acute) [place] [facility] [place] nodues larger PET ordered, if mets, bx adenocarcinoma Chronic pain (Chronic) GERD (gastroesophageal reflux disease) (Chronic) Trial of omeprazole at bedtime. Rectal cancer (Chronic 10/22/16) 09/26/16- Large rectal cancer - adenocarcinoma- low grade, with perianal a bscess (T3N0) [place] [facility] [place] Will [place], no genetic mutation. Normal colo in 2019 Medical History Rectal perforation Lumbago Ibuprofen 600 mg as needed 4 times a day. Rectal cancer Surgical History History of lung biopsy Colectomy WITH COLOSTOMY Family History Mother Diabetes Hypertension Hyperlipidemia Father Hyperlipidemia Heart disease Brother No problems noted. Brother Cancer rectal Diabetes Hypertension Sister Hypertension Depression Sister No problems noted. Social History Smoking/Tobacco Use Status: Current-Occasional Tobacco Type: cigarettes Tobacco: How many years used: 20 Quit status: has quit before Second Hand Exposure: Yes Smoking risk assessment performed?: Yes Alcohol Intake: current Alcohol Intake frequency: holidays/special occasions only Alcohol type: beer Counseling provided: none Drug use: Occasionally Substance use type: marijuana Caregiver/Support person: Yes Household members: family and children Housing: house Communication Needs: None Do you need help understanding health information?: Rarely Pets and animals: Yes Pets and animals: dog(s) Sexually active: No Do you think of yourself as: straight/heterosexual Current gender identity: male What is your relationship status?: How often do you talk on the phone with friends or family?: three or more times per week How often do you get together with friends or relatives?: once per week How often do you attend lutheran or mormon services?: decline to answer Do you belong to any clubs or organized social groups?: no Panel score (0-1 are the most socially isolated patients): 1 What type of physical activity do you participate in: other Details: Side by side and 4 lassiter Agueda/Zoroastrian: No preference Special agueda needs: No Seatbelt use: always Helmet use: Yes Helmet use: always Drive intox or ride w/intox 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
--- NOTE | 2023-11-29 17:43 | DI.VRAD_ITS ---
PROCEDURE INFORMATION: Exam: XR Chest Exam date and time: 11/29/2023 5:04 PM Age: 63 years old Clinical indication: Other: Altered mental status TECHNIQUE: Imaging protocol: Radiologic exam of the chest. Views: 1 view. COMPARISON: CT CHEST/ABD/PEL W 09/26/2023 10:46 AM FINDINGS: Lungs: No new focal consolidation. Pleural spaces: No pleural effusion. No pneumothorax. Heart/Mediastinum: No cardiomegaly. Bones/joints: No acute findings. IMPRESSION: No acute findings. Dictated and Authenticated by: Rachid Blood MD. Ordering:VERA Cowan MD
[2023-11-29 17:47] LABS: COVID-19 PCR Negative (Negative); Influenza A PCR Negative (Negative); Influenza B PCR Negative (Negative); RSV PCR Negative (Negative)
[2023-11-29 17:48] LABS: Source Nasopharynx
[2023-11-29 17:50] LABS: Lactate 1.3 mmol/L (0.6-1.4)
[2023-11-29 17:53] LABS: Abs Immature Grans 0.08 10^3/uL (0.0-0.06); Absolute Basophil Count 0.07 10^3/uL (0.0-0.2); Absolute Eosinophil Count 0.01 10^3/uL (0.0-0.7); Absolute Monocyte Count 1.18 10^3/uL (0.1-0.8); Absolute Neutrophil Count 11.98 10^3/uL (1.2-6.7); Basophils % 0.5; Eosinophils % 0.1; HCT 41.6 % (40.0-50.0); HGB 13.8 g/dL (13.5-17.5); Immature Grans % 0.6; MCH 29.6 pg (27.0-33.0); MCHC 33.2 % (32.0-36.0); MCV 89 fL (80-95); Monocytes % 8.8; Platelet Count 215 10^3/uL (130-400); RBC 4.67 10^6/uL (4.36-5.78); RDW 15.9 % (11.8-14.1); WBC 13.46 10^3/uL (4.4-10.8)
[2023-11-29 17:54] LABS: Absolute Lymphocyte Count 0.13 10^3/uL (1.2-3.4)
[2023-11-29 18:09] LABS: ALT 19 U/L (16-63); AST 23 U/L (15-37); Albumin 2.4 g/dL (3.4-5.0); Alkaline Phosphatase 98 U/L (46-116); Anion Gap 6.2 mmol/L (3-11); BUN 41 mg/dL (7-18); Bilirubin, Total 0.5 mg/dL (0.2-1.0); CO2 27.8 mmol/L (21.0-32.0); CREATININE 1.3 mg/dL (0.70-1.30); Calcium 8.7 mg/dL (8.5-10.1); Chloride 89 mmol/L (98-107); Estimated GFR 62.11 (mL/min/1.73m2); Glucose 120 mg/dL (74-106); Magnesium 1.9 mg/dL (1.8-2.4); Potassium 4.4 mmol/L (3.5-5.1); Total Protein 6.8 g/dL (6.4-8.2); Troponin I < 50 ng/L (< or =60)
[2023-11-29 18:11] LABS: ETHANOL BLOOD < 3.0 mg/dL (<10)
[2023-11-29 18:15] LABS: Sodium 123 mmol/L (136-145)
[2023-11-29] MEDS: Normal Saline 1,000 ML 1000 ML IV (18:27)
[2023-11-29 19:42] LABS: Bilirubin Negative (Negative); Blood Trace-intact (Negative); Clarity Clear (Clear); Glucose Negative (Negative); Ketones Negative (Negative); Leukocyte Esterase Trace (Negative); Nitrite Negative (Negative); Specific Gravity 1.015 (1.005-1.025); Urobilinogen 0.2 mg/dL (Up to 0.2); pH 6.5 (5-8)
--- NOTE | 2023-11-29 19:45 | DI.RAD_ITS ---
Exam(s) XR PORTABLE CHEST AP EXAM: XR PORTABLE CHEST AP CLINICAL HISTORY: AMS, TECHNIQUE: 2D digital imaging was performed of the chest. Two images were obtained. AP views were obtained. COMPARISON: CR,XR XR PORTABLE CHEST AP from 08/24/2022 CR,XR XR PORTABLE CHEST AP from 11/29/2023 FINDINGS: MEDIASTINUM: Normal. HEART: Normal. PULMONARY VASCULATURE: Normal. LUNGS: No focal consolidating infiltrates are seen. The patient's known pulmonary metastases are bes t appreciated on the CT scan of the abdomen and pelvis performed the same day. PLEURAL SPACE: No pleural effusion or pneumothorax. BONE:Within normal limits for the patient's age. OTHER FINDINGS:There is a stable position of the right [id number]-Y-[id number] catheter. IMPRESSION: No acute pulmonary findings. DATA REPOSITORY: RADIATION DOSE DELIVERED:
--- NOTE | 2023-11-29 19:45 | DI.CT_ITS ---
Exam(s) CT HEAD WO EXAM: CT HEAD WO CLINICAL HISTORY: AMS,. TECHNIQUE: Imaging Protocol: Axial computed tomography images with coronal and sagittal reformatted images were created and reviewed COMPARISON: No exams were available for comparison FINDINGS: The examination is limited due to patient motion artifact. Ventricles and Extra axial spaces: Normal in size and morphology for the patient's age. Hemorrhage: None. Cerebral parenchyma: No mass effect. No evidence of an acute territorial infarct. Midline shift: None. Brainstem/Cerebellum: Normal. Calvarium: Normal. Visualized Paranasal sinuses/Mastoids: No fluid levels are seen in the maxillary sinuses. The mastoi d air cells are clear. Soft Tissues: Unremarkable. IMPRESSION: No acute intracranial process. RADIATION DOSE DELIVERED: Total DLP DATA REPOSITORY: All CT scans at this facility are submitted to the National Radiology Data Registry (NRDR) Dose Index Registry (DIR) with the [employer] (ACR). RADIATION OPTIMIZATION: All CT scans at this facility use at least one of these dose optimization te chniques: automated exposure control; mA and/or kV adjustment per patient size (includes targeted exa ms where dose is matched to clinical indication); or iterative reconstruction.
[2023-11-29 19:50] LABS: Bacteria Moderate HPF (Negative); Epithelial Cells Few HPF (Negative); RBC 0-2 HPF (0-2)
[2023-11-29 19:51] LABS: C & S Indicated? Yes; Casts Negative LPF (Negative); Crystals Negative HPF (Negative); Mucus Negative (Negative)
--- NOTE | 2023-11-29 20:00 | DI.CT_ITS ---
Exam(s) CT CHEST PE CTA EXAM: CT CHEST PE CTA CLINICAL HISTORY: SOB, Hypoxia. TECHNIQUE: Imaging Protocol: Axial CT angiography was performed with multi-slice acquisition and mu lti-planar and/or 3D reconstructions. CONTRAST MATERIAL: Intravenous: Omnipaque 350 contrast volume:100 mL COMPARISON: CT CT CHEST/ABD/PEL W from 11/11/[address] CHEST/ABD/PEL W from 02/13/[address] CHEST/ABD/PEL W from 05/15/[address] CHEST/ABD/PEL W from 07/10/[address] CHEST/ABD/PEL W from 09/26/2023 FINDINGS: Tracheobronchial tree: There is bronchial wall thickening present. There is mucous plugging seen in the left lower lobe. Pulmonary parenchyma: There is dependent atelectasis in the lung bases. There are multiple pulmonary metastases present. There has been interval decrease in size in the mass in the left lower lobe. N o focal consolidating infiltrates are seen. Pulmonary Arteries: No evidence of filling defect to suggest pulmonary emboli. Mediastinum and Cynthia: No dominant adenopathy or fluid collection. The esophagus is unremarkable. Visualized thyroid gland: Unremarkable. Pleura: No effusion or pneumothorax. Heart: The heart is not dilated. No coronary artery calcifications are seen. No pericardial effusion. Aorta: Thoracic aorta non-dilated. No evidence of dissection. Atherosclerotic calcification is presen t. Upper abdomen: Unremarkable. Tubes, Catheters, and Lines: There is a right sided Mqphsh-L-Hljv catheter present. Soft tissues: Unremarkable. Bones: Within normal limits for the patient's age.Old healed right rib fractures are present. There is a subacute healing fracture involving the anterior aspect of the left 3rd rib. IMPRESSION: 1. No evidence of pulmonary embolism, thoracic aortic dissection or aneurysm. 2. Multiple pulmonary metastases. The lesion in the left lower lobe has shown interval decrease in s ize compared to 09/26/2023. 3. Diffuse bronchial wall thickening which can be seen with bronchitis. 4. Subacute right left 3rd rib fracture. This is new since 09/26/2023. RADIATION DOSE DELIVERED: Total DLP DATA REPOSITORY: All CT scans at this facility are submitted to the National Radiology Data Registry (NRDR) Dose Index Registry (DIR) with the [employer] ([employer]). RADIATION OPTIMIZATION: All CT scans at this facility use at least one of these dose optimization te chniques: automated exposure control; mA and/or kV adjustment per patient size (includes targeted exa ms where dose is matched to clinical indication); or iterative reconstruction.
[2023-11-29] MEDS: Albuterol/Ipratropium 3 ML UPD VIAL UPD (20:11)
[2023-11-29 20:13] LABS: BE (Venous) 6 mmol/L (-2-3); HCO3 (Venous) 31 mmol/L (23-28); O2 Sat (Venous) 88 %; TCO2 (Venous) 28 mmol/L (24-29); pCO2 (Venous) 49 mmHg (41-51); pO2 (Venous) 55 mmHg
[2023-11-29] MEDS: cefTRIAXone 2 GM/50 ML BAG IVPB (20:15)
[2023-11-29 20:33] LABS: C-Reactive Protein 24.58 mg/dL (<or=0.5); Troponin I < 50 ng/L (< or =60)
[2023-11-29] MEDS: Omnipaque 350 MG/ML 100 ML BTL IJ (20:56)
[2023-11-29] MEDS: Normal Saline - Diluent 50 ML VIAL IJ (20:57)
--- NOTE | 2023-11-29 20:59 | DI.VRAD_ITS ---
PROCEDURE INFORMATION: Exam: XR Chest Exam date and time: 11/29/2023 8:09 PM Age: 63 years old Clinical indication: Other: Altered mental status TECHNIQUE: Imaging protocol: Radiologic exam of the chest. Views: 1 view. COMPARISON: CR XR PORTABLE CHEST AP 11/29/2023 5:04 PM FINDINGS: Tubes, catheters and devices: There is a right internal jugular venous approach donald catheter, tip is projecting over superior vena cava. Lungs: Unremarkable. No consolidation. Pleural spaces: Unremarkable. No pleural effusion. No pneumothorax. Heart/Mediastinum: Unremarkable. No cardiomegaly. Bones/joints: Unremarkable. IMPRESSION: No acute findings. Dictated and Authenticated by: Humphrey Carpenter MD. Ordering:VERA Cowan MD
--- NOTE | 2023-11-29 21:14 | DI.VRAD_ITS ---
PROCEDURE INFORMATION: Exam: CT Head Without Contrast Exam date and time: 11/29/2023 8:42 PM Age: 63 years old Clinical indication: Altered mental status/memory loss TECHNIQUE: Imaging protocol: Computed tomography of the head without contrast. COMPARISON: MR BRAIN WO/W 03/27/2023 1:55 PM FINDINGS: Brain: Normal. No hemorrhage. Mild nonspecific patchy foci of subcortical white matter hypodensity which may represent chronic small vessel ischemic changes. No mass effect. Cerebral ventricles: No ventriculomegaly. Paranasal sinuses: Minimal mucosal thickening in the left anterior ethmoidal air cell. Mild mucosal thickening and retention cyst in the floor of the maxillary sinuses. Mastoid air cells: Visualized mastoid air cells are well aerated. Bones/joints: Unremarkable. No acute fracture. Soft tissues: Unremarkable. IMPRESSION: 1. No acute intracranial abnormality. 2. Stable mild chronic small vessel ischemic changes. Dictated and Authenticated by: Humphrey Carpenter MD. Ordering:VERA Cowan MD
[2023-11-29] MEDS: Normal Saline Flush 10 ML SYR IVP (21:20)
--- NOTE | 2023-11-29 22:05 | NUR.NOTE ---
report given to HOMERO Montes De Oca and care relinquished
--- NOTE | 2023-11-29 22:09 | DI.VRAD_ITS ---
PROCEDURE INFORMATION: Exam: CTA Chest With Contrast Exam date and time: 11/29/2023 8:49 PM Age: 63 years old Clinical indication: Other: SOB, hypoxia TECHNIQUE: Imaging protocol: Computed tomographic angiography of the chest with contrast. Exam focused on the arteries. 3D rendering (Not supervised by radiologist): MIP and/or 3D reconstructed images were created by the technologist. Contrast material: OMNIPAQUE; Contrast volume: 100 ml; Contrast route: INTRAVENOUS (IV); COMPARISON: CT CHEST PE CTA 08/24/2022 3:32 PM FINDINGS: Tubes, catheters and devices: Implanted Port-A-Cath in the right anterior chest wall with its tip in the superior vena cava. Pulmonary arteries: No pulmonary embolism identified. Small amount of fluid in the midthoracic esophagus suspicious for gastroesophageal reflux. Aorta: No thoracic aortic aneurysm or dissection. Thyroid: Thyroid gland partially excluded from view but grossly unremarkable through its visualized portion. Lungs: Moderately extensive bronchial wall thickening, worse through the lower lung zones. Patchy bronchial opacification in the left lower lobe. Patchy opacity somewhat nodular appearing opacity in the left lower lobe. Dependent atelectasis at the lung bases. Spiculated nodular pulmonary densities. Pleural spaces: No pleural effusion or pneumothorax. Heart: Normal-sized heart. Lymph nodes: No pathologically enlarged mediastinal or hilar lymph nodes. No pathologically enlarged mediastinal or hilar lymph nodes. Liver: Poorly marginated indeterminate 12 mm hypoattenuating hepatic lesion adjacent to the falciform ligament on image 62 of series 4. Liver only partially included in the field of view and partially obscured by diffuse technical artifact, not well evaluated. Bones/joints: Subacute fracture through the anterolateral aspect of the left 3rd rib with bony callus formation but incomplete bony union, image 24 of series 4. Lower ribs partially excluded from view and incompletely evaluated. Otherwise, no acute fracture seen among the bones of the chest. Old fractures through the posterior aspect of the right ninth and 10th ribs. Spinal degenerative change with endplate irregularities, Schmorl's nodes, and anterior osteophytes at several levels. Old superior endplate compression deformity at T12 with mild loss of central vertebral height. Soft tissues: No gross soft tissue mass or fluid collection seen in the chest wall. Notes: By report, the patient is currently undergoing treatment for colorectal caner that was diagnosed in 2016. 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 Pt came into facility with confusion, altered mental, eating very little, and low oxygen. 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 IMPRESSION: 1. Subacute fracture through the anterolateral aspect of the left 3rd rib with bony callus formation but incomplete bony union, new since the prior exam from August 24, 2022. 2. No pulmonary embolism identified. 3. Scattered spiculated pulmonary nodules in keeping with a known history of pulmonary metastatic disease. The not significantly increased in number, these lesions overall appear slightly larger and more dense compared with the prior study from August 24, 2022. 4. Extensive bronchial wall thickening, most concentrated through the lower lung zones. Although nonspecific, bronchial wall thickening is often seen in the setting of acute, chronic, or recurrent bronchitis or aspiration and is commonly seen in smokers. Opacification of clustered left lower lobe bronchioles. Aspirated material or inflammatory exudate would be suspected primarily given bronchial wall thickening. 5. Patchy opacity with a somewhat nodular appearance in the left lower lobe. An acute infectious process, confluent metastatic disease, or aspiration could have this appearance. Dictated and Authenticated by: Rodney Phoenix MD. Ordering:VERA Cowan MD
[2023-11-29] MEDS: AMPICILLIN/SULBACTAM 3 GM in Normal Saline 100 ML IVPB (23:13)
--- NOTE | 2023-11-29 23:41 | W.PM.HP.N ---
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 Patient may also have oversedation with fentanyl patches for pain control with a 7 mcg/h patch placed the day prior to presentation. There is a question of aspiration pneumonia over the left lung gurrola and patient was placed on Unasyn. There was no PE. He is hypoxic and on O2 supplementation with adequate pulse oximeter improvement. He is not having symptoms of cough and is more alert and off the fentanyl patch. It appears she does have a caregiver at home and is uncertain how well he is attended with his daughter being the primary caregiver also being a hospice nurse. This need to be clarified before discharge and a better plan of treatment with the patient close history reviewed if he has untreatable metastatic disease with progressive disease. He is a full code presently. Qualifiers: Altered mental status type: delirium Qualified Code(s): R41.0 - Disorientation, unspecified (2) UTI (urinary tract infection): Start date: 11/29/23 Status: Acute Assessment and plan: Urine culture and follow-up pathogen with sensitivities the patient on Unasyn for now. IV hydration. Qualifiers: Hematuria presence: without hematuria Urinary tract infection type: acute cystitis Qualified Code(s): N30.00 - Acute cystitis without hematuria (3) Pneumonia: Start date: 11/29/23 Status: Acute Assessment and plan: Left lower lobe though some evidence of bilateral lower lobe pathology. There is suspicion of aspiration on the left with acute infiltrate. Qualifiers: Aspiration pneumonia type: unspecified Laterality: left Lung location: lower lobe of lung Pneumonia type: aspiration pneumonia Qualified Code(s): J69.0 - Pneumonitis due to inhalation of food and vomit (4) Acute hyponatremia: Start date: 11/29/23 Status: Acute Assessment and plan: IV normal saline and follow-up labs adjusting supplement if needed. With question of SIADH further evaluation could be performed with his CT to restrict fluids on the patient who already has marginal intake. (5) Rectal cancer: Assessment and plan: Stage IV on treatment and still full code. Need to discuss with CODE STATUS with daughter before discharge. History of Present Illness History of Present Illness Chief Complaint: Altered mental status with decreased intake Narrative: This is a 63-year-old male patient presented to the ED accompanied by his daughter who is his sole caregiver and hospice nurse. He does have stage IV metastatic colon cancer with colostomy bag over his left abdomen and ileal conduit for urine drainage over the right abdomen. He was slightly hypoxic upon presentation with altered mental status and has had no falls. With his presentation there was some concern for possible infection with imaging revealing left lower lobe infiltrate and question of UTI with lab gathered. He was placed on Unasyn to cover both possibilities of infection but was not overtly septic. There was no overt fever and did have an elevated WBC though only slightly. CRP was elevated but procalcitonin was not measured with this order. He denies any respiratory symptoms or cough with sedation could have aspirated. He is on fentanyl at 87 mcg/h with a 75 mcg patch and a 12 mcg patch removed in the ED. He also is taking oxycodone at home with a dose taken prior to presentation to the ED. The fentanyl patches were placed the day prior to presentation. It was slightly more alert after the patches were removed. He was also found to have significant hyponatremia and is on fluid resuscitation with normal saline. He could SIADH associate with his metastatic lung disease. He does have a port in his chest but is not receiving treatment at this time for his cancer according to the ED provider. He is a full code. Review of Systems Narrative: 13 point review of systems positive for gradual weight loss and weakness which is progressive with his disease. Otherwise unrevealing or stable with most history given by daughter in the ED. The daughter is his non destructive evaluation technician and it appears she does live in the home with him though it is not clear how often he is unattended. This can be reviewed with daughter. [facility] All Active Problems (Updated 11/29/23 @ 23:48 by Rodrick Valdivia) UTI (urinary tract infection) (Acute) Pneumonia (Acute) Acute hyponatremia (Acute) Altered mental status (Acute) Acute UTI (Acute) Shortness of breath (Acute) Hernia of abdominal wall (Acute) Low oxygen saturation (Acute) Insurance coverage problems (Acute) Unintentional weight loss (Acute) Nausea & vomiting (Acute) Nausea (Acute) Recurrent UTI (urinary tract infection) (Acute) Acute kidney injury (Acute) Hypotension (Acute) Renal failure, acute (Acute) Cancer related pain (Acute) Advanced directives, counseling/discussion (Acute) Palliative care patient (Acute) Tobacco dependence (Acute) Durable power of perinatal director for healthcare (Acute) Goals of care, counseling/discussion (Acute) Fatigue (Acute) Bladder cancer (Acute) Myocutaneous flap necrosis (Acute) Neuropathic pain (Acute) Hypertension (Chronic) Presence of urostomy (Acute) Colostomy in place (Chronic) Adenocarcinoma, lung (Acute) METS from rectal ca noted on lung bx07/13/2020. Chronic prescription opiate use (Acute) Pre-diabetes (Acute) Hyperlipidemia (Acute) Pulmonary nodule (Acute) followed at [facility] [place], 06/20 CT nodues larger PET ordered, if mets, bx adenocarcinoma Chronic pain (Chronic) GERD (gastroesophageal reflux disease) (Chronic) Trial of omeprazole at bedtime. Rectal cancer (Chronic 10/22/16) 09/26/16- Large rectal cancer - adenocarcinoma- low grade, with perianal abscess (T3N0) This is the [facility] [place]. Dr. Will Hays, no genetic mutation. Normal colo in 2019 Medical History Rectal perforation Lumbago Ibuprofen 600 mg as needed 4 times a day. Rectal cancer Surgical History History of lung biopsy Colectomy WITH COLOSTOMY Family History Mother Diabetes Hypertension Hyperlipidemia Father Hyperlipidemia Heart disease Brother No problems noted. Brother Cancer rectal Diabetes Hypertension Sister Hypertension Depression Sister No problems noted. Social History Smoking/Tobacco Use Status: Current-Occasional Tobacco Type: cigarettes Tobacco: How many years used: 20 Quit status: has quit before Second Hand Exposure: Yes Smoking risk assessment performed?: Yes Alcohol Intake: current Alcohol Intake frequency: holidays/special occasions only Alcohol type: beer Counseling provided: none Drug use: Occasionally Substance use type: marijuana Caregiver/Support person: Yes Household members: family and children Housing: house Communication Needs: None Do you need help understanding health information?: Rarely Pets and animals: Yes Pets and animals: dog(s) Sexually active: No Do you think of yourself as: straight/heterosexual Current gender identity: male What is your relationship status?: How often do you talk on the phone with friends or family?: three or more times per week How often do you get together with friends or relatives?: once per week How often do you attend restorationist or gnosticism services?: decline to answer Do you belong to any clubs or organized social groups?: no Panel score (0-1 are the most socially isolated patients): 1 What type of physical activity do you participate in: other Details: Side by side and 4 lassiter Agueda/Evangelical: No preference Special agueda needs: No Seatbelt use: always Helmet use: Yes Helmet use: always Drive intox or ride w/intox race car driver: No Do you feel safe at home: Yes Do you feel safe in your relationship?: Yes Meds Allergies and Home Medications Allergies Allergy/AdvReac Type Severity Reaction Status Date / Time pregabalin AdvReac Severe depression, Verified 11/24/23 09:43 SI duloxetine AdvReac Intermediate nausea Verified 11/24/23 09:43 Home Medications Medication Instructions Recorded Confirmed Type aspirin 81 mg chewable tablet 81 mg PO DAILY 11/05/21 11/29/23 History aluminum-mag hydroxide-simethicone 5 ml PO QID PRN 10/18/22 11/29/23 History 400 mg-400 mg-40 mg/5 mL oral susp (Almacone-2) omeprazole 40 mg capsule,delayed 40 mg PO DAILY PRN 10/18/22 11/29/23 History release prednisone 20 mg tablet 40 mg PO DAILY 10/18/22 11/29/23 History atorvastatin 40 mg tablet 40 mg PO QHS #90 tabs 10/22/22 11/29/23 Rx lisinopril 40 mg tablet 40 mg PO DAILY #90 tabs 10/22/22 11/29/23 Rx ibuprofen 600 mg tablet 600 mg PO QID PRN pain #60 tabs 11/18/22 11/29/23 Rx diphenhydramine HCl 12.5 mg/5 mL 12.5 mg (5 mL) PO Q6H PRN allergic 01/07/23 11/29/23 Rx oral liquid (M-Dryl) reaction #118 mL naloxone 4 mg/actuation nasal 4 mg intranasal Q2M PRN opioid 03/05/23 11/29/23 Rx spray (Narcan) overdose #2 ea gabapentin 300 mg capsule 300 mg PO BID #180 caps 03/24/23 11/29/23 Rx methylphenidate HCl 5 mg tablet 5 mg PO BID PRN Cancer related 03/24/23 11/29/23 Rx fatigue #60 tabs food supplemt, lactose-reduced 237 ml PO BID #5,688 mL 07/21/23 11/29/23 Rx 0.06 gram-1 kcal/mL oral liquid (Boost High Protein) fentanyl 12 mcg/hr transdermal 1 patch transdermal Q72H #10 ea 11/10/23 11/29/23 Rx patch fentanyl 75 mcg/hr transdermal 1 patch transdermal Q72H #10 ea 11/10/23 11/29/23 Rx patch lidocaine HCl 2 % mucosal solution 1 applic mucous membrane TID PRN 11/10/23 11/29/23 Rx (Lidocaine Viscous) pain #100 mL ondansetron 8 mg disintegrating 8 mg PO Q8H PRN nausea and 11/10/23 11/29/23 Rx tablet vomiting #30 tabs oxycodone 5 mg tablet 5 - 10 mg (1 - 2 x 5 mg) PO Q3H 11/10/23 11/29/23 Rx PRN PRN pain #180 tabs prochlorperazine maleate 10 mg 10 mg PO Q6H PRN nausea and 11/10/23 11/29/23 Rx tablet (Compazine) vomiting #30 tabs albuterol sulfate 90 mcg/actuation 2 inh inhalation Q6H PRN shortness 11/24/23 11/29/23 Rx aerosol inhaler of breath or wheezing #18 grams Exam Narrative Exam Narrative: General: Patient appears older than stated age, slightly cachectic, in no acute distress and alert and oriented to person, place and time. He is a vague historian. HEENT: Normocephalic, eyes with pupils equal and reactive light symmetrically, extraocular movement intact and sclera anicteric. Oropharynx with dry mucosa. Neck: Supple without JVD. Back: Stooped posture without CVA tenderness. Lungs: Coarse crackles left base more than right with bronchovesicular breath sounds diffusely and fair aeration. No focalizing rhonchi. Rales left base. No dullness to percussion. Heart: Regular rate and rhythm with no murmurs or gallops appreciated. Abdomen: Scaphoid contour, soft nontender to palpation with no palpable hepatosplenomegaly. Bowel sounds positive with ileal conduit having urine in the bag on the right abdomen and stool with a colostomy bag in the left abdomen. Genitalia/rectal: Exam deferred. Extremities: Without clubbing, cyanosis or pitting edema. Muscle wasting diffusely. Fair capillary refill. Skin: Normal color, warm and dry. Chronic actinic changes. Neuro: Cranial nerves II through XII gross intact, no focal motor deficits and no tremor. Psych: Flattened affect and depressed mood. No abnormal thought processes. Remote and recent memory grossly intact. Results Imaging Imaging Studies: Exam: CTA Chest With Contrast Exam date and time: 11/29/2023 8:49 PM Age: 63 years old Clinical indication: Other: SOB, hypoxia COMPARISON: CT CHEST PE CTA 08/24/2022 3:32 PM FINDINGS: Tubes, catheters and devices: Implanted Port-A-Cath in the right anterior chest wall with its tip in the superior vena cava. Pulmonary arteries: No pulmonary embolism identified. Small amount of fluid in the midthoracic esophagus suspicious for gastroesophageal reflux. Aorta: No thoracic aortic aneurysm or dissection. Thyroid: Thyroid gland partially excluded from view but grossly unremarkable through its visualized portion. Lungs: Moderately extensive bronchial wall thickening, worse through the lower lung zones. Patchy bronchial opacification in the left lower lobe. Patchy opacity somewhat nodular appearing opacity in the left lower lobe. Dependent atelectasis at the lung bases. Spiculated nodular pulmonary densities. Pleural spaces: No pleural effusion or pneumothorax. Heart: Normal-sized heart. Lymph nodes: No pathologically enlarged mediastinal or hilar lymph nodes. No pathologically enlarged mediastinal or hilar lymph nodes. Liver: Poorly marginated indeterminate 12 mm hypoattenuating hepatic lesion adjacent to the falciform ligament on image 62 of series 4. Liver only partially included in the field of view and partially obscured by diffuse technical artifact, not well evaluated. Bones/joints: Subacute fracture through the anterolateral aspect of the left 3rd rib with bony callus formation but incomplete bony union, image 24 of series 4. Lower ribs partially excluded from view and incompletely evaluated. Otherwise, no acute fracture seen among the bones of the chest. Old fractures through the posterior aspect of the right ninth and 10th ribs. Spinal degenerative change with endplate irregularities, Schmorl's nodes, and anterior osteophytes at several levels. Old superior endplate compression deformity at T12 with mild loss of central vertebral height. Soft tissues: No gross soft tissue mass or fluid collection seen in the chest wall. Notes: By report, the patient is currently undergoing treatment for colorectal caner that was diagnosed in 2017. 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 Pt came into facility with confusion, altered mental, eating very little, and low oxygen. UTILIZATION MANAGEMENT MANAGER is wanting to rule out PE. IMPRESSION: 1. Subacute fracture through the anterolateral aspect of the left 3rd rib with bony callus formation but incomplete bony union, new since the prior exam from August 24, 2022. 2. No pulmonary embolism identified. 3. Scattered spiculated pulmonary nodules in keeping with a known history of pulmonary metastatic disease. The not significantly increased in number, these lesions overall appear slightly larger and more dense compared with the prior study from August 24, 2022. 4. Extensive bronchial wall thickening, most concentrated through the lower lung zones. Although nonspecific, bronchial wall thickening is often seen in the setting of acute, chronic, or recurrent bronchitis or aspiration and is commonly seen in smokers. Opacification of clustered left lower lobe bronchioles. Aspirated material or inflammatory exudate would be suspected primarily given bronchial wall thickening. 5. Patchy opacity with a somewhat nodular appearance in the left lower lobe. An acute infectious process, confluent metastatic disease, or aspiration could have this appearance. Exam: XR Chest Exam date and time: 11/29/2023 8:09 PM Age: 63 years old Clinical indication: Other: Altered mental status TECHNIQUE: Imaging protocol: Radiologic exam of the chest. Views: 1 view. COMPARISON: CR XR PORTABLE CHEST AP 11/29/2023 5:04 PM FINDINGS: Tubes, catheters and devices: There is a right internal jugular venous approach donald catheter, tip is projecting over superior vena cava. Lungs: Unremarkable. No consolidation. Pleural spaces: Unremarkable. No pleural effusion. No pneumothorax. Heart/Mediastinum: Unremarkable. No cardiomegaly. Bones/joints: Unremarkable. IMPRESSION: No acute findings. Exam: CT Head Without Contrast Exam date and time: 11/29/2023 8:42 PM Age: 63 years old Clinical indication: Altered mental status/memory loss COMPARISON: MR BRAIN WO/W 03/27/2023 1:55 PM FINDINGS: Brain: Normal. No hemorrhage. Mild nonspecific patchy foci of subcortical white matter hypodensity which may represent chronic small vessel ischemic changes. No mass effect. Cerebral ventricles: No ventriculomegaly. Paranasal sinuses: Minimal mucosal thickening in the left anterior ethmoidal air cell. Mild mucosal thickening and retention cyst in the floor of the maxillary sinuses. Mastoid air cells: Visualized mastoid air cells are well aerated. Bones/joints: Unremarkable. No acute fracture. Soft tissues: Unremarkable. IMPRESSION: 1. No acute intracranial abnormality. 2. Stable mild chronic small vessel ischemic changes. Labs 11/30/23 06:41 11/30/23 06:41 Labs: Laboratory Results - last 24 hr 11/29/23 11/29/23 11/29/23 17:02 17:40 19:33 WBC 13.46 H RBC 4.67 Hgb 13.8 Hct 41.6 MCV 89 MCH 29.6 MCHC 33.2 RDW 15.9 H Plt Count 215 MPV 10.0 Immature Gran % 0.6 Neutrophils % 89.0 Lymphocytes % 1.0 Monocytes % 8.8 Eosinophils % 0.1 Basophils % 0.5 Nucleated RBC % 0.0 Absolute Neutrophils 11.98 H Absolute Lymphocytes 0.13 L Absolute Monocytes 1.18 H Absolute Eosinophils 0.01 Absolute Basophils 0.07 VBG pH VBG pCO2 VBG pO2 VBG HCO3 VBG Total CO2 VBG O2 Saturation VBG Base Excess VBG Lactate 1.3 Sodium 123 L* Potassium 4.4 Chloride 89 L Carbon Dioxide 27.8 Anion Gap 6.2 BUN 41 H Creatinine 1.3 Est GFR (CKD-EPI 2020) 62.11 Glucose 120 H Calcium 8.7 Magnesium 1.9 Total Bilirubin 0.5 AST 23 ALT 19 Alkaline Phosphatase 98 Troponin I < 50 C-Reactive Protein Total Protein 6.8 Albumin 2.4 L Urine Color Yellow Urine Clarity Clear Urine pH 6.5 Ur Specific [place]akes[place] 1.015 Urine Protein 100 H Urine Ketones Negative Urine Blood Trace-intact H Urine Nitrite Negative Urine Bilirubin Negative Urine Urobilinogen 0.2 Ur Leukocyte Esterase Trace H Urine RBC 0-2 Urine WBC 10-20 H Ur Epithelial Cells Few Urine Crystals Negative Urine Bacteria Moderate Urine Casts Negative Urine Mucus Negative Ur Culture Indicated? Yes Urine Glucose Negative Ethyl Alcohol < 3.0 COVID-19 Source Nasopharynx SARS-CoV-2 (PCR) Negative Influenza Type A (PCR) Negative Influenza Type B (PCR) Negative RSV (PCR) Negative 11/29/23 20:05 WBC RBC Hgb Hct MCV MCH MCHC RDW Plt Count MPV Immature Gran % Neutrophils % Lymphocytes % Monocytes % Eosinophils % Basophils % Nucleated RBC % Absolute Neutrophils Absolute Lymphocytes Absolute Monocytes Absolute Eosinophils Absolute Basophils VBG pH 7.40 VBG pCO2 49 VBG pO2 55 VBG HCO3 31 H VBG Total CO2 28 VBG O2 Saturation 88 VBG Base Excess 6 H VBG Lactate Sodium Potassium Chloride Carbon Dioxide Anion Gap BUN Creatinine Est GFR (CKD-EPI 2020) Glucose Calcium Magnesium Total Bilirubin AST ALT Alkaline Phosphatase Troponin I < 50 C-Reactive Protein 24.58 H Total Protein Albumin Urine Color Urine Clarity Urine pH Ur Specific [place] Urine Protein Urine Ketones Urine Blood Urine Nitrite Urine Bilirubin Urine Urobilinogen Ur Leukocyte Esterase Urine RBC Urine WBC Ur Epithelial Cells Urine Crystals Urine Bacteria Urine Casts Urine Mucus Ur Culture Indicated? Urine Glucose Ethyl Alcohol COVID-19 Source SARS-CoV-2 (PCR) Influenza Type A (PCR) Influenza Type B (PCR) RSV (PCR) Last Vital Signs Temp 36.9 C 11/29/23 21:46 Pulse 94 H 11/29/23 23:30 Resp 17 11/29/23 23:30 BP 102/53 L 11/29/23 23:30 Pulse Ox 92 11/29/23 21:46 Time Spent Time spent with Patient: >75 minutes Time was spent: preparing to see the patient(eg.review tests), obtaining and/or reviewing separately otained hiistory, ordering medications,tests, procedures, referring, communicating with other health physician primary care sports medicine, indepentently interpreting results and care coordination
[2023-11-30] VITALS (22 sets, daily range): BP systolic 86–116; BP diastolic 51–83; PULSE 80–100; RESP 4–20; TEMP 36.1–37.7; O2SAT 90–96
[2023-11-30] MEDS: Normal Saline 1,000 ML 150 ML IV ×2 (01:55→09:28)
[2023-11-30] MEDS: oxyCODONE 5 MG TAB PO ×4 (02:00→23:06)
[2023-11-30] MEDS: Hydrocortisone SOD SUC. 100 MG VIAL IVP ×3 (02:01→18:10)
[2023-11-30] MEDS: AMPICILLIN/SULBACTAM 3 GM in Normal Saline 100 ML IVPB (04:28)
[2023-11-30 07:33] LABS: HCT 36.4 % (40.0-50.0); HGB 12.2 g/dL (13.5-17.5); MCH 29.7 pg (27.0-33.0); MCHC 33.5 % (32.0-36.0); MCV 89 fL (80-95); MPV 9.6 fL (8.0-11.0); Platelet Count 156 10^3/uL (130-400); RBC 4.11 10^6/uL (4.36-5.78); RDW 15.8 % (11.8-14.1); RDW-SD 50.4 fL; WBC 10.22 10^3/uL (4.4-10.8)
[2023-11-30 07:51] LABS: ALT 27 U/L (16-63); AST 24 U/L (15-37); Alkaline Phosphatase 106 U/L (46-116); Anion Gap 3.8 mmol/L (3-11); BUN 26 mg/dL (7-18); Bilirubin, Total 0.4 mg/dL (0.2-1.0); CO2 30.2 mmol/L (21.0-32.0); Calcium 8.4 mg/dL (8.5-10.1); Chloride 96 mmol/L (98-107); Glucose 116 mg/dL (74-106); Magnesium 1.8 mg/dL (1.8-2.4); Potassium 4.1 mmol/L (3.5-5.1); Sodium 130 mmol/L (136-145); Total Protein 5.6 g/dL (6.4-8.2)
[2023-11-30] MEDS: Omeprazole 20 MG CAPCR 40 MG PO (07:53)
[2023-11-30] MEDS: Gabapentin 300 MG CAP PO ×2 (07:53→23:07)
[2023-11-30] MEDS: Aspirin 81 MG CHEW PO (07:54)
[2023-11-30] MEDS: Enoxaparin 40 MG/0.4 ML SYR SC (07:54)
[2023-11-30] MEDS: predniSONE 20 MG TAB 40 MG PO (07:54)
--- NOTE | 2023-11-30 08:38 | PDOC.CMIN ---
Date of service: 11/30/23 Time of Service: 08:39 Care Management Initial Assmt Initial Assessment REASON FOR HOSPITALIZATION:: AMS PREVIOUS FUNCTIONAL STATUS/SOCIAL/FAMILY SUPPORTS:: Trey lives in a single family home in [facility] with his daughter Katty. He also has a son Idris who lives in [place] [facility]. Dexter has not worked since his cancer diagnosis about 3-4 years ago. 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 He has since sold the farm but still has [address] [place] the [address] from his house. Dexter is independent with ADLs and does not receive any community services. CURRENT FUNCTIONAL STATUS:: Dexter was sitting up in bed when CM met with him. He was pleasant and agreeable to conversation. Dexter talked a bit about his cancer diagnosis. He had a urostomy and colostomy performed when first diagnosed. He shared that since that time he does not go out very much. Dexter continues to receive treatment for his cancer. He believes it is a form of chemotherapy. He informed CM that he is not sure if he will continue treatment however as each time he gets sick, it is worse than the time before. This time he has bacteremia with gram negative rods and may have a UTI. ADVANCE DIRECTIVES:: [facility] form on file. [facility] Katty Crawfordothe Has patient been provided with info about the portal/API?: Yes Did the patient sign up for the portal?: No CODE STATUS:: Full Code INSURANCE COVERAGE / FINANCIAL ISSUES:: Medicare supplement CURRENT HOME/COMMUNITY SERVICES/EQUIPMENT:: none PRIMARY CARE PHYSICIAN:: Shanti Son POTENTIAL DISCHARGE NEEDS:: follow up with PCP, Palliative and plan of care PATIENT/FAMILY EDUCATION NEEDS:: Review of discharge instructions, activity, limitations, follow up plan, discuss Ask Me Three TRANSPORTATION:: via private vehicle with family PLAN:: Anticipate Dexter will be discharged home with no new services, although he would be open to home health if recommended. He will follow up with his PCP and plan of care and transport with family. CM will follow and continue to assess for discharge planning needs. PFSH All Active Problems (Updated 11/29/23 @ 23:48 by Rodrick Valdviia) UTI (urinary tract infection) (Acute) Pneumonia (Acute) Acute hyponatremia (Acute) Altered mental status (Acute) Acute UTI (Acute) Shortness of breath (Acute) Hernia of abdominal wall (Acute) Low oxygen saturation (Acute) Insurance coverage problems (Acute) Unintentional weight loss (Acute) Nausea & vomiting (Acute) Nausea (Acute) Recurrent UTI (urinary tract infection) (Acute) Acute kidney injury (Acute) Hypotension (Acute) Renal failure, acute (Acute) Cancer related pain (Acute) Advanced directives, counseling/discussion (Acute) Palliative care patient (Acute) Tobacco dependence (Acute) Durable power of contract attorney for healthcare (Acute) Goals of care, counseling/discussion (Acute) Fatigue (Acute) Bladder cancer (Acute) Myocutaneous flap necrosis (Acute) Neuropathic pain (Acute) Hypertension (Chronic) Presence of urostomy (Acute) Colostomy in place (Chronic) Adenocarcinoma, lung (Acute) METS from rectal ca noted on lung bx07/13/2020. Chronic prescription opiate use (Acute) Pre-diabetes (Acute) Hyperlipidemia (Acute) Pulmonary nodule (Acute) [place] [facility]20 CT nodues larger PET ordered, if mets, bx adenocarcinoma Chronic pain (Chronic) GERD (gastroesophageal reflux disease) (Chronic) Trial of omeprazole at bedtime. Rectal cancer (Chronic 10/22/16) 09/26/16- Large rectal cancer - adenocarcinoma- low grade, with perianal abscess (T3N0) This is the [facility]. Will Hays, no genetic mutation. Normal colo in 2019 Medical History Rectal perforation Lumbago Ibuprofen 600 mg as needed 4 times a day. Rectal cancer Surgical History History of lung biopsy Colectomy WITH COLOSTOMY Family History Mother Diabetes Hypertension Hyperlipidemia Father Hyperlipidemia Heart disease Brother No problems noted. Brother Cancer rectal Diabetes Hypertension Sister Hypertension Depression Sister No problems noted. Social History Smoking/Tobacco Use Status: Current-Occasional Tobacco Type: cigarettes Tobacco: How many years used: 20 Quit status: has quit before Second Hand Exposure: Yes Smoking risk assessment performed?: Yes Alcohol Intake: current Alcohol Intake frequency: holidays/special occasions only Alcohol type: beer Counseling provided: none Drug use: Occasionally Substance use type: marijuana Caregiver/Support person: Yes Household members: family and children Housing: house Communication Needs: None Do you need help understanding health information?: Rarely Pets and animals: Yes Pets and animals: dog(s) Sexually active: No Do you think of yourself as: straight/heterosexual Current gender identity: male What is your relationship status?: How often do you talk on the phone with friends or family?: three or more times per week How often do you get together with friends or relatives?: once per week How often do you attend alevism or orthodoxy services?: decline to answer Do you belong to any clubs or organized social groups?: no Panel score (0-1 are the most socially isolated patients): 1 What type of physical activity do you participate in: other Details: Side by side and 4 lassiter Agueda/Uatsdin: No preference Special agueda needs: No Seatbelt use: always Helmet use: Yes Helmet use: always Drive intox or ride w/intox taxi cab driver: No Do you feel safe at home: Yes Do you feel safe in your relationship?: Yes SDOH(Care Management) Screening Will the Patient Participate in the Screening?: Declined to provide Social Determinants of Health Comments(SDOH Details): pt reporting buttock pain.
[2023-11-30] MEDS: PIPERACILLIN/TAZO 4.5 GM in Normal Saline 100 ML IVPB ×2 (09:29→18:10)
--- NOTE | 2023-11-30 15:19 | W.PM.PROGNOT ---
Date of Service Date of service: 11/30/23 Time of Service: 15:19 Assessment and Plan Assessment and plan (1) Sepsis: Status: Acute Assessment and plan: patient met criteria for sepsis on admission w/ tachycardia, hypotension, tachypnea and decreased SPO2 (although he has chronic lung disease but was below his baseline) and had elevated lactate along w/ decreased mentation and alterred renal fxn. He is now back to baseline mentation, renal function is recovering, he is afebrile and lactate is now normal. Source is not pulmonary but urinary tract, I have ordered non-contrast renal CT since we do not have any images from last night to rule out pyelonephritis or renal abscess or obstructive uroopathy. I will continue iv fluids but now that his sodium has recovered will switch to isotonic solution of LR and hydrate for today, then dc after today as long as he is eating and drinking ok Continue Zosyn and modify his coverage based on his urine and blood cultures, repeat his blood cultures tomorrow and daily until no growth on his repeat cultures. Professional time spent interviewing and examining patient, discussion of goals of care with hospital team (care management, nursing and consulting professionals) was 50 minutes. Qualifiers: Sepsis type: sepsis due to unspecified organism Sepsis acute organ dysfunction status: without acute organ dysfunction Qualified Code(s): A41.9 - Sepsis, unspecified organism (2) UTI (urinary tract infection): Start date: 11/29/23 Status: Acute Assessment and plan: as abpve Qualifiers: Urinary tract infection type: acute cystitis Hematuria presence: without hematuria Qualified Code(s): N30.00 - Acute cystitis without hematuria (3) Altered mental status: Start date: 11/29/23 Status: Resolved Assessment and plan: secondary to septic encephalopathy Qualifiers: Altered mental status type: delirium Qualified Code(s): R41.0 - Disorientation, unspecified (4) Acute hyponatremia: Start date: 11/29/23 Status: Acute Assessment and plan: improving. (5) Rectal cancer: Assessment and plan: Stage IV on treatment and still full code. Need to discuss with CODE STATUS with daughter before discharge. Subjective Subjective Interval history since last seen: Mr. Prabhakar is feeling better. He did have fever and rigors yesterday along w/ acute confusion. He says that regularly uses oxygen at 4 lpm for COPD. he reports some increased sputum production but when he coughed up it was just saliva, clear. I told him that he has urosepsis w/ gram negative bacteremia and bacteruria. I switched him from Unasyn to Zosyn. Originally he was put on Unasyn in belief that he probably had aspiration pneumonia but his CT does not support this diagnosis. He reports that he is still getting chemotherapy for his metastatic colorectal cancer. Last treatment about 1 1/2 to 2 weeks ago. Exam Narrative Exam Narrative: Middle-age white male dark complexion but is not cyanotic. He is alert and oriented x 3 Lungs are clear anteriorly posteriorly has fine bibasilar rales no rhonchi or wheezing Heart regular rate and rhythm no appreciable murmur rub Abdomen soft nontender patient has a diverting ileal conduit on the left and a colostomy on the right Extremities without peripheral cyanosis or edema Objective Last Vital Signs Temp 36.6 C 11/30/23 14:48 Pulse 84 11/30/23 14:48 Resp 18 11/30/23 14:48 BP 114/70 11/30/23 14:48 Pulse Ox 92 11/30/23 14:48 Laboratory Results - last 24 hr 11/29/23 11/29/23 11/29/23 17:02 17:40 19:33 WBC 13.46 H RBC 4.67 Hgb 13.8 Hct 41.6 MCV 89 MCH 29.6 MCHC 33.2 RDW 15.9 H Plt Count 215 MPV 10.0 Immature Gran % 0.6 Neutrophils % 89.0 Lymphocytes % 1.0 Monocytes % 8.8 Eosinophils % 0.1 Basophils % 0.5 Nucleated RBC % 0.0 Absolute Neutrophils 11.98 H Absolute Lymphocytes 0.13 L Absolute Monocytes 1.18 H Absolute Eosinophils 0.01 Absolute Basophils 0.07 VBG pH VBG pCO2 VBG pO2 VBG HCO3 VBG Total CO2 VBG O2 Saturation VBG Base Excess VBG Lactate 1.3 Sodium 123 L* Potassium 4.4 Chloride 89 L Carbon Dioxide 27.8 Anion Gap 6.2 BUN 41 H Creatinine 1.3 Est GFR (CKD-EPI 2020) 62.11 Glucose 120 H Calcium 8.7 Magnesium 1.9 Total Bilirubin 0.5 AST 23 ALT 19 Alkaline Phosphatase 98 Troponin I < 50 C-Reactive Protein Total Protein 6.8 Albumin 2.4 L Urine Color Yellow Urine Clarity Clear Urine pH 6.5 Ur Specific Otter 1.015 Urine Protein 100 H Urine Ketones Negative Urine Blood Trace-intact H Urine Nitrite Negative Urine Bilirubin Negative Urine Urobilinogen 0.2 Ur Leukocyte Esterase Trace H Urine RBC 0-2 Urine WBC 10-20 H Ur Epithelial Cells Few Urine Crystals Negative Urine Bacteria Moderate Urine Casts Negative Urine Mucus Negative Ur Culture Indicated? Yes Urine Glucose Negative Ethyl Alcohol < 3.0 COVID-19 Source Nasopharynx SARS-CoV-2 (PCR) Negative Influenza Type A (PCR) Negative Influenza Type B (PCR) Negative RSV (PCR) Negative 11/29/23 11/30/23 20:05 06:41 WBC 10.22 RBC 4.11 L Hgb 12.2 L Hct 36.4 L MCV 89 MCH 29.7 MCHC 33.5 RDW 15.8 H Plt Count 156 MPV 9.6 Immature Gran % Neutrophils % Lymphocytes % Monocytes % Eosinophils % Basophils % Nucleated RBC % Absolute Neutrophils Absolute Lymphocytes Absolute Monocytes Absolute Eosinophils Absolute Basophils VBG pH 7.40 VBG pCO2 49 VBG pO2 55 VBG HCO3 31 H VBG Total CO2 28 VBG O2 Saturation 88 VBG Base Excess 6 H VBG Lactate Sodium 130 L Potassium 4.1 Chloride 96 L Carbon Dioxide 30.2 Anion Gap 3.8 BUN 26 H Creatinine 1.0 Est GFR (CKD-EPI 2020) 85.10 Glucose 116 H Calcium 8.4 L Magnesium 1.8 Total Bilirubin 0.4 AST 24 ALT 27 Alkaline Phosphatase 106 Troponin I < 50 C-Reactive Protein 24.58 H Total Protein 5.6 L Albumin 2.0 L Urine Color Urine Clarity Urine pH Ur Specific Otter Urine Protein Urine Ketones Urine Blood Urine Nitrite Urine Bilirubin Urine Urobilinogen Ur Leukocyte Esterase Urine RBC Urine WBC Ur Epithelial Cells Urine Crystals Urine Bacteria Urine Casts Urine Mucus Ur Culture Indicated? Urine Glucose Ethyl Alcohol COVID-19 Source SARS-CoV-2 (PCR) Influenza Type A (PCR) Influenza Type B (PCR) RSV (PCR) Time Spent with Patient Time Spent with Patient: >50 minutes Time was spent: preparing to see the patient(eg.review tests), obtaining and/or reviewing separately otained hiistory, ordering medications,tests, procedures, referring, communicating with other health respiratory care program director, indepentently interpreting results, counseling the patient and care coordination
[2023-11-30 15:55] LABS: Lab Add On Test DONE
[2023-11-30] MEDS: Lactated Ringers 1,000 ML 150 ML IV (16:16)
--- NOTE | 2023-11-30 16:25 | DI.CT_ITS ---
Exam(s) CT RENAL COLIC WO EXAM: CT RENAL COLIC WO CLINICAL HISTORY: urosepsis. TECHNIQUE: Imaging Protocol: Axial computed tomography images with coronal and sagittal reformatted images were created and reviewed. COMPARISON: CT CT CHEST/ABD/PEL W from 11/11/[address] CHEST/ABD/PEL W from 02/13/[address] CHEST/ABD/PEL W from 05/15/[address] CHEST/ABD/PEL W from 07/10/[address] CHEST/ABD/PEL W from 09/26/[address] CHEST PE CTA from 11/29/2023 FINDINGS: ABDOMEN: Lung Bases: There are small bilateral pleural effusions and subjacent infiltrates. Bronchiectatic ch anges are seen in the left lower lobe with mild bronchial wall thickening. Liver: There is fatty infiltration adjacent to the ligamentum teres. There is limited evaluation of the liver secondary to lack of IV contrast. Gallbladder and biliary tract: Cholelithiasis. No biliary ductal dilatation. Pancreas: Normal density, no abnormal calcifications or inflammatory process. Spleen: Normal. Kidneys: Normal size, contour and axis.No radiodense stones or obstructive uropathy. No masses seen. There is hyperdensity seen in the kidneys. This may be secondary to the patient's recent CT scan. P yelonephritis may also be considered. There is dilatation of the renal pelves. Adrenal glands: No mass is seen. Lymph nodes: There again seen mildly enlarged retroperitoneal lymph nodes. Abdominal Aorta: Abdominal portion non-dilated. Atherosclerotic calcification is present. PELVIS: Bladder:Status post resection. There is a right lower quadrant ileal pouch. Portions of the pouch a re herniated into the right inguinal canal. This was present on the prior examination. Bowel: The patient has a left lower quadrant colostomy. Anastomotic clips are seen in the pelvis. T here is a moderate amount of stool throughout the colon. This may represent constipation. No eviden ce of bowel obstruction or bowel wall thickening is seen. There is a left inguinal hernia containing an unremarkable loop of colon. No evidence of appendicitis. Peritoneal cavity: No ascites, collection or mesenteric inflammatory response. No free air. Reproductive organs: Status post prostatectomy. Bones: Within normal limits. No aggressive osseous lesions are identified. There is grade 1 anteroli sthesis of L4 on L5. There is L4 spondylolysis. Stable mild compression of the superior endplate of T12. Soft Tissues: Within normal limits. IMPRESSION: 1. Small bilateral pleural effusions and subjacent infiltrates which may represent pneumonia. 2. Cholelithiasis. 3. Status post cystectomy, prostatectomy and rectosigmoid colon resection. Right lower quadrant ilea l pouch and left lower quadrant colostomy. 4. No evidence of bowel obstruction. 5. Moderate amount of stool in the colon suggesting constipation. 6. Linear hypodense areas seen in the kidneys as described above. This may be due to the patient's r ecent CT examination with contrast. An infectious or inflammatory process can not be excluded. Plea se correlate clinically. RADIATION DOSE DELIVERED: Total DLP DATA REPOSITORY: All CT scans at this facility are submitted to the National Radiology Data Registry (NRDR) Dose Index Registry (DIR) with the [employer] (ACR). RADIATION OPTIMIZATION: All CT scans at this facility use at least one of these dose optimization te chniques: automated exposure control; mA and/or kV adjustment per patient size (includes targeted exa ms where dose is matched to clinical indication); or iterative reconstruction.
[2023-11-30 16:26] LABS: Procalcitonin 2.7 ng/mL
--- NOTE | 2023-11-30 16:55 | DI.VRAD_ITS ---
PROCEDURE INFORMATION: Exam: CT Abdomen And Pelvis Without Contrast Exam date and time: 11/30/2023 3:45 PM Age: 63 years old Clinical indication: Other: Urosepsis; Prior surgery; Surgery date: 1-6 months; Surgery type: Colectomy TECHNIQUE: Imaging protocol: Computed tomography of the abdomen and pelvis without contrast. COMPARISON: CT CHEST/ABD/PEL W 26/09/2023 10:46 FINDINGS: Lungs: There is infiltrate in the left lung base concerning for possible pneumonia. Trace bilateral pleural effusions. Liver: Normal. No mass or intrahepatic biliary ductal dilatation. Gallbladder and bile ducts: Small calcified gallstone. Pancreas: Normal. No mass or ductal dilation. Spleen: Normal. No splenomegaly. Adrenal glands: Normal. No mass. Kidneys and ureters: Both kidneys show superficial ill-defined zones of cortical hyperdensity much more prominent on the left side. Significance is uncertain but this could represent pyelonephritis. Stomach and bowel: Previous partial colectomy with left lower quadrant colostomy. Moderate dilatation of bowel loops throughout the abdomen. This appears similar to previous exam. Large amount of fecal material within the remaining colon. Appendix: No evidence of appendicitis. Intraperitoneal space: Unremarkable. No free air. No significant fluid collection. Vasculature: Aortoiliac atherosclerosis. No aneurysm. Lymph nodes: No enlarged retroperitoneal or mesenteric lymph nodes. Urinary bladder: Previous cystectomy. Ileal conduit in the right lower quadrant. Reproductive: Unremarkable as visualized. Bones/joints: Unremarkable. No acute fracture. No lytic lesion. Soft tissues: Unremarkable. Other findings: Exam somewhat limited by the absence of contrast. IMPRESSION: 1. Ill-defined cortical hyperdensities in both kidneys. Possible pyelonephritis. 2. Extensive prior surgery. Chronic mild bowel dilatation and constipation. Dictated and Authenticated by: Christiano Plascencia MD. Ordering:[facility] Ivonne Araujo MD
[2023-11-30] MEDS: Acetaminophen 325 MG TAB PO (23:07)
[2023-11-30] MEDS: Atorvastatin 40 MG TAB PO (23:07)
[2023-12-01] MEDS: Hydrocortisone SOD SUC. 100 MG VIAL IVP ×2 (02:22→09:41)
[2023-12-01] MEDS: PIPERACILLIN/TAZO 4.5 GM in Normal Saline 100 ML IVPB (02:24)
[2023-12-01 03:27] VITALS: BP 117/73; PULSE 87; RESP 18; TEMP 36.1; O2SAT 94
[2023-12-01] MEDS: oxyCODONE 5 MG TAB PO (06:37)
[2023-12-01] MEDS: Acetaminophen 325 MG TAB PO (06:37)
[2023-12-01] MEDS: Omeprazole 20 MG CAPCR 40 MG PO (06:38)
[2023-12-01 07:09] LABS: HCT 39.2 % (40.0-50.0); HGB 12.7 g/dL (13.5-17.5); MCH 29.3 pg (27.0-33.0); MCHC 32.4 % (32.0-36.0); MCV 90 fL (80-95); MPV 10.2 fL (8.0-11.0); Platelet Count 213 10^3/uL (130-400); RBC 4.34 10^6/uL (4.36-5.78); RDW 15.7 % (11.8-14.1); RDW-SD 51.2 fL
[2023-12-01 07:33] LABS: ALT 53 U/L (16-63); AST 45 U/L (15-37); Albumin 1.8 g/dL (3.4-5.0); Alkaline Phosphatase 119 U/L (46-116); Anion Gap 5.9 mmol/L (3-11); BUN 27 mg/dL (7-18); Bilirubin, Total 0.3 mg/dL (0.2-1.0); CO2 30.1 mmol/L (21.0-32.0); CREATININE 0.9 mg/dL (0.70-1.30); Calcium 8.9 mg/dL (8.5-10.1); Chloride 101 mmol/L (98-107); Estimated GFR 96.57 (mL/min/1.73m2); Glucose 131 mg/dL (74-106); Potassium 4.4 mmol/L (3.5-5.1); Sodium 137 mmol/L (136-145); Total Protein 5.7 g/dL (6.4-8.2)
[2023-12-01 07:58] VITALS: BP 109/67; PULSE 80; RESP 16; TEMP 36.1; O2SAT 94
[2023-12-01] MEDS: predniSONE 20 MG TAB 40 MG PO (08:13)
[2023-12-01] MEDS: Aspirin 81 MG CHEW PO (08:13)
[2023-12-01] MEDS: Enoxaparin 40 MG/0.4 ML SYR SC (08:14)
[2023-12-01] MEDS: Gabapentin 300 MG CAP PO (08:14)
--- NOTE | 2023-12-01 08:48 | W.PM.DS.N ---
Date of service: 12/01/23 Time of Service: 11:30 DS: Diagnosis Discharge Diagnosis (1) Severe sepsis: Status: Acute Asessment and Plan: - Patient met criteria for severe sepsis on admission with tachycardia, tachypnea, leukocytosis, source of infection being UTI that was treated with Zosyn -Patient had E. coli in his urine and bacteremia and has been afebrile for greater than 48 hours -He will be discharged with additional week of p.o. cefpodoxime (2) UTI (urinary tract infection): Status: Acute Asessment and Plan: - As noted above (3) Infectious encephalopathy: Status: Acute Asessment and Plan: - Secondary to severe sepsis UTI as noted above -Mental status back to baseline (4) Acute hyponatremia: Status: Acute Asessment and Plan: - Sodium is down to 123 on admission but improved with gentle rehydration and is back up to 137 on day of discharge (5) Rectal cancer: Asessment and Plan: - Continue outpatient follow-up with oncology Discharge Plan Disposition Patient Disposition: Home Condition: Good Discharge Details Reason For Visit: AMS, UTI, Aspiration pneumonia, Hyponatremia Admit Date/Time: 11/29/23 23:49 Admit Provider: Rodrick Valdivia Attending Provider: Rodrick Valdivia Primary Care Provider: Shanti Son Hospital Course Hospital Course: Patient initially presented with signs and symptoms to severe sepsis that was ultimately determined to be secondary to urinary tract infection. He was treated with Zosyn, blood culture growing gram-negative rods. Given the patient has been afebrile for greater than 48 hours, he will be transitioned to cefpodoxime to complete a course of antibiotics. Home Meds and New Rx's Prescriptions: New cefpodoxime 200 mg tablet 200 mg PO BID Qty: 14 0RF Rx Instructions: must administer with a meal/food Continued aspirin 81 mg tablet,chewable 81 mg PO DAILY ibuprofen 600 mg tablet 600 mg PO QID PRN (Reason: pain) Qty: 60 3RF diphenhydramine HCl [M-Dryl] 12.5 mg/5 mL liquid 12.5 mg PO Q6H PRN (Reason: allergic reaction) Qty: 118 0RF methylphenidate HCl 5 mg tablet 5 mg PO BID MDD 10mg PRN (Reason: Cancer related fatigue) Qty: 60 0RF Rx Instructions: take one or two times daily as needed for energy stimulation, avoid use after 2pm gabapentin 300 mg capsule 300 mg PO BID Qty: 180 1RF lidocaine HCl [Lidocaine Viscous] 2 % solution 1 applic mucous membrane TID PRN (Reason: pain) Qty: 100 3RF fentanyl 75 mcg/hr patch 72 hour 1 patch transdermal Q72H MDD 75mcg/hr Qty: 10 0RF Rx Instructions: to be used w/12/mcg patch for total dose of 87mcg/hr fentanyl 12 mcg/hr patch 72 hour 1 patch transdermal Q72H MDD 87mcg/hr Qty: 10 0RF Rx Instructions: to be used w/75mcg patch for total dose to 87mcg/hr oxycodone 5 mg tablet 5 - 10 mg PO Q3H PRN MDD 60mg PRN (Reason: pain) Qty: 180 0RF Rx Instructions: no more than 8 tablets per day; track daily use palliative care patient, stage 4 rectal cancer prochlorperazine maleate [Compazine] 10 mg tablet 10 mg PO Q6H PRN (Reason: nausea and vomiting) Qty: 30 3RF ondansetron 8 mg tablet,disintegrating 8 mg PO Q8H PRN (Reason: nausea and vomiting) Qty: 30 3RF albuterol sulfate 90 mcg/actuation HFA aerosol inhaler 2 inh inhalation Q6H PRN (Reason: shortness of breath or wheezing) Qty: 18 4RF lisinopril 40 mg tablet 40 mg PO DAILY Qty: 90 4RF atorvastatin 40 mg tablet 40 mg PO QHS Qty: 90 4RF Boost High Protein 0.06 gram- 1 kcal/mL liquid 237 ml PO BID Qty: 5688 12RF Rx Instructions: chocolate if available naloxone [Narcan] 4 mg/actuation spray,non-aerosol 4 mg intranasal Q2M PRN (Reason: opioid overdose) Qty: 2 0RF Rx Instructions: For accidental drug poisoning use ONLY, please review w/pharmacist purpose of prescription spray 1 dose into ONE nostril; alternate nostrils w each dose until help arrives prednisone 20 mg Tablet 40 mg PO DAILY omeprazole 40 mg Capsule,Delayed Release(Dr/Ec) 40 mg PO DAILY PRN alum-mag hydroxide-simeth [Almacone-2] 400-400-40 mg/5 mL Suspension 5 ml PO QID PRN Discharge Instructions Instructions: Urinary Tract Infection in Men (DC) Stand Alone Forms: Nursing Discharge Form Referrals: Shanti Son NP [Primary Care Provider] - 01/03/24 11:20 am Activity:: Activity as Tolerated Equipment/Supplies:: No Equipment Needed Diet:: As Tolerated Discharge Orders Discharge Orders: Discharge Order (Routine); Ordered 12/01/23 Ordered By: Kp Valverde Discharge Data Discharge Date/Time-TO BE ENTERED AT DEPARTURE: 12/01/23 10:36 DS: Summary Time Spent with Patient providing and/or coordinating discharge services: Greater than 30 minutes Status at Discharge Functional status at discharge: independent ambulation Overall status at discharge: patient is back to baseline Mental Status: mental status grossly normal Speech and Movement: speech and movement normal Mood: congruent mood Affect: normal affect Quality:SDOH Health Related Social Needs: No Data to Display Exam Narrative Exam Narrative: Well-appearing gentleman laying in bed in no acute distress, ANO x 4, heart regular rhythm, lungs clear to auscultation bilaterally, abdomen soft, nontender, nondistended Psych Mental Status: mental status grossly normal Speech and Movement: speech and movement normal Mood: congruent mood Affect: normal affect DS: Data Vitals/I&O Vitals and I&O: Vital Signs Temperature 97.0 F L 12/01/23 07:58 Temperature Source Tympanic 12/01/23 07:58 Pulse 80 12/01/23 07:58 Pulse Rhythm Regular 11/30/23 23:00 Pulse 105 H 11/29/23 22:01 Respiratory Rate 16 12/01/23 07:58 Respiratory Effort Normal 11/30/23 23:00 Respiratory Depth Normal 11/30/23 23:00 Respiratory Pattern Normal 11/30/23 23:00 Blood Pressure 109/67 12/01/23 07:58 Blood Pressure Mean 73 11/29/23 22:01 Blood Pressure Position Sitting 11/29/23 16:40 Pulse Oximetry 94 12/01/23 07:58 Oxygen Delivery Method Nasal Cannula 12/01/23 07:58 Oxygen Flow Rate 3 12/01/23 07:58 Pain Level 5 12/01/23 07:37 Comment generalized cancer pain 11/29/23 18:12 Comment DuoNeb infusing 11/29/23 20:01 Intake & Output 11/30/23 12/01/23 12/01/23 17:59 05:59 17:59 Intake Total 2720 / 2720 1115 / 3835 Output Total 1500 / 1500 1600 / 3100 500 / 500 Balance 1220 / 1220 -485 / 735 -500 / -500 Intake: IV 2220 / 2220 875 / 3095 Oral 500 / 500 240 / 740 Output: Urine 1500 / 1500 1600 / 3100 450 / 450 Stool 50 / 50 Other: Urine Color Yellow Yellow Yellow Urine Appearance Clear Clear Urine Odor Normal Normal Comment nephrostomy Stool Size Small Small Stool Characteristics Soft Soft Formed Brown Brown Voiding Methods Urostomy Urostomy Urostomy Data Completed and Pending Labs on day of discharge: Labs from last 24 hours 12/01/23 11/30/23 11/30/23 06:15 Unknown 06:41 WBC 11.80 H RBC 4.34 L Hgb 12.7 L Hct 39.2 L MCV 90 MCH 29.3 MCHC 32.4 RDW 15.7 H Plt Count 213 MPV 10.2 Sodium 137 Potassium 4.4 Chloride 101 Carbon Dioxide 30.1 Anion Gap 5.9 BUN 27 H Creatinine 0.9 Est GFR (CKD-EPI 2020) 96.57 Glucose 131 H Calcium 8.9 Total Bilirubin 0.3 AST 45 H ALT 53 Alkaline Phosphatase 119 H Total Protein 5.7 L Albumin 1.8 L Procalcitonin 2.7 Add-On Test Request DONE 12/01/23 06:20 Blood Blood Culture - Pending 12/01/23 06:15 Blood Blood Culture - Pending 11/29/23 19:33 Urine - Reflex from Urine Culture - Pending Preliminary micro results at discharge 12/01/23 06:20 Blood Culture - Pending Blood 12/01/23 06:15 Blood Culture - Pending Blood 11/29/23 20:05 Blood Culture - Preliminary Blood Gram Negative Cain 11/29/23 17:40 Blood Culture - Preliminary Blood Gram Negative Cain 11/29/23 19:33 Urine Culture - Pending Urine - Reflex from [facility] All Active Problems (Updated 12/01/23 @ 11:35 by Kp Valverde MD) Infectious encephalopathy (Acute) Severe sepsis (Acute) Sepsis (Acute) UTI (urinary tract infection) (Acute) Pneumonia (Acute) Acute hyponatremia (Acute) Acute UTI (Acute) Shortness of breath (Acute) Hernia of abdominal wall (Acute) Low oxygen saturation (Acute) Insurance coverage problems (Acute) Unintentional weight loss (Acute) Nausea & vomiting (Acute) Nausea (Acute) Recurrent UTI (urinary tract infection) (Acute) Acute kidney injury (Acute) Hypotension (Acute) Renal failure, acute (Acute) Cancer related pain (Acute) Advanced directives, counseling/discussion (Acute) Palliative care patient (Acute) Tobacco dependence (Acute) Durable power of engineer chief for healthcare (Acute) Goals of care, counseling/discussion (Acute) Fatigue (Acute) Bladder cancer (Acute) Myocutaneous flap necrosis (Acute) Neuropathic pain (Acute) Hypertension (Chronic) Presence of urostomy (Acute) Colostomy in place (Chronic) Adenocarcinoma, lung (Acute) METS from rectal ca noted on lung bx07/13/2020. Chronic prescription opiate use (Acute) Pre-diabetes (Acute) Hyperlipidemia (Acute) Pulmonary nodule (Acute) followed at [facility], 06/20 CT nodues larger PET ordered, if mets, bx adenocarcinoma Chronic pain (Chronic) GERD (gastroesophageal reflux disease) (Chronic) Trial of omeprazole at bedtime. Rectal cancer (Chronic 10/22/16) 09/26/16- Large rectal cancer - adenocarcinoma- low grade, with perianal abscess (T3N0) This is the [facility]. Dr. Will Hays, no genetic mutation. Normal colo in 2019 Medical History Rectal perforation Lumbago Ibuprofen 600 mg as needed 4 times a day. Rectal cancer Surgical History History of lung biopsy Colectomy WITH COLOSTOMY Family History Mother Diabetes Hypertension Hyperlipidemia Father Hyperlipidemia Heart disease Brother No problems noted. Brother Cancer rectal Diabetes Hypertension Sister Hypertension Depression Sister No problems noted. Social History Smoking/Tobacco Use Status: Current-Occasional Tobacco Type: cigarettes Tobacco: How many years used: 20 Quit status: has quit before Second Hand Exposure: Yes Smoking risk assessment performed?: Yes Alcohol Intake: current Alcohol Intake frequency: holidays/special occasions only Alcohol type: beer Counseling provided: none Drug use: Occasionally Substance use type: marijuana Caregiver/Support person: Yes Household members: family and children Housing: house Communication Needs: None Do you need help understanding health information?: Rarely Pets and animals: Yes Pets and animals: dog(s) Sexually active: No Do you think of yourself as: straight/heterosexual Current gender identity: male What is your relationship status?: How often do you talk on the phone with friends or family?: three or more times per week How often do you get together with friends or relatives?: once per week How often do you attend sabianism or denominational services?: decline to answer Do you belong to any clubs or organized social groups?: no Panel score (0-1 are the most socially isolated patients): 1 What type of physical activity do you participate in: other Details: Side by side and 4 lassiter Agueda/Anabaptist: No preference Special agueda needs: No Seatbelt use: always Helmet use: Yes Helmet use: always Drive intox or ride w/intox medical delivery driver: No Do you feel safe at home: Yes Do you feel safe in your relationship?: Yes Time Spent with Patient Time Spent with Patient: <45 minutes Time was spent: preparing to see the patient(eg.review tests), obtaining and/or reviewing separately otained hiistory, ordering medications,tests, procedures, referring, communicating with other health school child care attendant, indepentently interpreting results, counseling the patient and care coordination
[2023-12-01 09:06] VITALS: O2SAT 90
--- NOTE | 2023-12-01 09:08 | RESPIRATORY ---
Patient states he uses 4L O2 at baseline 24/03. DME: [facility].
--- NOTE | 2023-12-01 17:07 | PDOC.CMDIS ---
Date of service: 12/01/23 Time of Service: 17:07 LACE Index Scoring Tool Questions: Length of Stay (in days): 2 Was the patient admitted via the E.D.?: Yes Comorbidities: Diabetes w/o Complication and Metastatic Solid Tumor E.D. Visits: 0 Answers: Total Score: 10 Risk of Readmission: High Risk Care Management Discharge Plan Reason for Hospitalization: AMS Discharge Plan: Trey returned home today with no new services. He was transported home via private vehicle by family. He will follow up with his PCP and discharge plan of care. He is happy to be going home. Patient/Family Education Needs: Review discharge instructions and limitations, discussion of self care needs including ask me three. SDHI Health Related Social Needs: No Data to Display
== END 2023-12-01 10:36 | disposition home or self-care (01) | DRG 872 ==
LOC: ER 11-30 00:51 → MS 11-30 00:54
PROVIDERS: Internal Medicine; Admitting Provider Family Medicine; Emergency Provider Registered Nurse Emergency; PCP Nurse Practitioner Family; Visit Provider Family Medicine
DX: A41.9 Sepsis, unspecified organism (principal); N30.00 Acute cystitis without hematuria; E87.1 Hypo-osmolality and hyponatremia; C20 Malignant neoplasm of rectum; C78.02 Secondary malignant neoplasm of left lung; C78.01 Secondary malignant neoplasm of right lung; G93.49 Other encephalopathy; R65.20 Severe sepsis without septic shock; Z79.891 Long term (current) use of opiate analgesic; Z93.3 Colostomy status; Z95.828 Presence of other vascular implants and grafts; Z93.6 Other artificial openings of urinary tract status; R63.4 Abnormal weight loss; Z68.26 Body mass index [BMI] 26.0-26.9, adult; G89.3 Neoplasm related pain (acute) (chronic); I10 Essential (primary) hypertension; R73.03 Prediabetes; E78.5 Hyperlipidemia, unspecified; K21.9 Gastro-esophageal reflux disease without esophagitis; F17.210 Nicotine dependence, cigarettes, uncomplicated; F12.90 Cannabis use, unspecified, uncomplicated; R09.02 Hypoxemia; Z79.899 Other long term (current) drug therapy; B96.20 Unspecified Escherichia coli [E. coli] as the cause of diseases classified elsewhere
CPT/HCPCS: 00123; 36415; 36416; 71275; 80053; 82805; 82962; 84145; 85027; 87040; 87077; 87637; 93005; 94640; 96361; 96365; 96367; 99291; J1650; 70450; 71045; 74176; 80320; 81003; 81015; 83605; 83735; 84484; 85025; 86140; 87086; 87186; 93010; 94760; 99223; 99233; 99238; J0295; J0696; J1720; J2543; J3490; J7512; J7620

== ENCOUNTER → 2023-12-01 11:51 | Outpatient (CLI) | payer MEDICARE, OTHER, SELFPAY ==
--- NOTE | 2023-12-01 | DI.CT_ITS ---
Exam(s) CT CHEST/ABD/PEL W EXAM: CT CHEST/ABD/PEL W CLINICAL HISTORY: RECTAL CANCER METS TO LUNG C20 C78.00 ASSESS TREATMENT RESPONSE TECHNIQUE: Imaging Protocol: Axial computed tomography images with coronal and sagittal reformatted images were created and reviewed CONTRAST MATERIAL: Intravenous: Omnipaque 350 contrast volume:100 mL Oral: Yes COMPARISON: CT CT CHEST/ABD/PEL W from 11/11/[address] CHEST/ABD/PEL W from 09/26/[address] CHEST PE CTA from 11/29/[address] RENAL COLIC WO from 11/30/2023 FINDINGS: CHEST: Tracheobronchial tree: Bronchiectatic changes are seen in the lung bases, left greater than right. S table mild bronchial wall thickening is seen in the left lower lobe. Pulmonary parenchyma: There are small bilateral pleural effusions and subjacent infiltrates. There a re stable pulmonary metastases compared to the CT examination from 11/29/2023. There are no new focal infiltrates compared to the examination from 11/30/2023. Mild centrilobular emphysematous changes ar e present. Visualized thyroid gland: Unremarkable. Mediastinum and Cynthia: Stable mediastinal lymph nodes. The esophagus is unremarkable. Pleura: No pneumothorax. Heart: The heart is not dilated. Coronary artery calcifications are present. No pericardial effusion . Pulmonary arteries: No pulmonary emboli are identified. Aorta: Thoracic aorta non-dilated. Atherosclerotic calcification is noted. No evidence of dissection . Lymph nodes: Within normal limits. Tubes, Catheters, and Lines: There is a right [id number]-[id number] catheter. Soft tissues: Unremarkable. Bones:Within normal limits for the patient's age. Old healed rib fractures. There is again seen a s ubacute healing left 3rd rib fracture anteriorly. ABDOMEN: Liver: Normal density. No measurable mass. Portal, Superior Mesenteric, and Splenic Veins: Unremarkable. Gallbladder and Biliary Tract: Cholelithiasis. No biliary ductal dilatation. Pancreas: Normal density, no abnormal calcifications or inflammatory process. Spleen: Normal. Adrenals: No masses seen. Kidneys: There are wedge-shaped areas of decreased attenuation in the kidneys bilaterally raising the question of pyelonephritis. No evidence of a renal mass. No radiodense stones or obstructive uropa thy. No masses seen. Abdominal Aorta: Abdominal portion non-dilated. Atherosclerotic calcification. Bowel: Status post rectosigmoid resection with a left lower quadrant colostomy. There is again seen a left inguinal hernia containing an unremarkable loop of bowel. There is no evidence of bowel obstr uction or bowel wall thickening. There is no evidence of appendicitis. Peritoneal Cavity: No ascites, collection or mesenteric inflammatory response. No free air. Lymph Nodes: Within normal limits. Bones: Within normal limits for the patient's age. There is L4 spondylolysis and grade 1 spondylolis thesis of L4 on L5. No destructive lesions are seen in the bones. Soft Tissues: Unremarkable. PELVIS: Bladder: Status post cystectomy. The patient has a right lower quadrant ileal conduit. A portion of the conduit is seen herniated into the right inguinal canal. Reproductive Organs: Apparent status post prostatectomy. Lymph Nodes: Within normal limits. Bones: Within normal limits. IMPRESSION: 1. No change in the pulmonary metastases since 11/29/2023. 2. Small bilateral pleural effusions and bilateral basilar infiltrates which may represent atelectasi s or pneumonia. 3. No evidence of a pulmonary embolism, thoracic aortic dissection or aneurysm. 4. Status post cystectomy and resection of the rectum and portion of the sigmoid colon. Status post right lower quadrant ileal conduit and left abdominal wall colostomy. 5. Wedge-shaped areas of decreased attenuation in the kidneys bilaterally suspicious for pyelonephrit is. Please correlate clinically. 6. Healing fracture of the anterior aspect of the left 3rd rib. 7. Cholelithiasis. No biliary ductal dilatation. 8. Unremarkable CT scan of the chest. RADIATION DOSE DELIVERED: Total DLP DATA REPOSITORY: All CT scans at this facility are submitted to the National Radiology Data Registry (NRDR) Dose Index Registry (DIR) with the [employer] (ACR). RADIATION OPTIMIZATION: All CT scans at this facility use at least one of these dose optimization te chniques: automated exposure control; mA and/or kV adjustment per patient size (includes targeted exa ms where dose is matched to clinical indication); or iterative reconstruction.
[2023-12-01] MEDS: Breeza Beverage 473 ML BTL PO ×2 (10:55→10:56)
[2023-12-01] MEDS: Omnipaque 350 MG/ML 50 ML BTL PO (10:55)
[2023-12-01] MEDS: Omnipaque 350 MG/ML 100 ML BTL IJ (12:51)
[2023-12-01] MEDS: Normal Saline - Diluent 50 ML VIAL IJ (12:52)
== END ==
PROVIDERS: PCP Nurse Practitioner Family; Visit Provider Nurse Practitioner Family
DX: C20 Malignant neoplasm of rectum (principal); C78.00 Secondary malignant neoplasm of unspecified lung; J47.9 Bronchiectasis, uncomplicated; J90 Pleural effusion, not elsewhere classified; J43.2 Centrilobular emphysema; K80.20 Calculus of gallbladder without cholecystitis without obstruction; N28.89 Other specified disorders of kidney and ureter; Z93.3 Colostomy status
CPT/HCPCS: 74177; 71260; J3490; Q9967

== ENCOUNTER 2023-12-18 04:40 | Outpatient (RCR) | payer MEDICARE, OTHER, SELFPAY ==
[2023-12-18] MEDS: Normal Saline Flush 10 ML SYR IVP (13:27)
[2023-12-18 13:44] LABS: Abs Immature Grans 0.04 10^3/uL (0.0-0.06); Absolute Basophil Count 0.01 10^3/uL (0.0-0.2); Absolute Eosinophil Count 0.01 10^3/uL (0.0-0.7); Absolute Lymphocyte Count 0.27 10^3/uL (1.2-3.4); Absolute Monocyte Count 0.39 10^3/uL (0.1-0.8); Absolute Neutrophil Count 8.01 10^3/uL (1.2-6.7); Basophils % 0.1; Eosinophils % 0.1; HCT 44.2 % (40.0-50.0); HGB 14.1 g/dL (13.5-17.5); Immature Grans % 0.5; Lymphocytes % 3.1; MCH 28.7 pg (27.0-33.0); MCHC 31.9 % (32.0-36.0); MCV 90 fL (80-95); MPV 9.7 fL (8.0-11.0); Monocytes % 4.5; Neutrophils % 91.7; Platelet Count 298 10^3/uL (130-400); RBC 4.92 10^6/uL (4.36-5.78); RDW 17.4 % (11.8-14.1); RDW-SD 57.1 fL; WBC 8.73 10^3/uL (4.4-10.8)
[2023-12-18 13:56] LABS: ALT 32 U/L (16-63); AST 16 U/L (15-37); Albumin 2.9 g/dL (3.4-5.0); Alkaline Phosphatase 88 U/L (46-116); Anion Gap 3.7 mmol/L (3-11); BUN 14 mg/dL (7-18); Bilirubin, Total 0.4 mg/dL (0.2-1.0); CO2 38.3 mmol/L (21.0-32.0); CREATININE 0.9 mg/dL (0.70-1.30); Chloride 95 mmol/L (98-107); Estimated GFR 96.57 (mL/min/1.73m2); Glucose 169 mg/dL (74-106); Potassium 3.9 mmol/L (3.5-5.1); Sodium 137 mmol/L (136-145); Total Protein 7.1 g/dL (6.4-8.2)
[2023-12-18 23:13] LABS: CEA 2.5 ng/mL (See Note)
== END 2023-12-30 23:59 | disposition home or self-care (01) ==
LOC: INF 04:40
PROVIDERS: PCP Nurse Practitioner Family; Visit Provider Internal Medicine Hematology & Oncology
DX: C20 Malignant neoplasm of rectum (principal)
CPT/HCPCS: 36591; 80053; 82378; 85025

== ENCOUNTER 2024-01-30 00:35 | Outpatient (RCR) | payer MEDICARE, OTHER, SELFPAY ==
[2024-01-02] MEDS: Normal Saline Flush 10 ML SYR IVP (10:33)
[2024-01-02 11:09] LABS: Abs Immature Grans 0.08 10^3/uL (0.0-0.06); Absolute Basophil Count 0.04 10^3/uL (0.0-0.2); Absolute Lymphocyte Count 0.37 10^3/uL (1.2-3.4); Basophils % 0.3 %; Eosinophils % 0.4 %; HCT 49.1 % (40.0-50.0); HGB 15.3 g/dL (13.5-17.5); Immature Grans % 0.6 %; Lymphocytes % 2.7 %; MCH 28.3 pg (27.0-33.0); MCHC 31.2 % (32.0-36.0); MCV 91 fL (80-95); MPV 9.1 fL (8.0-11.0); Monocytes % 3.2 %; Neutrophils % 92.8 %; Platelet Count 328 10^3/uL (130-400); RBC 5.41 10^6/uL (4.36-5.78); RDW 17.2 % (11.8-14.1); WBC 13.86 10^3/uL (4.4-10.8)
[2024-01-02 11:10] LABS: Absolute Eosinophil Count 0.06 10^3/uL (0.0-0.7); Absolute Monocyte Count 0.44 10^3/uL (0.1-0.8); Absolute Neutrophil Count 12.86 10^3/uL (1.2-6.7)
[2024-01-02 11:25] LABS: ALT 23 U/L (16-63); AST 11 U/L (15-37); Albumin 3.6 g/dL (3.4-5.0); Alkaline Phosphatase 99 U/L (46-116); Anion Gap 5.6 mmol/L (3-11); BUN 18 mg/dL (7-18); Bilirubin, Total 0.3 mg/dL (0.2-1.0); CO2 37.4 mmol/L (21.0-32.0); CREATININE 0.9 mg/dL (0.70-1.30); Calcium 9.5 mg/dL (8.5-10.1); Chloride 100 mmol/L (98-107); Estimated GFR 96.57 (mL/min/1.73m2); Glucose 113 mg/dL (74-106); Potassium 4.3 mmol/L (3.5-5.1); Sodium 143 mmol/L (136-145); Total Protein 7.1 g/dL (6.4-8.2)
[2024-01-02 18:23] LABS: CEA 3.4 ng/mL (See Note)
[2024-01-16] MEDS: Normal Saline Flush 10 ML SYR IVP (11:12)
[2024-01-16 11:18] LABS: Abs Immature Grans 0.04 10^3/uL (0.0-0.06); Absolute Basophil Count 0.04 10^3/uL (0.0-0.2); Absolute Eosinophil Count 0.07 10^3/uL (0.0-0.7); Absolute Lymphocyte Count 0.37 10^3/uL (1.2-3.4); Absolute Monocyte Count 0.41 10^3/uL (0.1-0.8); Absolute Neutrophil Count 9.79 10^3/uL (1.2-6.7); Basophils % 0.4 %; Eosinophils % 0.7 %; HCT 48.6 % (40.0-50.0); Immature Grans % 0.4 %; Lymphocytes % 3.5 %; MCH 27.9 pg (27.0-33.0); MCHC 30.9 % (32.0-36.0); MCV 91 fL (80-95); MPV 9.2 fL (8.0-11.0); Monocytes % 3.8 %; Neutrophils % 91.2 %; Platelet Count 304 10^3/uL (130-400); RBC 5.37 10^6/uL (4.36-5.78); RDW-SD 58.7 fL; WBC 10.72 10^3/uL (4.4-10.8)
[2024-01-16 11:33] LABS: ALT 21 U/L (16-63); AST 10 U/L (15-37); Albumin 3.6 g/dL (3.4-5.0); Alkaline Phosphatase 93 U/L (46-116); Anion Gap 4.2 mmol/L (3-11); BUN 12 mg/dL (7-18); Bilirubin, Total 0.4 mg/dL (0.2-1.0); CO2 32.8 mmol/L (21.0-32.0); CREATININE 0.9 mg/dL (0.70-1.30); Chloride 101 mmol/L (98-107); Estimated GFR 96.57 (mL/min/1.73m2); Glucose 163 mg/dL (74-106); Potassium 3.9 mmol/L (3.5-5.1); Sodium 138 mmol/L (136-145); Total Protein 7.1 g/dL (6.4-8.2)
[2024-01-16 19:02] LABS: CEA 4.5 ng/mL (See Note)
[2024-01-30] MEDS: Normal Saline Flush 10 ML SYR IVP (11:11)
[2024-01-30 11:34] LABS: Abs Immature Grans 0.05 10^3/uL (0.0-0.06); Absolute Basophil Count 0.05 10^3/uL (0.0-0.2); Absolute Eosinophil Count 0.06 10^3/uL (0.0-0.7); Absolute Lymphocyte Count 0.71 10^3/uL (1.2-3.4); Absolute Monocyte Count 0.58 10^3/uL (0.1-0.8); Absolute Neutrophil Count 6.17 10^3/uL (1.2-6.7); Basophils % 0.7 %; Eosinophils % 0.8 %; HCT 46.7 % (40.0-50.0); HGB 14.8 g/dL (13.5-17.5); Immature Grans % 0.7 %; Lymphocytes % 9.3 %; MCHC 31.7 % (32.0-36.0); MCV 88 fL (80-95); Monocytes % 7.6 %; Neutrophils % 80.9 %; Platelet Count 344 10^3/uL (130-400); RBC 5.28 10^6/uL (4.36-5.78); RDW-SD 57.3 fL; WBC 7.62 10^3/uL (4.4-10.8)
[2024-01-30 11:52] LABS: ALT 18 U/L (16-63); AST 10 U/L (15-37); Albumin 3.3 g/dL (3.4-5.0); Alkaline Phosphatase 85 U/L (46-116); Anion Gap 6.9 mmol/L (3-11); BUN 10 mg/dL (7-18); Bilirubin, Total 0.3 mg/dL (0.2-1.0); CO2 35.1 mmol/L (21.0-32.0); CREATININE 0.8 mg/dL (0.70-1.30); Chloride 100 mmol/L (98-107); Estimated GFR 100.06 (mL/min/1.73m2); Glucose 118 mg/dL (74-106); Potassium 3.8 mmol/L (3.5-5.1); Sodium 142 mmol/L (136-145); Total Protein 6.8 g/dL (6.4-8.2)
[2024-01-30 18:25] LABS: CEA 4.9 ng/mL (See Note)
== END 2024-01-30 23:59 | disposition home or self-care (01) ==
LOC: INF 00:35
PROVIDERS: PCP Nurse Practitioner Family; Visit Provider Internal Medicine Hematology & Oncology
DX: C20 Malignant neoplasm of rectum (principal); C78.00 Secondary malignant neoplasm of unspecified lung; N39.0 Urinary tract infection, site not specified; R82.90 Unspecified abnormal findings in urine; C67.9 Malignant neoplasm of bladder, unspecified
CPT/HCPCS: 36415; 36591; 80053; 96523; 82378; 85025

== ENCOUNTER 2024-02-02 12:51 | Outpatient (REF) | payer MEDICARE, OTHER, SELFPAY ==
[2024-02-02 17:57] LABS: Bilirubin Negative (Negative); Blood Moderate (Negative); Clarity Sl Cloudy (Clear); Glucose Negative (Negative); Ketones Negative (Negative); Leukocyte Esterase Small (Negative); Nitrite Negative (Negative); Specific Gravity 1.015 (1.005-1.025); Urobilinogen 0.2 mg/dL (Up to 0.2)
[2024-02-02 18:13] LABS: Bacteria Many HPF (Negative); C & S Indicated? C&S Done As Ordered; Casts Negative LPF (Negative); Crystals Negative HPF (Negative); Epithelial Cells Rare HPF (Negative); Mucus Negative (Negative)
== END 2024-02-02 12:52 | disposition home or self-care (01) ==
LOC: LBN 12:51
PROVIDERS: PCP Nurse Practitioner Family; Visit Provider Nurse Practitioner Family
DX: R82.90 Unspecified abnormal findings in urine (principal)
CPT/HCPCS: 87077; 81003; 81015; 87086; 87186

== ENCOUNTER → 2024-02-20 00:37 | Outpatient (CLI) | payer MEDICARE, OTHER, SELFPAY ==
--- NOTE | 2024-02-20 | DI.CT_ITS ---
Exam(s) CT CHEST/ABD/PEL W EXAM: CT CHEST/ABD/PEL W CLINICAL HISTORY: RECTAL CANCER METS TO LUNG C20 C78.00 RESTAGING. TECHNIQUE: Imaging Protocol: Axial computed tomography images with coronal and sagittal reformatted images were created and reviewed CONTRAST MATERIAL: Intravenous: Omnipaque 350 Contrast volume:100 ml Oral: yes / COMPARISON: CT CT CHEST/ABD/PEL W from 09/26/[address] CHEST/ABD/PEL W from 12/01/2023 FINDINGS: CHEST: Tracheobronchial tree: Patent. Stable bronchiectasis left lower lobe. No mucous plugging visible. Pulmonary parenchyma: Multiple bilateral upper and lower lobe pulmonary nodules. No appreciable mcclain ge from prior exam. Findings greatest at medial left lower lobe. Mild underlying emphysematous mcclain ges. no consolidation linear area of scar atelectasis at the left lung base. Pleura: No effusion or pneumothorax. Lymph nodes: Within normal limits. Aorta: Thoracic portion non-dilated. Atherosclerotic changes. Heart: Normal size. No pericardial effusion. Bones: No lytic or blastic lesions. Stable mild anterior wedging midthoracic vertebral bodies. Stab le mild compression fractures superior endplate of T12. Soft tissues: Port over right pectoral muscle. ABDOMEN and PELVIS: Liver: Normal density. No measurable mass. Gallbladder and biliary tract: Few gallstones. No wall thickening. No biliary dilatation. Pancreas: Normal density, no abnormal calcifications or inflammatory process. Spleen: Normal. Kidneys: Normal size, contour and axis. No radiodense stones. No obstructive uropathy. No suspicious masses seen. Adrenal glands: No masses seen. Aorta: Abdominal portion non-dilated. Atherosclerotic changes. Lymph nodes: Within normal limits. Soft tissues: Left-sided colostomy appear stable. Stable appearance of small bilateral inguinal malika ias. No bowel loops extend into left inguinal canal. Right sided ileal conduit. Portion of ileal c onduit extends into the right inguinal canal barely Bladder: Resected. Right lower quadrant ileal conduit unremarkable. Bowel: Again noted is status post resection of the rectosigmoid. Large quantity of fecal material no ashish. No obstruction or bowel wall thickening. Peritoneal cavity: No ascites. No focal collection. No mesenteric inflammatory response. Bones: New mild compression fracture of the superior endplate of L4. Bilateral L4 spondylolysis and mild L4-5 spondylolisthesis again noted. No lytic or blastic lesion identified. Reproductive organs: Within normal limits. IMPRESSION: Stable size and appearance of multiple bilateral pulmonary metastases. Resolution of previously not ed pleural effusions and basilar atelectasis. No evidence of metastatic disease in the abdomen or pelvis. A large quantity of stool is noted. New mild compression fracture of the superior endplate of L4. RADIATION DOSE DELIVERED: 1,376.02mGy.cm Total DLP DATA REPOSITORY: All CT scans at this facility are submitted to the National Radiology Data Registry (NRDR) Dose Index Registry (DIR) with the [employer] (A[employer]). RADIATION OPTIMIZATION: All CT scans at this facility use at least one of these dose optimization te chniques: automated exposure control; mA and/or kV adjustment per patient size (includes targeted exa ms where dose is matched to clinical indication); or iterative reconstruction.
[2024-02-20] MEDS: Barium Sulfate 2% W/V-Berry Smoothie 450 ML BTL PO ×2 (10:03→10:04)
[2024-02-20] MEDS: Normal Saline - Diluent 50 ML VIAL IJ (11:09)
[2024-02-20] MEDS: Omnipaque 350 MG/ML 100 ML BTL IJ (11:10)
== END ==
PROVIDERS: PCP Nurse Practitioner Family; Visit Provider Internal Medicine Hematology & Oncology
DX: C20 Malignant neoplasm of rectum (principal); C78.01 Secondary malignant neoplasm of right lung
CPT/HCPCS: 36591; 74177; 80053; 71260; 82378; 85025; J3490

== ENCOUNTER 2024-02-27 01:09 | Outpatient (RCR) | payer MEDICARE, OTHER, SELFPAY ==
[2024-02-20] MEDS: Normal Saline Flush 10 ML SYR IVP (08:40)
[2024-02-20 09:32] LABS: Abs Immature Grans 0.29 10^3/uL (0.0-0.06); Absolute Eosinophil Count 0.09 10^3/uL (0.0-0.7); Absolute Lymphocyte Count 0.85 10^3/uL (1.2-3.4); Absolute Monocyte Count 0.62 10^3/uL (0.1-0.8); Basophils % 0.8 %; Eosinophils % 0.7 %; HCT 47.6 % (40.0-50.0); HGB 15.2 g/dL (13.5-17.5); Immature Grans % 2.3 %; Lymphocytes % 6.9 %; MCHC 31.9 % (32.0-36.0); MCV 88 fL (80-95); MPV 9.2 fL (8.0-11.0); Neutrophils % 84.3 %; Platelet Count 505 10^3/uL (130-400); RBC 5.43 10^6/uL (4.36-5.78); RDW 16.5 % (11.8-14.1); RDW-SD 52.7 fL; WBC 12.36 10^3/uL (4.4-10.8)
[2024-02-20 09:36] LABS: Absolute Neutrophil Count 10.42 10^3/uL (1.2-6.7)
[2024-02-20 09:50] LABS: ALT 20 U/L (16-63); AST 9 U/L (15-37); Albumin 3.2 g/dL (3.4-5.0); Alkaline Phosphatase 86 U/L (46-116); Anion Gap 7.4 mmol/L (3-11); BUN 15 mg/dL (7-18); Bilirubin, Total 0.25 mg/dL (0.2-1.0); CO2 30.6 mmol/L (21.0-32.0); CREATININE 0.9 mg/dL (0.70-1.30); Calcium 9.4 mg/dL (8.5-10.1); Chloride 100 mmol/L (98-107); Estimated GFR 96.57 (mL/min/1.73m2); Glucose 109 mg/dL (74-106); Potassium 3.7 mmol/L (3.5-5.1); Sodium 138 mmol/L (136-145); Total Protein 7.3 g/dL (6.4-8.2)
[2024-02-27 11:06] LABS: Abs Immature Grans 0.22 10^3/uL (0.0-0.06); Absolute Lymphocyte Count 0.89 10^3/uL (1.2-3.4); Absolute Monocyte Count 0.66 10^3/uL (0.1-0.8); Basophils % 0.6 %; Eosinophils % 0.6 %; HCT 48.8 % (40.0-50.0); HGB 15.3 g/dL (13.5-17.5); Immature Grans % 1.4 %; Lymphocytes % 5.5 %; MCH 27.8 pg (27.0-33.0); MCHC 31.4 % (32.0-36.0); MCV 89 fL (80-95); MPV 9.3 fL (8.0-11.0); Monocytes % 4.1 %; Neutrophils % 87.8 %; Platelet Count 383 10^3/uL (130-400); RBC 5.51 10^6/uL (4.36-5.78); RDW 16.3 % (11.8-14.1); RDW-SD 52.8 fL; WBC 16.14 10^3/uL (4.4-10.8)
[2024-02-27] MEDS: Normal Saline Flush 10 ML SYR IVP (11:09)
[2024-02-27 11:14] LABS: Absolute Neutrophil Count 14.17 10^3/uL (1.2-6.7)
[2024-02-27 11:25] LABS: ALT 22 U/L (16-63); AST 16 U/L (15-37); Albumin 3.3 g/dL (3.4-5.0); Alkaline Phosphatase 87 U/L (46-116); Anion Gap 5.9 mmol/L (3-11); BUN 13 mg/dL (7-18); Bilirubin, Total 0.27 mg/dL (0.2-1.0); CO2 33.1 mmol/L (21.0-32.0); Calcium 9.2 mg/dL (8.5-10.1); Chloride 97 mmol/L (98-107); Glucose 133 mg/dL (74-106); Potassium 3.9 mmol/L (3.5-5.1); Sodium 136 mmol/L (136-145); Total Protein 7.6 g/dL (6.4-8.2)
[2024-02-27 19:41] LABS: CEA 3.8 ng/mL (See Note)
== END 2024-02-29 23:59 | disposition home or self-care (01) ==
LOC: INF 01:09
PROVIDERS: PCP Nurse Practitioner Family; Visit Provider Internal Medicine Hematology & Oncology
DX: C20 Malignant neoplasm of rectum (principal); Z45.2 Encounter for adjustment and management of vascular access device
CPT/HCPCS: 36591; 80053; 82378; 85025

== ENCOUNTER 2024-03-08 18:39 | Outpatient (REF) | payer MEDICARE, OTHER, SELFPAY ==
[2024-03-08 16:26] LABS: Bilirubin Negative (Negative); Blood Negative (Negative); Clarity Sl Cloudy (Clear); Glucose Negative (Negative); Ketones Negative (Negative); Leukocyte Esterase Small (Negative); Nitrite Positive (Negative); Specific Gravity 1.015 (1.005-1.025); Urobilinogen 0.2 mg/dL (Up to 0.2)
[2024-03-08 16:41] LABS: Bacteria Many HPF (Negative); C & S Indicated? C&S Done As Ordered; Crystals Negative HPF (Negative); Epithelial Cells Negative HPF (Negative); Mucus Trace (Negative); RBC 0-2 HPF (0-2)
== END 2024-03-08 18:40 | disposition home or self-care (01) ==
LOC: LBN 18:39
PROVIDERS: PCP Nurse Practitioner Family; Visit Provider Nurse Practitioner Family
DX: N39.0 Urinary tract infection, site not specified (principal)
CPT/HCPCS: 87077; 81003; 81015; 87086; 87186

== ENCOUNTER 2024-03-19 00:48 | Outpatient (RCR) | payer MEDICARE, OTHER, SELFPAY ==
[2024-03-12] MEDS: Normal Saline Flush 10 ML SYR IVP (10:30)
[2024-03-12 10:35] LABS: Abs Immature Grans 0.05 10^3/uL (0.0-0.06); Absolute Basophil Count 0.06 10^3/uL (0.0-0.2); Absolute Eosinophil Count 0.13 10^3/uL (0.0-0.7); Absolute Lymphocyte Count 0.78 10^3/uL (1.2-3.4); Basophils % 0.7 %; Eosinophils % 1.5 %; HCT 45.9 % (40.0-50.0); HGB 14.7 g/dL (13.5-17.5); Immature Grans % 0.6 %; MCH 28.1 pg (27.0-33.0); MCV 88 fL (80-95); Monocytes % 5.8 %; Neutrophils % 82.4 %; Platelet Count 397 10^3/uL (130-400); RBC 5.24 10^6/uL (4.36-5.78); RDW 15.9 % (11.8-14.1); WBC 8.62 10^3/uL (4.4-10.8)
[2024-03-12 10:53] LABS: ALT 22 U/L (16-63); AST 14 U/L (15-37); Albumin 3.6 g/dL (3.4-5.0); Alkaline Phosphatase 83 U/L (46-116); Anion Gap 4.4 mmol/L (3-11); BUN 15 mg/dL (7-18); Bilirubin, Total 0.25 mg/dL (0.2-1.0); CO2 32.6 mmol/L (21.0-32.0); CREATININE 1.1 mg/dL (0.70-1.30); Calcium 9.1 mg/dL (8.5-10.1); Chloride 95 mmol/L (98-107); Glucose 159 mg/dL (74-106); Sodium 132 mmol/L (136-145); Total Protein 7.6 g/dL (6.4-8.2)
[2024-03-12 20:39] LABS: CEA 4.4 ng/mL (See Note)
[2024-03-19] MEDS: Normal Saline Flush 10 ML SYR IVP (10:45)
[2024-03-19 10:51] LABS: Abs Immature Grans 0.05 10^3/uL (0.0-0.06); Absolute Basophil Count 0.03 10^3/uL (0.0-0.2); Absolute Eosinophil Count 0.11 10^3/uL (0.0-0.7); Absolute Neutrophil Count 5.75 10^3/uL (1.2-6.7); Basophils % 0.4 %; Eosinophils % 1.6 %; HCT 47.3 % (40.0-50.0); HGB 15.1 g/dL (13.5-17.5); Immature Grans % 0.7 %; Lymphocytes % 8.6 %; MCH 28.1 pg (27.0-33.0); MCHC 31.9 % (32.0-36.0); MCV 88 fL (80-95); MPV 8.9 fL (8.0-11.0); Monocytes % 5.8 %; Neutrophils % 82.9 %; Platelet Count 354 10^3/uL (130-400); RBC 5.38 10^6/uL (4.36-5.78); RDW 15.9 % (11.8-14.1); RDW-SD 50.9 fL; WBC 6.94 10^3/uL (4.4-10.8)
[2024-03-19 11:12] LABS: ALT 23 U/L (16-63); AST 14 U/L (15-37); Albumin 3.6 g/dL (3.4-5.0); Alkaline Phosphatase 82 U/L (46-116); Anion Gap 6.4 mmol/L (3-11); BUN 21 mg/dL (7-18); Bilirubin, Total 0.43 mg/dL (0.2-1.0); CO2 31.6 mmol/L (21.0-32.0); CREATININE 0.9 mg/dL (0.70-1.30); Calcium 9.6 mg/dL (8.5-10.1); Chloride 98 mmol/L (98-107); Estimated GFR 96.57 (mL/min/1.73m2); Glucose 121 mg/dL (74-106); Potassium 4.3 mmol/L (3.5-5.1); Sodium 136 mmol/L (136-145); Total Protein 7.4 g/dL (6.4-8.2)
[2024-03-19 20:51] LABS: CEA 4.7 ng/mL (See Note)
== END 2024-03-31 23:59 | disposition home or self-care (01) ==
LOC: INF 00:48
PROVIDERS: Nurse Practitioner Family; PCP Nurse Practitioner Family; Visit Provider Internal Medicine Hematology & Oncology
DX: C20 Malignant neoplasm of rectum (principal); C78.7 Secondary malignant neoplasm of liver and intrahepatic bile duct; C78.00 Secondary malignant neoplasm of unspecified lung; Z45.2 Encounter for adjustment and management of vascular access device
CPT/HCPCS: 36591; 80053; 82378; 85025

== ENCOUNTER 2024-04-22 04:31 | Outpatient (CLI) | payer MEDICARE, OTHER, SELFPAY ==
[2024-04-22] MEDS: Levalbuterol HFA 15 GM INH 4 PUFF IH (09:08)
[2024-04-22] MEDS: Inhaler, Assist Device 1 EACH MC (09:08)
--- NOTE | 2024-04-26 08:24 | W.PFT ---
Date of service: 04/22/24 Time of Service: 08:00 Pulmonary Function Test Result Requesting Provider Shanti Son Indications: SORIA Impression Spirometry shows decreased FEV1/FVC at 38%. Very severe decrease in FEV1 at 36%. Significant reversibility after bronchodilator going up to 48%. Normal lung volumes with significant air trapping. Moderate decrease in diffusion. Flow-volume curve suggests obstruction. Impression Very severe obstructive ventilatory defect with reversibility after bronchodilator, air trapping, and moderate decrease in diffusion which could be consistent with COPD. Clinical Correlation therefore is recommended.
== END 2024-04-22 04:32 | disposition home or self-care (01) ==
LOC: RT 04:31
PROVIDERS: PCP Nurse Practitioner Family; Visit Provider Nurse Practitioner Family
DX: J44.9 Chronic obstructive pulmonary disease, unspecified (principal); F17.200 Nicotine dependence, unspecified, uncomplicated
CPT/HCPCS: 00123; 94060; 94726; 94729

== ENCOUNTER 2024-04-30 01:06 | Outpatient (RCR) | payer MEDICARE, OTHER, SELFPAY ==
[2024-04-02] MEDS: Normal Saline Flush 10 ML SYR IVP (08:33)
[2024-04-02 08:46] LABS: Abs Immature Grans 0.05 10^3/uL (0.0-0.06); Absolute Basophil Count 0.05 10^3/uL (0.0-0.2); Absolute Eosinophil Count 0.12 10^3/uL (0.0-0.7); Absolute Lymphocyte Count 0.49 10^3/uL (1.2-3.4); Absolute Monocyte Count 0.91 10^3/uL (0.1-0.8); Basophils % 0.4 %; HCT 45.7 % (40.0-50.0); HGB 14.4 g/dL (13.5-17.5); Immature Grans % 0.4 %; Lymphocytes % 4.1 %; MCH 28.3 pg (27.0-33.0); MCHC 31.5 % (32.0-36.0); MCV 90 fL (80-95); MPV 9.8 fL (8.0-11.0); Monocytes % 7.6 %; Neutrophils % 86.5 %; Platelet Count 258 10^3/uL (130-400); RBC 5.09 10^6/uL (4.36-5.78); RDW 15.4 % (11.8-14.1); RDW-SD 50.9 fL; WBC 11.91 10^3/uL (4.4-10.8)
[2024-04-02 09:02] LABS: ALT 19 U/L (16-63); AST 10 U/L (15-37); Albumin 3.3 g/dL (3.4-5.0); Alkaline Phosphatase 85 U/L (46-116); Anion Gap 4.4 mmol/L (3-11); BUN 14 mg/dL (7-18); Bilirubin, Total 0.42 mg/dL (0.2-1.0); CO2 34.6 mmol/L (21.0-32.0); CREATININE 0.9 mg/dL (0.70-1.30); Calcium 9.6 mg/dL (8.5-10.1); Chloride 95 mmol/L (98-107); Estimated GFR 96.57 (mL/min/1.73m2); Glucose 147 mg/dL (74-106); Sodium 134 mmol/L (136-145); Total Protein 7.6 g/dL (6.4-8.2)
[2024-04-02 18:26] LABS: CEA 4.7 ng/mL (See Note)
[2024-04-16 09:01] LABS: Abs Immature Grans 0.21 10^3/uL (0.0-0.06); Absolute Basophil Count 0.08 10^3/uL (0.0-0.2); Absolute Lymphocyte Count 0.66 10^3/uL (1.2-3.4); Basophils % 0.5 %; Eosinophils % 0.4 %; HCT 45.8 % (40.0-50.0); HGB 14.5 g/dL (13.5-17.5); Immature Grans % 1.3 %; Lymphocytes % 4.1 %; MCH 27.9 pg (27.0-33.0); MCHC 31.7 % (32.0-36.0); MCV 88 fL (80-95); MPV 9.5 fL (8.0-11.0); Monocytes % 3.2 %; Neutrophils % 90.5 %; Platelet Count 531 10^3/uL (130-400); RBC 5.19 10^6/uL (4.36-5.78); RDW 15.5 % (11.8-14.1); RDW-SD 50.4 fL; WBC 16.13 10^3/uL (4.4-10.8)
[2024-04-16] MEDS: Normal Saline Flush 10 ML SYR IVP (09:01)
[2024-04-16 09:03] LABS: Absolute Eosinophil Count 0.06 10^3/uL (0.0-0.7); Absolute Monocyte Count 0.52 10^3/uL (0.1-0.8)
[2024-04-16 09:44] LABS: ALT 24 U/L (16-63); AST 12 U/L (15-37); Albumin 3.2 g/dL (3.4-5.0); Alkaline Phosphatase 95 U/L (46-116); Anion Gap 6.7 mmol/L (3-11); BUN 14 mg/dL (7-18); CO2 34.3 mmol/L (21.0-32.0); CREATININE 1.1 mg/dL (0.70-1.30); Calcium 9.7 mg/dL (8.5-10.1); Chloride 94 mmol/L (98-107); Estimated GFR 75.43 (mL/min/1.73m2); Glucose 167 mg/dL (74-106); Potassium 3.4 mmol/L (3.5-5.1); Sodium 135 mmol/L (136-145); Total Protein 7.6 g/dL (6.4-8.2)
[2024-04-16 21:07] LABS: CEA 3.4 ng/mL (See Note)
[2024-04-30] MEDS: Normal Saline Flush 10 ML SYR IVP (08:48)
[2024-04-30 09:02] LABS: Abs Immature Grans 0.12 10^3/uL (0.0-0.06); Absolute Basophil Count 0.07 10^3/uL (0.0-0.2); Absolute Lymphocyte Count 0.77 10^3/uL (1.2-3.4); Absolute Monocyte Count 0.58 10^3/uL (0.1-0.8); Absolute Neutrophil Count 9.23 10^3/uL (1.2-6.7); Basophils % 0.6 %; Eosinophils % 1.6 %; HCT 42.7 % (40.0-50.0); HGB 13.8 g/dL (13.5-17.5); Immature Grans % 1.1 %; MCH 28.5 pg (27.0-33.0); MCHC 32.3 % (32.0-36.0); MCV 88 fL (80-95); MPV 8.8 fL (8.0-11.0); Monocytes % 5.3 %; Neutrophils % 84.4 %; Platelet Count 333 10^3/uL (130-400); RBC 4.84 10^6/uL (4.36-5.78); RDW 16.4 % (11.8-14.1); RDW-SD 52.6 fL; WBC 10.94 10^3/uL (4.4-10.8)
[2024-04-30 09:05] LABS: Absolute Eosinophil Count 0.18 10^3/uL (0.0-0.7)
[2024-04-30 09:24] LABS: ALT 21 U/L (16-63); AST 12 U/L (15-37); Albumin 3.3 g/dL (3.4-5.0); Alkaline Phosphatase 90 U/L (46-116); Anion Gap 6.5 mmol/L (3-11); BUN 14 mg/dL (7-18); Bilirubin, Total 0.42 mg/dL (0.2-1.0); CO2 31.5 mmol/L (21.0-32.0); Calcium 9.3 mg/dL (8.5-10.1); Chloride 98 mmol/L (98-107); Estimated GFR 84.57 (mL/min/1.73m2); Glucose 106 mg/dL (74-106); Potassium 3.9 mmol/L (3.5-5.1); Sodium 136 mmol/L (136-145); Total Protein 7.2 g/dL (6.4-8.2)
[2024-04-30 19:28] LABS: CEA 5.5 ng/mL (See Note)
== END 2024-05-01 23:59 | disposition home or self-care (01) ==
LOC: INF 01:06
PROVIDERS: PCP Nurse Practitioner Family; Visit Provider Nurse Practitioner Family
DX: C20 Malignant neoplasm of rectum (principal); C78.7 Secondary malignant neoplasm of liver and intrahepatic bile duct
CPT/HCPCS: 36591; 80053; 82378; 85025

== ENCOUNTER 2024-05-28 07:45 | Outpatient (RCR) | payer MEDICARE, OTHER, SELFPAY ==
[2024-05-14] MEDS: Normal Saline Flush 10 ML SYR IVP (08:23)
[2024-05-14 08:52] LABS: Absolute Basophil Count 0.05 10^3/uL (0.0-0.2); Absolute Eosinophil Count 0.29 10^3/uL (0.0-0.7); Absolute Lymphocyte Count 0.94 10^3/uL (1.2-3.4); Absolute Monocyte Count 0.65 10^3/uL (0.1-0.8); Absolute Neutrophil Count 6.59 10^3/uL (1.2-6.7); Basophils % 0.6 %; Eosinophils % 3.4 %; HCT 46.1 % (40.0-50.0); HGB 14.5 g/dL (13.5-17.5); Immature Grans % 1.2 %; Lymphocytes % 10.9 %; MCH 28.3 pg (27.0-33.0); MCHC 31.5 % (32.0-36.0); MCV 90 fL (80-95); MPV 9.2 fL (8.0-11.0); Monocytes % 7.5 %; Neutrophils % 76.4 %; Platelet Count 348 10^3/uL (130-400); RBC 5.12 10^6/uL (4.36-5.78); RDW 17.9 % (11.8-14.1); RDW-SD 58.2 fL; WBC 8.62 10^3/uL (4.4-10.8)
[2024-05-14 09:27] LABS: ALT 17 U/L (16-63); AST 13 U/L (15-37); Albumin 3.7 g/dL (3.4-5.0); Alkaline Phosphatase 92 U/L (46-116); BUN 13 mg/dL (7-18); Bilirubin, Total 0.35 mg/dL (0.2-1.0); CREATININE 1.1 mg/dL (0.70-1.30); Calcium 9.8 mg/dL (8.5-10.1); Chloride 98 mmol/L (98-107); Estimated GFR 75.43 (mL/min/1.73m2); Glucose 120 mg/dL (74-106); Potassium 4.6 mmol/L (3.5-5.1); Sodium 133 mmol/L (136-145); Total Protein 7.7 g/dL (6.4-8.2)
[2024-05-14 18:12] LABS: CEA 6.4 ng/mL (See Note)
[2024-05-28] MEDS: Normal Saline Flush 10 ML SYR IVP (07:44)
[2024-05-28 08:23] LABS: Abs Immature Grans 0.13 10^3/uL (0.0-0.06); Absolute Basophil Count 0.05 10^3/uL (0.0-0.2); Absolute Eosinophil Count 0.28 10^3/uL (0.0-0.7); Absolute Lymphocyte Count 1.14 10^3/uL (1.2-3.4); Absolute Monocyte Count 0.82 10^3/uL (0.1-0.8); Absolute Neutrophil Count 6.76 10^3/uL (1.2-6.7); Basophils % 0.5 %; Eosinophils % 3.1 %; HCT 43.1 % (40.0-50.0); Immature Grans % 1.4 %; Lymphocytes % 12.4 %; MCH 28.6 pg (27.0-33.0); MCHC 32.5 % (32.0-36.0); MCV 88 fL (80-95); MPV 9.3 fL (8.0-11.0); Monocytes % 8.9 %; Neutrophils % 73.7 %; Platelet Count 403 10^3/uL (130-400); RBC 4.89 10^6/uL (4.36-5.78); RDW 17.9 % (11.8-14.1); RDW-SD 56.6 fL; WBC 9.18 10^3/uL (4.4-10.8)
[2024-05-28 08:40] LABS: ALT 17 U/L (16-63); AST 14 U/L (15-37); Albumin 3.2 g/dL (3.4-5.0); Alkaline Phosphatase 86 U/L (46-116); Anion Gap 4.1 mmol/L (3-11); BUN 8 mg/dL (7-18); CO2 30.9 mmol/L (21.0-32.0); Calcium 9.3 mg/dL (8.5-10.1); Chloride 98 mmol/L (98-107); Estimated GFR 84.57 (mL/min/1.73m2); Glucose 101 mg/dL (74-106); Potassium 4.2 mmol/L (3.5-5.1); Sodium 133 mmol/L (136-145); Total Protein 7.1 g/dL (6.4-8.2)
[2024-05-28 18:07] LABS: CEA 5.9 ng/mL (See Note)
== END 2024-05-31 23:59 | disposition home or self-care (01) ==
LOC: INF 07:45
PROVIDERS: PCP Nurse Practitioner Family; Visit Provider Nurse Practitioner Family
DX: C20 Malignant neoplasm of rectum (principal); C78.7 Secondary malignant neoplasm of liver and intrahepatic bile duct
CPT/HCPCS: 36415; 36591; 80053; 96523; 82378; 85025

== ENCOUNTER 2024-05-28 09:44 | Outpatient (CLI) | payer MEDICARE, OTHER, SELFPAY ==
--- NOTE | 2024-05-28 | DI.CT_ITS ---
Exam(s) CT CHEST/ABD/PEL W EXAM: CT CHEST/ABD/PEL W CLINICAL HISTORY: RECTAL CA METS TO LUNG/LIVER, C20, C78.00, C78.7 TECHNIQUE: Imaging Protocol: Axial computed tomography images with coronal and sagittal reformatted images were created and reviewed CONTRAST MATERIAL: Intravenous: Omnipaque 350 contrast volume:100 mL Oral: Yes COMPARISON: CT CT CHEST/ABD/PEL W from 09/26/[address] RENAL COLIC WO from 11/30/[address] CHEST/ABD/PEL W from 12/01/[address] CHEST/ABD/PEL W from 02/20/2024 FINDINGS: CHEST: Tracheobronchial tree: Patent where visualized. Pulmonary parenchyma: There are no new pulmonary nodules. The visualized pulmonary nodules are stabl e in size. No focal consolidating infiltrates are seen. Mild centrilobular emphysematous changes ar e seen in the lungs. Visualized thyroid gland: Unremarkable. Mediastinum and Cynthia: No dominant adenopathy or fluid collection. The esophagus is unremarkable. Pleura: No effusion or pneumothorax. Heart: The heart is not dilated. Coronary artery calcifications are present. No pericardial effusion . Pulmonary arteries: No pulmonary emboli are identified. Aorta: Thoracic aorta non-dilated. Atherosclerotic calcification is seen. No evidence of dissection. Lymph nodes: Within normal limits. Tubes, Catheters, and Lines: There is a right-sided indwelling central venous catheter. Soft tissues: Unremarkable. Bones:Within normal limits for the patient's age. Old healed rib fractures. ABDOMEN: Liver: Normal density. No measurable mass. There is focal fatty infiltration in the left lobe of the liver. Portal, Superior Mesenteric, and Splenic Veins: Unremarkable. Gallbladder and Biliary Tract: Gallstone. No biliary ductal dilatation. Pancreas: Normal density, no abnormal calcifications or inflammatory process. Spleen: Normal. Adrenals: No masses seen. Kidneys: Normal size, contour and axis. There is mildly heterogeneous enhancement of the kidneys bila terally. This can be seen with pyelonephritis. No discrete mass is seen. Please correlate clinical ly. No masses seen. Abdominal Aorta: Abdominal portion non-dilated. Atherosclerotic calcification is present. Bowel: Rectosigmoid resection with a left lower quadrant colostomy. There is a large amount of stool seen in the colon suggesting constipation. There is no evidence of bowel obstruction or bowel wall thickening. Peritoneal Cavity: No ascites, collection or mesenteric inflammatory response. No free air. Lymph Nodes: Within normal limits. Bones: There are degenerative changes seen in the hips, right greater than left. Age-appropriate deg enerative changes are seen in the spine. No aggressive osseous lesions are identified at this time. There is unchanged compression of the superior endplate of L4. Soft Tissues: Unremarkable. PELVIS: Bladder: There is been resection of the urinary bladder. There is a right lower quadrant urostomy. Reproductive Organs: The prostate gland is not visualized. Lymph Nodes: Within normal limits. Bones: Within normal limits. IMPRESSION: 1. Stable pulmonary nodules. 2. Status post rectosigmoid resection and cystectomy. 3. Incidental findings seen in the abdomen and pelvis. No acute abnormality. 4. No evidence of metastatic disease in the abdomen or pelvis. RADIATION DOSE DELIVERED: 257.38mGy.cm Total DLP DATA REPOSITORY: All CT scans at this facility are submitted to the National Radiology Data Registry (NRDR) Dose Index Registry (DIR) with the [employer] (ACR). RADIATION OPTIMIZATION: All CT scans at this facility use at least one of these dose optimization te chniques: automated exposure control; mA and/or kV adjustment per patient size (includes targeted exa ms where dose is matched to clinical indication); or iterative reconstruction.
[2024-05-28] MEDS: Barium Sulfate 2% W/V-Berry Smoothie 450 ML BTL PO ×2 (07:59→08:00)
[2024-05-28] MEDS: Normal Saline - Diluent 50 ML VIAL IJ (11:03)
[2024-05-28] MEDS: Omnipaque 350 MG/ML 500 ML BTL-Imaging package 100 ML IJ (11:04)
== END 2024-05-28 10:04 ==
PROVIDERS: PCP Nurse Practitioner Family; Visit Provider Nurse Practitioner Family
DX: C20 Malignant neoplasm of rectum (principal); C78.7 Secondary malignant neoplasm of liver and intrahepatic bile duct
CPT/HCPCS: 36591; 74177; 80053; 71260; 82378; 85025

== ENCOUNTER 2024-05-28 20:24 | Outpatient (REF) | payer MEDICARE, OTHER, SELFPAY ==
[2024-05-28 18:22] LABS: Bilirubin Negative (Negative); Blood Trace-intact (Negative); Clarity Clear (Clear); Glucose Negative (Negative); Ketones Negative (Negative); Leukocyte Esterase Trace (Negative); Nitrite Negative (Negative); Urobilinogen 0.2 mg/dL (Up to 0.2); pH 7.5 (5-8)
[2024-05-28 18:53] LABS: Bacteria Many HPF (Negative); C & S Indicated? C&S Done As Ordered; Casts Negative LPF (Negative); Crystals Negative HPF (Negative); Epithelial Cells Few HPF (Negative); Mucus Negative (Negative)
== END 2024-05-28 20:25 | disposition home or self-care (01) ==
LOC: LBN 20:24
PROVIDERS: PCP Nurse Practitioner Family; Visit Provider Nurse Practitioner Family
DX: R53.81 Other malaise (principal); N39.0 Urinary tract infection, site not specified; R82.89 Other abnormal findings on cytological and histological examination of urine
CPT/HCPCS: 87077; 81003; 81015; 87086; 87186

== ENCOUNTER 2024-06-18 00:46 | Outpatient (RCR) | payer MEDICARE, OTHER, SELFPAY ==
[2024-06-18] MEDS: Normal Saline Flush 10 ML SYR IVP (09:37)
[2024-06-18 09:48] LABS: Abs Immature Grans 0.36 10^3/uL (0.0-0.06); Absolute Basophil Count 0.11 10^3/uL (0.0-0.2); Absolute Eosinophil Count 0.21 10^3/uL (0.0-0.7); Absolute Lymphocyte Count 0.73 10^3/uL (1.2-3.4); Absolute Monocyte Count 1.21 10^3/uL (0.1-0.8); Absolute Neutrophil Count 9.74 10^3/uL (1.2-6.7); Basophils % 0.9 %; Eosinophils % 1.7 %; HGB 13.9 g/dL (13.5-17.5); Immature Grans % 2.9 %; Lymphocytes % 5.9 %; MCH 27.9 pg (27.0-33.0); MCHC 32.3 % (32.0-36.0); MCV 86 fL (80-95); MPV 9.5 fL (8.0-11.0); Monocytes % 9.8 %; Neutrophils % 78.8 %; Platelet Count 326 10^3/uL (130-400); RBC 4.99 10^6/uL (4.36-5.78); RDW 16.7 % (11.8-14.1); RDW-SD 52.2 fL; WBC 12.36 10^3/uL (4.4-10.8)
[2024-06-18 10:08] LABS: ALT 39 U/L (16-63); AST 31 U/L (15-37); Albumin 2.9 g/dL (3.4-5.0); Alkaline Phosphatase 102 U/L (46-116); Anion Gap 7.3 mmol/L (3-11); BUN 27 mg/dL (7-18); Bilirubin, Total 0.26 mg/dL (0.2-1.0); CO2 29.7 mmol/L (21.0-32.0); CREATININE 1.4 mg/dL (0.70-1.30); Calcium 9.4 mg/dL (8.5-10.1); Chloride 91 mmol/L (98-107); Estimated GFR 56.48 (mL/min/1.73m2); Glucose 138 mg/dL (74-106); Potassium 4.8 mmol/L (3.5-5.1); Sodium 128 mmol/L (136-145)
[2024-06-18 18:34] LABS: CEA 4.5 ng/mL (See Note)
== END 2024-07-01 23:59 | disposition home or self-care (01) ==
LOC: INF 00:46
PROVIDERS: Nurse Practitioner Family; PCP Nurse Practitioner Family; Visit Provider Internal Medicine Hematology & Oncology
DX: C20 Malignant neoplasm of rectum (principal); Z45.2 Encounter for adjustment and management of vascular access device; C78.7 Secondary malignant neoplasm of liver and intrahepatic bile duct
CPT/HCPCS: 36591; 80053; 82378; 85025

== ENCOUNTER 2024-07-15 01:39 | Outpatient (RCR) | payer MEDICARE, OTHER, SELFPAY ==
[2024-07-02 09:46] LABS: Abs Immature Grans 0.08 10^3/uL (0.0-0.06); Absolute Basophil Count 0.06 10^3/uL (0.0-0.2); Absolute Lymphocyte Count 0.86 10^3/uL (1.2-3.4); Basophils % 0.5 %; Eosinophils % 1.4 %; HCT 42.7 % (40.0-50.0); HGB 13.6 g/dL (13.5-17.5); Immature Grans % 0.7 %; Lymphocytes % 7.8 %; MCH 28.3 pg (27.0-33.0); MCHC 31.9 % (32.0-36.0); MCV 89 fL (80-95); MPV 8.8 fL (8.0-11.0); Monocytes % 5.4 %; Neutrophils % 84.2 %; Platelet Count 458 10^3/uL (130-400); RDW 17.2 % (11.8-14.1); RDW-SD 56.7 fL; WBC 11.07 10^3/uL (4.4-10.8)
[2024-07-02 09:50] LABS: Absolute Eosinophil Count 0.15 10^3/uL (0.0-0.7); Absolute Neutrophil Count 9.32 10^3/uL (1.2-6.7)
[2024-07-02 10:08] LABS: ALT 21 U/L (16-63); AST 19 U/L (15-37); Albumin 3.1 g/dL (3.4-5.0); Alkaline Phosphatase 81 U/L (46-116); Anion Gap 5.7 mmol/L (3-11); BUN 14 mg/dL (7-18); Bilirubin, Total 0.27 mg/dL (0.2-1.0); CO2 29.3 mmol/L (21.0-32.0); Calcium 9.4 mg/dL (8.5-10.1); Chloride 104 mmol/L (98-107); Estimated GFR 84.57 (mL/min/1.73m2); Glucose 124 mg/dL (74-106); Potassium 4.3 mmol/L (3.5-5.1); Sodium 139 mmol/L (136-145)
[2024-07-02] MEDS: Normal Saline Flush 10 ML SYR IVP (10:13)
[2024-07-02 18:57] LABS: CEA 6.7 ng/mL (See Note)
[2024-07-15 19:22] LABS: Bilirubin Negative (Negative); Blood Trace-intact (Negative); Clarity Cloudy (Clear); Glucose Negative (Negative); Ketones Negative (Negative); Leukocyte Esterase Large (Negative); Nitrite Negative (Negative); Urobilinogen 0.2 mg/dL (Up to 0.2)
[2024-07-15 19:31] LABS: WBC 20-50 HPF (0-5)
[2024-07-15 19:32] LABS: Bacteria Many HPF (Negative); C & S Indicated? C&S Done As Ordered; Crystals Negative HPF (Negative); Epithelial Cells Rare HPF (Negative); Mucus Negative (Negative)
== END 2024-07-31 23:59 | disposition home or self-care (01) ==
LOC: INF 01:39
PROVIDERS: Nurse Practitioner Family; PCP Nurse Practitioner Family; Visit Provider Internal Medicine Hematology & Oncology
DX: C20 Malignant neoplasm of rectum (principal); C78.7 Secondary malignant neoplasm of liver and intrahepatic bile duct; N39.0 Urinary tract infection, site not specified; Z45.2 Encounter for adjustment and management of vascular access device
CPT/HCPCS: 36591; 80053; 87077; 81003; 81015; 82378; 85025; 87086; 87186

== ENCOUNTER 2024-08-03 17:18 | Outpatient (REF) | payer MEDICARE, OTHER, SELFPAY ==
[2024-08-03 19:10] LABS: Bilirubin Negative (Negative); Blood Negative (Negative); Clarity Clear (Clear); Glucose Negative (Negative); Ketones Negative (Negative); Leukocyte Esterase Negative (Negative); Nitrite Negative (Negative); Specific Gravity 1.015 (1.005-1.025); Urobilinogen 0.2 mg/dL (Up to 0.2); pH 7.5 (5-8)
[2024-08-03 19:28] LABS: Bacteria Moderate HPF (Negative); C & S Indicated? C&S Done As Ordered; Crystals Few Triple Phos HPF (Negative); Epithelial Cells Rare HPF (Negative); RBC 0-2 HPF (0-2); WBC 20-50 HPF (0-5)
== END 2024-08-03 17:19 | disposition home or self-care (01) ==
LOC: LBN 17:18
PROVIDERS: PCP Nurse Practitioner Family; Visit Provider Nurse Practitioner Family
DX: N39.0 Urinary tract infection, site not specified (principal)
CPT/HCPCS: 81003; 81015; 87086